=== PATIENT | female | born 1965 | race Caucasian/White ===

== ENCOUNTER → 2016-11-04 | Outpatient (CLI) | payer OTHER ==
[~2016-11-04] MED LIST: IBUP-1459 PO; LISI-787 PO; PRLSR20 PO; TERB250T47 PO
[2016-11-04 12:15] LABS: BLOOD UREA NITROGEN 12 mg/dl (7-18); BUN/CREATININE RATIO 15.3 (10-20); CALCIUM 9.4 mg/dl (8.5-10.1); CARBON DIOXIDE 28 mmol/L (21-32); CHLORIDE 105 mmol/L (98-107); CHOLESTEROL 231 mg/dl (0-200); CREATININE 0.76 mg/dl (0.60-1.20); GLUCOSE,FASTING 87 mg/dl (70-99); POTASSIUM 3.8 mmol/L (3.5-5.1); SODIUM 139 mmol/L (136-145)
[2016-11-04 12:18] LABS: ALB/GLOB RATIO 0.8 (0.9-2); ALKALINE PHOSPHATASE 139 U/L (45-117); ALT/SGPT 21 U/L (12-78); AST/SGOT 17 U/L (15-37); CHOLESTEROL/HDL RATIO 5.4; HDL CHOLESTEROL 43 mg/dl; LDL CHOLESTEROL CALCULATED 153 mg/dl; TRIGLYCERIDES 174 mg/dl (0-150); VERY LOW DENSITY LIPOPROT CALC 35 mg/dl
== END | disposition home or self-care (01) ==
LOC: C.LABPBG 09:38
PROVIDERS: ATTEND Physician Assistant
DX: Z00.00 Encounter for general adult medical examination without abnormal findings (principal)

== ENCOUNTER → 2016-11-30 | Outpatient (CLI) | payer OTHER ==
[2016-11-30 18:02] LABS: ALKALINE PHOSPHATASE 145 U/L (45-117); ALT/SGPT 24 U/L (12-78); AST/SGOT 12 U/L (15-37)
== END | disposition home or self-care (01) ==
LOC: C.LABPBG 13:09
PROVIDERS: ATTEND Neuromusculoskeletal Medicine & OMM
DX: B35.8 Other dermatophytoses (principal)

== ENCOUNTER → 2016-12-07 | Outpatient (CLI) | payer OTHER ==
--- NOTE | 2016-12-07 10:31 | DIAGNOSTIC IMAGING REPORT ---
ABDOMINAL ULTRASOUND, RIGHT UPPER QUADRANT HISTORY: ELEVATED ALCYLINE LEVEL. COMPARISON: None. FINDINGS: Pancreas: The pancreatic head and tail are obscured by overlying bowel gas. The remaining portions of the pancreas are within normal limits. Liver: Unremarkable. Gallbladder: The gallbladder is surgically absent. CBD: 5 mm. Right kidney: No hydronephrosis. IMPRESSION: No significant abnormality identified within the right upper quadrant. Cholecystectomy. Electronically signed by: Scooter Rodriguez M.D. 12/07/2016 10:29 AM Dictated Date/Time: 12/07/2016 10:28 AM
== END | disposition home or self-care (01) ==
LOC: C.ULTR 10:04
PROVIDERS: ATTEND Neuromusculoskeletal Medicine & OMM
DX: R74.8 Abnormal levels of other serum enzymes (principal); Z90.49 Acquired absence of other specified parts of digestive tract

== ENCOUNTER → 2016-12-07 | Outpatient (CLI) | payer OTHER ==
--- NOTE | 2016-12-08 12:44 | MAMMOGRAPHY REPORT ---
THIS REPORT HAS BEEN AMENDED. BILATERAL DIGITAL SCREENING MAMMOGRAM TOMOSYNTHESIS WITH CAD: 12/07/2016 CLINICAL HISTORY: Routine screening. Patient has no complaints. TECHNIQUE: Breast tomosynthesis in addition to standard 2D mammography was performed. Current study was also evaluated with a Computer Aided Detection (CAD) system. COMPARISON: No prior exams were available for comparison. BREAST COMPOSITION: The tissue of both breasts is almost entirely fatty. FINDINGS: There are intramammary lymph nodes in each upper outer quadrant. No suspicious mass, arch itectural distortion or cluster of microcalcifications is seen. IMPRESSION: ACR BI-RADS CATEGORY 1: NEGATIVE There is no mammographic evidence of malignancy. Prior outside mammograms are currently being reques vitor and if obtained they will be reviewed, compared to the current exam to assess for any more subtle changes, and an addendum will be made to this report. Otherwise, a 1 year screening mammogram is re commended. The patient will receive written notification of the results. Approximately 10% of breast cancers are not detected with mammography. A negative mammographic report should not delay biopsy if a clinically suggestive mass is present. Gemma Patton M.D. ay/:12/08/2016 08:06:18 Component Design Engineer: Jenny Taylor M, [facility] letter sent: Normal 04/04 BI-RADS Code: ACR BI-RADS Category 1: Negative AMENDMENT: 12/19/2016 Gemma Patton M.D. Prior outside mammograms from [facility] dated 06/21/2007 became available for review. Ther e has been no significant interval change compared to the prior outside exam. The intramammary lymph nodes identified in each upper outer quadrant are stable. No new suspicious mass, architectural disto rtion, asymmetry or microcavitation calcifications are identified. Recommend routine screening in 1 year. Amended BI-RADS: ACR BI-RADS Category 2: Benign letter sent: Normal 2
== END | disposition home or self-care (01) ==
LOC: C.MAMM 13:33
PROVIDERS: ATTEND Physician Assistant
DX: Z12.31 Encounter for screening mammogram for malignant neoplasm of breast (principal)

== ENCOUNTER → 2017-04-07 | Outpatient (CLI) | payer OTHER | END | disposition home or self-care (01) | LOC: C.LABSPEC 10:07 | PROVIDERS: ATTEND Family Medicine | DX: R39.9 Unspecified symptoms and signs involving the genitourinary system (principal) ==

== ENCOUNTER → 2017-05-25 | Outpatient (CLI) | payer OTHER ==
[~2017-05-25] MED LIST changes: -TERB250T47 PO
[2017-05-25 12:21] LABS: ALBUMIN 3.4 gm/dl (3.4-5.0); ALT/SGPT 24 U/L (12-78); AST/SGOT 18 U/L (15-37); BLOOD UREA NITROGEN 10 mg/dl (7-18); CARBON DIOXIDE 27 mmol/L (21-32); CHOLESTEROL 139 mg/dl (0-200); CREATININE 0.77 mg/dl (0.60-1.20); GLUCOSE 108 mg/dl (70-99); POTASSIUM 3.8 mmol/L (3.5-5.1); SODIUM 130 mmol/L (136-145)
[2017-05-25 12:23] LABS: ALKALINE PHOSPHATASE 127 U/L (45-117); LDL CHOLESTEROL CALCULATED 73 mg/dl; TOTAL PROTEIN 7.5 gm/dl (6.4-8.2)
== END | disposition home or self-care (01) ==
LOC: C.LABPBG 08:40
PROVIDERS: ATTEND Family Medicine
DX: Z00.00 Encounter for general adult medical examination without abnormal findings (principal)

== ENCOUNTER → 2017-07-06 | Outpatient (CLI) | payer OTHER ==
[2017-07-06 17:43] LABS: BLOOD UREA NITROGEN 12 mg/dl (7-18); CARBON DIOXIDE 29 mmol/L (21-32); CREATININE 0.75 mg/dl (0.60-1.20); GLUCOSE 84 mg/dl (70-99); POTASSIUM 4.2 mmol/L (3.5-5.1); SODIUM 135 mmol/L (136-145)
== END | disposition home or self-care (01) ==
LOC: C.LABPBG 12:10
PROVIDERS: ATTEND Physician Assistant
DX: E87.1 Hypo-osmolality and hyponatremia (principal)

== ENCOUNTER → 2017-08-14 | Outpatient (CLI) | payer OTHER ==
[~2017-08-14] MED LIST changes: +ESTR0.5T3 PO; +HYZ/50125 PO
--- NOTE | 2017-08-14 10:53 | DIAGNOSTIC IMAGING REPORT ---
R HIP UNILATERAL 2 VIEWS CLINICAL HISTORY: Right hip pain. COMPARISON: None FINDINGS: This exam is compromised by suboptimal penetration related to body habitus. However, alignment of the right hip is anatomic. No fracture or suspicious lesion is present. There is no evidence for avascular necrosis. The right hip joint space is preserved. There is mild osteophytosis. A pelvic surgical clip is incidentally noted. IMPRESSION: 1. Mild osteoarthritis of the right hip. Preserved joint space with mild osteophytosis. 2. No acute fracture. Electronically signed by: Dave Vargas M.D. 08/14/2017 10:52 AM Dictated Date/Time: 08/14/2017 10:50 AM
== END | disposition home or self-care (01) ==
LOC: C.RADBC 10:26
PROVIDERS: ATTEND Physician Assistant
DX: M16.11 Unilateral primary osteoarthritis, right hip (principal); M25.751 Osteophyte, right hip

== ENCOUNTER → 2017-10-26 | Outpatient (CLI) | payer OTHER ==
[~2017-10-26] MED LIST changes: -LISI-787 PO
== END | disposition home or self-care (01) ==
LOC: C.LABPBG 15:43
PROVIDERS: ATTEND Family Medicine
DX: G25.81 Restless legs syndrome (principal)

== ENCOUNTER 2018-12-26 05:50 | Inpatient (IN) ==
--- NOTE | 2018-12-18 16:01 | PAT Medication Instructions ---
Medication Instructions Date of Service December 18, 2018 Home Medications Medication Instructions Recorded fluticasone propionate 50 1 sprays INTNAS DAILY PRN #18.2 gm 11/21/18 mcg/actuation nasal spray,suspension estradiol 1 mg PO UD omeprazole 20 mg PO QAM oxybutynin chloride ER 10 mg tablet,extended release 24 hr 10 mg PO QAM fluticasone propionate 50 mcg/actuation nasal spray,suspension 1 sprays INTNAS DAILY PRN acetaminophen [Tylenol Extra Strength] 1,000 mg PO DAILY PRN aspirin [Adult Low Dose Aspirin] 81 mg PO QAM atorvastatin 40 mg PO QPM cholecalciferol (vitamin D3) [Vitamin D3] 4,000 units PO QAM losartan-hydrochlorothiazide 1 tab PO QAM ASK your prescriber and surgeon estradiol 1 mg PO UD aspirin [Adult Low Dose Aspirin] 81 mg PO QAM DO NOT take the morning of surgery oxybutynin chloride ER 10 mg tablet,extended release 24 hr 10 mg PO QAM cholecalciferol (vitamin D3) [Vitamin D3] 4,000 units PO QAM losartan-hydrochlorothiazide 1 tab PO QAM Take morning of surgery With a small sip of water, OTHERWISE NOTHING TO EAT OR DRINK AFTER MIDNIGHT: omeprazole 20 mg PO QAM fluticasone propionate 50 mcg/actuation nasal spray,suspension 1 sprays INTNAS DAILY PRN (if needed) acetaminophen [Tylenol Extra Strength] 1,000 mg PO DAILY PRN (okay to take up to 4 hours prior to surgery if needed) Take evening before surgery fluticasone propionate 50 mcg/actuation nasal spray,suspension 1 sprays INTNAS DAILY PRN (if needed) acetaminophen [Tylenol Extra Strength] 1,000 mg PO DAILY PRN (if needed) atorvastatin 40 mg PO QPM Other Notes If you have any questions please call us at [phone] or [phone] or [phone] or [phone]
--- NOTE | 2018-12-19 10:38 | Anesthesiology Consultation ---
Date of Service December 19, 2018 Assessment & Plan (1) Encounter for pre-operative examination: - Chlorhexidine reaction: patient was not given wipes at PAT visit* - ASA instructions: per patient, she states she was advised by surgeon to c tad ASA perioperatively. Chart Review Chart Review: Pending: Refer to Additional Notes / Consult section (pending preop testing (labs, CXR)) and Patient seen in Pre Admission Testing Teaching & Discussion Pre-Anesthesia Teaching/Discussion Notes: Instructed NPO after midnight before surgery,except medications with 15 cc of water. Medication instructions provided according to the [facility] guidelines. History Surgery Operation Date: 12/26/18 07:15 Proposed Procedures p Aortobifemoral Bypass - Rudy Travis MD Height/Weight Height: 5 ft 2 in Weight: 118.8 kg Allergies Allergy/AdvReac Type Severity Reaction Status Date / Time chlorhexidine Allergy Intermediate hives, Verified 12/19/18 10:38 redness Penicillins AdvReac Intermediate nausea, Verified 12/19/18 10:38 vomiting, migraine buPROPion HCl TABS AdvReac Intermediate hallucinati Uncoded 12/19/18 10:38 ons Medications Home Medications Medication Instructions Recorded Confirmed Last Taken estradiol 1 mg PO UD 07/16/18 12/17/18 07/26/18 08:00 omeprazole 20 mg PO QAM 07/16/18 12/17/18 07/26/18 08:00 oxybutynin chloride ER 10 mg 10 mg PO QAM #30 tab 11/13/18 12/17/18 Unknown tablet,extended release 24 hr fluticasone propionate 50 1 sprays INTNAS DAILY PRN #18.2 gm 11/21/18 12/17/18 Unknown mcg/actuation nasal spray,suspension acetaminophen [Tylenol Extra 1,000 mg PO DAILY PRN 12/17/18 12/17/18 Unknown Strength] aspirin [Adult Low Dose Aspirin] 81 mg PO QAM 12/17/18 12/17/18 Unknown atorvastatin 40 mg PO QPM 12/17/18 12/17/18 Unknown cholecalciferol (vitamin D3) 4,000 units PO QAM 12/17/18 12/17/18 Unknown [Vitamin D3] losartan-hydrochlorothiazide 1 tab PO QAM 12/17/18 12/17/18 Unknown Past Medical History Medical History Peripheral arterial disease 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 Hypertension Migraine GERD (gastroesophageal reflux disease) controlled Degenerative disc disease Arthritis Hyperlipidemia Obesity, morbid Urinary incontinence Anxiety and depression Exercise / Class Metabolic Activity III < 4 Walking/Shop/Light housework Past Family History Family History Father Family hx colonic polyps Mother Coronary heart disease Depression Kidney disease Hypertension Father Lymphoma Brother Depression Muscular dystrophy Sister Depression Past Surgical History Surgical History History of bilateral tubal ligation History of cholecystectomy History of colonoscopy 07/26/18: MAC sedation at [facility] History of tonsillectomy History of tooth extraction History of total abdominal hysterectomy and bilateral salpingo-oophorectomy History of wisdom tooth extraction Status post myringotomy with tube placement of both ears multiple times Past Anesthesia History No Hx of Anesthesia Complications (except "emotional" upon anesthesia emergence) and No Family Hx of Anesthesia Complications History of PONV No Hx of PONV and No Hx of Motion Sickness Social History Smoking Status: Current every day smoker tobacco type: cigarettes Smoking cigarettes per day: 10 CIGARETTES/DAY (DOWN FROM 1 PPD) X 30 YEARS Do You Dip or Chew Tobacco: No Hx Alcohol Use: No Hx Substance Use: No substance use type: does not use Review of Systems Reflux controlled. Patient denies chest pain, shortness of breath, cough, wheezing, palpitations. Physical Exam Vital Signs VITALS BP 116/78 P 89 TEMP 98.4 SP02 99%RA RESP 16 PHYSICAL Full neck and c-spine range of motion. Full TMJ range of motion. TMD 4 finger breaths Mallampati Score 2 Dentition: missing sides/molars Lungs: clear throughout to auscultation Cardiac: regular rate and rhythm, no murmurs noted Spine: normal Carotid arteries: negative bruit Extremities: no edema Testing Electrocardiogram Date: 09/05/18 Findings: + NSR @ (84) Stress Test Date: 09/06/18 Type: DSE Negative DSE for ischemia at 91% MPHR. Negative dobutamine EKG for ischemia. LVEF 60%. No RWMA.
--- NOTE | 2018-12-19 11:15 | XRay Report ---
XR chest Pre-admission PA/Lat HISTORY: Preop. COMPARISON: None. FINDINGS: There are low lung volumes. The lungs are clear. The heart is normal in size. No pleural ef fusions. No pneumothorax. Prior cholecystectomy. IMPRESSION: No acute process. Electronically signed by: Scooter Rodriguez M.D. 12/19/2018 11:14 AM
[2018-12-19 13:15] LABS: Basophils # (auto) 0.03 K/uL (0-0.2); Basophils % (auto) 0.3 %; Eosinophils # (auto) 0.09 K/uL (0-0.5); Hematocrit (blood only) 41.5 % (37-47); Hemoglobin 14.1 g/dL (12.0-16.0); Immature Granulocytes # (auto) 0.02 K/uL (0.00-0.02); Immature Granulocytes % (auto) 0.2 %; Lymphocytes # (auto) 2.58 K/uL (1.2-3.4); Lymphocytes % (auto) 29.4 %; Mean Corpuscular Hemoglobin 29.9 pg (25-34); Mean Corpuscular Volume 87.9 fL (80-100); Mean Platelet Volume 8.7 fL (7.4-10.4); Monocytes # (auto) 0.56 K/uL (0.11-0.59); Monocytes % (auto) 6.4 %; Neutrophils # (auto) 5.51 K/uL (1.4-6.5); Neutrophils % (auto) 62.7 %; Platelet Count 291 K/uL (130-400); RDW Coefficient of Variation 14.5 % (11.5-14.5); RDW Standard Deviation 46.8 fL (36.4-46.3); Red Blood Count 4.72 M/uL (4.2-5.4); White Blood Count 8.79 K/uL (4.8-10.8)
[2018-12-19 13:25] LABS: BUN Creatinine Ratio 8.9 (10-20); Calcium 9.1 mg/dl (8.5-10.1); Creatinine Clr Calc Pharmacy 100.7 ml/min; Est GFR (African American) 98.2; Est GFR (Non-African American) 84.8; Potassium 4.1 mmol/L (3.5-5.1)
[2018-12-19 13:34] LABS: Partial Thromboplastin Time 26.8 Seconds (21.0-31.0); Prothrombin Time 9.9 Seconds (9.0-12.0)
--- NOTE | 2018-12-25 15:40 | History & Physical Report ---
Date of Service December 25, 2018 Assessment & Plan (1) Aortic occlusion: Patient is admitted for an aortobifemoral bypass. I have discussed the risks options and benefits of the procedure with the patient. The patient understands the risks options and benefits and agrees to the procedure. History of Present Illness Chief Complaint: Abdominal aortic occlusion Primary Care Provider: Courtney Lynch, DO I the pleasure of seeing Meghan today for follow-up. As you know she is a 53-year-old female who is scheduled for an aortobifemoral bypass at [facility]. She was canceled at that time due to rash in her groin. Since then she is was taking Mycostatin powder. She claims her rash has cleared up and would like her surgery done in [facility] in [place] to avoid the trip down the [facility]. Allergies Allergy/AdvReac Type Severity Reaction Status Date / Time chlorhexidine Allergy Intermediate hives, Verified 12/26/18 06:11 redness Penicillins AdvReac Intermediate nausea, Verified 12/26/18 06:11 vomiting, migraine bupropion AdvReac Hallucinati Verified 12/26/18 06:11 ng Home Medications Home Medications Medication Instructions Recorded Confirmed Type estradiol 1 mg PO UD 07/16/18 12/26/18 History omeprazole 20 mg PO QAM 07/16/18 12/26/18 History oxybutynin chloride ER 10 mg 10 mg PO QAM #30 tab 11/13/18 12/26/18 History tablet,extended release 24 hr fluticasone propionate 50 1 sprays INTNAS DAILY PRN #18.2 gm 11/21/18 12/26/18 Rx mcg/actuation nasal spray,suspension acetaminophen [Tylenol Extra 1,000 mg PO DAILY PRN 12/17/18 12/26/18 History Strength] aspirin [Adult Low Dose Aspirin] 81 mg PO QAM 12/17/18 12/26/18 History atorvastatin 40 mg PO QPM 12/17/18 12/26/18 History cholecalciferol (vitamin D3) 4,000 units PO QAM 12/17/18 12/26/18 History [Vitamin D3] losartan-hydrochlorothiazide 1 tab PO QAM 12/17/18 12/26/18 History Past Med/Surg History Medical History Peripheral arterial disease 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 History of tonsillectomy History of tooth extraction History of total abdominal hysterectomy and bilateral salpingo-oophorectomy History of wisdom tooth extraction Status post myringotomy with tube placement of both ears multiple times Family History Father Family hx colonic polyps Mother Coronary heart disease Depression Kidney disease Hypertension Cardiac disorder Myocardial infarction Father Lymphoma Brother Depression Muscular dystrophy Clotting disorder Sister Depression Grandfather Myocardial infarction Social History Preferred Language: Mauritian Communication Ability: Effective Plastic Shaper Required: No Beliefs That Will Affect Care: None Current Living Situation: Spouse and Family Current Living Situation Comment: Lives with and 2 adult children current occupation: homemaker Other Information That Helps Us Care for You: No Feels Safe at Home: Yes Safety Concerns: Feels Safe At This Time Smoking Status: Current every day smoker Tobacco Type: cigarettes ; Cigarettes Per Day: 20 a day ; Do You Dip or Chew Tobacco: No ; Second Hand Exposure: Yes ( and son smoke) ; Tobacco Cessation Education Requested by Patient: No Hx Alcohol Use: No Hx Substance Use: No Review of Systems All systems reviewed & are unremarkable except as noted in HPI & below + claudication Physical Exam Constitutional: well developed and well nourished; no acute distress Neck: trachea midline Respiratory: normal respiratory effort, lungs clear to auscultation Cardiovascular: Rate/Rhythm: regular rate and regular rhythm Vessels: radial pulses present; + femoral pulses abnormal, + posterior tibial pulses abnormal and + dorsalis pedis pulses abnormal Gastrointestinal (Abdomen): normal bowel sounds, soft, nontender, no hepatosplenomegaly Musculoskeletal: Extremities: extremities normal to inspection and strength 5/5 throughout; full ROM of extremities Skin: no rashes, warm and dry Neurologic: normal touch/pain/proprioception and CN's II-XI intact bilaterally Motor/Sensory: normal movement Psychiatric: A+Ox3, euthymic affect
[2018-12-26] MEDS ORDERED: LACTATED RINGER'S 1,000 ML IV SCH (06:00)
[2018-12-26] MEDS ORDERED: CLINDAMYCIN 600 MG/54 ML BAG IV SCH (06:00)
[2018-12-26] MEDS ORDERED: LR 15ML/HR IV SCH (06:00)
[2018-12-26] MEDS ORDERED: HYDROmorphone INJ 1 MG/ML SYRINGE IV PRN (07:16)
[2018-12-26] MEDS ORDERED: ATROPINE SULFATE 0.1 MG/ML 10ML SYR IV PRN (07:16)
[2018-12-26] MEDS ORDERED: fentaNYL citrate 100 MCG/2 ML VIAL IV PRN (07:16)
[2018-12-26] MEDS ORDERED: ePHEDrine sulfate 50 MG/ML AMP IV PRN (07:16)
[2018-12-26] MEDS ORDERED: ONDANSETRON INJ 2 MG/ML 2 ML VIAL IV PRN ×2 (07:16→15:06)
[2018-12-26] MEDS ORDERED: CEFAZOLIN 250 MG/ML 1 GM VIAL ONE (07:25)
[2018-12-26] MEDS ORDERED: HEPARIN (PORCINE) 1000 UNIT/ML 10 ML (CATH LAB USE ONLY) ONE ×2 (07:25→09:25)
[2018-12-26] MEDS ORDERED: GELATIN SPONGE SZ 100 ONE (07:25)
[2018-12-26] MEDS ORDERED: THROMBIN FOR SOLN 20000 UNIT KIT ONE (07:26)
[2018-12-26] MEDS ORDERED: fentaNYL citrate 100 MCG/2 ML VIAL ONE ×2 (07:40→14:50)
[2018-12-26] MEDS ORDERED: MIDAZOLAM HCL 1 MG/ML 2ML VIAL ONE ×3 (07:40→15:59)
[2018-12-26] MEDS ORDERED: NITROGLYCERIN/D5W 100MCG/ML 20ML SYR ONE (07:43)
--- NOTE | 2018-12-26 08:06 | History & Physical Bridge Note ---
Date of Service December 26, 2018 History & Physical Bridge Note I have examined the patient, reviewed the History & Physical and in the interval since the performance of the History & Physical I have noted the following changes of clinical significance: no changes noted
[2018-12-26] MEDS ORDERED: HYDROmorphone INJ 2 MG/ML SYR/VIAL ONE ×2 (09:05→09:34)
[2018-12-26] MEDS ORDERED: KETAMINE HCL INJ 50 MG/ML 10 ML VIAL ONE (09:05)
[2018-12-26] MEDS ORDERED: PROPOFOL IV EMULSION 10 MG/ML 20 ML VIAL IV ONE (09:32)
[2018-12-26] MEDS ORDERED: LIDOCAINE HCL 2% 2 ML VIAL/AMP(20MG/ML) INFIL ONE (09:41)
[2018-12-26] MEDS ORDERED: SODIUM CHLORIDE 0.9% INJ 10 ML VIAL ONE (09:41)
[2018-12-26] MEDS ORDERED: ROCURONIUM BROMIDE 10 MG/ML 5 ML VIAL ONE ×5 (09:41→14:54)
[2018-12-26] MEDS ORDERED: PHENYLEPHRINE HCL 10 MG/ML VIAL ONE ×2 (09:41→13:27)
[2018-12-26] MEDS ORDERED: DEXAMETHASONE SOD INJ 4 MG/ML VIAL ONE (09:41)
[2018-12-26] MEDS ORDERED: ONDANSETRON INJ 2 MG/ML 2 ML VIAL ONE (09:41)
[2018-12-26] MEDS ORDERED: HEPARIN SOD (PORCINE) 1000 UNIT/ML 10 ML VIAL ONE ×2 (09:51→12:12)
[2018-12-26] MEDS ORDERED: BACITRACIN INJ 50,000 UNIT VIAL ONE ×2 (10:28→14:43)
[2018-12-26] MEDS ORDERED: MANNITOL 25% 12.5 GM/50 ML VIAL IV ONE (11:10)
[2018-12-26] MEDS ORDERED: VASOPRESSIN 20 UNIT/ML VIAL ONE (11:40)
[2018-12-26] MEDS ORDERED: PROTAMINE SULFATE 10 MG/ML 5 ML VIAL ONE (14:49)
[2018-12-26] MEDS ORDERED: METOPROLOL TARTRATE 1 MG/ML VIAL IV ONE (15:01)
--- NOTE | 2018-12-26 15:05 | Post Operative Brief Note ---
Immediate Post Op Note v1 Date of Surgery December 26, 2018 Pre & Post Diagnosis Operation Date: 12/26/18 08:00 Pre-Op Diagnosis: Aortoiliac Occlusive Disease Post-Op Diagnosis: Aortoiliac Occlusive Disease Procedure Operation Date: 12/26/18 08:00 Actual Procedures p Aortobifemoral Bypass(Not Applicable) - Rudy Travis MD Surgeon Rudy Travis MD Cardiologist MD dEith IrahetaMinarchick,PAC Estimated Blood Loss 600 Findings Consistent with Post-Op Diagnosis Drains Nayak Catheter Anesthesia Type General Complications none Disposition Accompanied Patient To Recovery: No Disposition: Surgical ICU
[2018-12-26 16:26] LABS: iSTAT Creatinine 0.5 mg/dl (0.6-1.3); iSTAT Hemoglobin 9.5 g/dl (12.0-16.0); iSTAT Ionized Calcium 0.98 mmol/l (1.12-1.32); iSTAT Potassium 4.3 mEq/L (3.3-5.0)
[2018-12-26 16:26] LABS: iSTAT Arterial Blood Gas HCO3 18 meg/L (19-24); iSTAT Arterial Blood Gas pCO2 41 mmHg (35-46); iSTAT Arterial Blood Gas pH 7.25 (7.35-7.45); iSTAT Arterial Blood Gas pO2 408 mmHg (80-95); iSTAT Carbon Dioxide 19 mEq/l (24-31)
[2018-12-26 16:26] LABS: iSTAT Creatinine 0.5 mg/dl (0.6-1.3); iSTAT Hemoglobin 12.6 g/dl (12.0-16.0); iSTAT Ionized Calcium 1.13 mmol/l (1.12-1.32); iSTAT Potassium 3.5 mEq/L (3.3-5.0)
[2018-12-26 16:26] LABS: iSTAT Creatinine 0.5 mg/dl (0.6-1.3); iSTAT Hemoglobin 11.2 g/dl (12.0-16.0); iSTAT Potassium 4.2 mEq/L (3.3-5.0)
[2018-12-26] MEDS ORDERED: PHENYLEPHRINE HCL 20 MG in DEXTROSE 5% 500 ML IV STA (16:26)
[2018-12-26] MEDS ORDERED: CALCIUM GLUCONATE 10% 10 ML VIAL IV STA (16:28)
[2018-12-26] MEDS ORDERED: SODIUM CHLORIDE 0.9% 250 ML IV PRN (16:34)
--- NOTE | 2018-12-26 16:35 | Operative Report ---
Post Operative Report Pre & Post Diagnosis Operation Date: 12/26/18 08:00 Pre-Op Diagnosis: Aortoiliac Occlusive Disease Post-Op Diagnosis: Aortoiliac Occlusive Disease Procedure Operation Date: 12/26/18 08:00 Actual Procedures p Aortobifemoral Bypass(Not Applicable) - Rudy Travis MD Surgeon Rudy Travis MD Administrative Library Assistant MD Esequiel L.Minarchick,PAC Estimated Blood Loss 600 Findings Consistent with Post-Op Diagnosis Specimens None Anesthesia Type General Complications none Disposition Disposition: Surgical ICU Indications Meghan Russell is a 53 year old women with Aortoiliac Occlusive disease. She was having symptoms of claudication and was offered a aortobifemoral bypass. The risks and benefits of the procedure were discussed with the patient and wished to proceed. Consent was signed prior to her entering the operating room. Description of Procedure The patient was brought to the operating room and placed in the supine position with the arms out. General anesthesia was induced and the patient was safely intubated. An arterial line was placed in the left wrist and a horner was inserted. The patient was prepped from the xiphoid to bilateral knees and draped in the standard fashion. A surgical time out was preformed confirming patient and procedure. A midline incision was then made using a #10 scalpel from the xiphoid to below the umbilicus. This was deepened using electrocautery until the fascia was reached. Kochers were used to grasp the fascia on either side of midline and sharply divided allowing for safe entry into the abdomen. A finger was inserted into the peritoneal cavity used to bluntly sweep omental adhesions away from midline. The remainder of the fascia was then opened. The remainder of the omental adhesions were then divided from the abdominal wall. A Bookwalter self-retaining retractor was then placed and used to push the transverse colon into the upper abdomen and small bowel into the right lower quadrant. Additional retractors were then placed to adequately expose the retroperitoneum overlaying the infrarenal aorta. The retroperitoneum was then divided and blunt dissection was used until the aorta was identified. The overlaying lymphatic and neur ovascular tissue was divided until an adequate length of aorta was exposed to complete our anastomosis. During this the IMV was identified and doubly clipped before being divided, this allow for additional superior retraction. Attention was then turned to exposure of the bilateral femoral arteries. A vertical incision as made in the the left groin and carried down to the femoral sheath with electrocautery. This was then sharply opened to expose the left SFA, the artery was then dissected superiorly over the ENVIRONMENTAL FIELD PROFESSIONAL until the inguinal ligament was reached. The Profunda was identified and dissected so that it could be safely clamped. We next made an vertical incision in the right groin and carried the incision down to the femoral sheath which was then sharply opened. The SFA was identified and the dissection was then carried proximally to the level of the inguinal ligament. During this a small medial branch was avulsed. A 6-0 Prolene was used in a figure of eight fashion to control the bleeding on the ENVIRONMENTAL FIELD PROFESSIONAL, and a clip was used to control the distal branch. Following this the Profunda was dissected to allow for clamping. Bacitracin soaked laparotomy pads were then placed in the groin incisions. At his point 8000 units of Heparin were given intravenously. We returned to the abdomen and proceed to place a clamp across the proximal and distal infrarenal aorta. A arteriotomy was made with a #11 scalpel and extended with a angled Crowe scissor. A Le Claire-Osiel 14 x 7mm bifurcated graft was then selected and parachuted onto the aorta using 3-0 Prolene. The anastomosis was then completed in a running fashion. There was significant calcification of the left wall of the aorta in this area. The legs of the graft were clamped and our distal aortic clamp was removed and a area of bleeding was noted at the toe of our anastomosis. This was controlled with a pledgeted 3-0 Prolene. A tunnel was bluntly created from the left groin incision into our retroperineal dissection. A long aortic clamp was then passed through our tunnel and used to bring the left limb of the graft into our groin incision. Care was taken to ensure there was no twisting of the graft during this. The process was repeated on the the right. Thrombin soaked gel-foam was then placed around the aortic anastomosis and we proceed to begin the distal anastomoses. At this time 3000 units of additional heparin were given. Starting in the left groin, we clamped the ENVIRONMENTAL FIELD PROFESSIONAL, SFA and Profunda. A arteriotomy was made in the ENVIRONMENTAL FIELD PROFESSIONAL with a #11 scalpel and extended onto the SFA using angled Crowe scissors. There was a large plaque burden present and preformed a endarterectomy at this time. The graft was then trimmed to an appropriate length and beveled. A anastomosis was created using 5-0 Prolene in a running fashion. Our clamps were removed and our anastomosis was hemostatic. There were excellent Doppler signals present in the SFA and Profunda. Thrombin soaked gel-foam was placed across our suture line and the groin was packed with a laparotomy pad. Attention was turned to the right groin where we clamped the ENVIRONMENTAL FIELD PROFESSIONAL, SFA and Profunda. An arteriotomy was made on the ENVIRONMENTAL FIELD PROFESSIONAL and extended onto the SFA with Crowe scissors. Again, there was noted to be a moderate amount of plaque and a endarterectomy was preformed. The graft was trimmed and beveled to a appropriate length. A anastomosis was then created using 5-0 Prolene in a running fashion. Upon removal of our clamps there was noted to be a area of bleeding along our suture line which was controlled with a 6-0 Prolene in a figure of eight fashion. Excellent doppler signals were found in the Profunda and SFA. The suture line was packed with thrombin soaked gel-foam and a laparotomy pad was placed in the incision. Returning to the abdomen, our aortic anastomosis was hemostatic and the gel-foam was removed. The abdomen was then irrigated with a liter of bacitracin impregnated normal saline. The retroperitoneum was then reapproximated using 3-0 Vicryl in a running fashion. Following this, a small serosal tear was identified on a loop of small bowel. This was oversewn with 3-0 Silk Lembert suture. The retractors were removed and we began to close the abdomen. Looped #1 PDS was used to reapproximate the fascia. A layer of 2-0 Vicryl was then used to reapproximate the deep subcutaneous tissue and a layer of 3-0 Vicryl was used to bring the deep dermis together. Mind[place] were then used to reapproximated the skin. The groins were then closed in layers. First the femoral sheath was reapproximated with 2-0 Vicryl and the subcutaneous tissue was closed with a running 3-0 Vicryl. The skin was then closed with raul. All sponge, instrument and needle counts were correct. The patient was noted to have excellent DP signals bilaterally at the end of the Procedure. Clean dressings were applied to the wounds. The patient was then transported to SICU intubated in stable condition. Dr. Travis was present and scrubbed for all critical parts of the above procedure. I attest to the content of the Intraoperative Record and any orders documented therein. Any exceptions are noted below.
[2018-12-26] MEDS ORDERED: CALCIUM CHLORIDE 10% 1,000 MG in SODIUM CHLORIDE 0.9% 50 ML IV STA (16:37)
[2018-12-26] MEDS ORDERED: CALCIUM GLUCONATE 10% 1,000 MG in SODIUM CHLORIDE 0.9% 50 ML IV SCH (16:45)
[2018-12-26 16:51] LABS: iSTAT Art Bld Gas pCO2 Correct 31 mmHg (35-46); iSTAT Art Bld Gas pH Corrected 7.273 (7.35-7.45); iSTAT Arterial Blood Gas HCO3 14 meg/L (19-24); iSTAT Arterial Blood Gas pCO2 30 mmHg (35-46); iSTAT Arterial Blood Gas pH 7.28 (7.35-7.45); iSTAT Arterial Blood Gas pO2 151 mmHg (80-95); iSTAT Arterial Blood Gas pO2 C 153; iSTAT Carbon Dioxide 15 mEq/l (24-31); iSTAT FiO2 50 %; iSTAT Hematocrit 29 % (37-47); iSTAT Hemoglobin 9.9 g/dl (12.0-16.0); iSTAT Potassium 5.2 mEq/L (3.3-5.0); iSTAT Site Art Line; iSTAT Sodium 138 mEq/L (135-144)
[2018-12-26 16:57] LABS: Hematocrit (blood only) 34.5 % (37-47); Hemoglobin 11.2 g/dL (12.0-16.0); Mean Corpuscular Hemoglobin 29.6 pg (25-34); Mean Corpuscular Hgb Conc 32.5 g/dL (32-36); Mean Corpuscular Volume 91.3 fL (80-100); Mean Platelet Volume 8.4 fL (7.4-10.4); Platelet Count 298 K/uL (130-400); RDW Coefficient of Variation 14.8 % (11.5-14.5); RDW Standard Deviation 49.8 fL (36.4-46.3); Red Blood Count 3.78 M/uL (4.2-5.4); White Blood Count 32.69 K/uL (4.8-10.8)
[2018-12-26 17:00] LABS: INR 1.1 (0.9-1.1); Partial Thromboplastin Time 27.3 Seconds (21.0-31.0); Prothrombin Time 10.8 Seconds (9.0-12.0)
[2018-12-26 17:07] LABS: BUN Creatinine Ratio 13.6 (10-20); Calcium 6.4 mg/dl (8.5-10.1); Creatinine Clr Calc Pharmacy 77.5 ml/min; Est GFR (African American) 71.5; Est GFR (Non-African American) 61.7; Magnesium 1.7 mg/dl (1.8-2.4); Potassium 5.3 mmol/L (3.5-5.1)
--- NOTE | 2018-12-26 17:07 | Anesthesiology Progress Note ---
Date of Service December 26, 2018 Anesthesia Post Procedure Vital Signs Vital Signs: Temp Pulse Pulse Pulse Resp BP BP 12/26/18 16:57 99.3 F 122 H 16 118/66 12/26/18 16:56 98.8 F 119 H 20 119/66 12/26/18 16:50 117 H 20 110/62 12/26/18 16:45 125 H 20 72/50 L 12/26/18 16:40 128 H 20 50/30 L 12/26/18 16:35 121 H 20 71/40 L 12/26/18 16:30 114 H 20 52/32 L 12/26/18 16:26 99.1 F 126 H 26 H 72/50 L 12/26/18 16:25 117 H 16 12/26/18 06:19 98.2 F 100 H 20 BP Pulse Ox 12/26/18 16:57 100 12/26/18 16:56 100 12/26/18 16:50 100 12/26/18 16:45 100 12/26/18 16:40 100 12/26/18 16:35 100 12/26/18 16:30 100 12/26/18 16:26 103/58 L 100 12/26/18 16:25 95 12/26/18 06:19 159/94 H 97 Pain Intensity Bilateral Leg: Pain Intensity: 0 Transfer of Care Handoff Completed per policy Notes Mental Status: see notes below Patient Amnestic to Procedure: Yes Nausea / Vomiting: adequately controlled Pain: adequately controlled Airway Patency, RR, SpO2: stable & adequate BP & HR: stable & adequate Hydration State: stable & adequate Anesthetic Complications: no major complications apparent and see Notes below Notes: Pt is intubated in the ICU.
[2018-12-26 17:10] LABS: Basophils # (auto) 0.02 K/uL (0-0.2); Basophils % (auto) 0.1 %; Eosinophils # (auto) 0.01 K/uL (0-0.5); Immature Granulocytes % (auto) 0.6 %; Lymphocytes # (auto) 2.48 K/uL (1.2-3.4); Lymphocytes % (auto) 7.6 %; Monocytes # (auto) 2.39 K/uL (0.11-0.59); Monocytes % (auto) 7.3 %; Neutrophils # (auto) 27.59 K/uL (1.4-6.5); Neutrophils % (auto) 84.4 %
--- NOTE | 2018-12-26 17:20 | XRay Report ---
XR chest 1V portable CLINICAL HISTORY: 53 years-old Female presenting with lines. TECHNIQUE: Portable semiupright AP view of the chest was obtained. COMPARISON: 12/19/2018. FINDINGS: Endotracheal tube terminates in the upper to midthoracic trachea over 3 cm from the fauzia. Nasogastr ic tube descends below the diaphragm with side hole likely within the gastric lumen. No intravenous l ine is appreciated. Numerous overlying external leads. Cardiomediastinal silhouette normal. Mild prominence of perihilar lung markings. This may relate to t he mildly low lung volumes. No focal opacity. No large effusion or pneumothorax. Degenerative changes of the thoracic spine. Cholecystectomy clips noted. IMPRESSION: 1. Appropriately positioned tubes. 2. Mildly low lung volumes with hypoventilatory changes. Electronically signed by: Ulices Parra M.D. 12/26/2018 5:19 PM
[2018-12-26] MEDS: D5W AND 1/2NSS 1,000 ML IV SCH (17:59)
[2018-12-26] MEDS: MoRPHine SULFATE 4 MG/ML 1 ML CARP\\VIAL IV PRN ×3 (18:01→23:28)
[2018-12-26] MEDS: MIDAZOLAM HCL 1 MG/ML 2ML VIAL IV PRN ×3 (18:01→23:29)
--- NOTE | 2018-12-26 18:03 | Critical Care Consultation ---
Date of Consultation December 26, 2018 Assessment & Plan (1) Obesity, morbid: Reason Critically Ill: 53 year old woman s/p aortobifemoral bypass surgery who is intubated and on ventilator. She became hypotensive in ICU and is currently requiring pressor Neuro: unable to assess patient's mental status due to intubation No concerns for neurologic insult, will assess further s/p intubation Cardiovascular Aortic ilio occlusive disease status post bifemoral bypass Hypotensive, had measurements with MAP as low as 30's however suspect arterial line may have been spurious. Currently on .4mcg/kg/Hour of phenylephrine and maintaining pressure that is correlating on both A line and BP cuff Sinus tachycardia since arrival Currently running D5 and 1/2 normal at 125/hour Transfusing two units of PRBC's, lost 600 mls intraoperatively ABG on admission to ICU showing 7.29 with base gap of 10 Given calcium citrate, measuring ionized calcium Lactate 4.2 on admission, rechecking now Surgery appears to have been successful bilateral DP pulses palpable, feet appear pink and well perfused. Respiratory Intubated on vent oxygenating well clinically lung sounds normal Plan to extubate tomorrow morning. GI: Abdomen soft, no evidence of intrabdominal issues Will continue to monitor and advance diet post extubation ID: No concern for infectious process at this time. Covered with clindamycin Renal: making appropriate urine BMP scheduled for morning Code Status: Full Dispo: ICU for intubation and pressor requirements currently DVT PPx: SCD's F/E/N: NPO, D5 1/2 NSS at 125/hour (2) Hyperlipidemia: (3) Peripheral arterial disease: (4) Aortic occlusion: (5) S/P aortobifemoral bypass surgery: (6) Hypotension after procedure: (7) Lactic acidosis: (8) Endotracheally intubated: Supervising Physician Co-Signing Physician Notes Dr. Uriostegui was resident physician during care of patient. I separately evaluated patient for allen portions of the history and the exam. I was present during the critical portion of medical decision making, and I discussed the case with the resident. I generally agree with the findings and plan. Patient had extended surgery open aortobifem. After arrival in the ICU patient appeared to be hypotensive from her arterial line and noninvasive cuff however we were able to Doppler pedal pulses which is admittedly a discrepancy between her clinical condition and the reported values. We ordered volume expansion as well as blood and patient required vasoactive medication administration. She will remain intubated in anticipation of fluid shifts and ongoing resuscitation. History of Present Illness Reason for Consultation: Post Op on vent from an aortobifemoral bypass Requesting Physician: Rudy Travis Attending Physician: Rudy Travis MD Allergies Allergy/AdvReac Type Severity Reaction Status Date / Time chlorhexidine Allergy Intermediate hives, Verified 12/26/18 06:11 redness Penicillins AdvReac Intermediate nausea, Verified 12/26/18 06:11 vomiting, migraine bupropion AdvReac Hallucinati Verified 12/26/18 06:11 ng Home Medications Home Medications Medication Instructions Recorded Confirmed Type estradiol 1 mg PO UD 07/16/18 12/26/18 History omeprazole 20 mg PO QAM 07/16/18 12/26/18 History oxybutynin chloride ER 10 mg 10 mg PO QAM #30 tab 11/13/18 12/26/18 History tablet,extended release 24 hr fluticasone propionate 50 1 sprays INTNAS DAILY PRN #18.2 gm 11/21/18 12/26/18 Rx mcg/actuation nasal spray,suspension acetaminophen [Tylenol Extra 1,000 mg PO DAILY PRN 12/17/18 12/26/18 History Strength] aspirin [Adult Low Dose Aspirin] 81 mg PO QAM 12/17/18 12/26/18 History atorvastatin 40 mg PO QPM 12/17/18 12/26/18 History cholecalciferol (vitamin D3) 4,000 units PO QAM 12/17/18 12/26/18 History [Vitamin D3] losartan-hydrochlorothiazide 1 tab PO QAM 12/17/18 12/26/18 History Patient History Medical History Peripheral arterial disease 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 Hypertension Migraine GERD (gastroesophageal reflux disease) controlled Degenerative disc disease Arthritis Hyperlipidemia Obesity, morbid Urinary incontinence Anal fissure Anxiety and depression Elevated alkaline phosphatase level Hyponatremia Skin disorder Tick bite Tinea corporis Surgical History History of bilateral tubal ligation History of cholecystectomy History of colonoscopy 07/26/18: MAC sedation at [facility] History of tonsillectomy History of tooth extraction History of total abdominal hysterectomy and bilateral salpingo-oophorectomy History of wisdom tooth extraction Status post myringotomy with tube placement of both ears multiple times Family History Father Family hx colonic polyps Mother Coronary heart disease Depression Kidney disease Hypertension Cardiac disorder Myocardial infarction Father Lymphoma Brother Depression Muscular dystrophy Clotting disorder Sister Depression Grandfather Myocardial infarction Social History Preferred Language: Palestinian Communication Ability: Intubated Machine Packaging Technician Required: No Beliefs That Will Affect Care: None Current Living Situation: Spouse and Family Current Living Situation Comment: Lives with and 2 adult children current occupation: homemaker Other Information That Helps Us Care for You: No Feels Safe at Home: Yes Safety Concerns: Feels Safe At This Time Smoking Status: Current every day smoker Tobacco Type: cigarettes ; Cigarettes Per Day: 20 a day ; Do You Dip or Chew Tobacco: No ; Second Hand Exposure: Yes ( and son smoke) ; Tobacco Cessation Education Requested by Patient: No Hx Alcohol Use: No Hx Substance Use: No Review of Systems Review of Systems: Unobtainable due to endotracheal tube Physical Exam Physical Exam: Constitutional: Obese woman with large incision down both legs and abdomen from aortobifemoral bypass operation. Intubated on vent, sedated Eyes: Pupils equal round and reactive, anicteric sclerae, unable to assess EOMM Neck: NAD Respiratory: Patient intubated on ventilator, breath sounds bilaterally Cardiovascular: Very faint peripheral pulses palpable, bilateral DP pulses present and able to be picked up on u/s as well Gastrointestinal: Obese abdomen, bandage in place Skin: Bandages over new surgical wounds, pink well perfused skin cap refill normal Results & Data Vital Signs (Past 12 Hours) Vital Signs Temp Pulse Pulse Pulse Resp BP BP 12/26/18 17:50 128 H 72/48 L 12/26/18 17:46 122 H 74/60 L 12/26/18 17:45 37.4 C 121 H 12/26/18 17:41 121 H 12/26/18 17:36 122 H 12/26/18 17:32 122 H 12/26/18 17:30 126 H 12/26/18 17:25 124 H 12/26/18 17:21 123 H 12/26/18 17:15 121 H 108/36 L 12/26/18 17:11 37.4 C 120 H 101/38 L 12/26/18 17:06 115 H 12/26/18 17:01 119 H 12/26/18 17:00 119 H 12/26/18 16:57 37.4 C 122 H 16 118/66 12/26/18 16:56 37.1 C 122 H 119 H 20 86/34 L 119/66 12/26/18 16:50 117 H 20 110/62 12/26/18 16:45 119 H 125 H 20 72/50 L 12/26/18 16:40 128 H 20 50/30 L 12/26/18 16:37 108 H 25/12 L 12/26/18 16:35 121 H 20 71/40 L 12/26/18 16:34 118 H 71/40 L 12/26/18 16:32 119 H 44/36 L 12/26/18 16:30 117 H 114 H 20 52/32 L 12/26/18 16:26 37.3 C 126 H 26 H 72/50 L 12/26/18 16:25 117 H 16 12/26/18 16:20 125 H 72/50 L 12/26/18 16:18 115 H 67/51 L 12/26/18 16:17 115 H 66/56 L 12/26/18 06:19 36.8 C 100 H 20 BP Pulse Ox 12/26/18 17:50 12/26/18 17:46 12/26/18 17:45 12/26/18 17:41 12/26/18 17:36 12/26/18 17:32 12/26/18 17:30 12/26/18 17:25 12/26/18 17:21 12/26/18 17:15 12/26/18 17:11 12/26/18 17:06 12/26/18 17:01 12/26/18 17:00 12/26/18 16:57 12/26/18 16:56 12/26/18 16:50 12/26/18 16:45 96 12/26/18 16:40 12/26/18 16:37 12/26/18 16:35 12/26/18 16:34 12/26/18 16:32 53 L 12/26/18 16:30 91 12/26/18 16:26 103/58 L 100 12/26/18 16:25 95 12/26/18 16:20 100 12/26/18 16:18 100 12/26/18 16:17 100 12/26/18 06:19 159/94 H 97 PG Care Time/CCT Total # of Minutes Spent Total Time Spent with Patient: Total time spent is greater than 50% in coordination of care (as documented) at patient's floor/unit and/or counseling patient: Critical Care Time: Yes Total Critical Care Time: 95 I have personally spent 95 minutes of critical care time in the direct management of this patient. This is a life/limb threatening event. This includes time spent evaluating patient, direct bedside care, chart review, placing orders, interpretation of diagnostic studies, discussion with consultants, patient, and/or family members regarding treatment decisions, as well as other required patient management activities. This time is exclusive of all separately billable procedures, and teaching time and separate from and in addition to any other critical care service time. Resident Activity Tracking Resident Involvement: Resident Care Provided Care Provided: Adult Hospital Medicine
[2018-12-26] MEDS: CLINDAMYCIN 600 MG in DEXTROSE 5% 50 ML IV SCH (18:23)
[2018-12-26] MEDS ORDERED: INFLUENZA ADMINISTRATION CHARGE ONE (19:00)
[2018-12-26] MEDS ORDERED: INFLUENZA VIRUS QUAD VACCINE 0.5 ML SYR IM ONE (19:00)
[2018-12-26] MEDS ORDERED: CALCIUM CHLORIDE 10% 10 ML SYR IV ONE (21:40)
[2018-12-26] MEDS ORDERED: FAMOTIDINE 10 MG/ML 2ML VIAL IV SCH (21:55)
[2018-12-26] MEDS: FAMOTIDINE 20 MG in SYRINGE 3 ML IV SCH (22:04)
[2018-12-27 00:02] LABS: Hematocrit (blood only) 42.9 % (37-47); Hemoglobin 14.5 g/dL (12.0-16.0)
[2018-12-27] MEDS: D5W AND 1/2NSS 1,000 ML IV SCH ×3 (00:39→19:46)
[2018-12-27] MEDS: CLINDAMYCIN 600 MG in DEXTROSE 5% 50 ML IV SCH ×2 (00:40→01:08)
[2018-12-27] MEDS: MoRPHine SULFATE 4 MG/ML 1 ML CARP\\VIAL IV PRN ×6 (01:35→17:54)
[2018-12-27] MEDS: PHENYLEPHRINE HCL 20 MG in DEXTROSE 5% 500 ML IV SCH ×2 (01:41→04:58)
[2018-12-27] MEDS ORDERED: PHENYLEPHRINE HCL 20 MG in DEXTROSE 5% 500 ML IV SCH (01:45)
[2018-12-27] MEDS: MIDAZOLAM HCL 1 MG/ML 2ML VIAL IV PRN (03:56)
[2018-12-27 04:25] LABS: Basophils # (auto) 0.01 K/uL (0-0.2); Hematocrit (blood only) 40.9 % (37-47); Hemoglobin 13.8 g/dL (12.0-16.0); Immature Granulocytes # (auto) 0.13 K/uL (0.00-0.02); Immature Granulocytes % (auto) 0.6 %; Lymphocytes # (auto) 2.34 K/uL (1.2-3.4); Mean Corpuscular Hemoglobin 29.7 pg (25-34); Mean Corpuscular Hgb Conc 33.7 g/dL (32-36); Mean Corpuscular Volume 88.1 fL (80-100); Mean Platelet Volume 8.9 fL (7.4-10.4); Monocytes # (auto) 2.78 K/uL (0.11-0.59); Monocytes % (auto) 11.9 %; Neutrophils # (auto) 18.12 K/uL (1.4-6.5); Neutrophils % (auto) 77.5 %; Platelet Count 187 K/uL (130-400); RDW Coefficient of Variation 14.9 % (11.5-14.5); RDW Standard Deviation 47.6 fL (36.4-46.3); Red Blood Count 4.64 M/uL (4.2-5.4); White Blood Count 23.38 K/uL (4.8-10.8)
[2018-12-27 04:42] LABS: BUN Creatinine Ratio 13.9 (10-20); Calcium 6.9 mg/dl (8.5-10.1); Creatinine Clr Calc Pharmacy 53.4 ml/min; Est GFR (African American) 45.6; Est GFR (Non-African American) 39.3; Magnesium 1.5 mg/dl (1.8-2.4); Potassium 4.6 mmol/L (3.5-5.1)
[2018-12-27] MEDS ORDERED: CALCIUM GLUCONATE 10% 1,000 MG in SODIUM CHLORIDE 0.9% 50 ML IV STA (05:00)
[2018-12-27] MEDS ORDERED: NORMOSOL-R 500 ML IV ONE (05:00)
[2018-12-27] MEDS ORDERED: MAGNESIUM SULFATE / D5W 1 GM/100 ML BAG IV ONE (05:00)
[2018-12-27] MEDS ORDERED: NORMOSOL-R 250 ML IV ONE ×2 (06:24→06:44)
--- NOTE | 2018-12-27 06:43 | Critical Care Progress Note ---
Date of Service December 27, 2018 Assessment & Plan (1) Obesity, morbid: Reason Critically Ill: 53 year old woman s/p aortobifemoral bypass surgery who is intubated and on ventilator post op Neuro: Patient rousable and able to follow commands Will assess further s/p intubation Cardiovascular Aortic ilio occlusive disease status post bifemoral bypass Hypotensive, had measurements with MAP as low as 30's initially started on phenylephrine able to wean off last night Sinus tachycardia since arrival, has been hypertensive for last several hours. Going to extubate and give 5 mg metoprolol IV Transfused 2 units of PRBC's and gave patient 3 L of fluid Surgery appears to have been successful bilateral DP pulses palpable, feet appear pink and well perfused. Will maintain systolic blood pressure less than 160 and diastolic <95 Respiratory Intubated on vent oxygenating well clinically lung sounds normal Patient following commands when roused, will extubate this morning GI: Abdomen soft, no evidence of intrabdominal issues Will continue to monitor and advance diet post extubation ID: No concern for infectious process at this time. Covered with clindamycin for surgery Renal: making appropriate urine BMP scheduled for morning Code Status: Full Dispo: ICU for intubation/ventilator and Blood pressure control DVT PPx: SCD's F/E/N: NPO holding fluid for nowfor hypertension, will try to get oral intake post extubation. Supervising Physician Co-Signing Physician Notes Dr. Uriostegui was resident physician during care of patient. I separately evaluated patient for allen portions of the history and the exam. I was present during the critical portion of medical decision making, and I discussed the case with the resident. I generally agree with the findings and plan. Patient was liberated from the ventilator this morning, she was following complex commands and had a reassuring RSBI. Discontinuing phenylephrine and Versed which were given for sedation, analgesia ordered per vascular surgery. several hours goal to keep her blood pressure below 160 Patient is rather hypertensive in the last. in the acute setting Adding 5 mg metoprolol. IV. Mild MEGHANN after surgery which is anticipated, continue with crystalloid administration. Hypomagnesemia, give additional 2 g IV today. Repeat labs today to evaluate for electrolyte correction as well as resuscitation status. Patient has a BMI of 48, at risk for obstructive sleep apnea and hypoventilation will add end-tidal CO2 monitoring will consider noninvasive mechanical ventilation should the patient ventilation not meet her metabolic demands. Subjective Meghanbk Russell is somnolent on vent this morning, sedated in no apparent distress. Able to be roused easily and follows commands Review of Systems Review of Systems: Unobtainable due to endotracheal tube Physical Exam Physical Exam: Constitutional: Obese woman with large incision down both legs and abdomen from aortobifemoral bypass operation. Intubated on vent, sedated Eyes: Pupils equal round and reactive, anicteric sclerae, unable to assess EOMM Neck: NAD Respiratory: Patient intubated on ventilator, breath sounds bilaterally Cardiovascular: Stronger peripheral pulses palpable, bilateral DP pulses present and able to be picked up on u/s as well Gastrointestinal: Obese abdomen, bandage in place Skin: Bandages over new surgical wounds on abdomen and b/l legs, pink well perfused skin cap refill normal Results & Data Vital Signs (Past 12 Hours) Vital Signs Temp Pulse Resp BP Pulse Ox 12/27/18 06:00 124 H 144/85 H 98 12/27/18 05:30 129 H 98 12/27/18 05:00 137 H 117/81 98 12/27/18 04:30 139 H 117/79 98 12/27/18 04:15 146 H 105/71 97 12/27/18 04:00 153 H 87/60 L 99 12/27/18 03:47 146 H 102/59 L 100 12/27/18 03:46 142 H 76/63 L 100 12/27/18 03:45 133 H 98 12/27/18 03:35 133 H 19 98 12/27/18 03:30 134 H 122/80 98 12/27/18 03:15 132 H 122/81 99 12/27/18 03:00 123 H 132/81 98 12/27/18 02:45 125 H 128/82 98 12/27/18 02:30 122 H 124/83 98 12/27/18 02:15 122 H 118/81 98 12/27/18 02:00 122 H 121/78 99 12/27/18 01:45 121 H 108/76 99 12/27/18 01:31 132 H 92/60 L 98 12/27/18 01:29 134 H 76/55 L 99 12/27/18 01:15 134 H 102/77 99 12/27/18 01:00 134 H 20 106/74 97 12/27/18 00:45 133 H 95/72 L 97 12/27/18 00:30 133 H 100/76 98 12/27/18 00:15 132 H 99/75 L 98 12/27/18 00:00 36.8 C 134 H 98/70 L 99 12/26/18 23:45 134 H 106/71 98 12/26/18 23:30 135 H 110/66 99 12/26/18 23:15 129 H 115/78 98 12/26/18 23:00 128 H 114/79 98 12/26/18 22:45 125 H 115/80 98 12/26/18 22:30 126 H 111/78 98 12/26/18 22:15 126 H 114/80 98 12/26/18 22:11 124 H 18 100 12/26/18 22:01 36.8 C 125 H 18 121/77 100 12/26/18 22:00 124 H 110/75 100 12/26/18 21:45 127 H 111/72 100 12/26/18 21:33 127 H 110/74 99 12/26/18 21:30 129 H 19 102/74 100 12/26/18 21:15 120 H 124/76 100 12/26/18 21:00 122 H 119/79 100 12/26/18 20:45 121 H 122/78 100 12/26/18 20:31 116 H 114/73 100 12/26/18 20:30 127 H 19 117/74 99 12/26/18 20:15 122 H 100 12/26/18 20:00 121 H 19 109/72 100 12/26/18 19:45 36.8 C 123 H 18 98/72 L 97 12/26/18 19:31 36.9 C 128 H 18 92/70 L 100 12/26/18 19:25 123 H 18 100 12/26/18 19:11 36.9 C 121 H 18 104/64 100 12/26/18 19:08 123 H 89/59 L 100 12/26/18 19:00 122 H 96/63 L 100 PG Care Time/CCT Total # of Minutes Spent Total Time Spent with Patient: Total time spent is greater than 50% in coordination of care (as documented) at patient's floor/unit and/or counseling patient: Critical Care Time: Yes Total Critical Care Time: 50 Resident Activity Tracking Resident Involvement: Resident Care Provided Care Provided: Adult [facility] Medicine
[2018-12-27] MEDS ORDERED: METOPROLOL TARTRATE 1 MG/ML VIAL IV STA (07:07)
[2018-12-27] MEDS: FAMOTIDINE 20 MG in SYRINGE 3 ML IV SCH ×2 (07:54→21:30)
[2018-12-27] MEDS: METOPROLOL TARTRATE 1 MG/ML VIAL IV PRN ×3 (08:55→19:42)
[2018-12-27] MEDS ORDERED: LOSARTAN/HCTZ 50/12.5MG TAB PO SCH (09:00)
[2018-12-27] MEDS: MAGNESIUM SULFATE / D5W 1 GM/100 ML BAG IV SCH ×2 (09:44→11:54)
[2018-12-27] MEDS: HEPARIN SODIUM (PORCINE) 7,500 UNITS in SYRINGE 0 ML SQ SCH ×2 (10:42→21:29)
[2018-12-27] MEDS ORDERED: FLUTICASONE PROPIONATE NA SPR 16 GM BTL PRN (14:09)
[2018-12-27] MEDS ORDERED: ACETAMINOPHEN 500 MG TAB PO PRN (14:09)
--- NOTE | 2018-12-27 14:09 | Surgery Progress Note ---
Date of Service December 27, 2018 Assessment & Plan (1) Aortic occlusion: Patient is POD 1 from an AF2. She is doing well. Will restart home meds. Transfer to floor tomorrow. Subjective Patient doesn't feel bad according to her. Does complain of incisional discomfort but treated nicely with meds. Physical Exam Constitutional: well developed and well nourished; no acute distress Neck: trachea midline Respiratory: normal respiratory effort, lungs clear to auscultation Cardiovascular: Rate/Rhythm: regular rate, regular rhythm and + tachycardic Vessels: dorsalis pedis pulses present and radial pulses present Extremities: normal capillary refill good DP and PT to doppler Gastrointestinal (Abdomen): Inspection/Auscultation: abdomen normal to inspection and + abdomen distended (slightly) Percussion/Palpation: abdomen soft Musculoskeletal: Extremities: extremities normal to inspection and strength 5/5 throughout; full ROM of extremities Psychiatric: A+Ox3, euthymic affect Results & Data Vital Signs (Past 12 Hours) Vital Signs Temp Pulse Resp BP Pulse Ox 12/27/18 12:30 118 H 95 12/27/18 12:00 37.5 C 118 H 140/79 96 12/27/18 11:30 116 H 97 12/27/18 11:01 118 H 137/79 97 12/27/18 11:00 117 H 97 12/27/18 10:30 113 H 96 12/27/18 10:00 111 H 148/77 H 97 12/27/18 09:30 108 H 92 12/27/18 09:15 105 H 92 12/27/18 09:00 101 H 137/72 93 12/27/18 08:45 118 H 96 12/27/18 08:30 118 H 95 12/27/18 08:15 114 H 97 12/27/18 08:01 113 H 136/73 97 12/27/18 08:00 37.0 C 115 H 98 12/27/18 07:30 109 H 101/71 98 12/27/18 07:16 108 H 128/70 99 12/27/18 07:00 116 H 163/73 H 100 12/27/18 06:00 124 H 144/85 H 98 12/27/18 05:30 129 H 98 12/27/18 05:00 137 H 117/81 98 12/27/18 04:30 139 H 117/79 98 12/27/18 04:15 146 H 105/71 97 12/27/18 04:00 153 H 87/60 L 99 12/27/18 03:47 146 H 102/59 L 100 12/27/18 03:46 142 H 76/63 L 100 12/27/18 03:45 133 H 98 12/27/18 03:35 133 H 19 98 12/27/18 03:30 134 H 122/80 98 12/27/18 03:15 132 H 122/81 99 12/27/18 03:00 123 H 132/81 98 12/27/18 02:45 125 H 128/82 98 12/27/18 02:30 122 H 124/83 98 12/27/18 02:15 122 H 118/81 98
[2018-12-27 15:45] LABS: Magnesium 2.5 mg/dl (1.8-2.4)
[2018-12-27 15:53] LABS: BUN Creatinine Ratio 18.6 (10-20); Calcium 7.2 mg/dl (8.5-10.1); Creatinine Clr Calc Pharmacy 69.5 ml/min; Est GFR (African American) 62.7; Est GFR (Non-African American) 54.1; Potassium 4.4 mmol/L (3.5-5.1)
[2018-12-27] MEDS ORDERED: NORMOSOL-R 1,000 ML IV ONE (18:03)
[2018-12-27] MEDS: ATORVASTATIN 40 MG TAB PO SCH (21:30)
[2018-12-28] MEDS: MoRPHine SULFATE 4 MG/ML 1 ML CARP\\VIAL IV PRN ×8 (00:38→21:00)
[2018-12-28] MEDS: METOPROLOL TARTRATE 1 MG/ML VIAL IV PRN (03:30)
[2018-12-28] MEDS: D5W AND 1/2NSS 1,000 ML IV SCH ×3 (03:33→17:01)
[2018-12-28 05:58] LABS: BUN Creatinine Ratio 17.9 (10-20); Calcium 6.9 mg/dl (8.5-10.1); Creatinine Clr Calc Pharmacy 94.8 ml/min; Est GFR (African American) 91.3; Est GFR (Non-African American) 78.8; Magnesium 2.3 mg/dl (1.8-2.4); Phosphorus 2.2 mg/dl (2.5-4.9); Potassium 3.9 mmol/L (3.5-5.1)
[2018-12-28 06:07] LABS: Basophils # (auto) 0.02 K/uL (0-0.2); Basophils % (auto) 0.1 %; Hematocrit (blood only) 27.8 % (37-47); Hemoglobin 9.4 g/dL (12.0-16.0); Immature Granulocytes # (auto) 0.07 K/uL (0.00-0.02); Immature Granulocytes % (auto) 0.3 %; Lymphocytes # (auto) 3.69 K/uL (1.2-3.4); Lymphocytes % (auto) 17.8 %; Mean Corpuscular Hemoglobin 29.7 pg (25-34); Mean Corpuscular Hgb Conc 33.8 g/dL (32-36); Mean Platelet Volume 8.6 fL (7.4-10.4); Monocytes # (auto) 2.27 K/uL (0.11-0.59); Monocytes % (auto) 10.9 %; Neutrophils # (auto) 14.71 K/uL (1.4-6.5); Neutrophils % (auto) 70.9 %; Platelet Count 153 K/uL (130-400); RDW Standard Deviation 48.3 fL (36.4-46.3); Red Blood Count 3.16 M/uL (4.2-5.4); White Blood Count 20.76 K/uL (4.8-10.8)
--- NOTE | 2018-12-28 06:49 | Critical Care Progress Note ---
Date of Service December 28, 2018 Assessment & Plan (1) Morbid (severe) obesity due to excess calories: Reason Critically Ill: 53 year old woman s/p aortobifemoral bypass surgery who is was extubated yesterday Neuro: CAM ICU negative Patient awake alert and oriented, feeling well from a mental clarity standpoint No gross motor deficits Cardiovascular Aortic ilio occlusive disease status post bifemoral bypass Hyptension improved post intubation, though patient has remained sinus tachycardic Will defer management to primary team Surgery appears to have been successful bilateral DP pulses palpable, feet appear pink and well perfused. Will maintain systolic blood pressure less than 160 and diastolic <95 with prn propranolol Respiratory Extubated successfully No respiratory concerns at this time oxygenating on room air GI: Abdomen tender only at incision, soft and nontender away from incision Advancing diet ID: No concern for infectious process at this time. Covered with clindamycin for surgery Renal: making appropriate urine BMP scheduled for morning Code Status: Full Dispo: Will step down to tele today DVT PPx: heparin sub q F/E/N: clear liquid diet (2) Endotracheally intubated: (3) Lactic acidosis: (4) Hypotension after procedure: Supervising Physician Co-Signing Physician Notes Dr. Uriostegui was resident physician during care of patient. I separately evaluated patient for allen portions of the history and the exam. I was present during the critical portion of medical decision making, and I discussed the case with the resident. I generally agree with the findings and plan. Repleted potassium today discussed with Vascular Surgery: Racheal necessity of estradiol. Will be ordered for downgrade out of ICU per vascular surgery team Subjective Patient resting comfortably this morning, when I woke her up from sleep she complained of incisional abdominal pain. She is oriented and aware of her current situation and had no questions at this time. Review of Systems Review of Systems: All systems reviewed & are unremarkable except as noted in HPI & below Constitutional: No fevers, chills Respiratory: Breathing comfortably, not having any shortness of breath Cardio: Tachycardic, patient tells me she is always tachycardic, no change from her baseline. GI: Abdominal pain over incision, no nausea, vomiting or retching. Integ: no incisional hematomas appreciated Physical Exam Constitutional: Constitutional: Morbidly Obese, NG tube on suction in place, Otherwise well appearing, cooperative, in mild pain when she moves. Eyes: PERRL, conjunctivae normal, anicteric sclerae Respiratory: normal respiratory effort, lungs clear to auscultation Cardiovascular: Rate/Rhythm: regular rhythm and + tachycardic Heart Sounds: normal S1 and normal S2; no click, no gallop, no murmur and no cardiac rub Vessels: normal peripheral pulses Gastrointestinal (Abdomen): Abdomen soft, incision site appears clean with no underlying hematoma Results & Data Vital Signs (Past 12 Hours) Vital Signs Temp Pulse BP Pulse Ox 12/28/18 03:30 117 H 160/84 H 93 12/28/18 03:00 131 H 160/84 H 99 12/28/18 02:30 129 H 98 12/28/18 02:00 132 H 127/66 98 12/28/18 01:30 125 H 97 12/28/18 01:00 131 H 95/50 L 95 12/28/18 00:30 37.1 C 136 H 95 12/28/18 00:00 131 H 125/53 L 98 12/27/18 23:30 125 H 100 12/27/18 23:01 126 H 142/76 H 98 12/27/18 23:00 123 H 97 12/27/18 22:30 127 H 99 12/27/18 22:00 122 H 140/76 100 12/27/18 21:59 122 H 139/75 97 12/27/18 21:30 122 H 97 12/27/18 21:00 119 H 139/75 96 12/27/18 20:00 36.8 C 113 H 127/76 96 12/27/18 19:42 128 H 172/71 H 12/27/18 19:39 128 H 141/75 H 96 12/27/18 19:00 124 H 138/61 98 PG Care Time/CCT Total # of Minutes Spent Total Time Spent with Patient: Total time spent is greater than 50% in coordination of care (as documented) at patient's floor/unit and/or counseling patient: Resident Activity Tracking Resident Involvement: Resident Care Provided Care Provided: Adult Hospital Medicine
[2018-12-28] MEDS: OXYBUTYNIN CHLORIDE XL 5 MG TABCR PO SCH (07:45)
[2018-12-28] MEDS: PANTOprazole 40 MG TAB PO SCH (07:45)
[2018-12-28] MEDS: ASPIRIN 81 MG ECTAB PO SCH (07:45)
[2018-12-28] MEDS: CHOLECALCIFEROL 1,000 UNITS TAB PO SCH (07:45)
[2018-12-28] MEDS: FAMOTIDINE 20 MG in SYRINGE 3 ML IV SCH ×2 (07:49→20:51)
[2018-12-28] MEDS ORDERED: POTASSIUM PHOS 3 MMOL/1 ML INFUSION IV STA (08:34)
[2018-12-28] MEDS: HEPARIN SODIUM (PORCINE) 7,500 UNITS in SYRINGE 0 ML SQ SCH ×2 (08:57→20:52)
[2018-12-28 09:00] LABS: Hemoglobin 9.2 g/dL (12.0-16.0)
[2018-12-28] MEDS ORDERED: POTASSIUM PHOSPHATE 18 MMOL in SODIUM CHLORIDE 0.9% 500 ML IV ONE (09:00)
--- NOTE | 2018-12-28 09:06 | Surgery Progress Note ---
Date of Service December 28, 2018 Assessment & Plan (1) S/P aortobifemoral bypass surgery: Pt doing well post op. Remove NG tube and start CL diet. OOB to chair with assistance. Start PT/OT. Transfer to PCU. Present on Admission?: No (2) Aortic occlusion: Pt now s/p aortobifem BPG. Present on Admission?: Yes Subjective 53 yo f POD #2 after aortobifem BPG by Dr Travis, seen in f/u today. Pt states pain well controlled with medications. Admits pain in abd and incisions. Also states her throat is sore. Denies chest pain, SOB, BOUCHER, dizziness, nausea, foot pain, other complaints. NG and Urine output acceptable. Hgb decreased to 9.5. Remains tachycardic, baseline HR 104. Cr stable. Review of Systems Review of Systems: All systems reviewed & are unremarkable except as noted in HPI & below Physical Exam Constitutional: WD/WN, vitals as above + morbidly obese; no acute distress Respiratory: normal respiratory effort Auscultation: + wheezes Cardiovascular: Rate/Rhythm: regular rhythm and + tachycardic Vessels: posterior tibial pulses present (palapble RLE) and dorsalis pedis pulses present (palpable BLE) Extremities: normal capillary refill; no pedal edema Gastrointestinal (Abdomen): normal bowel sounds, soft, nontender, no hepatosplenomegaly Musculoskeletal: Extremities: strength 5/5 throughout Skin: + incision (abd/BL groin C/D/I with raul, soft edema, tenderness. ) Neurologic: moves all extremities; no focal motor deficits Psychiatric: A+Ox3, euthymic affect Results & Data Vital Signs (Past 12 Hours) Vital Signs Temp Pulse BP Pulse Ox 12/28/18 07:12 129 H 105/57 L 95 12/28/18 07:00 130 H 98/54 L 95 12/28/18 06:30 124 H 95 12/28/18 06:00 126 H 108/61 94 12/28/18 05:39 127 H 127/56 L 93 12/28/18 05:30 125 H 92 12/28/18 05:00 129 H 12/28/18 04:30 120 H 93 12/28/18 04:00 37.3 C 122 H 105/70 94 12/28/18 03:30 117 H 160/84 H 93 12/28/18 03:00 131 H 160/84 H 99 12/28/18 02:30 129 H 98 12/28/18 02:00 132 H 127/66 98 12/28/18 01:30 125 H 97 12/28/18 01:00 131 H 95/50 L 95 12/28/18 00:30 37.1 C 136 H 95 12/28/18 00:00 131 H 125/53 L 98 12/27/18 23:30 125 H 100 12/27/18 23:01 126 H 142/76 H 98 12/27/18 23:00 123 H 97 12/27/18 22:30 127 H 99 12/27/18 22:00 122 H 140/76 100 12/27/18 21:59 122 H 139/75 97 12/27/18 21:30 122 H 97 12/27/18 21:00 119 H 139/75 96
[2018-12-28] MEDS: ATORVASTATIN 40 MG TAB PO SCH (20:52)
[2018-12-29] MEDS: MoRPHine SULFATE 4 MG/ML 1 ML CARP\\VIAL IV PRN ×2 (01:35→07:29)
[2018-12-29] MEDS: D5W AND 1/2NSS 1,000 ML IV SCH (02:47)
[2018-12-29] MEDS: PANTOprazole 40 MG TAB PO SCH (07:33)
[2018-12-29] MEDS: ASPIRIN 81 MG ECTAB PO SCH (07:33)
[2018-12-29] MEDS: OXYBUTYNIN CHLORIDE XL 5 MG TABCR PO SCH (07:33)
[2018-12-29] MEDS: CHOLECALCIFEROL 1,000 UNITS TAB PO SCH (07:34)
[2018-12-29] MEDS: HEPARIN SODIUM (PORCINE) 7,500 UNITS in SYRINGE 0 ML SQ SCH ×2 (07:35→20:22)
[2018-12-29] MEDS: FAMOTIDINE 20 MG in SYRINGE 3 ML IV SCH ×2 (07:49→20:19)
--- NOTE | 2018-12-29 08:50 | Surgery Progress Note ---
Date of Service December 29, 2018 Assessment & Plan (1) S/P aortobifemoral bypass surgery: Pt doing well post op. She is tolerating her diet so will increase diet as tolerated. Nayak and IV's out today. Ambulate Tachycardia persists but does claim she is baseline tachycardic in the 100's Hbg slightly low due to acute blood loss anemia from surgery. (2) Aortic occlusion: Pt now s/p aortobifem BPG. Subjective 53 yo f POD #3 after aortobifem BPG Patient only complaint is incisional pain. She is tolerating clear liquids. No complaints of foot pain or leg discomfort Physical Exam Constitutional: well developed and well nourished; no acute distress Respiratory: normal respiratory effort, lungs clear to auscultation Cardiovascular: Rate/Rhythm: regular rate, regular rhythm and + tachycardic Vessels: dorsalis pedis pulses present (bilateral palpable) and radial pulses present Extremities: normal capillary refill Gastrointestinal (Abdomen): Inspection/Auscultation: abdomen normal to inspection and + abdomen distended (slightly) Percussion/Palpation: abdomen soft Musculoskeletal: Extremities: extremities normal to inspection and strength 5/5 throughout; full ROM of extremities Skin: + incision (all incisions dry and clean) Psychiatric: A+Ox3, euthymic affect Results & Data Vital Signs (Past 12 Hours) Vital Signs Temp Pulse Pulse Resp BP Pulse Ox 12/29/18 07:48 36.8 C 127 H 20 124/72 93 12/29/18 04:22 93 12/29/18 03:50 37.5 C 128 H 22 112/65 89 L 12/29/18 01:52 127 H 12/28/18 23:30 36.8 C 127 H 22 124/75 93
[2018-12-29] MEDS: OXYCODONE/ACETAMINOPHEN 5mg/325mg TAB PO PRN ×3 (10:18→20:19)
[2018-12-29] MEDS: ATORVASTATIN 40 MG TAB PO SCH (20:19)
[2018-12-30] MEDS: OXYCODONE/ACETAMINOPHEN 5mg/325mg TAB PO PRN ×4 (03:42→19:50)
[2018-12-30 05:35] LABS: Basophils # (auto) 0.02 K/uL (0-0.2); Basophils % (auto) 0.2 %; Eosinophils # (auto) 0.12 K/uL (0-0.5); Eosinophils % (auto) 0.9 %; Hematocrit (blood only) 23.2 % (37-47); Hemoglobin 7.7 g/dL (12.0-16.0); Immature Granulocytes # (auto) 0.06 K/uL (0.00-0.02); Immature Granulocytes % (auto) 0.5 %; Lymphocytes # (auto) 3.11 K/uL (1.2-3.4); Lymphocytes % (auto) 24.4 %; Mean Corpuscular Hgb Conc 33.2 g/dL (32-36); Mean Corpuscular Volume 90.3 fL (80-100); Mean Platelet Volume 8.4 fL (7.4-10.4); Monocytes # (auto) 1.08 K/uL (0.11-0.59); Monocytes % (auto) 8.5 %; Neutrophils # (auto) 8.33 K/uL (1.4-6.5); Neutrophils % (auto) 65.5 %; Platelet Count 167 K/uL (130-400); RDW Coefficient of Variation 15.5 % (11.5-14.5); RDW Standard Deviation 50.7 fL (36.4-46.3); Red Blood Count 2.57 M/uL (4.2-5.4); White Blood Count 12.72 K/uL (4.8-10.8)
[2018-12-30 05:54] LABS: BUN Creatinine Ratio 11.4 (10-20); Calcium 7.4 mg/dl (8.5-10.1); Est GFR (African American) 116.6; Est GFR (Non-African American) 100.6; Potassium 3.9 mmol/L (3.5-5.1)
[2018-12-30 06:03] LABS: RBC Morphology Unremarkable
[2018-12-30] MEDS: ASPIRIN 81 MG ECTAB PO SCH (08:33)
[2018-12-30] MEDS: CHOLECALCIFEROL 1,000 UNITS TAB PO SCH (08:34)
[2018-12-30] MEDS: PANTOprazole 40 MG TAB PO SCH (08:34)
[2018-12-30] MEDS: OXYBUTYNIN CHLORIDE XL 5 MG TABCR PO SCH (08:34)
[2018-12-30] MEDS: FAMOTIDINE 20 MG in SYRINGE 3 ML IV SCH ×2 (08:42→19:50)
[2018-12-30] MEDS ORDERED: SODIUM CHLORIDE 0.9% 250 ML IV PRN ×2 (10:20→10:29)
[2018-12-30] MEDS: HEPARIN SODIUM (PORCINE) 7,500 UNITS in SYRINGE 0 ML SQ SCH (10:25)
[2018-12-30] MEDS: ATORVASTATIN 40 MG TAB PO SCH (19:50)
--- NOTE | 2018-12-30 20:39 | Surgery Progress Note ---
Date of Service December 30, 2018 Assessment & Plan (1) S/P aortobifemoral bypass surgery: Pt doing well post op. She is tolerating her diet. Slightly less tachy today Can d/c soon. (2) Aortic occlusion: Pt now s/p aortobifem BPG. Subjective 53 yo f POD #4 after aortobifem BPG Patient only complaint is incisional pain controlled with oral pain meds. She is tolerating her diet. No complaints of foot pain or leg discomfort Physical Exam Constitutional: well developed and well nourished; no acute distress Respiratory: normal respiratory effort, lungs clear to auscultation Cardiovascular: Rate/Rhythm: regular rate, regular rhythm and + tachycardic Vessels: dorsalis pedis pulses present (bilateral palpable) Extremities: normal capillary refill Gastrointestinal (Abdomen): Inspection/Auscultation: abdomen normal to inspection; abdomen not distended Percussion/Palpation: abdomen soft Skin: + incision (all incisions dry and clean) Psychiatric: A+Ox3, euthymic affect Results & Data Vital Signs (Past 12 Hours) Vital Signs Temp Pulse Pulse Resp BP BP Pulse Ox 12/30/18 20:07 36.8 C 112 H 20 116/74 96 12/30/18 19:59 36.8 C 112 H 20 116/74 96 12/30/18 19:32 36.8 C 118 H 20 127/67 97 12/30/18 18:59 37.2 C 120 H 20 115/57 L 97 12/30/18 18:29 36.9 C 112 H 20 115/68 98 12/30/18 18:14 37.9 C H 118 H 20 109/70 97 12/30/18 17:55 37.1 C 120 H 20 125/61 96 12/30/18 17:42 37.9 C H 120 H 20 109/70 96 12/30/18 16:35 36.5 C 117 H 20 137/66 12/30/18 16:05 36.9 C 118 H 18 137/70 97 12/30/18 15:50 36.6 C 112 H 18 127/85 99 12/30/18 15:28 36.6 C 122 H 22 118/57 L 100 12/30/18 15:23 36.7 C 109 H 18 131/80 100 12/30/18 12:02 36.9 C 115 H 18 137/79 99
[2018-12-31] MEDS: OXYCODONE/ACETAMINOPHEN 5mg/325mg TAB PO PRN ×3 (00:44→08:42)
[2018-12-31] MEDS: OXYBUTYNIN CHLORIDE XL 5 MG TABCR PO SCH (08:36)
[2018-12-31] MEDS: ASPIRIN 81 MG ECTAB PO SCH (08:37)
[2018-12-31] MEDS: PANTOprazole 40 MG TAB PO SCH (08:37)
[2018-12-31] MEDS: CHOLECALCIFEROL 1,000 UNITS TAB PO SCH (08:37)
[2018-12-31] MEDS: FAMOTIDINE 20 MG in SYRINGE 3 ML IV SCH (09:59)
[2018-12-31] MEDS ORDERED: BISACODYL 10 MG SUPP PR STA (10:09)
[2018-12-31] MEDS ORDERED: DOCUSATE SODIUM 100 MG CAP PO SCH (10:15)
--- NOTE | 2018-12-31 10:40 | Surgery Progress Note ---
Date of Service December 31, 2018 Assessment & Plan (1) S/P aortobifemoral bypass surgery: Pt doing well post op. Hgb 9.7 today. Ambulating well with walker. Tachycardia significantly improved. (2) Aortic occlusion: Pt now s/p aortobifem BPG. Subjective 53 yo f POD #5 after aortobifem BPG Patient only complaint is incisional pain controlled with oral pain meds. She is tolerating her diet. No complaints of foot pain or leg discomfort. Passing flatus, no BM yet. Does not feel constipated. Review of Systems Review of Systems: All systems reviewed & are unremarkable except as noted in HPI & below Physical Exam Constitutional: WD/WN, vitals as above + morbidly obese; no acute distress Respiratory: normal respiratory effort Auscultation: + wheezes Cardiovascular: Rate/Rhythm: regular rhythm and + tachycardic Vessels: posterior tibial pulses present (palapble RLE) and dorsalis pedis pulses present (palpable BLE) Extremities: normal capillary refill; no pedal edema Gastrointestinal (Abdomen): normal bowel sounds, soft, nontender, no hepatosplenomegaly Musculoskeletal: Extremities: strength 5/5 throughout Skin: + incision (abd/BL groin C/D/I with raul, soft edema, tenderness. ) Neurologic: moves all extremities; no focal motor deficits Psychiatric: A+Ox3, euthymic affect Results & Data Vital Signs (Past 12 Hours) Vital Signs Temp Pulse Pulse Resp BP BP Pulse Ox 12/31/18 08:00 82 12/31/18 07:28 36.8 C 100 H 20 139/79 97 12/31/18 03:33 36.6 C 106 H 19 125/76 93 12/30/18 23:50 102 H 12/30/18 23:32 37.0 C 106 H 19 123/76 96
[2018-12-31 11:27] VITALS: BP 148/83; PULSE 92; TEMP 97.9; O2SAT 99
--- NOTE | 2019-01-01 09:46 | Discharge Summary ---
Date of Service January 01, 2019 Admission HPI Per Admitting Provider I the pleasure of seeing Meghan today for follow-up. As you know she is a 53-year-old female who is scheduled for an aortobifemoral bypass at [facility]. She was canceled at that time due to rash in her groin. Since then she is was taking Mycostatin powder. She claims her rash has cleared up and would like her surgery done in [facility] in [place] to avoid the trip down the [place]. Pt c/o severe BLE claudication and is only able to ambulate minimal distance. Admission Exam Per Admitting Provider Constitutional: well developed and well nourished; no acute distress Neck: trachea midline Respiratory: normal respiratory effort, lungs clear to auscultation Cardiovascular: Rate/Rhythm: regular rate and regular rhythm Vessels: radial pulses present; + femoral pulses abnormal, + posterior tibial pulses abnormal and + dorsalis pedis pulses abnormal Gastrointestinal (Abdomen): normal bowel sounds, soft, nontender, no hepatosplenomegaly Musculoskeletal: Extremities: extremities normal to inspection and strength 5/5 throughout; full ROM of extremities Skin: no rashes, warm and dry Neurologic: normal touch/pain/proprioception and CN's II-XI intact bilaterally Motor/Sensory: normal movement Psychiatric: A+Ox3, euthymic affect Principal Diagnosis 1. s/p aortobifemoral bypass graft 2. Expected post op anemia 3. Distal aortic occlusion with severe BLE claudication Discharge Exam Constitutional WD/WN, vitals as above + morbidly obese; no acute distress Respiratory normal respiratory effort Auscultation: + wheezes Cardiovascular Rate/Rhythm: regular rhythm and + tachycardic Vessels: posterior tibial pulses present (palapble RLE) and dorsalis pedis pulses present (palpable BLE) Extremities: normal capillary refill; no pedal edema Gastrointestinal (Abdomen) normal bowel sounds, soft, nontender, no hepatosplenomegaly Musculoskeletal Extremities: strength 5/5 throughout Skin + incision (abd/BL groin C/D/I with raul, soft edema, tenderness. ) Neurologic moves all extremities; no focal motor deficits Psychiatric A+Ox3, euthymic affect Discharge Data Allergies Allergy/AdvReac Type Severity Reaction Status Date / Time chlorhexidine Allergy Intermediate hives, Verified 12/26/18 06:11 redness Penicillins AdvReac Intermediate nausea, Verified 12/26/18 06:11 vomiting, migraine bupropion AdvReac Hallucinati Verified 12/26/18 06:11 ng Consultations 12/26/18 15:07 Consult Ross Lift Operator Routine Procedures Performed Operation Date: 12/26/18 08:00 Actual Procedures p Aortobifemoral Bypass(Not Applicable) - Rudy Travis MD Hospital Course (1) S/P aortobifemoral bypass surgery: Pt doing well post op day 5. Hgb 9.7 today. Ambulating well with walker. Tachycardia significantly improved. D/C home today. (2) Aortic occlusion: Pt now s/p aortobifem BPG. Total Time Total Time Spent Total Time Spent (In Minutes): 15 minutes Total Time Includes: Examination of the Patient, Discharge Planning and Medication Reconciliation Discharge Plan Discharge Items Patient Disposition: Home - Home Health Services Reason For Visit: Aortoiliac Occlusive Disease Discharge Diagnosis: 1. s/p aortobifemoral bypass graft 2. Aortoiliac occlusive disease Condition on Discharge: Good Activity: Per Instructions section Lifting: No more than 10 pounds Lifting Comment: x 2 weeks Bathing Comment: May shower, then dry wounds thoroughly Exercise/Sports: Gradually increase as tolerated Weightbearing: Full weightbearing Non-emergency contact: Primary Care Provider and Surgeon Call non-emergency contact if: you have any medication questions, your pain is not controlled, your pain is unusual for you, your temperature is above 101, your wound has increased redness and your wound has increased drainage Follow-up/Referrals: Courtney Lynch DO [Primary Care Provider] - Racheal Arzola PA-C [Physician Principal Embedded Software Engineer] - (Follow up with Dr Travis or Racheal Arzola PA-C, in 2 weeks for staple removal.) Diet: Heart Healthy Ambulatory Orders: Hemoglobin and Hematocrit (Routine) Timeframe: 2 Days Location: Determined by Patient Ordered By: Racheal Valdez Attending Provider Instructions: 1. May shower and cleanse wounds with soap and water. Dry gently but thoroughly. 2. Place gauze 4x4 between groin folds to separate skin and allow skin to breathe. 3. Change dressings at least daily and when saturated. 4. Ambulate as tolerated with walker. Pending Studies at Discharge: No Stand-Alone Forms: [facility] Medications and DC Order Prescriptions: New oxycodone-acetaminophen [Percocet] 5-325 mg Tablet 1 - 2 tab PO Q4H PRN (Reason: pain) Qty: 60 RF: 0 docusate sodium 100 mg Capsule 100 mg PO BID Qty: 60 RF: 0 Continued fluticasone propionate [Flonase Allergy Relief] 50 mcg/actuation sp ray,suspension 1 sprays INTNAS DAILY PRN (Reason: allergy symptoms) Qty: 18.2 RF: 2 oxybutynin chloride 10 mg tablet extended release 24hr 10 mg PO QAM Qty: 30 RF: 0 estradiol 1 mg Tablet 1 mg PO UD RF: 0 omeprazole 20 mg Capsule,Delayed Release(Dr/Ec) 20 mg PO QAM RF: 0 atorvastatin 40 mg tablet 40 mg PO QPM RF: 0 aspirin [Adult Low Dose Aspirin] 81 mg tablet,delayed release (DR/EC) 81 mg PO QAM RF: 0 acetaminophen [Tylenol Extra Strength] 500 mg tablet 1,000 mg PO DAILY PRN (Reason: PAIN OR FEVER) RF: 0 losartan-hydrochlorothiazide 50-12.5 mg tablet 1 tab PO QAM RF: 0 cholecalciferol (vitamin D3) [Vitamin D3] 2,000 unit capsule 4,000 units PO QAM RF: 0 Discharge Orders: Discharge Order (Routine); Ordered 12/31/18 Ordered By: Racheal Arzola Admission Data Admit Date/Time: 12/26/18 15:06 Attending Provider: Rudy Travis Admit Provider: Rudy Travis Primary Care Provider: Courtney Lynch Other Providers: Hakan Finn ; Ronaldo Soto ; Wilfred Winchester ; Juan Diego Rmaan ; Josh Ruth ; Elías Enriquez ; Ernesto Acevedo ; Deandra Fagan ; Isabell Patrick ; Agnes Coto ; Tom Ventura ; Joe Milan ; Corky Boyd ; Hadley Rivas. Other Interventions: Discharge Summary Assessment (RN) Last Done: 12/31/18 11:53 DC Date/Time DO NOT enter until pt leaves facility: 12/31/18 12:41
[2019-01-02] MEDS ORDERED: ESTRADIOL 1 MG TAB PO SCH (09:00)
--- NOTE | 2019-01-04 07:42 | Coding Query ---
CODING QUERY To promote full compliance with coding requirements relating to patient care, provider participation is requested in all cases of nuclear plant equipment operator uncertainty. Please assist us with the question(s) below: Coding Question(s): Patient had aortobifemoral bypass surgery . Operative report states serosal tear. Please check the phrase below that applies to the serosal tear. Thanks for your help! Conrad Malhotra [facility] Physician's Response(s): The serosal tear is a complication of the procedure ___x____ The serosal tear is an expected occurrence of this procedure Cannot clinically correlate if the serosal tear is a complication or expected occurrence Other/ Please document: Principal Diagnosis: "that condition established after study, to be chiefly responsible for occasioning the admission of the patient to the hospital for care." Co-Existing Principal Diagnosis: "when two or more diagnoses equally meet the criteria for principal diagnosis as determined by the circumstances of admission, diagnostic work up, and/or therapy provided, and the Alphabetic Index, Tabular List, or another coding guideline does not provide sequencing direction, any one of the diagnoses may be sequenced first." "When the physician has documented what appears to be a current diagnosis in the body of the record, but has not included the diagnosis in the final diagnostic statement, the physician should be asked whether the diagnosis should be added." ([facility] 2 QTR90. p3-4) SARITA
== END 2018-12-31 12:41 | disposition home health service (06) | DRG 271 ==
LOC: ASU 05:50 → 1E 15:06 → 2S 12-28 08:57

== ENCOUNTER 2019-01-03 11:29 | Inpatient (IN) ==
[2019-01-03] MEDS ORDERED: PIPERACILLIN/TAZOBACTAM 3.375 GM in DEXTROSE 5% 100 ML IV SCH (13:30)
[2019-01-03] MEDS ORDERED: PIPERACILL/TAZOBAC CONSULT ACTIVE PRN (13:30)
--- NOTE | 2019-01-03 13:43 | History & Physical Report ---
Date of Service January 03, 2019 Assessment & Plan (1) Wound infection after surgery: Patient is admitted for antibiotic therapy. If no improvement over the next few days will most likely have to explore the groin. History of Present Illness Chief Complaint: Drainage left groin Primary Care Provider: Courtney Lynch DO Patient had a recent aortobifemoral bypass. She now has developed a small open area with serous drainage. She has increased pain in the groin and increased redness. Allergies Allergy/AdvReac Type Severity Reaction Status Date / Time chlorhexidine Allergy Intermediate hives, Verified 01/02/19 11:46 redness Penicillins AdvReac Intermediate nausea, Verified 01/02/19 11:46 vomiting, migraine bupropion AdvReac Hallucinati Verified 01/02/19 11:46 ng Home Medications Home Medications Medication Instructions Recorded Confirmed Type estradiol 1 mg PO UD 07/16/18 01/02/19 History omeprazole 20 mg PO QAM 07/16/18 01/02/19 History oxybutynin chloride ER 10 mg 10 mg PO QAM #30 tab 11/13/18 01/02/19 History tablet,extended release 24 hr fluticasone propionate 50 1 sprays INTNAS DAILY PRN #18.2 gm 11/21/18 01/02/19 Rx mcg/actuation nasal spray,suspension acetaminophen [Tylenol Extra 1,000 mg PO DAILY PRN 12/17/18 01/02/19 History Strength] aspirin [Adult Low Dose Aspirin] 81 mg PO QAM 12/17/18 01/02/19 History atorvastatin 40 mg PO QPM 12/17/18 01/02/19 History cholecalciferol (vitamin D3) 4,000 units PO QAM 12/17/18 01/02/19 History [Vitamin D3] losartan-hydrochlorothiazide 1 tab PO QAM 12/17/18 01/02/19 History docusate sodium 100 mg PO BID #60 cap 12/31/18 01/02/19 Rx oxycodone-acetaminophen [Percocet] 1 - 2 tab PO Q4H PRN #60 tab 12/31/18 01/02/19 Rx potassium chloride ER 10 mEq 10 meq PO DAILY 7 Days #7 cap 01/02/19 Rx capsule,extended release sulfamethoxazole 400 1 tab PO BID 7 Days #14 tab 01/02/19 01/02/19 Rx mg-trimethoprim 80 mg tablet Past Med/Surg History Medical History Peripheral arterial disease 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 Hypertension Migraine GERD (gastroesophageal reflux disease) controlled Degenerative disc disease Arthritis Hyperlipidemia Obesity, morbid Urinary incontinence Anal fissure Anxiety and depression Elevated alkaline phosphatase level Hyponatremia Skin disorder Tick bite Tinea corporis Surgical History History of bilateral tubal ligation History of cholecystectomy History of colonoscopy 07/26/18: MAC sedation at [facility] History of tonsillectomy History of tooth extraction History of total abdominal hysterectomy and bilateral salpingo-oophorectomy History of wisdom tooth extraction Status post myringotomy with tube placement of both ears multiple times Family History Father Family hx colonic polyps Mother Coronary heart disease Depression Kidney disease Hypertension Cardiac disorder Myocardial infarction Father Lymphoma Brother Depression Muscular dystrophy Clotting disorder Sister Depression Grandfather Myocardial infarction Social History Preferred Language: Faroese Communication Ability: Effective Plush Dresser Required: No Beliefs That Will Affect Care: None Current Living Situation: Spouse Current Living Situation Comment: Lives with and 2 adult children current occupation: homemaker Other Information That Helps Us Care for You: No Feels Safe at Home: Yes Safety Concerns: Feels Safe At This Time Smoking Status: Current every day smoker Tobacco Type: cigarettes ; Cigarettes Per Day: 10 ; Do You Dip or Chew Tobacco: No ; Second Hand Exposure: Yes ; Tobacco Cessation Education Requested by Patient: No Hx Alcohol Use: No Hx Substance Use: No Review of Systems All systems reviewed & are unremarkable except as noted in HPI & below redness and drainage left groin Physical Exam Constitutional: + obese Neck: trachea midline Respiratory: normal respiratory effort, lungs clear to auscultation Cardiovascular: RRR, no murmur, no edema Vessels: dorsalis pedis pulses present (palpable bilateral) Gastrointestinal (Abdomen): Inspection/Auscultation: abdomen normal to inspection Percussion/Palpation: abdomen soft; abdomen nontender Musculoskeletal: Extremities: extremities normal to inspection; normal strength Skin: + incision (abd, right groin ok, serous drainage left groin with surrounding erythema) Results & Data Vital Signs (Past 12 Hours) Vital Signs Temp Pulse Resp BP Pulse Ox 01/03/19 11:59 37.3 C 113 H 18 116/65 94
[2019-01-03] MEDS ORDERED: FLUTICASONE PROPIONATE NA SPR 16 GM BTL PRN (14:29)
[2019-01-03] MEDS ORDERED: ACETAMINOPHEN 500 MG TAB PO PRN (14:29)
[2019-01-03] MEDS: SODIUM CHLORIDE 0.9% 1000ML 1,000 ML IV SCH (14:51)
[2019-01-03] MEDS ORDERED: PIPERACILLIN/TAZOBACTAM 4.5 GM in DEXTROSE 5% 100 ML IV ONE (15:00)
[2019-01-03] MEDS: OXYCODONE/ACETAMINOPHEN 5mg/325mg TAB PO PRN (16:44)
[2019-01-03 16:59] LABS: Basophils # (auto) 0.04 K/uL (0-0.2); Basophils % (auto) 0.3 %; Eosinophils # (auto) 0.16 K/uL (0-0.5); Hematocrit (blood only) 29.2 % (37-47); Hemoglobin 9.6 g/dL (12.0-16.0); Immature Granulocytes # (auto) 0.08 K/uL (0.00-0.02); Immature Granulocytes % (auto) 0.5 %; Lymphocytes # (auto) 2.11 K/uL (1.2-3.4); Lymphocytes % (auto) 13.4 %; Mean Corpuscular Hemoglobin 28.3 pg (25-34); Mean Corpuscular Hgb Conc 32.9 g/dL (32-36); Mean Corpuscular Volume 86.1 fL (80-100); Mean Platelet Volume 9.2 fL (7.4-10.4); Monocytes # (auto) 1.79 K/uL (0.11-0.59); Monocytes % (auto) 11.4 %; Neutrophils # (auto) 11.57 K/uL (1.4-6.5); Neutrophils % (auto) 73.4 %; Platelet Count 326 K/uL (130-400); RDW Coefficient of Variation 16.3 % (11.5-14.5); RDW Standard Deviation 51.8 fL (36.4-46.3); Red Blood Count 3.39 M/uL (4.2-5.4); White Blood Count 15.75 K/uL (4.8-10.8)
[2019-01-03] MEDS: PIPERACILLIN/TAZOBACTAM 4.5 GM in DEXTROSE 5% 100 ML IV SCH (19:54)
[2019-01-03] MEDS: DOCUSATE SODIUM 100 MG CAP PO SCH (20:43)
[2019-01-03] MEDS: ATORVASTATIN 40 MG TAB PO SCH (20:43)
[2019-01-04] MEDS: PIPERACILLIN/TAZOBACTAM 4.5 GM in DEXTROSE 5% 100 ML IV SCH ×3 (03:52→20:21)
[2019-01-04] MEDS: OXYCODONE/ACETAMINOPHEN 5mg/325mg TAB PO PRN ×5 (03:52→20:18)
[2019-01-04 07:12] LABS: BUN Creatinine Ratio 9.7 (10-20); Calcium 7.2 mg/dl (8.5-10.1); Creatinine Clr Calc Pharmacy 102.3 ml/min; Est GFR (African American) 99.8; Est GFR (Non-African American) 86.1; Potassium 2.9 mmol/L (3.5-5.1)
[2019-01-04] MEDS: DOCUSATE SODIUM 100 MG CAP PO SCH ×2 (08:56→20:20)
[2019-01-04] MEDS: OXYBUTYNIN CHLORIDE XL 5 MG TABCR PO SCH (08:56)
[2019-01-04] MEDS: LOSARTAN/HCTZ 50/12.5MG TAB PO SCH (08:57)
[2019-01-04] MEDS: PANTOprazole 40 MG TAB PO SCH (08:57)
[2019-01-04] MEDS: ASPIRIN 81 MG ECTAB PO SCH (08:57)
[2019-01-04] MEDS ORDERED: POTASSIUM CHLORIDE 10 MEQ TABCR PO SCH (09:00)
[2019-01-04] MEDS: SODIUM CHLORIDE 0.9% 1000ML 1,000 ML IV SCH (10:25)
--- NOTE | 2019-01-04 10:28 | Surgery Progress Note ---
Date of Service January 04, 2019 Assessment & Plan (1) Wound infection after surgery: Patient is admitted for antibiotic therapy. We will continue antibiotic coverage at this point. She still may require debridement in the operating room on Monday. (2) Hypokalemia: She was found to have potassium of 2.9. She is on oral potassium. Will increase that at this time. Repeat potassium in the a.m. Subjective Patient is still complaining of pain in the left groin however she claims it slightly better than yesterday. Physical Exam Respiratory: normal respiratory effort, lungs clear to auscultation Cardiovascular: RRR, no murmur, no edema Vessels: dorsalis pedis pulses present (palpable bilateral) Skin: + incision (abd, right groin ok, serous drainage left groin with surrounding erythema) Erythema of the left groin is slightly better than yesterday. Results & Data Vital Signs (Past 12 Hours) Vital Signs Temp Pulse Pulse Resp BP Pulse Ox 01/04/19 08:55 103 H 107/68 01/04/19 07:26 37.1 C 98 H 16 114/69 95 01/03/19 23:40 37.6 C H 108 H 22 130/67 97
[2019-01-04] MEDS: POTASSIUM CHLORIDE 20 MEQ TABCR PO SCH ×2 (14:04→20:20)
[2019-01-04] MEDS ORDERED: OPTIRAY 320 125ml IV PRN (15:58)
--- NOTE | 2019-01-04 16:32 | CT Scan Report ---
CT angio abd pelvis wo/w con CT DOSE: 4539.26 mGy.cm CLINICAL HISTORY: Left groin hematoma. History of aortobifemoral bypass. TECHNIQUE: Unenhanced images were obtained through the abdomen and pelvis. CT angiography was then pe rformed a dynamic helical fashion during intravenous administration of 118 cc of Optiray 320. MIP michele ges were acquired. A dose lowering technique was utilized adhering to the principles of ALARA. COMPARISON STUDY: August 16, 2018 FINDINGS: Visualized portions of the lung bases reveal mild right hilar bessy enlargement. There are no significant pleural effusions. No hepatic masses are visualized in this arterial phase study. The gallbladder is surgically absent. No splenic masses are visualized. No pancreatic masses are visualized. No adrenal masses are visualized. No renal masses are visualized. There is no evidence of hydronephrosis. There is no free intraperitoneal air. There is no significant ascites. There is no evidence of bowel obstruction. There is no evidence of free air. The appendix appears nor mal. There is no evidence of acute appendicitis. There is no evidence of celiac or superior mesenteric artery stenosis. There is no evidence of hemody namic significant renal artery stenosis. There is occlusion of the [place] infrarenal abdominal aorta. There is an aorta bifemoral bypass graft . The left limb is occluded. There is occlusion of the [place] common iliac arteries with distal recon stitution. There are bilateral inguinal fluid collections with overlying skin raul suggestive of p ostsurgical hematomas. There is a small amount of gas within the subcutaneous tissues on the left. Th e left hematoma is significantly larger measuring 82 x 44 x 137 mm. There is no evidence of contrast extravasation into the hematoma. IMPRESSION: 1. Occlusion of the [place] infrarenal abdominal aorta, and occlusion of the [place] common iliac arter ies with distal reconstitution 2. Interval placement of an aortobifemoral bypass graft. The left limb is occluded 3. Bilateral inguinal fluid collections left larger than right. The left collection measures 82 x 44 x 137 mm. The findings are most consistent with postsurgical hematomas. No contrast extravasation to the hematomas as visualized 4. No evidence of celiac, superior mesenteric, or renal artery stenosis. 5. Partially visualized right hilar adenopathy Electronically signed by: Sancho Ortiz M.D. 01/04/2019 4:30 PM
[2019-01-04] MEDS: ATORVASTATIN 40 MG TAB PO SCH (20:20)
[2019-01-05] MEDS: OXYCODONE/ACETAMINOPHEN 5mg/325mg TAB PO PRN ×4 (00:12→16:23)
[2019-01-05] MEDS: PIPERACILLIN/TAZOBACTAM 4.5 GM in DEXTROSE 5% 100 ML IV SCH ×3 (04:09→20:32)
[2019-01-05] MEDS: SODIUM CHLORIDE 0.9% 1000ML 1,000 ML IV SCH (04:10)
[2019-01-05] MEDS: ASPIRIN 81 MG ECTAB PO SCH (08:45)
[2019-01-05] MEDS: OXYBUTYNIN CHLORIDE XL 5 MG TABCR PO SCH (08:46)
[2019-01-05] MEDS: LOSARTAN/HCTZ 50/12.5MG TAB PO SCH (08:46)
[2019-01-05] MEDS: POTASSIUM CHLORIDE 20 MEQ TABCR PO SCH ×3 (08:47→20:33)
[2019-01-05] MEDS: PANTOprazole 40 MG TAB PO SCH (08:47)
[2019-01-05] MEDS: DOCUSATE SODIUM 100 MG CAP PO SCH ×2 (08:49→20:32)
--- NOTE | 2019-01-05 09:13 | Surgery Progress Note ---
Date of Service January 05, 2019 Assessment & Plan (1) Wound infection after surgery: Will plan on wound exploration and debridement on Monday with excision of occluded graft. (2) Hypokalemia: Will check potassium tomorrow Subjective Patient is still complaining of pain in the left groin however she claims it worse than yesterday. Physical Exam Cardiovascular: Vessels: dorsalis pedis pulses present (palpable on right nonpalpable on left) Skin: + incision (abd, right groin ok, serous drainage left groin with surrounding erythema) Results & Data Vital Signs (Past 12 Hours) Vital Signs Temp Pulse Pulse Resp BP Pulse Ox 01/05/19 08:44 122/54 L 01/05/19 08:00 37.2 C 85 20 100/65 97 01/05/19 04:12 36.6 C 93 H 20 120/76 98 01/04/19 23:10 37.6 C H 101 H 18 112/65 94
[2019-01-05] MEDS: MoRPHine SULFATE 4 MG/ML 1 ML CARP\\VIAL IV PRN ×4 (09:48→23:33)
[2019-01-05] MEDS: NICOTINE 21 MG/24 HR TDSY TD SCH (10:19)
[2019-01-05] MEDS: ATORVASTATIN 40 MG TAB PO SCH (20:32)
[2019-01-06] MEDS: SODIUM CHLORIDE 0.9% 1000ML 1,000 ML IV SCH ×2 (00:12→18:39)
[2019-01-06] MEDS: PIPERACILLIN/TAZOBACTAM 4.5 GM in DEXTROSE 5% 100 ML IV SCH ×3 (03:02→20:34)
[2019-01-06] MEDS: OXYCODONE/ACETAMINOPHEN 5mg/325mg TAB PO PRN ×5 (03:02→22:53)
[2019-01-06] MEDS: MoRPHine SULFATE 4 MG/ML 1 ML CARP\\VIAL IV PRN ×2 (06:03→17:27)
[2019-01-06 06:17] LABS: Creatinine Clr Calc Pharmacy 124.3 ml/min; Est GFR (African American) 118.3; Est GFR (Non-African American) 102.1
[2019-01-06] MEDS: DOCUSATE SODIUM 100 MG CAP PO SCH ×2 (09:58→20:34)
[2019-01-06] MEDS: PANTOprazole 40 MG TAB PO SCH (10:01)
[2019-01-06] MEDS: LOSARTAN/HCTZ 50/12.5MG TAB PO SCH (10:02)
[2019-01-06] MEDS: POTASSIUM CHLORIDE 20 MEQ TABCR PO SCH ×3 (10:02→20:34)
[2019-01-06] MEDS: NICOTINE 21 MG/24 HR TDSY TD SCH (10:03)
[2019-01-06] MEDS: OXYBUTYNIN CHLORIDE XL 5 MG TABCR PO SCH (10:04)
[2019-01-06] MEDS: ASPIRIN 81 MG ECTAB PO SCH (10:04)
--- NOTE | 2019-01-06 10:33 | Surgery Progress Note ---
Date of Service January 06, 2019 Assessment & Plan (1) Wound infection after surgery: This point recommend we debride the wound tomorrow in the operating room. Her CTA shows occlusion of the left limb of the graft. I also recommended we remove as much of the left limb as we could and most likely patch the femoral artery with a bovine patch. I have discussed the risks options and benefits of the procedure with the patient. The patient understands the risks options and benefits and agrees to the procedure. (2) Hypokalemia: Her potassium is pending today. If it is low we will supplement her with IV potassium. Subjective Patient has no new complaints today. She still is having a large amount discomfort in her left groin. She is not complaining of left foot pain or leg pain. Physical Exam Physical Exam: She remains afebrile at this time. The groin is unchanged from yesterday's exam. Constitutional: WD/WN, vitals as above Results & Data Vital Signs (Past 12 Hours) Vital Signs Temp Pulse Pulse Resp BP Pulse Ox 01/06/19 07:19 36.8 C 86 18 113/74 95 01/05/19 23:35 37.5 C 94 H 18 100/65 95
[2019-01-06 10:41] LABS: BUN Creatinine Ratio 6.2 (10-20); Calcium 7.2 mg/dl (8.5-10.1); Creatinine Clr Calc Pharmacy 120.6 ml/min; Est GFR (African American) 117.1; Est GFR (Non-African American) 101.1; Potassium 3.6 mmol/L (3.5-5.1)
[2019-01-06] MEDS: ATORVASTATIN 40 MG TAB PO SCH (20:34)
[2019-01-07] MEDS: MoRPHine SULFATE 4 MG/ML 1 ML CARP\\VIAL IV PRN ×4 (02:30→16:50)
[2019-01-07] MEDS: PIPERACILLIN/TAZOBACTAM 4.5 GM in DEXTROSE 5% 100 ML IV SCH ×2 (03:42→11:35)
[2019-01-07 06:09] LABS: BUN Creatinine Ratio 6.3 (10-20); Calcium 7.9 mg/dl (8.5-10.1); Creatinine Clr Calc Pharmacy 110.7 ml/min; Est GFR (African American) 109.7; Est GFR (Non-African American) 94.7; Potassium 3.8 mmol/L (3.5-5.1)
--- NOTE | 2019-01-07 07:34 | History & Physical Bridge Note ---
Date of Service January 07, 2019 History & Physical Bridge Note Patient for debridement of groin with possible removal of groin portion of aortobifem graft. I have discussed the risks options and benefits of the procedure with the patient. The patient understands the risks options and benefits and agrees to t he procedure. I have examined the patient, reviewed the History & Physical and in the interval since the performance of the History & Physical I have noted the following changes of clinical significance: no changes noted
[2019-01-07] MEDS: ASPIRIN 81 MG ECTAB PO SCH (08:08)
[2019-01-07] MEDS: OXYBUTYNIN CHLORIDE XL 5 MG TABCR PO SCH (08:08)
[2019-01-07] MEDS: DOCUSATE SODIUM 100 MG CAP PO SCH ×2 (08:08→21:26)
[2019-01-07] MEDS: POTASSIUM CHLORIDE 20 MEQ TABCR PO SCH ×3 (08:09→21:25)
[2019-01-07] MEDS: PANTOprazole 40 MG TAB PO SCH (08:09)
[2019-01-07] MEDS: LOSARTAN/HCTZ 50/12.5MG TAB PO SCH (08:09)
[2019-01-07] MEDS: NICOTINE 21 MG/24 HR TDSY TD SCH (08:10)
[2019-01-07] MEDS: SODIUM CHLORIDE 0.9% 1000ML 1,000 ML IV SCH (11:36)
[2019-01-07] MEDS ORDERED: fentaNYL citrate 100 MCG/2 ML VIAL ONE (12:47)
[2019-01-07] MEDS ORDERED: MIDAZOLAM HCL 1 MG/ML 2ML VIAL ONE (12:47)
[2019-01-07] MEDS ORDERED: LIDOCAINE HCL 1% 20 ML VIAL ONE (13:21)
[2019-01-07] MEDS ORDERED: PAPAVERINE HCL INJ 30 MG/ML 2 ML VIAL ONE (13:21)
[2019-01-07] MEDS ORDERED: HEPARIN (PORCINE) 1000 UNIT/ML 10 ML (CATH LAB USE ONLY) ONE (13:21)
[2019-01-07] MEDS ORDERED: THROMBIN 5000 UNITS KIT ONE (13:22)
[2019-01-07] MEDS ORDERED: GELATIN SPONGE SZ 100 ONE (13:22)
[2019-01-07] MEDS ORDERED: IODIXANOL (VISIPAQUE) 270 MG/ML 50ML ONE (13:22)
[2019-01-07] MEDS ORDERED: BUPIVACAINE/EPINEPHRINE 0.5% MPF 1:200,000 30 ML VIAL ONE (13:22)
[2019-01-07] MEDS ORDERED: CEFAZOLIN 250 MG/ML 1 GM VIAL ONE (13:22)
[2019-01-07] MEDS ORDERED: ONDANSETRON INJ 2 MG/ML 2 ML VIAL IV PRN (13:32)
[2019-01-07] MEDS ORDERED: ePHEDrine sulfate 50 MG/ML AMP IV PRN (13:32)
[2019-01-07] MEDS ORDERED: LABETALOL HCL IV 5 MG/ML 20ML IV PRN (13:32)
[2019-01-07] MEDS ORDERED: HYDROmorphone INJ 1 MG/ML SYRINGE IV PRN (13:32)
[2019-01-07] MEDS ORDERED: ATROPINE SULFATE 0.1 MG/ML 10ML SYR IV PRN (13:32)
--- NOTE | 2019-01-07 13:38 | Anesthesiology Consultation ---
Date of Service January 07, 2019 Assessment & Plan (1) Encounter for pre-operative examination: Chart Review Chart Review: Acceptable Risk for Surgery and Patient NOT seen in Pre Admission Testing Consults Requested none History Surgery Operation Date: 01/07/19 10:50 Proposed Procedures p Left Groin Debridement - Rudy Travis MD Height/Weight Height: 5 ft 2 in Weight: 119.295 kg Allergies Allergy/AdvReac Type Severity Reaction Status Date / Time chlorhexidine Allergy Intermediate hives, Verified 01/02/19 11:46 redness Penicillins AdvReac Intermediate nausea, Verified 01/02/19 11:46 vomiting, migraine bupropion AdvReac Hallucinati Verified 01/02/19 11:46 ng Medications Home Medications Medication Instructions Recorded Confirmed Last Taken estradiol 1 mg PO UD 07/16/18 01/03/19 12/25/18 08:00 omeprazole 20 mg PO QAM 07/16/18 01/03/19 01/03/19 08:00 20 mg oxybutynin chloride ER 10 mg 10 mg PO QAM #30 tab 11/13/18 01/03/19 01/03/19 08:00 tablet,extended release 24 hr 10 mg fluticasone propionate 50 1 sprays INTNAS DAILY PRN #18.2 gm 11/21/18 01/03/19 12/26/18 04:30 mcg/actuation nasal spray,suspension acetaminophen [Tylenol Extra 1,000 mg PO DAILY PRN 12/17/18 01/03/19 Unknown Strength] aspirin [Adult Low Dose Aspirin] 81 mg PO QAM 12/17/18 01/03/19 01/03/19 08:00 81 mg atorvastatin 40 mg PO QPM 12/17/18 01/03/19 01/02/19 20:00 40 mg cholecalciferol (vitamin D3) 4,000 units PO QAM 12/17/18 01/03/19 01/03/19 08:00 [Vitamin D3] 4,000 units losartan-hydrochlorothiazide 1 tab PO QAM 12/17/18 01/03/19 01/03/19 08:00 50-12.5 mg docusate sodium 100 mg PO BID #60 cap 12/31/18 01/03/19 01/03/19 08:00 100 mg oxycodone-acetaminophen [Percocet] 1 - 2 tab PO Q4H PRN #60 tab 12/31/18 01/03/19 01/03/19 10:30 10-650 mg sulfamethoxazole 400 1 tab PO BID 7 Days #14 tab 01/02/19 01/03/19 01/03/19 08:00 mg-trimethoprim 80 mg tablet 400-80mg potassium chloride ER 10 mEq 10 meq PO DAILY 7 Days #7 tab 01/04/19 01/04/19 Unknown tablet,extended release Active Medications Generic Name Dose Route Start Last Admin Trade Name Yazmin PRN Reason Stop Dose Admin Acetaminophen 1,000 mg 01/03/19 14:29 01/03/19 15:44 Tylenol PO 02/02/19 14:28 1,000 mg DAILY PRN Administration PAIN OR FEVER Aspirin 81 mg 01/04/19 09:00 01/07/19 08:08 Ecotrin Ectab PO 02/03/19 08:59 Not Given QAM BARB Atorvastatin Calcium 40 mg 01/03/19 21:00 01/06/19 20:34 Lipitor PO 02/02/19 20:59 40 mg QPM BARB Administration Docusate Sodium 100 mg 01/03/19 21:00 01/07/19 08:08 Colace PO 02/02/19 20:59 Not Given BID BARB HCTZ/Losartan Potassium 1 tab 01/04/19 09:00 01/07/19 08:09 Hyzaar 50/12.5mg PO 02/03/19 08:59 Not Given QAM BARB Sodium Chloride 1,000 mls @ 50 mls/hr 01/03/19 15:00 01/07/19 11:36 Nss 1000ml IV 02/02/19 14:59 50 mls/hr .Q20H BARB Administration Piperacillin Sod/Tazobactam 120 mls @ 30 mls/hr 01/03/19 20:00 01/07/19 11:35 Sod 4.5 gm/ Dextrose IV 01/13/19 19:59 30 mls/hr Q8H BARB Administration Protocol Ioversol 118 ml 01/04/19 15:58 01/04/19 15:59 Optiray 320 125ml IV 01/08/19 15:57 118 ml ONCE PRN Administration Interaction Checking Morphine Sulfate 1 - 4 mg 01/05/19 09:07 01/07/19 10:01 Morphine Sulfate IV 01/19/19 09:06 4 mg Q2H PRN Administration Severe Pain Nicotine 21 mg 01/05/19 09:15 01/07/19 08:10 Nicoderm Cq TD 02/04/19 09:14 Not Given QAM [facility] Oxybutynin Chloride 10 mg 01/04/19 09:00 01/07/19 08:08 Ditropan Xl PO 02/03/19 08:59 Not Given QAM BARB Oxycodone/Acetaminophen 2 tab 01/03/19 14:29 01/06/19 22:53 Percocet 5mg/325mg PO 01/17/19 14:28 2 tab Q4H PRN Administration pain Pantoprazole Sodium 40 mg 01/04/19 09:00 01/07/19 08:09 Protonix PO 02/03/19 08:59 Not Given QAM [facility] Potassium Chloride 20 meq 01/04/19 14:00 01/07/19 08:09 Klor-Con M20 PO 02/03/19 13:59 Not Given TID BARB NPO Date Last Intake of Fluids: 01/06/19 Time Last Intake of Fluids: 23:45 Date Last Intake of Solids: 01/06/19 Time Last Intake of Solids: 18:00 Past Medical History Medical History Peripheral arterial disease 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 Hypertension Migraine GERD (gastroesophageal reflux disease) controlled Degenerative disc disease Arthritis Hyperlipidemia Obesity, morbid Urinary incontinence Anal fissure Anxiety and depression Elevated alkaline phosphatase level Hyponatremia Skin disorder Tick bite Tinea corporis Exercise / Class Metabolic Activity III < 4 Walking/Shop/Light housework Past Family History Family History Father Family hx colonic polyps Mother Coronary heart disease Depression Kidney disease Hypertension Cardiac disorder Myocardial infarction Father Lymphoma Brother Depression Muscular dystrophy Clotting disorder Sister Depression Grandfather Myocardial infarction Past Surgical History Surgical History History of bilateral tubal ligation History of cholecystectomy History of colonoscopy 07/26/18: MAC sedation at [facility] History of tonsillectomy History of tooth extraction History of total abdominal hysterectomy and bilateral salpingo-oophorectomy History of wisdom tooth extraction Status post myringotomy with tube placement of both ears multiple times aorto fem bypass dec 2018. geta with a line Past Anesthesia History No Hx of Anesthesia Complications and No Family Hx of Anesthesia Complications History of PONV No Hx of PONV and No Hx of Motion Sickness Social History Smoking Status: Current every day smoker tobacco type: cigarettes Smoking cigarettes per day: 10 Do You Dip or Chew Tobacco: No Hx Alcohol Use: No Hx Substance Use: No substance use type: does not use Physical Exam Vital Signs Last Vital Signs Temp 37.8 C H 01/07/19 06:45 Pulse 99 H 01/07/19 06:45 Resp 16 01/07/19 06:45 BP 117/63 01/07/19 06:45 Pulse Ox 97 01/07/19 06:45 Testing Laboratory Results 01/03/19 15:27 01/07/19 05:05 Blood Type O Negative 01/06/19 10:37 Antibody Screen NEGATIVE 01/06/19 10:37 01/04/19 14:43 Aerobic Blood Culture - Preliminary Blood No growth in Aerobic bottle after 48 hours. Anaerobic Blood Culture - Preliminary No growth in Anaerobic bottle after 48 hours. 01/04/19 14:47 Aerobic Blood Culture - Preliminary Blood No growth in Aerobic bottle after 48 hours. Anaerobic Blood Culture - Preliminary No growth in Anaerobic bottle after 48 hours. 01/03/19 15:35 Gram Stain - Final Groin Wound Culture - Final Escherichia coli Corynebacterium species Electrocardiogram Electrocardiogram Date: 09/05/18 Findings: + NSR @ (84) Chest X-Ray Date: 12/26/18 XR chest 1V portable CLINICAL HISTORY: 53 years-old Female presenting with lines. TECHNIQUE: Portable semiupright AP view of the chest was obtained. COMPARISON: 12/19/2018. FINDINGS: Endotracheal tube terminates in the upper to midthoracic trachea over 3 cm from the fauzia. Nasogastric tube descends below the diaphragm with side hole likely within the gastric lumen. No intravenous line is appreciated. Numerous overlying external leads. Cardiomediastinal silhouette normal. Mild prominence of perihilar lung markings. This may relate to the mildly low lung volumes. No focal opacity. No large effusion or pneumothorax. Degenerative changes of the thoracic spine. Cholecystectomy clips noted. IMPRESSION: 1. Appropriately positioned tubes. 2. Mildly low lung volumes with hypoventilatory changes. Other Testing Stress Test Date: 09/06/18 Type: DSE Negative DSE for ischemia at 91% MPHR. Negative dobutamine EKG for ischemia. LVEF 60%. No RWMA.
[2019-01-07] MEDS ORDERED: THROMBIN FOR SOLN 20000 UNIT KIT ONE (13:39)
[2019-01-07] MEDS ORDERED: SODIUM CHLORIDE 0.9% 250 ML IV PRN (13:43)
[2019-01-07] MEDS ORDERED: BACITRACIN INJ 50,000 UNIT VIAL ONE ×2 (14:12→14:43)
[2019-01-07] MEDS ORDERED: HEPARIN SOD (PORCINE) 5,000 UNITS/ML VIAL ONE (14:38)
[2019-01-07] MEDS ORDERED: ePHEDrine sulfate 50 MG/ML SYR ONE (14:45)
[2019-01-07] MEDS ORDERED: ROCURONIUM BROMIDE 10 MG/ML 5 ML VIAL ONE (14:45)
[2019-01-07] MEDS ORDERED: LIDOCAINE HCL 2% 2 ML VIAL/AMP(20MG/ML) INFIL ONE (14:45)
[2019-01-07] MEDS ORDERED: ONDANSETRON INJ 2 MG/ML 2 ML VIAL ONE (14:45)
[2019-01-07] MEDS ORDERED: GLYCOPYRROLATE 0.2 MG/ML VIAL ONE (14:45)
[2019-01-07] MEDS ORDERED: PROPOFOL IV EMULSION 10 MG/ML 20 ML VIAL IV ONE (14:45)
[2019-01-07] MEDS ORDERED: NEOSTIGMINE METHYLSULFATE 5 MG/5 ML SYR ONE (14:45)
--- NOTE | 2019-01-07 15:26 | Operative Report ---
Post Operative Report Pre & Post Diagnosis Operation Date: 01/07/19 10:50 Pre-Op Diagnosis: Infected left groin Post-Op Diagnosis: Infected left groin Procedure Operation Date: 01/07/19 10:50 Actual Procedures p Left Groin Debridement with application of wound vac(Left) - Rudy Travis MD Surgeon Dr. Rudy Pryor MD Mass Spectrometry Specialist Racheal Arzola Estimated Blood Loss 100 Findings See Below Upon exploration of the wound the patient was found to have a large amount of clear serous fluid with no sign of anand pus or purulent fluid. The graft was never visualized and was well covered with a layer of tissue. Size of the wound is 17 x 10 x 8 cm Specimens Left groin cultures Drains Left groin wound VAC Anesthesia Type General Complications none Disposition Accompanied Patient To Recovery: Yes Disposition: Recovery Room Indications Concern for left groin infection Description of Procedure The patient was Brought back to the operating room and correctly identified and placed supine on the Operating room table. After adequate induction of anesthesia, a Nayak catheter was then inserted and the left groin was prepped and draped using Betadine. The raul were then removed from the length of the left groin wound and the distal end of the wound was opened a large amount of serous appearing fluid was evacuated cultures were obtained and the remainder of the wound was opened. Of note no sign of any purulent discharge or pus was noted. Upon exploration of the wound the base of the wound was still intact and no sign the graft was not seen during the exploration. Coverage above the graft was intact. Using a 10 blade the skin edges on both sides were trimmed back to normal healthy appearing skin.The Pulsavac was then used to debride and clean out the wound thoroughly. Electrocautery was then used to obtain hemostasis of the wound. By the end of the debridement and hemostasis the wound appeared clean with pink viable appearing tissue.A medium-sized silver sponge was then placed into the wound and secured in place this was then bridged with a piece of black sponge in the wound VAC was connected to the suction. The wound was measured to be 17 x 10 x 8 cm. At the end of the case the patient had the wound VAC was holding suction. Patient tolerated the procedure well and general anesthesia was discontinued and the patient was awakened and taken to the recovery room. Dr. Travis was present for the entirety of the case. I attest to the content of the Intraoperative Record and any orders documented therein. Any exceptions are noted below.
[2019-01-07] MEDS: fentaNYL citrate 100 MCG/2 ML VIAL IV PRN ×4 (15:44→15:59)
[2019-01-07] MEDS ORDERED: METOPROLOL TARTRATE 1 MG/ML VIAL IV STA (15:48)
[2019-01-07] MEDS ORDERED: METOPROLOL TARTRATE 1 MG/ML VIAL IV ONE (15:49)
--- NOTE | 2019-01-07 16:01 | Post Operative Brief Note ---
Immediate Post Op Note v1 Date of Surgery January 07, 2019 Pre & Post Diagnosis Operation Date: 01/07/19 10:50 Pre-Op Diagnosis: Infected left groin Post-Op Diagnosis: Infected left groin Procedure Operation Date: 01/07/19 10:50 Actual Procedures p Left Groin Debridement with application of wound vac [id number](Left) - Rudy Travis MD Surgeon Rudy Travis MD Dispatcher [employer] Racheal Arzola Estimated Blood Loss 100 Findings Consistent with Post-Op Diagnosis Drains Nayak Catheter Anesthesia Type General Complications none Disposition Accompanied Patient To Recovery: No Disposition: Recovery Room
--- NOTE | 2019-01-07 16:21 | Anesthesiology Progress Note ---
Date of Service January 07, 2019 Anesthesia Post Procedure Vital Signs Vital Signs: Temp Pulse Pulse Resp BP BP Pulse Ox 01/07/19 16:15 36.4 C L 95 H 22 132/72 99 01/07/19 16:05 94 H 22 130/74 100 01/07/19 15:55 87 22 124/63 99 01/07/19 15:50 112 H 132/67 01/07/19 15:45 109 H 22 138/68 100 01/07/19 15:35 114 H 22 88/67 L 100 01/07/19 15:28 36.7 C 117 H 22 116/64 100 01/07/19 13:30 37.5 C 104 H 22 133/59 L 97 01/07/19 06:45 37.8 C H 99 H 16 117/63 97 01/06/19 23:25 37.5 C 102 H 18 114/73 96 Pain Intensity Left Groin: Pain Intensity: 2 Transfer of Care Handoff Completed per policy Notes Mental Status: alert / awake / arousable Patient Amnestic to Procedure: Yes Nausea / Vomiting: adequately controlled Pain: adequately controlled Airway Patency, RR, SpO2: stable & adequate BP & HR: stable & adequate Hydration State: stable & adequate Anesthetic Complications: no major complications apparent and Pt Satisfied with anesthetic care
[2019-01-07] MEDS: OXYCODONE/ACETAMINOPHEN 5mg/325mg TAB PO PRN ×2 (18:43→23:46)
[2019-01-07] MEDS: AMPICILLIN/SULBACTAM SOD 3,000 MG in 0.9 % SODIUM CHLORIDE 100 ML IV SCH ×2 (18:44→23:47)
[2019-01-07] MEDS: ATORVASTATIN 40 MG TAB PO SCH (21:25)
[2019-01-08] MEDS: AMPICILLIN/SULBACTAM SOD 3,000 MG in 0.9 % SODIUM CHLORIDE 100 ML IV SCH ×4 (05:59→23:33)
[2019-01-08] MEDS: OXYCODONE/ACETAMINOPHEN 5mg/325mg TAB PO PRN ×4 (06:00→19:37)
--- NOTE | 2019-01-08 08:49 | Anesthesiology Progress Note ---
Date of Service January 08, 2019 Anesthesia Post Procedure Vital Signs Vital Signs: Temp Pulse Pulse Resp BP BP BP 01/08/19 07:07 36.6 C 90 20 93/59 L 01/08/19 03:34 37.0 C 92 H 18 93/61 L 01/07/19 23:05 36.6 C 93 H 19 98/63 L 01/07/19 21:04 36.8 C 89 22 106/61 01/07/19 18:59 37.0 C 104 H 18 99/55 L 01/07/19 17:43 36.8 C 104 H 18 124/74 01/07/19 17:18 37.0 C 98 H 20 138/76 01/07/19 16:15 36.4 C L 95 H 22 132/72 01/07/19 16:05 94 H 22 130/74 01/07/19 15:55 87 22 124/63 01/07/19 15:50 112 H 132/67 01/07/19 15:45 109 H 22 138/68 01/07/19 15:35 114 H 22 88/67 L 01/07/19 15:28 36.7 C 117 H 22 116/64 01/07/19 13:30 37.5 C 104 H 22 133/59 L Pulse Ox 01/08/19 07:07 96 01/08/19 03:34 95 01/07/19 23:05 95 01/07/19 21:04 96 01/07/19 18:59 92 01/07/19 17:43 93 01/07/19 17:18 93 01/07/19 16:15 99 01/07/19 16:05 100 01/07/19 15:55 99 01/07/19 15:50 01/07/19 15:45 100 01/07/19 15:35 100 01/07/19 15:28 100 01/07/19 13:30 97 Pain Intensity Left Groin: Pain Intensity: 8 Notes Mental Status: alert / awake / arousable and participated in evaluation Patient Amnestic to Procedure: Yes Nausea / Vomiting: adequately controlled Pain: adequately controlled Airway Patency, RR, SpO2: stable & adequate BP & HR: stable & adequate Hydration State: stable & adequate Anesthetic Complications: no major complications apparent and Pt Satisfied with anesthetic care
[2019-01-08] MEDS: OXYBUTYNIN CHLORIDE XL 5 MG TABCR PO SCH (08:52)
[2019-01-08] MEDS: DOCUSATE SODIUM 100 MG CAP PO SCH ×2 (08:52→21:26)
[2019-01-08] MEDS: LOSARTAN/HCTZ 50/12.5MG TAB PO SCH (08:53)
[2019-01-08] MEDS: POTASSIUM CHLORIDE 20 MEQ TABCR PO SCH ×3 (08:53→21:21)
[2019-01-08] MEDS: ASPIRIN 81 MG ECTAB PO SCH (08:53)
[2019-01-08] MEDS: NICOTINE 21 MG/24 HR TDSY TD SCH (08:54)
[2019-01-08] MEDS: PANTOprazole 40 MG TAB PO SCH (08:54)
[2019-01-08] MEDS: SODIUM CHLORIDE 0.9% 1000ML 1,000 ML IV SCH (08:59)
[2019-01-08] MEDS ORDERED: FLUCONAZOLE 50 MG TAB PO ONE (11:42)
--- NOTE | 2019-01-08 11:45 | Surgery Progress Note ---
Date of Service January 08, 2019 Assessment & Plan (1) Wound infection after surgery: Pt doing well after L groin wound debridement yesterday. Wound vac working appropriately. Wound infection did not appear as deep as expected; graft appeared to be protected and infection appeared only superficial. L foot remains warm and viable despite occlusion of L limb. Planning to continue abx and have pt undergo vac change tomorrow and reeval wound at that time. Initial gram stain neg, awaiting final culture results. Present on Admission?: Yes Subjective 53 yo f s/p recent aortobifem BPG, now POD #1 after debridement of L groin incision/infection, seen in f/u today. Pt states slightly less pain than yesterday. States she believes she is starting a vaginal yeast infection d/t abx. Denies any other new complaints. Review of Systems Review of Systems: All systems reviewed & are unremarkable except as noted in HPI & below Physical Exam Constitutional: WD/WN, vitals as above + morbidly obese Respiratory: normal respiratory effort, lungs clear to auscultation Cardiovascular: RRR, no murmur, no edema Vessels: posterior tibial pulses present (doppler) and dorsalis pedis pulses present (doppler); + abnormal peripheral pulses Gastrointestinal (Abdomen): normal bowel sounds, soft, nontender, no hepatosplenomegaly (+ ventral incision C/D/I with raul, healing well) Musculoskeletal: Extremities: strength 5/5 throughout; full ROM of extremities and no cyanosis Skin: + wound (L groin wound vac in place, working well) Neurologic: moves all extremities; no focal motor deficits Psychiatric: A+Ox3, euthymic affect Results & Data Vital Signs (Past 12 Hours) Vital Signs Temp Pulse Resp BP BP Pulse Ox 01/08/19 11:19 37.1 C 90 20 101/50 L 95 01/08/19 07:07 36.6 C 90 20 93/59 L 96 01/08/19 03:34 37.0 C 92 H 18 93/61 L 95
[2019-01-08] MEDS: MoRPHine SULFATE 4 MG/ML 1 ML CARP\\VIAL IV PRN ×2 (13:18→18:22)
[2019-01-08] MEDS: ATORVASTATIN 40 MG TAB PO SCH (21:21)
[2019-01-09 05:35] LABS: Basophils # (auto) 0.01 K/uL (0-0.2); Basophils % (auto) 0.1 %; Eosinophils # (auto) 0.15 K/uL (0-0.5); Eosinophils % (auto) 1.9 %; Hematocrit (blood only) 25.3 % (37-47); Hemoglobin 8.2 g/dL (12.0-16.0); Immature Granulocytes # (auto) 0.03 K/uL (0.00-0.02); Immature Granulocytes % (auto) 0.4 %; Lymphocytes # (auto) 1.78 K/uL (1.2-3.4); Lymphocytes % (auto) 22.4 %; Mean Corpuscular Hemoglobin 28.2 pg (25-34); Mean Corpuscular Hgb Conc 32.4 g/dL (32-36); Mean Corpuscular Volume 86.9 fL (80-100); Mean Platelet Volume 8.5 fL (7.4-10.4); Monocytes # (auto) 0.63 K/uL (0.11-0.59); Monocytes % (auto) 7.9 %; Neutrophils # (auto) 5.33 K/uL (1.4-6.5); Neutrophils % (auto) 67.3 %; Platelet Count 449 K/uL (130-400); RDW Coefficient of Variation 16.9 % (11.5-14.5); RDW Standard Deviation 53.8 fL (36.4-46.3); Red Blood Count 2.91 M/uL (4.2-5.4); White Blood Count 7.93 K/uL (4.8-10.8)
[2019-01-09] MEDS: OXYCODONE/ACETAMINOPHEN 5mg/325mg TAB PO PRN ×4 (05:44→22:23)
[2019-01-09] MEDS: SODIUM CHLORIDE 0.9% 1000ML 1,000 ML IV SCH (05:45)
[2019-01-09] MEDS: AMPICILLIN/SULBACTAM SOD 3,000 MG in 0.9 % SODIUM CHLORIDE 100 ML IV SCH ×3 (05:45→18:14)
[2019-01-09 06:07] LABS: BUN Creatinine Ratio 5.6 (10-20); Calcium 7.7 mg/dl (8.5-10.1); Creatinine Clr Calc Pharmacy 132.5 ml/min; Est GFR (African American) 120.8; Est GFR (Non-African American) 104.2; Potassium 4.2 mmol/L (3.5-5.1)
[2019-01-09] MEDS: OXYBUTYNIN CHLORIDE XL 5 MG TABCR PO SCH (09:25)
[2019-01-09] MEDS: ASPIRIN 81 MG ECTAB PO SCH (09:25)
[2019-01-09] MEDS: PANTOprazole 40 MG TAB PO SCH (09:25)
[2019-01-09] MEDS: NICOTINE 21 MG/24 HR TDSY TD SCH (09:26)
[2019-01-09] MEDS: POTASSIUM CHLORIDE 20 MEQ TABCR PO SCH ×3 (09:26→21:02)
[2019-01-09] MEDS: LOSARTAN/HCTZ 50/12.5MG TAB PO SCH (09:26)
[2019-01-09] MEDS: DOCUSATE SODIUM 100 MG CAP PO SCH ×2 (09:28→21:01)
[2019-01-09] MEDS: MoRPHine SULFATE 4 MG/ML 1 ML CARP\\VIAL IV PRN ×2 (13:18→15:32)
--- NOTE | 2019-01-09 14:00 | Surgery Progress Note ---
Date of Service January 09, 2019 Assessment & Plan (1) Wound infection after surgery: The wound is improving nicely. The wound VAC was changed today. Due to the discomfort she is having with the wound VAC change she may need a nursing facility can give her IV pain medication for the changes. If she tolerates the changes better later in the week then we probably could send her home with oral pain medication for dressing changes per Subjective Patient is complaining of some discomfort left groin. She did have an extensive amount of discomfort from her VAC change. Physical Exam Physical Exam: On exam the wound is pink. There is no evidence of necrotic tissue present. Her feet are both viable. Wound VAC was changed. Constitutional: WD/WN, vitals as above Results & Data Vital Signs (Past 12 Hours) Vital Signs Temp Pulse Pulse Resp BP Pulse Ox 01/09/19 07:02 37.2 C 97 H 18 104/68 95 01/09/19 04:15 99 H 120/75
[2019-01-09] MEDS: ATORVASTATIN 40 MG TAB PO SCH (21:01)
[2019-01-10] MEDS: SODIUM CHLORIDE 0.9% 1000ML 1,000 ML IV SCH ×2 (00:01→20:26)
[2019-01-10] MEDS: OXYCODONE/ACETAMINOPHEN 5mg/325mg TAB PO PRN ×5 (02:29→20:32)
[2019-01-10] MEDS: AMPICILLIN/SULBACTAM SOD 3,000 MG in 0.9 % SODIUM CHLORIDE 100 ML IV SCH ×5 (05:33→23:37)
[2019-01-10] MEDS: OXYBUTYNIN CHLORIDE XL 5 MG TABCR PO SCH (08:46)
[2019-01-10] MEDS: PANTOprazole 40 MG TAB PO SCH (08:46)
[2019-01-10] MEDS: DOCUSATE SODIUM 100 MG CAP PO SCH ×2 (08:46→20:26)
[2019-01-10] MEDS: ASPIRIN 81 MG ECTAB PO SCH (08:46)
[2019-01-10] MEDS: LOSARTAN/HCTZ 50/12.5MG TAB PO SCH (08:46)
[2019-01-10] MEDS: NICOTINE 21 MG/24 HR TDSY TD SCH (08:47)
[2019-01-10] MEDS: POTASSIUM CHLORIDE 20 MEQ TABCR PO SCH ×3 (08:47→20:26)
--- NOTE | 2019-01-10 16:01 | Surgery Progress Note ---
Date of Service January 10, 2019 Assessment & Plan (1) Wound infection after surgery: Wound vac in place. To be changed tomorrow and reeval wound. Subjective 53 yo f POD # 3 after L groin debridement, seen in f/u today. Pt states feeling ok. Occasional pain in L groin from vac. Denies any other new ocmplaints Review of Systems Review of Systems: All systems reviewed & are unremarkable except as noted in HPI & below Physical Exam Constitutional: WD/WN, vitals as above + morbidly obese Respiratory: normal respiratory effort, lungs clear to auscultation Cardiovascular: RRR, no murmur, no edema Vessels: posterior tibial pulses present (doppler) and dorsalis pedis pulses present (doppler) Gastrointestinal (Abdomen): normal bowel sounds, soft, nontender, no hepatosplenomegaly (+ ventral incision C/D/I with raul, healing well) Musculoskeletal: Extremities: strength 5/5 throughout; full ROM of extremities and no cyanosis Skin: + wound (L groin wound vac in place, working well) Neurologic: moves all extremities; no focal motor deficits Psychiatric: A+Ox3, euthymic affect Results & Data Vital Signs (Past 12 Hours) Vital Signs Temp Pulse Resp BP Pulse Ox 01/10/19 15:33 36.7 C 83 20 132/81 96 01/10/19 06:50 36.8 C 97 H 18 119/71 96
[2019-01-10] MEDS: ATORVASTATIN 40 MG TAB PO SCH (20:26)
[2019-01-11] MEDS: OXYCODONE/ACETAMINOPHEN 5mg/325mg TAB PO PRN ×6 (01:37→23:41)
[2019-01-11] MEDS: AMPICILLIN/SULBACTAM SOD 3,000 MG in 0.9 % SODIUM CHLORIDE 100 ML IV SCH ×4 (05:46→23:42)
[2019-01-11] MEDS: POTASSIUM CHLORIDE 20 MEQ TABCR PO SCH ×3 (08:48→20:43)
[2019-01-11] MEDS: OXYBUTYNIN CHLORIDE XL 5 MG TABCR PO SCH (08:48)
[2019-01-11] MEDS: ASPIRIN 81 MG ECTAB PO SCH (08:49)
[2019-01-11] MEDS: PANTOprazole 40 MG TAB PO SCH (08:49)
[2019-01-11] MEDS: NICOTINE 21 MG/24 HR TDSY TD SCH (08:50)
[2019-01-11] MEDS ORDERED: LORazepam 1 MG/2 ML VIAL IV STA (08:56)
[2019-01-11] MEDS: DOCUSATE SODIUM 100 MG CAP PO SCH ×2 (09:12→20:48)
[2019-01-11] MEDS: LOSARTAN/HCTZ 50/12.5MG TAB PO SCH (09:12)
[2019-01-11] MEDS: MoRPHine SULFATE 4 MG/ML 1 ML CARP\\VIAL IV PRN ×3 (09:37→20:44)
--- NOTE | 2019-01-11 10:44 | Surgery Progress Note ---
Date of Service January 11, 2019 Assessment & Plan (1) Wound infection after surgery: Wound vac changed today. Pt with considerable pain with vac change, despite premedication. Continues to be tearful after change d/t pain. Will remain inpt for vac changes next week in order to maintain pain control. Subjective 53 yo f POD #4 after L groin debridement, seen in f/u today. Pt states feeling ok in general, but very anxious about vac change today. Occasional pain in L groin from vac. Denies any other new complaints. Review of Systems Review of Systems: All systems reviewed & are unremarkable except as noted in HPI & below Physical Exam Constitutional: WD/WN, vitals as above + morbidly obese Respiratory: normal respiratory effort, lungs clear to auscultation Cardiovascular: RRR, no murmur, no edema Vessels: posterior tibial pulses present (doppler) and dorsalis pedis pulses present (doppler) Gastrointestinal (Abdomen): normal bowel sounds, soft, nontender, no hepatosplenomegaly (+ ventral incision C/D/I with raul, healing well) Musculoskeletal: Extremities: strength 5/5 throughout; full ROM of extremities and no cyanosis Skin: + wound (L groin wound bed good granulation, minimal fat necrosis at edges. vac lopez) Neurologic: moves all extremities; no focal motor deficits Psychiatric: A+Ox3, euthymic affect Results & Data Vital Signs (Past 12 Hours) Vital Signs Temp Pulse Resp BP Pulse Ox 01/11/19 06:56 36.8 C 88 18 145/83 H 93 01/10/19 23:25 36.8 C 94 H 18 120/73 95
[2019-01-11] MEDS ORDERED: HYDROmorphone INJ 1 MG/ML SYRINGE IV ONE (10:47)
[2019-01-11] MEDS: SODIUM CHLORIDE 0.9% 1000ML 1,000 ML IV SCH (17:25)
[2019-01-11] MEDS: ATORVASTATIN 40 MG TAB PO SCH (20:44)
[2019-01-12] MEDS: MoRPHine SULFATE 4 MG/ML 1 ML CARP\\VIAL IV PRN (03:11)
[2019-01-12] MEDS: OXYCODONE/ACETAMINOPHEN 5mg/325mg TAB PO PRN ×4 (06:39→21:14)
[2019-01-12] MEDS: AMPICILLIN/SULBACTAM SOD 3,000 MG in 0.9 % SODIUM CHLORIDE 100 ML IV SCH ×4 (06:39→23:22)
[2019-01-12] MEDS: OXYBUTYNIN CHLORIDE XL 5 MG TABCR PO SCH (08:34)
[2019-01-12] MEDS: PANTOprazole 40 MG TAB PO SCH (08:34)
[2019-01-12] MEDS: POTASSIUM CHLORIDE 20 MEQ TABCR PO SCH ×3 (08:34→20:16)
[2019-01-12] MEDS: LOSARTAN/HCTZ 50/12.5MG TAB PO SCH (08:34)
[2019-01-12] MEDS: ASPIRIN 81 MG ECTAB PO SCH (08:35)
[2019-01-12] MEDS: NICOTINE 21 MG/24 HR TDSY TD SCH (08:35)
[2019-01-12] MEDS: DOCUSATE SODIUM 100 MG CAP PO SCH ×2 (08:39→20:17)
--- NOTE | 2019-01-12 10:13 | Surgery Progress Note ---
Date of Service January 12, 2019 Assessment & Plan (1) Wound infection after surgery: Wound vac changed yesterday. May do next change in OR under heavy sedation. Subjective Patient wants to go home. No pain except for dressing changes of her vac. Physical Exam Physical Exam: Feet are viable. Wound vac in place. Constitutional: WD/WN, vitals as above Results & Data Vital Signs (Past 12 Hours) Vital Signs Temp Pulse Pulse Resp BP Pulse Ox 01/12/19 07:14 36.8 C 87 16 158/87 H 93 01/11/19 22:55 36.7 C 94 H 16 149/79 H 93
[2019-01-12] MEDS: SODIUM CHLORIDE 0.9% 1000ML 1,000 ML IV SCH (16:00)
[2019-01-12] MEDS: ATORVASTATIN 40 MG TAB PO SCH (20:16)
[2019-01-13] MEDS: OXYCODONE/ACETAMINOPHEN 5mg/325mg TAB PO PRN ×2 (01:32→05:52)
[2019-01-13] MEDS: AMPICILLIN/SULBACTAM SOD 3,000 MG in 0.9 % SODIUM CHLORIDE 100 ML IV SCH ×2 (05:53→11:24)
[2019-01-13] MEDS: NICOTINE 21 MG/24 HR TDSY TD SCH (09:22)
[2019-01-13] MEDS: DOCUSATE SODIUM 100 MG CAP PO SCH ×2 (09:22→21:39)
[2019-01-13] MEDS: OXYBUTYNIN CHLORIDE XL 5 MG TABCR PO SCH (09:23)
[2019-01-13] MEDS: PANTOprazole 40 MG TAB PO SCH (09:23)
[2019-01-13] MEDS: ASPIRIN 81 MG ECTAB PO SCH (09:23)
[2019-01-13] MEDS: LOSARTAN/HCTZ 50/12.5MG TAB PO SCH (09:23)
[2019-01-13] MEDS: POTASSIUM CHLORIDE 20 MEQ TABCR PO SCH ×3 (09:23→21:40)
--- NOTE | 2019-01-13 09:47 | Surgery Progress Note ---
Date of Service January 13, 2019 Assessment & Plan (1) Wound infection after surgery: We will try her on p.o. Dilaudid tomorrow for for dressing change. She is able to tolerate she may build to go home fairly soon. (2) Vomiting and diarrhea: She is given Zofran for her nauseous this today. Sent C. difficile cultures also today. Subjective Patient only complains of some mild left groin discomfort with the VAC when she is walking. She did have a bout of nausea and vomiting this morning. She denies any abdominal pain. She does also complain of having diarrhea during the night. She has no complaints of her left lower extremity. Physical Exam Constitutional: WD/WN, vitals as above Gastrointestinal (Abdomen): Abdominal exam was benign. There is no tenderness no peritoneal signs present. Skin: VAC is in place and working nicely. Psychiatric: She is slightly depressed being that she is been in the hospital for extended period of time. Results & Data Vital Signs (Past 12 Hours) Vital Signs Temp Pulse Resp BP Pulse Ox 01/13/19 07:17 36.8 C 91 H 16 170/80 H 93 01/12/19 22:45 37 C 95 H 16 142/79 H 93
[2019-01-13] MEDS: ONDANSETRON INJ 2 MG/ML 2 ML VIAL IV PRN ×2 (10:18→19:31)
[2019-01-13] MEDS: SODIUM CHLORIDE 0.9% 1000ML 1,000 ML IV SCH ×2 (10:22→21:40)
[2019-01-13] MEDS: HYDROmorphone HCL 2 MG TAB PO PRN ×2 (14:41→21:45)
[2019-01-13] MEDS: ATORVASTATIN 40 MG TAB PO SCH (21:40)
[2019-01-14] MEDS: SODIUM CHLORIDE 0.9% 1000ML 1,000 ML IV SCH (07:33)
[2019-01-14] MEDS: ASPIRIN 81 MG ECTAB PO SCH (08:31)
[2019-01-14] MEDS: OXYBUTYNIN CHLORIDE XL 5 MG TABCR PO SCH (08:31)
[2019-01-14] MEDS: LOSARTAN/HCTZ 50/12.5MG TAB PO SCH (08:31)
[2019-01-14] MEDS: PANTOprazole 40 MG TAB PO SCH (08:31)
[2019-01-14] MEDS: DOCUSATE SODIUM 100 MG CAP PO SCH (08:31)
[2019-01-14] MEDS: NICOTINE 21 MG/24 HR TDSY TD SCH (08:32)
[2019-01-14] MEDS: POTASSIUM CHLORIDE 20 MEQ TABCR PO SCH (08:32)
[2019-01-14] MEDS ORDERED: HYDROmorphone HCL 2 MG TAB PO SCH (09:00)
--- NOTE | 2019-01-14 09:40 | Surgery Progress Note ---
Date of Service January 14, 2019 Assessment & Plan (1) Wound infection after surgery: Pt did well today with vac change on PO dilaudid. Will d/c home today with home nursing for vac changes M/W/. Will continue dilaudid for pain control on vac change days. Will see in office in 1-2 weeks to ressess. Subjective 53 yo f s/p aortobifem bypass and subsequent L groin debridement, seen in f/u today. Pt states feeling generally well, occasional nausea, but thinks it may be from anxiety and/or pain meds. Denies any other new complaints. Is anxious for d/c home. Review of Systems Review of Systems: All systems reviewed & are unremarkable except as noted in HPI & below Physical Exam Constitutional: WD/WN, vitals as above + morbidly obese Respiratory: normal respiratory effort, lungs clear to auscultation Cardiovascular: RRR, no murmur, no edema Vessels: posterior tibial pulses present (doppler) and dorsalis pedis pulses present (doppler) Gastrointestinal (Abdomen): normal bowel sounds, soft, nontender, no hepatosplenomegaly (+ ventral incision C/D/I with raul, healing well) Musculoskeletal: Extremities: strength 5/5 throughout; full ROM of extremities and no cyanosis Skin: + wound (L groin wound bed good granulation, minimal fat necrosis at edges. vac lopez) Neurologic: moves all extremities; no focal motor deficits Psychiatric: A+Ox3, euthymic affect Results & Data Vital Signs (Past 12 Hours) Vital Signs Temp Pulse Pulse Resp BP Pulse Ox 01/14/19 07:02 37.2 C 100 H 16 147/76 H 95 01/13/19 23:52 37.4 C 107 H 14 166/83 H 92
--- NOTE | 2019-01-15 11:00 | Discharge Summary ---
Date of Service January 15, 2019 Admission HPI Per Admitting Provider Patient had a recent aortobifemoral bypass d/t distal aortic occlusion. She now has developed a small open area with serous drainage in L groin. She has increased pain in the groin and increased redness. Recommended admission and possible surgical debridement. Pt agreeable. Denies fever, chills, chest pain, new abd pain, other complaints. Admission Exam Per Admitting Provider Constitutional: + obese Neck: trachea midline Respiratory: normal respiratory effort, lungs clear to auscultation Cardiovascular: RRR, no murmur, no edema Vessels: dorsalis pedis pulses present (palpable bilateral) Gastrointestinal (Abdomen): Inspection/Auscultation: abdomen normal to inspection Percussion/Palpation: abdomen soft; abdomen nontender Musculoskeletal: Extremities: extremities normal to inspection; normal strength Skin: + incision (abd, right groin ok, serous drainage left groin with surrounding erythema) Principal Diagnosis 1. s/p L groin debridement and wound vac 2. L groin wound infection 3. s/p Aortobifemoral bypass Discharge Exam Constitutional WD/WN, vitals as above + morbidly obese Respiratory normal respiratory effort, lungs clear to auscultation Cardiovascular RRR, no murmur, no edema Vessels: posterior tibial pulses present (doppler) and dorsalis pedis pulses present (doppler) Gastrointestinal (Abdomen) normal bowel sounds, soft, nontender, no hepatosplenomegaly (+ ventral incision C/D/I with raul, healing well) Musculoskeletal Extremities: strength 5/5 throughout; full ROM of extremities and no cyanosis Skin + wound (L groin wound bed good granulation, minimal fat necrosis at edges. vac lopez) Neurologic moves all extremities; no focal motor deficits Psychiatric A+Ox3, euthymic affect Discharge Data Allergies Allergy/AdvReac Type Severity Reaction Status Date / Time chlorhexidine Allergy Intermediate hives, Verified 01/02/19 11:46 redness Penicillins AdvReac Intermediate nausea, Verified 01/14/19 10:00 vomiting, migraine bupropion AdvReac Hallucinati Verified 01/02/19 11:46 ng Consultations 01/07/19 16:44 Consult Case Management - Discharge Planning Routine Procedures Performed Operation Date: 01/07/19 10:50 Actual Procedures p Left Groin Debridement with application of wound vac(Left) - Rudy Travis MD Operation Date: 01/14/19 10:00 <No data on this case meets the specified criteria> Ordered Studies 01/04/19 15:01 CT angio abd pelvis wo/w con Routine Hospital Course (1) Wound infection after surgery: While pt experienced severe pain with prior wound vac changes, she did well today(POD #7) with vac change on PO dilaudid. Will d/c home today with home nursing for vac changes M/W/F. Will continue dilaudid for pain control on vac change days. Will see in office in 1-2 weeks to ressess. Total Time Total Time Spent Total Time Spent (In Minutes): 15 minutes Total Time Includes: Examination of the Patient, Discharge Planning and Medication Reconciliation Discharge Plan Discharge Items Patient Disposition: Home - Home Health Services Reason For Visit: LEFT GROIN WOUND INFECTION Discharge Diagnosis: Infected left groin Activity: Per Instructions section Lifting: Gradually increase as tolerated Bathing: Keep incision dry Exercise/Sports: Gradually increase as tolerated Weightbearing: Full weightbearing Non-emergency contact: Surgeon Call non-emergency contact if: you have any medication questions, your symptoms worsen, your pain is not controlled, your pain is worsening, your pain is unusual for you, your pain is concerning for you, your temperature is above 101.5, your wound has increased redness and your wound has increased drainage Follow-up/Referrals: Courtney Lynch DO [Primary Care Provider] - Diet: Heart Healthy Addtl Attending Provider Instructions: ACTIVITY RECOMMENDATIONS: See Above wound vac change mon and monday take two dilaudid prior to wound vac change SPECIAL CARE INSTRUCTIONS: Call your doctor if: * Temperature above 101 degrees * Pain not relieved by pain medicine ordered * There is increased drainage or redness from any incision * You have any unanswered questions or concerns. Call [phone] to schedule a follow up appointment if one not already scheduled. Pending Studies at Discharge: No Stand-Alone Forms: [facility], Opioid Pain Management Medications and DC Order Prescriptions: New hydromorphone [Dilaudid] 4 mg tablet 4 mg PO Q3H PRN (Reason: pain) Qty: 30 RF: 0 sulfamethoxazole-trimethoprim [Bactrim DS] 800-160 mg tablet 1 tab PO BID 14 Days Qty: 28 RF: 0 Continued fluticasone propionate [Flonase Allergy Relief] 50 mcg/actuation spray,suspension 1 sprays INTNAS DAILY PRN (Reason: allergy symptoms) Qty: 18.2 RF: 2 oxybutynin chloride 10 mg tablet extended release 24hr 10 mg PO QAM Qty: 30 RF: 0 estradiol 1 mg Tablet 1 mg PO UD RF: 0 omeprazole 20 mg Capsule,Delayed Release(Dr/Ec) 20 mg PO QAM RF: 0 atorvastatin 40 mg tablet 40 mg PO QPM RF: 0 aspirin [Adult Low Dose Aspirin] 81 mg tablet,delayed release (DR/EC) 81 mg PO QAM RF: 0 acetaminophen [Tylenol Extra Strength] 500 mg tablet 1,000 mg PO DAILY PRN (Reason: PAIN OR FEVER) RF: 0 losartan-hydrochlorothiazide 50-12.5 mg tablet 1 tab PO QAM RF: 0 cholecalciferol (vitamin D3) [Vitamin D3] 2,000 unit capsule 4,000 units PO QAM RF: 0 Discontinued oxycodone-acetaminophen [Percocet] 5-325 mg Tablet 1 - 2 tab PO Q4H PRN (Reason: pain) Qty: 60 RF: 0 docusate sodium 100 mg Capsule 100 mg PO BID Qty: 60 RF: 0 Discharge Orders: Discharge Order (Routine); Ordered 01/14/19 Ordered By: Rudy Barnett/Other Patient Handouts: Hypokalemia Dc, Closure Wound Vacuum Assisted Admission Data Admit Date/Time: 01/03/19 11:43 Attending Provider: Rudy Travis Admit Provider: Rudy Travis Primary Care Provider: Courtney Lynch Other Interventions: Discharge Summary Assessment (RN) Last Done: 01/14/19 10:08 DC Date/Time DO NOT enter until pt leaves facility: 01/14/19 14:04
== END 2019-01-14 14:04 | disposition home health service (06) | DRG 863 ==
LOC: 3N 11:43

== ENCOUNTER 2019-01-24 12:24 | Inpatient (IN) ==
--- NOTE | 2019-01-24 14:10 | History & Physical Report ---
Date of Service January 24, 2019 Assessment & Plan (1) Open wound of groin: Patient is admitted for pain control and wound care of the open left groin wound. We will plan on having her sent to a alf facility post discharge. History of Present Illness Chief Complaint: Open left groin wound. Primary Care Provider: Courtney Lynch DO This is a 53-year-old female who had an aortobifemoral bypass. She subsequently developed a left groin infection which was debrided earlier this month. She was sent home with a wound VAC in the left groin.She is complaining of pain in the left groin with wound VAC changes.It is difficult for home health care to change the wound VAC to the with size and location.She is admitted at this time for adequate wound care and antibiotic therapy.She does complain of having some low- grade fevers at home. Allergies Allergy/AdvReac Type Severity Reaction Status Date / Time chlorhexidine Allergy Intermediate hives, Verified 01/02/19 11:46 redness Penicillins AdvReac Intermediate nausea, Verified 01/14/19 10:00 vomiting, migraine bupropion AdvReac Hallucinati Verified 01/02/19 11:46 ng Home Medications Home Medications Medication Instructions Recorded Confirmed Type estradiol 1 mg PO UD 07/16/18 01/03/19 History omeprazole 20 mg PO QAM 07/16/18 01/03/19 History oxybutynin chloride ER 10 mg 10 mg PO QAM #30 tab 11/13/18 01/03/19 History tablet,extended release 24 hr fluticasone propionate 50 1 sprays INTNAS DAILY PRN #18.2 gm 11/21/18 01/03/19 Rx mcg/actuation nasal spray,suspension acetaminophen [Tylenol Extra 1,000 mg PO DAILY PRN 12/17/18 01/03/19 History Strength] aspirin [Adult Low Dose Aspirin] 81 mg PO QAM 12/17/18 01/03/19 History atorvastatin 40 mg PO QPM 12/17/18 01/03/19 History cholecalciferol (vitamin D3) 4,000 units PO QAM 12/17/18 01/03/19 History [Vitamin D3] losartan-hydrochlorothiazide 1 tab PO QAM 12/17/18 01/03/19 History hydromorphone [Dilaudid] 4 mg PO Q3H PRN #30 tab 01/14/19 Rx sulfamethoxazole-trimethoprim 1 tab PO BID 14 Days #28 tab 01/14/19 Rx [Bactrim DS] ondansetron HCl 8 mg tablet 8 mg PO Q8H PRN #10 tab 01/21/19 Rx Past Med/Surg History Medical History Hypokalemia Morbid (severe) obesity due to excess calories Peripheral arterial disease 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 Hypertension Migraine GERD (gastroesophageal reflux disease) controlled Degenerative disc disease Arthritis Hyperlipidemia Obesity, morbid Urinary incontinence Anal fissure Anxiety and depression Elevated alkaline phosphatase level Hyponatremia Skin disorder Tick bite Tinea corporis Surgical History S/P aortobifemoral bypass surgery History of bilateral tubal ligation History of cholecystectomy History of colonoscopy 07/26/18: MAC sedation at [facility] History of tonsillectomy History of tooth extraction History of total abdominal hysterectomy and bilateral salpingo-oophorectomy History of wisdom tooth extraction Status post myringotomy with tube placement of both ears multiple times Family History Father Family hx colonic polyps Mother Coronary heart disease Depression Kidney disease Hypertension Cardiac disorder Myocardial infarction Father Lymphoma Brother Depression Muscular dystrophy Clotting disorder Sister Depression Grandfather Myocardial infarction Social History Preferred Language: Uzbek Communication Ability: Effective Mechanic Required: No Beliefs That Will Affect Care: None Current Living Situation: Spouse Current Living Situation Comment: Lives with and 2 adult children current occupation: homemaker Feels Safe at Home: Yes Smoking Status: Current every day smoker Tobacco Type: cigarettes ; Cigarettes Per Day: 10 ; Second Hand Exposure: Yes ; Hx Alcohol Use: No Hx Substance Use: No Review of Systems All systems reviewed & are unremarkable except as noted in HPI & below Physical Exam Physical Exam: Constitutional: + obese Neck: trachea midline Respiratory: normal respiratory effort, lungs clear to auscultation Cardiovascular: RRR, no murmur, no edema Vessels: dorsalis pedis pulses present (palpable on right, Not palpable on the left) Gastrointestinal (Abdomen): Inspection/Auscultation: abdomen normal to inspection Percussion/Palpation: abdomen soft; abdomen nontender Musculoskeletal: Extremities: extremities normal to inspection; normal strength Skin: + incision (abd, right groin ok, She has a large open left groin wound with a VAC in place.) Results & Data Vital Signs (Past 12 Hours) Vital Signs Temp Pulse Resp BP Pulse Ox 01/24/19 13:45 36.7 C 112 H 18 120/76 96
[2019-01-24] MEDS ORDERED: OXYCODONE/ACETAMINOPHEN 5mg/325mg TAB PO PRN (14:11)
[2019-01-24] MEDS ORDERED: FLUTICASONE PROPIONATE NA SPR 16 GM BTL PRN (14:20)
[2019-01-24] MEDS ORDERED: ACETAMINOPHEN 500 MG TAB PO PRN (14:20)
[2019-01-24] MEDS: CIPROFLOXACIN 400 MG/200 ML BAG IV SCH (15:26)
[2019-01-24] MEDS: ENOXAPARIN INJ 40 MG/0.4 ML SYR SQ SCH (17:05)
[2019-01-24] MEDS: OXYCODONE/ACETAMINOPHEN 5mg/325mg TAB PO PRN (18:14)
[2019-01-24] MEDS: ATORVASTATIN 40 MG TAB PO SCH (22:32)
[2019-01-25] MEDS: OXYCODONE/ACETAMINOPHEN 5mg/325mg TAB PO PRN ×5 (00:11→19:19)
[2019-01-25] MEDS: CIPROFLOXACIN 400 MG/200 ML BAG IV SCH ×2 (05:07→15:47)
[2019-01-25] MEDS: ENOXAPARIN INJ 40 MG/0.4 ML SYR SQ SCH ×2 (05:07→15:59)
[2019-01-25 05:52] LABS: Basophils # (auto) 0.03 K/uL (0-0.2); Basophils % (auto) 0.5 %; Eosinophils # (auto) 0.22 K/uL (0-0.5); Eosinophils % (auto) 3.4 %; Hematocrit (blood only) 31.7 % (37-47); Hemoglobin 10.2 g/dL (12.0-16.0); Immature Granulocytes # (auto) 0.03 K/uL (0.00-0.02); Immature Granulocytes % (auto) 0.5 %; Lymphocytes # (auto) 2.16 K/uL (1.2-3.4); Lymphocytes % (auto) 33.5 %; Mean Corpuscular Hemoglobin 27.1 pg (25-34); Mean Corpuscular Hgb Conc 32.2 g/dL (32-36); Mean Corpuscular Volume 84.1 fL (80-100); Mean Platelet Volume 8.7 fL (7.4-10.4); Monocytes # (auto) 0.84 K/uL (0.11-0.59); Neutrophils # (auto) 3.17 K/uL (1.4-6.5); Neutrophils % (auto) 49.1 %; Platelet Count 277 K/uL (130-400); RDW Coefficient of Variation 16.9 % (11.5-14.5); Red Blood Count 3.77 M/uL (4.2-5.4); White Blood Count 6.45 K/uL (4.8-10.8)
[2019-01-25 06:18] LABS: BUN Creatinine Ratio 9.7 (10-20); Calcium 8.8 mg/dl (8.5-10.1); Creatinine Clr Calc Pharmacy 70.2 ml/min; Est GFR (African American) 66.1; Est GFR (Non-African American) 57.1; Potassium 3.6 mmol/L (3.5-5.1)
[2019-01-25] MEDS: HYDROmorphone INJ 0.5 MG/0.5 ML SYR IV PRN ×2 (09:23→20:11)
[2019-01-25] MEDS: PANTOprazole 40 MG TAB PO SCH (09:28)
[2019-01-25] MEDS: OXYBUTYNIN CHLORIDE XL 5 MG TABCR PO SCH (09:28)
[2019-01-25] MEDS: ASPIRIN 81 MG ECTAB PO SCH (09:29)
[2019-01-25] MEDS: CHOLECALCIFEROL 1,000 UNITS TAB PO SCH (09:29)
[2019-01-25] MEDS: LOSARTAN/HCTZ 50/12.5MG TAB PO SCH (09:29)
[2019-01-25] MEDS ORDERED: HYDROmorphone INJ 1 MG/ML SYRINGE IV STA (10:31)
--- NOTE | 2019-01-25 11:15 | Surgery Progress Note ---
Date of Service January 25, 2019 Assessment & Plan (1) Open wound of groin: Pt with healing L groin wound and unable to tolerate vac changes at home. Pt required IV dilaudid today for vac change and still had significant pain. Plan is for d/c to rehab vs SNF d/t pain control and wound care. Subjective 53 yo f s/p Aortobifem bypass and subsequent L groin dehiscence requiring surgical debridement, seen in f/u today. Pt had been d/c to home with wound vac for healing, however, was readmitted yesterday d/t uncontrolled pain L groin and home nursing concerns about possible infection. Pt admits severe pain L groin, generally controlled on oral medications between wound vac changes, however, pain uncontrollable with vac changes. Denies N/V, fever, other complaints. Review of Systems Review of Systems: All systems reviewed & are unremarkable except as noted in HPI & below Physical Exam Constitutional: WD/WN, vitals as above + morbidly obese Respiratory: normal respiratory effort, lungs clear to auscultation Cardiovascular: RRR, no murmur, no edema Vessels: dorsalis pedis pulses present (RLE, doppler LLE); + abnormal peripheral pulses Extremities: normal capillary refill Gastrointestinal (Abdomen): normal bowel sounds, soft, nontender, no hepatosplenomegaly Skin: + wound (L groin with healthy granulation, see below) Wound filling in well, however, pressure injury noted to surface skin, likely from poor wound vac placement. Also, retained adaptic noted to be embedded in wound and removed with some difficulty and increased pain. ABD incision and R groin incisions well healed. Neurologic: moves all extremities; no focal motor deficits Psychiatric: Orientation: alert and oriented x 3 Affect: + anxious affect Results & Data Vital Signs (Past 12 Hours) Vital Signs Temp Pulse Resp BP Pulse Ox 01/25/19 07:50 36.6 C 89 17 123/79 96
[2019-01-25] MEDS: ATORVASTATIN 40 MG TAB PO SCH (20:11)
[2019-01-26] MEDS: OXYCODONE/ACETAMINOPHEN 5mg/325mg TAB PO PRN ×3 (01:29→17:21)
[2019-01-26] MEDS: CIPROFLOXACIN 400 MG/200 ML BAG IV SCH ×2 (03:49→16:02)
[2019-01-26] MEDS: ENOXAPARIN INJ 40 MG/0.4 ML SYR SQ SCH ×2 (05:19→16:02)
[2019-01-26] MEDS: LOSARTAN/HCTZ 50/12.5MG TAB PO SCH (08:17)
[2019-01-26] MEDS: CHOLECALCIFEROL 1,000 UNITS TAB PO SCH (08:17)
[2019-01-26] MEDS: OXYBUTYNIN CHLORIDE XL 5 MG TABCR PO SCH (08:18)
[2019-01-26] MEDS: PANTOprazole 40 MG TAB PO SCH (08:18)
[2019-01-26] MEDS: ASPIRIN 81 MG ECTAB PO SCH (08:18)
[2019-01-26] MEDS: ONDANSETRON 8 MG TABLET PO PRN (08:37)
--- NOTE | 2019-01-26 09:51 | Surgery Progress Note ---
Date of Service January 26, 2019 Assessment & Plan (1) Open wound of groin: I reviewed the pictures of the wound from yesterday's change. Suggested we irrigate the wound and partially close part of it on Monday. She is aggreable. Subjective Up in chair today. Pain is bearable. Vac change caused severe pain. Physical Exam Physical Exam: Vac in place, working well Constitutional: WD/WN, vitals as above Results & Data Vital Signs (Past 12 Hours) Vital Signs Temp Pulse Resp BP Pulse Ox 01/26/19 07:03 36.6 C 94 H 18 115/76 97 01/25/19 23:06 36.9 C 93 H 16 113/72 96
[2019-01-26] MEDS: HYDROmorphone INJ 2 MG/ML SYR/VIAL IV PRN ×2 (11:29→20:36)
[2019-01-26] MEDS: ATORVASTATIN 40 MG TAB PO SCH (20:40)
[2019-01-27] MEDS: OXYCODONE/ACETAMINOPHEN 5mg/325mg TAB PO PRN ×2 (00:04→09:10)
[2019-01-27] MEDS: HYDROmorphone INJ 1 MG/ML SYRINGE IV PRN ×4 (01:58→21:54)
[2019-01-27] MEDS: CIPROFLOXACIN 400 MG/200 ML BAG IV SCH ×2 (04:13→15:49)
[2019-01-27] MEDS: ENOXAPARIN INJ 40 MG/0.4 ML SYR SQ SCH ×2 (04:13→17:16)
[2019-01-27 05:42] LABS: Creatinine Clr Calc Pharmacy 92.8 ml/min; Est GFR (African American) 92.6; Est GFR (Non-African American) 79.9
[2019-01-27] MEDS ORDERED: HYDROmorphone INJ 2 MG/ML SYR/VIAL IV PRN (09:01)
[2019-01-27] MEDS: CHOLECALCIFEROL 1,000 UNITS TAB PO SCH (09:10)
[2019-01-27] MEDS: LOSARTAN/HCTZ 50/12.5MG TAB PO SCH (09:11)
[2019-01-27] MEDS: PANTOprazole 40 MG TAB PO SCH (09:11)
[2019-01-27] MEDS: ASPIRIN 81 MG ECTAB PO SCH (09:11)
[2019-01-27] MEDS: OXYBUTYNIN CHLORIDE XL 5 MG TABCR PO SCH (09:11)
--- NOTE | 2019-01-27 09:35 | Surgery Progress Note ---
Date of Service January 27, 2019 Assessment & Plan (1) Open wound of groin: At this point will hold off on the wound VAC change on Monday. We are planning to take her back to the operating room on Monday for debridement, partial closure of the wound and application of the wound VAC. Subjective This patient has significant pain during the night which was relieved with IV Dilaudid every 2 hours. She is feeling much better this morning. Physical Exam Constitutional: WD/WN, vitals as above Skin: + wound (Wound VAC is in place. Surrounding tissue appears normal.) Results & Data Vital Signs (Past 12 Hours) Vital Signs Temp Pulse Resp BP Pulse Ox 01/27/19 07:23 36.8 C 92 H 16 121/65 96 01/26/19 23:29 37.1 C 100 H 16 110/70 96
[2019-01-27] MEDS ORDERED: ALUMINUM/MAGNESIUM SUSP 30 ML UDC PO PRN (13:55)
[2019-01-27] MEDS: ATORVASTATIN 40 MG TAB PO SCH (20:14)
[2019-01-28] MEDS: OXYCODONE/ACETAMINOPHEN 5mg/325mg TAB PO PRN ×4 (02:25→20:12)
[2019-01-28] MEDS: CIPROFLOXACIN 400 MG/200 ML BAG IV SCH ×2 (04:39→16:16)
[2019-01-28] MEDS: ENOXAPARIN INJ 40 MG/0.4 ML SYR SQ SCH ×2 (04:40→16:15)
[2019-01-28] MEDS: CHOLECALCIFEROL 1,000 UNITS TAB PO SCH (08:51)
[2019-01-28] MEDS: PANTOprazole 40 MG TAB PO SCH (08:51)
[2019-01-28] MEDS: OXYBUTYNIN CHLORIDE XL 5 MG TABCR PO SCH (08:51)
[2019-01-28] MEDS: ASPIRIN 81 MG ECTAB PO SCH (08:52)
[2019-01-28] MEDS: LOSARTAN/HCTZ 50/12.5MG TAB PO SCH (08:52)
[2019-01-28] MEDS: ONDANSETRON 8 MG TABLET PO PRN (09:20)
[2019-01-28] MEDS ORDERED: NYSTATIN POWDER 15GM BTL EXT PRN (09:42)
[2019-01-28] MEDS: HYDROmorphone INJ 1 MG/ML SYRINGE IV PRN ×4 (09:50→22:57)
--- NOTE | 2019-01-28 11:09 | Surgery Progress Note ---
Date of Service January 28, 2019 Assessment & Plan (1) Open wound of groin: Pt scheduled for L groin partial closure and washout tomorrow in OR by Dr Travis. Unfortunately, pt required wound vac change today as well d/t length of time since last vac change is 72 hrs. Pt continues to have significant pain with vac changes. Hyponatremia noted on admission labs, will recheck PRP today. Subjective 53 yo f with hx aortobifemoral bypass graft and subsequent superficial L groin wound infection requiring debridement and wound vac, seen in f/u today. Pt admits pain with vac changes, but states pain is generally controlled otherwise. Review of Systems Review of Systems: All systems reviewed & are unremarkable except as noted in HPI & below Physical Exam Constitutional: WD/WN, vitals as above + morbidly obese Respiratory: normal respiratory effort, lungs clear to auscultation Cardiovascular: RRR, no murmur, no edema Vessels: dorsalis pedis pulses present (RLE, doppler LLE); + abnormal peripheral pulses Extremities: normal capillary refill Gastrointestinal (Abdomen): normal bowel sounds, soft, nontender, no hepatosplenomegaly Skin: + wound (L groin with healthy granulation, signifciantly smaller) Neurologic: moves all extremities; no focal motor deficits Psychiatric: Orientation: alert and oriented x 3 Affect: + anxious affect Results & Data Vital Signs (Past 12 Hours) Vital Signs Temp Pulse Resp BP Pulse Ox 01/28/19 07:28 36.8 C 91 H 16 135/73 94
[2019-01-28 11:51] LABS: BUN Creatinine Ratio 9.5 (10-20); Calcium 8.8 mg/dl (8.5-10.1); Est GFR (African American) 101.3; Est GFR (Non-African American) 87.4; Potassium 3.8 mmol/L (3.5-5.1)
--- NOTE | 2019-01-28 15:41 | Communication Note ---
Date of Service: January 28, 2019 New labs ordered today demonstrate worsening hyponatremia. Will cancel procedure tomorrow and consult hospitalist team for recommendations.
--- NOTE | 2019-01-28 17:08 | Consultation ---
Date of Consultation January 28, 2019 Assessment & Plan (1) Hyponatremia: patient has multiple reasons for a drop in her sodium - poor solute intake the past few weeks, she has not been eating much, but she admits to drinking water every day - pain in groin every day that could be driving up ADH level, serum osmolality is low, urine osmolality pending - HCTZ may be contributing to further sodium loss plan: fluid restriction, liberalize sodium in diet, Sodium Chloride tablet 1gm BID starting this evening, stop HCTZ will check BMP in the morning (2) Open wound of groin: continue Cipro and Clindamycin plan for washout and partial closure on 01/[address] (3) Hypertension: stop HCTZ with low sodium continue Losartan (4) Peripheral arterial disease: on aspirin on Lovenox 40 q12 (5) GERD (gastroesophageal reflux disease): continue PPI (6) Obesity, morbid: History of Present Illness Requesting Physician: Dr. Travis Reason for Consultation: Hyponatremia Attending Physician: Rudy Travis MD History of Present Illness 53 yo female with history of fem pop bypass due to severe peripheral arterial disease, complicated by left groin wound. She was brought in for planned partial closure of wound and washout initially scheduled for tomorrow. She was found to have a sodium of 130 on admission, on repeat it was 127. She cannot recall a history of low sodium. She does not have any symptoms such as altered mental status. Her main issue the past few weeks has been pain in left groin as well as nausea and poor appetite. She admits that her oral intake has been significantly decreased, however, she has been drinking plenty of water. The pain in her groin has been fairly constant, pain medications have helped slightly. She has been compliant with her medications. Evaluated today by anesthesia, now planning on OR on 01/30, will try to improve sodium prior to OR. Allergies Allergy/AdvReac Type Severity Reaction Status Date / Time chlorhexidine Allergy Intermediate hives, Verified 01/02/19 11:46 redness Penicillins AdvReac Intermediate nausea, Verified 01/14/19 10:00 vomiting, migraine bupropion AdvReac Hallucinati Verified 01/02/19 11:46 ng Home Medications Home Medications Medication Instructions Recorded Confirmed Type estradiol 1 mg PO UD 07/16/18 01/24/19 History omeprazole 20 mg PO QAM 07/16/18 01/24/19 History oxybutynin chloride ER 10 mg 10 mg PO QAM #30 tab 11/13/18 01/24/19 History tablet,extended release 24 hr fluticasone propionate 50 1 sprays INTNAS DAILY PRN #18.2 gm 11/21/18 01/24/19 Rx mcg/actuation nasal spray,suspension acetaminophen [Tylenol Extra 1,000 mg PO DAILY PRN 12/17/18 01/24/19 History Strength] aspirin [Adult Low Dose Aspirin] 81 mg PO QAM 12/17/18 01/24/19 History atorvastatin 40 mg PO QPM 12/17/18 01/24/19 History cholecalciferol (vitamin D3) 4,000 units PO QAM 12/17/18 01/24/19 History [Vitamin D3] losartan-hydrochlorothiazide 1 tab PO QAM 12/17/18 01/24/19 History hydromorphone [Dilaudid] 4 mg PO Q3H PRN #30 tab 01/14/19 01/24/19 Rx ondansetron HCl 8 mg tablet 8 mg PO Q8H PRN #10 tab 01/21/19 01/24/19 Rx Patient History Medical History Hypokalemia Morbid (severe) obesity due to excess calories Peripheral arterial disease 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 Hypertension Migraine GERD (gastroesophageal reflux disease) controlled Degenerative disc disease Arthritis Hyperlipidemia Obesity, morbid Urinary incontinence Anal fissure Anxiety and depression Elevated alkaline phosphatase level Hyponatremia Skin disorder Tick bite Tinea corporis Surgical History S/P aortobifemoral bypass surgery History of bilateral tubal ligation History of cholecystectomy History of colonoscopy 07/26/18: MAC sedation at [facility] History of tonsillectomy History of tooth extraction History of total abdominal hysterectomy and bilateral salpingo-oophorectomy History of wisdom tooth extraction Status post myringotomy with tube placement of both ears multiple times Family History Father Family hx colonic polyps Mother Coronary heart disease Depression Kidney disease Hypertension Cardiac disorder Myocardial infarction Father Lymphoma Brother Depression Muscular dystrophy Clotting disorder Sister Depression Grandfather Myocardial infarction Social History Preferred Language: Maltese Communication Ability: Effective 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 Beliefs That Will Affect Care: None Current Living Situation: Spouse Current Living Situation Comment: Lives with and 2 adult children current occupation: homemaker Other Information That Helps Us Care for You: No Feels Safe at Home: Yes Safety Concerns: Feels Safe At This Time Smoking Status: Current every day smoker Tobacco Type: cigarettes ; Cigarettes Per Day: 10 ; Do You Dip or Chew Tobacco: No ; Second Hand Exposure: Yes ; Tobacco Cessation Education Requested by Patient: No Hx Alcohol Use: No Hx Substance Use: No Review of Systems Review of Systems: All systems reviewed & are unremarkable except as noted in HPI & below Constitutional: + fatigue and + weakness; no fever, no chills and no sweats Respiratory: no cough and no dyspnea Cardiovascular: no chest pain, no syncope, no edema and no claudication Gastrointestinal: + early satiety and + nausea; no abdominal pain, no vomiting, no constipation and no diarrhea/loose stools Genitourinary: no dysuria, no difficulty urinating, no urinary hesitancy and no hematuria Musculoskeletal: no back pain, no joint pain, no myalgia and no muscle weakness Integumentary: + wounds (left groin, very tender, constant) Neurologic: no paralysis, no loss of sensation, no numbness, no seizure-like activity and no headache(s) Physical Exam Constitutional: well developed, well nourished and + obese; no acute distress Eyes: PERRL, conjunctivae normal, anicteric sclerae ENMT: external ear and nose normal, oropharynx normal Neck: trachea midline, no thyromegaly Respiratory: normal respiratory effort, lungs clear to auscultation Cardiovascular: RRR, no murmur, no edema Gastrointestinal (Abdomen): normal bowel sounds, soft, nontender, no hepatosplenomegaly Musculoskeletal: no cyanosis or clubbing, extremities motor strength 5/5 Skin: + wound (left groin, wound vac in place) Neurologic: patellar DTR's 2+ bilat, sensation intact and PERRL, EOMI, accommodation nl, no face palsy, no dysarthria Psychiatric: A+Ox3, euthymic affect Lymphatic: no cervical or axillary lymphadenopathy Results & Data Vital Signs (Past 12 Hours) Vital Signs Temp Pulse Resp BP Pulse Ox 01/28/19 14:53 36.6 C 91 H 17 110/71 97 01/28/19 07:28 36.8 C 91 H 16 135/73 94 PG Care Time/CCT Total # of Minutes Spent Total Time Spent with Patient: Total time spent is greater than 50% in coordination of care (as documented) at patient's floor/unit and/or counseling patient:
[2019-01-28] MEDS: ATORVASTATIN 40 MG TAB PO SCH (20:12)
[2019-01-28] MEDS: SODIUM CHLORIDE 1 GM TABLET PO SCH (20:12)
[2019-01-29] MEDS: OXYCODONE/ACETAMINOPHEN 5mg/325mg TAB PO PRN ×4 (03:50→21:28)
[2019-01-29] MEDS: CIPROFLOXACIN 400 MG/200 ML BAG IV SCH ×2 (03:55→15:24)
[2019-01-29] MEDS ORDERED: CLINDAMYCIN 600 MG/54 ML BAG IV SCH (06:00)
[2019-01-29] MEDS: ENOXAPARIN INJ 40 MG/0.4 ML SYR SQ SCH ×2 (06:00→17:47)
[2019-01-29 06:21] LABS: BUN Creatinine Ratio 8.3 (10-20); Calcium 8.5 mg/dl (8.5-10.1); Creatinine Clr Calc Pharmacy 84.8 ml/min; Est GFR (Non-African American) 71.6; Potassium 3.5 mmol/L (3.5-5.1)
[2019-01-29] MEDS: HYDROmorphone INJ 1 MG/ML SYRINGE IV PRN ×4 (07:42→22:56)
[2019-01-29] MEDS: CHOLECALCIFEROL 1,000 UNITS TAB PO SCH (09:15)
[2019-01-29] MEDS: LOSARTAN POTASSIUM 50 MG TAB PO SCH (09:16)
[2019-01-29] MEDS: ASPIRIN 81 MG ECTAB PO SCH (09:16)
[2019-01-29] MEDS: OXYBUTYNIN CHLORIDE XL 5 MG TABCR PO SCH (09:16)
[2019-01-29] MEDS: SODIUM CHLORIDE 1 GM TABLET PO SCH ×2 (09:16→21:28)
[2019-01-29] MEDS: PANTOprazole 40 MG TAB PO SCH (09:16)
--- NOTE | 2019-01-29 11:07 | Surgery Progress Note ---
Date of Service January 29, 2019 Assessment & Plan (1) Open wound of groin: Pt scheduled for L groin partial closure and washout tomorrow in OR by Dr Travis. Pt continues to have significant pain with vac changes. Hyponatremia improved to 131. Subjective 53 yo f with hx aortobifemoral bypass graft and subsequent superficial L groin wound infection requiring debridement and wound vac, seen in f/u today. Pt admits pain with vac changes, but states pain is generally controlled otherwise. Pt with significant hyponatremia yesterday labs, improved today. Physical Exam Constitutional: WD/WN, vitals as above + morbidly obese Respiratory: normal respiratory effort, lungs clear to auscultation Cardiovascular: RRR, no murmur, no edema Vessels: dorsalis pedis pulses present (RLE, doppler LLE); + abnormal peripheral pulses Extremities: normal capillary refill Gastrointestinal (Abdomen): normal bowel sounds, soft, nontender, no hepatosplenomegaly Skin: + wound (L groin with healthy granulation, signifciantly smaller) Neurologic: moves all extremities; no focal motor deficits Psychiatric: Orientation: alert and oriented x 3 Affect: + anxious affect Results & Data Vital Signs (Past 12 Hours) Vital Signs Temp Pulse Resp BP Pulse Ox 01/29/19 07:06 36.7 C 86 20 129/80 98
[2019-01-29 15:03] LABS: BUN Creatinine Ratio 8.9 (10-20); Calcium 8.7 mg/dl (8.5-10.1); Creatinine Clr Calc Pharmacy 78.8 ml/min; Est GFR (African American) 75.9; Est GFR (Non-African American) 65.5; Potassium 3.7 mmol/L (3.5-5.1)
--- NOTE | 2019-01-29 15:05 | Hospitalist Progress Note ---
Date of Service January 29, 2019 Assessment & Plan (1) Hyponatremia: most likely due to poor solute intake, compounded by Na losses with HCTZ serum osmolality low in 260's but urine osmolality appropriately lower, so kidneys producing dilute urine to try to raise sodium continue fluid restriction, NaCl tablet 1gm BID repeat Na this afternoon this morning Na is up to 131 from 127 safe for OR tomorrow (2) Open wound of groin: continue Cipro and Clindamycin plan for washout and partial closure on 01/[address] medically stable for the OR (3) Hypertension: stop HCTZ with low sodium continue Losartan BP stable today (4) Peripheral arterial disease: on aspirin on Lovenox 40 q12 (5) GERD (gastroesophageal reflux disease): continue PPI (6) Obesity, morbid: Subjective patient feeling well today, minimal complaints reviewed labs, Na up to 131 from 127 urine osmolality was appropriately low yesterday so there is no SIADH discussed with mellisa Maynard for OR tomorrow Review of Systems Review of Systems: All systems reviewed & are unremarkable except as noted in HPI & below Integumentary: + wounds (left groin, some pain) Physical Exam Constitutional: well developed, well nourished and + obese; no acute distress Eyes: PERRL, conjunctivae normal, anicteric sclerae ENMT: external ear and nose normal, oropharynx normal Neck: trachea midline, no thyromegaly Respiratory: normal respiratory effort, lungs clear to auscultation Cardiovascular: RRR, no murmur, no edema Gastrointestinal (Abdomen): normal bowel sounds, soft, nontender, no hepatosplenomegaly Musculoskeletal: no cyanosis or clubbing, extremities motor strength 5/5 Skin: + wound (left groin, wound vac in place) Neurologic: patellar DTR's 2+ bilat, sensation intact and PERRL, EOMI, accommodation nl, no face palsy, no dysarthria Psychiatric: A+Ox3, euthymic affect Lymphatic: no cervical or axillary lymphadenopathy Results & Data Vital Signs (Past 12 Hours) Vital Signs Temp Pulse Resp BP Pulse Ox 01/29/19 07:06 36.7 C 86 20 129/80 98 Laboratory Results Laboratory Results - last 24 hr 01/28/19 01/28/19 01/29/19 16:17 18:19 05:28 Sodium 131 L Potassium 3.5 Chloride 95 L Carbon Dioxide 28 Anion Gap 8.0 BUN 8 Creatinine 0.92 Est Cr Clr Drug Dosing 84.8 Est GFR ( Amer) 83.0 Est GFR (Non-Af Amer) 71.6 BUN/Creatinine Ratio 8.3 L Glucose 121 H Osmolality 264 L Calcium 8.5 Urine Osmolality 192 L 01/29/19 14:15 Sodium Pending Potassium Pending Chloride Pending Carbon Dioxide Pending Anion Gap Pending BUN Pending Creatinine Pending Est Cr Clr Drug Dosing Pending Est GFR ( Amer) Pending Est GFR (Non-Af Amer) Pending BUN/Creatinine Ratio Pending Glucose Pending Osmolality Calcium Pending Urine Osmolality Medications Administered Current Inpatient Medications Acetaminophen (Tylenol) 1,000 mg PO DAILY PRN PRN Reason: PAIN OR FEVER Stop: 02/23/19 14:19 Al Hydrox/Mg Hydrox/Simethicone (Maalox) 30 ml PO Q6H PRN PRN Reason: Indigestion Stop: 02/26/19 13:54 Last Admin: 01/27/19 15:10 Dose: 30 ml Documented by: Aspirin (Ecotrin Ectab) 81 mg PO QAM [facility] Stop: 02/24/19 08:59 Last Admin: 01/29/19 09:16 Dose: 81 mg Documented by: Atorvastatin Calcium (Lipitor) 40 mg PO QPM [facility] Stop: 02/23/19 20:59 Last Admin: 01/28/19 20:12 Dose: 40 mg Documented by: Enoxaparin Sodium (Lovenox) 40 mg SQ Q12H [facility] Stop: 02/23/19 16:59 Last Admin: 01/29/19 06:00 Dose: 40 mg Documented by: Fluticasone Propionate (Flonase) 1 sprays NA DAILY PRN PRN Reason: allergy symptoms Stop: 02/23/19 14:19 Hydromorphone HCl (Dilaudid) 1 mg IV Q2H PRN PRN Reason: Pain Stop: 02/10/19 01:38 Last Admin: 01/29/19 12:39 Dose: 1 mg Documented by: Hydromorphone HCl (Dilaudid) 2 mg IV UD PRN PRN Reason: for wound vac change Stop: 02/09/19 09:48 Ciprofloxacin (Cipro) 400 mg in 200 mls @ 100 mls/hr IV Q12H [facility]; Protocol Stop: 02/03/19 15:59 Last Infusion: 01/29/19 06:00 Dose: Infused Documented by: Clindamycin Phosphate (Cleocin) 600 mg in 54 mls @ 100 mls/hr IV PREOP [facility] Stop: 01/30/19 18:00 Losartan Potassium (Cozaar) [address] [facility] Stop: 02/28/19 08:59 Last Admin: 01/29/19 09:16 Dose: 50 mg Documented by: Nystatin (Mycostatin) 1 appln EXT PRN PRN PRN Reason: Rash Stop: 02/27/19 09:41 Ondansetron HCl (Zofran Tab) 8 mg PO Q8H PRN PRN Reason: nausea and vomiting Stop: 02/23/19 14:19 Last Admin: 01/28/19 09:20 Dose: 8 mg Documented by: Oxybutynin Chloride (Ditropan Xl) [address] [facility] Stop: 02/24/19 08:59 Last Admin: 01/29/19 09:16 Dose: 10 mg Documented by: Oxycodone/Acetaminophen (Percocet 5mg/325mg) 2 tab PO Q4H PRN PRN Reason: SEVERE Pain (Scale 7,8,9,10) Stop: 02/07/19 14:10 Last Admin: 01/29/19 15:02 Dose: 2 tab Documented by: Pantoprazole Sodium (Protonix) [address] [facility] Stop: 02/24/19 08:59 Last Admin: 01/29/19 09:16 Dose: 40 mg Documented by: Sodium Chloride (Sodium Chloride) 1 gm PO BID [facility] Stop: 02/27/19 20:59 Last Admin: 01/29/19 09:16 Dose: 1 gm Documented by: Vitamin D (Vitamin D3) 4,[address] [facility] Stop: 02/24/19 08:59 Last Admin: 01/29/19 09:15 Dose: 4,000 units Documented by: PG Care Time/CCT Total # of Minutes Spent Total Time Spent with Patient: Total time spent is greater than 50% in coordination of care (as documented) at patient's floor/unit and/or counseling patient:
--- NOTE | 2019-01-29 17:48 | Anesthesiology Consultation ---
Date of Service January 29, 2019 The patient underwent a I and D of her L groin on 01/07/19 under general anesthesia. She appeared to tolerate the anesthesia well and was a grade 1 view with Mac 3 blade. Assessment & Plan (1) Encounter for pre-operative examination: Chart Review Chart Review: Acceptable Risk for Surgery and Patient NOT seen in Pre Admission Testing Consults Requested none History Surgery Operation Date: 01/30/19 08:40 Proposed Procedures p Debridement Left Groin Vac Change - Rudy Travis MD Height/Weight Height: 5 ft 2 in Weight: 112.491 kg Allergies Allergy/AdvReac Type Severity Reaction Status Date / Time chlorhexidine Allergy Intermediate hives, Verified 01/02/19 11:46 redness Penicillins AdvReac Intermediate nausea, Verified 01/14/19 10:00 vomiting, migraine bupropion AdvReac Hallucinati Verified 01/02/19 11:46 ng Medications Home Medications Medication Instructions Recorded Confirmed Last Taken estradiol 1 mg PO UD 07/16/18 01/24/19 01/24/19 08:00 omeprazole 20 mg PO QAM 07/16/18 01/24/19 01/24/19 08:00 oxybutynin chloride ER 10 mg 10 mg PO QAM #30 tab 11/13/18 01/24/19 01/24/19 08:00 tablet,extended release 24 hr fluticasone propionate 50 1 sprays INTNAS DAILY PRN #18.2 gm 11/21/18 01/24/19 12/26/18 04:30 mcg/actuation nasal spray,suspension acetaminophen [Tylenol Extra 1,000 mg PO DAILY PRN 12/17/18 01/24/19 01/23/19 Strength] aspirin [Adult Low Dose Aspirin] 81 mg PO QAM 12/17/18 01/24/19 01/24/19 08:00 atorvastatin 40 mg PO QPM 12/17/18 01/24/19 01/23/19 21:00 cholecalciferol (vitamin D3) 4,000 units PO QAM 12/17/18 01/24/19 01/24/19 08:00 [Vitamin D3] losartan-hydrochlorothiazide 1 tab PO QAM 12/17/18 01/24/19 01/24/19 08:00 hydromorphone [Dilaudid] 4 mg PO Q3H PRN #30 tab 01/14/19 01/24/19 01/24/19 10:00 ondansetron HCl 8 mg tablet 8 mg PO Q8H PRN #10 tab 01/21/19 01/24/19 01/24/19 06:00 Active Medications Generic Name Dose Route Start Last Admin Trade Name Freq PRN Reason Stop Dose Admin Al Hydrox/Mg Hydrox/Simethicone 30 ml 01/27/19 13:55 01/27/19 15:10 Maalox PO 02/26/19 13:54 30 ml Q6H PRN Administration Indigestion Aspirin 81 mg 01/25/19 09:00 01/29/19 09:16 Ecotrin Ectab PO 02/24/19 08:59 81 mg QAM BARB Administration Atorvastatin Calcium 40 mg 01/24/19 21:00 01/28/19 20:12 Lipitor PO 02/23/19 20:59 40 mg QPM BARB Administration Enoxaparin Sodium 40 mg 01/24/19 17:00 01/29/19 17:47 Lovenox SQ 02/23/19 16:59 40 mg Q12H BARB Administration Hydromorphone HCl 1 mg 01/27/19 01:39 01/29/19 17:47 Dilaudid IV 02/10/19 01:38 1 mg Q2H PRN Administration Pain Ciprofloxacin 400 mg in 200 mls @ 100 mls/hr 01/24/19 16:00 01/29/19 17:44 Cipro IV 02/03/19 15:59 Infused Q12H BARB Infusion Protocol Losartan Potassium 50 mg 01/29/19 09:00 01/29/19 09:16 Cozaar PO 02/28/19 08:59 50 mg QAM BARB Administration Ondansetron HCl 8 mg 01/24/19 14:20 01/28/19 09:20 Zofran Tab PO 02/23/19 14:19 8 mg Q8H PRN Administration nausea and vomiting Oxybutynin Chloride 10 mg 01/25/19 09:00 01/29/19 09:16 Ditropan Xl PO 02/24/19 08:59 10 mg QAM BARB Administration Oxycodone/Acetaminophen 2 tab 01/24/19 14:11 01/29/19 15:02 Percocet 5mg/325mg PO 02/07/19 14:10 2 tab Q4H PRN Administration SEVERE Pain (Scale 7,8,9,10) Pantoprazole Sodium 40 mg 01/25/19 09:00 01/29/19 09:16 Protonix PO 02/24/19 08:59 40 mg QAM BARB Administration Sodium Chloride 1 gm 01/28/19 21:00 01/29/19 09:16 Sodium Chloride PO 02/27/19 20:59 1 gm BID BARB Administration Vitamin D 4,000 units 01/25/19 09:00 01/29/19 09:15 Vitamin D3 PO 02/24/19 08:59 4,000 units QAM BARB Administration Past Medical History Medical History Hypokalemia Morbid (severe) obesity due to excess calories Peripheral arterial disease 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 Hypertension Migraine GERD (gastroesophageal reflux disease) controlled Degenerative disc disease Arthritis Hyperlipidemia Obesity, morbid Urinary incontinence Anal fissure Anxiety and depression Elevated alkaline phosphatase level Hyponatremia Skin disorder Tick bite Tinea corporis Past Family History Family History Father Family hx colonic polyps Mother Coronary heart disease Depression Kidney disease Hypertension Cardiac disorder Myocardial infarction Father Lymphoma Brother Depression Muscular dystrophy Clotting disorder Sister Depression Grandfather Myocardial infarction Past Surgical History Surgical History S/P aortobifemoral bypass surgery History of bilateral tubal ligation History of cholecystectomy History of colonoscopy 07/26/18: MAC sedation at [facility] History of tonsillectomy History of tooth extraction History of total abdominal hysterectomy and bilateral salpingo-oophorectomy History of wisdom tooth extraction Status post myringotomy with tube placement of both ears multiple times Social History Smoking Status: Current every day smoker tobacco type: cigarettes Smoking cigarettes per day: 10 Do You Dip or Chew Tobacco: No Hx Alcohol Use: No Hx Substance Use: No substance use type: does not use Physical Exam Vital Signs Last Vital Signs Temp 36.7 C 01/29/19 15:34 Pulse 96 H 01/29/19 15:34 Resp 16 01/29/19 15:34 BP 95/62 L 01/29/19 15:34 Pulse Ox 97 01/29/19 15:34 Testing Laboratory Results 01/25/19 05:32 01/29/19 14:15
[2019-01-29] MEDS: ATORVASTATIN 40 MG TAB PO SCH (21:28)
[2019-01-30] MEDS: OXYCODONE/ACETAMINOPHEN 5mg/325mg TAB PO PRN ×5 (02:00→23:28)
[2019-01-30] MEDS: CIPROFLOXACIN 400 MG/200 ML BAG IV SCH ×2 (03:41→15:15)
[2019-01-30] MEDS ORDERED: CLINDAMYCIN 600 MG/54 ML BAG IV SCH (06:00)
[2019-01-30] MEDS: ENOXAPARIN INJ 40 MG/0.4 ML SYR SQ SCH ×2 (06:00→16:40)
[2019-01-30 06:23] LABS: BUN Creatinine Ratio 8.1 (10-20); Calcium 8.7 mg/dl (8.5-10.1); Creatinine Clr Calc Pharmacy 88.6 ml/min; Est GFR (African American) 87.6; Est GFR (Non-African American) 75.5; Potassium 3.6 mmol/L (3.5-5.1)
[2019-01-30] MEDS: ONDANSETRON 8 MG TABLET PO PRN (07:08)
[2019-01-30] MEDS ORDERED: ONDANSETRON INJ 2 MG/ML 2 ML VIAL IV PRN (08:51)
[2019-01-30] MEDS ORDERED: ATROPINE SULFATE 0.1 MG/ML 10ML SYR IV PRN (08:51)
[2019-01-30] MEDS ORDERED: ePHEDrine sulfate 50 MG/ML AMP IV PRN (08:51)
[2019-01-30] MEDS ORDERED: BUPIVACAINE/EPINEPHRINE 0.5% MPF 1:200,000 30 ML VIAL ONE (08:59)
[2019-01-30] MEDS ORDERED: LIDOCAINE/EPINEPHRINE 1% 20 ML VIAL ONE (08:59)
[2019-01-30] MEDS ORDERED: fentaNYL citrate 100 MCG/2 ML VIAL ONE ×2 (09:00→09:57)
[2019-01-30] MEDS ORDERED: SUCCINYLCHOLINE CHLORIDE 20 MG/ML 10 ML VIAL ONE (09:00)
[2019-01-30] MEDS ORDERED: PROPOFOL IV EMULSION 10 MG/ML 20 ML VIAL IV ONE (09:00)
[2019-01-30] MEDS ORDERED: MIDAZOLAM HCL 1 MG/ML 2ML VIAL ONE (09:00)
[2019-01-30] MEDS ORDERED: LIDOCAINE HCL 1% 20 ML VIAL ONE (09:00)
[2019-01-30] MEDS ORDERED: LIDOCAINE HCL 2% 2 ML VIAL/AMP(20MG/ML) INFIL ONE (09:00)
[2019-01-30] MEDS ORDERED: ONDANSETRON INJ 2 MG/ML 2 ML VIAL ONE (09:00)
--- NOTE | 2019-01-30 09:02 | History & Physical Bridge Note ---
Date of Service January 30, 2019 History & Physical Bridge Note Patient for debridement of wound and application of wound vac with possible partial closure. I have discussed the risks options and benefits of the procedure with the patient. The patient understands the risks options and benefits and agrees to the procedure. I have examined the patient, reviewed the History & Physical and in the interval since the performance of the History & Physical I have noted the following changes of clinical significance: no changes noted
--- NOTE | 2019-01-30 10:45 | Post Operative Brief Note ---
Immediate Post Op Note v1 Date of Surgery January 30, 2019 Pre & Post Diagnosis Operation Date: 01/30/19 08:40 Pre-Op Diagnosis: necrotic left groin wound Post-Op Diagnosis: necrotic left groin wound I identified the patient and participated in the time-out.: Yes Procedure Operation Date: 01/30/19 08:40 Actual Procedures p Debridement Left Groin(20x10); partial wound closure, Vac application, 5x5cm(Left) - Rudy Travis MD Surgeon Rudy Travis MD Fire Fighter Kayla,PAC Estimated Blood Loss 10 Findings Consistent with Post-Op Diagnosis Anesthesia Type General Complications none Disposition Accompanied Patient To Recovery: No Disposition: Recovery Room
--- NOTE | 2019-01-30 10:57 | Operative Report ---
Post Operative Report Pre & Post Diagnosis Operation Date: 01/30/19 08:40 Pre-Op Diagnosis: necrotic left groin wound Post-Op Diagnosis: necrotic left groin wound I identified the patient and participated in the time-out.: Yes Procedure Operation Date: 01/30/19 08:40 Actual Procedures p Debridement Left Groin(20x10); partial wound closure, Vac Change, 5x5cm(Left) - Rudy Travis MD Surgeon Rudy Travis MD Fixed Income Director Kayla,PAC Estimated Blood Loss 10 Findings Consistent with Post-Op Diagnosis Specimens None Anesthesia Type General Complications none Disposition Accompanied Patient To Recovery: No Disposition: Recovery Room Indications This is a 53-year-old female who had a left groin infection after aortobifemoral bypass. The groin was debrided. Its been treated with a wound VAC. She is brought back to the operating room now for further debridement, partial closure of the wound if possible and application of a wound VAC. I have discussed the risks options and benefits of the procedure with the patient. The patient understands the risks options and benefits and agrees to the procedure. Description of Procedure The patient was taken the operating room placed in the supine position. After general anesthesia was accomplished the left groin was prepped and draped in a sterile manner. Patient was identified and and and a timeout was performed. The wound VAC had been removed prior to prepping. The wound itself had good granulation tissue present except in the center. Using scalpel and scissors the wound which measured 20 x 10 cm were debrided in the central portion both of skin, dermis, and subcutaneous tissue.. The skin edges in that area as well as subcutaneous tissue along with necrotic fat were excised. Beneath this there is good granulation tissue. At that point the edges were freed up of the wound. The wound was irrigated. Using large nylon sutures the proximal distal portion of the wound were approximated. We then used interrupted nylon sutures were between the retentions to bring the edges together. The remaining open wound which is proximally 5 x 5 cm was closed with a wound VAC. Wound VAC was applied to this area. Good suction was appreciated with no evidence of leaking. The patient left the operation room in satisfactory condition and tolerated the procedure well. All needle and sponge counts were correct at the end of the procedure. I attest to the content of the Intraoperative Record and any orders documented therein. Any exceptions are noted below.
[2019-01-30] MEDS: fentaNYL citrate 100 MCG/2 ML VIAL IV PRN ×3 (11:15→11:25)
--- NOTE | 2019-01-30 11:37 | Anesthesiology Progress Note ---
Date of Service January 30, 2019 Anesthesia Post Procedure Vital Signs Vital Signs: Temp Pulse Pulse Pulse Resp BP BP 01/30/19 11:30 94 H 12 130/81 01/30/19 11:20 91 H 12 156/77 H 01/30/19 11:10 99 H 15 143/80 H 01/30/19 11:00 91 H 14 152/78 H 01/30/19 10:52 99.0 F 95 H 15 173/81 H 01/30/19 08:41 98.6 F 88 16 131/62 01/30/19 07:05 98.4 F 96 H 18 135/83 01/30/19 03:41 98.1 F 101 H 18 117/77 01/29/19 22:55 98.1 F 100 H 18 113/73 01/29/19 15:34 98.1 F 96 H 16 95/62 L Pulse Ox 01/30/19 11:30 98 01/30/19 11:20 96 01/30/19 11:10 100 01/30/19 11:00 100 01/30/19 10:52 100 01/30/19 08:41 92 01/30/19 07:05 96 01/30/19 03:41 98 01/29/19 22:55 97 01/29/19 15:34 97 Pain Intensity Left Hip: Pain Intensity: 6 Left Groin: Pain Intensity: 5 Transfer of Care Handoff Completed per policy Notes Mental Status: alert / awake / arousable and participated in evaluation Patient Amnestic to Procedure: Yes Nausea / Vomiting: adequately controlled Pain: adequately controlled Airway Patency, RR, SpO2: stable & adequate BP & HR: stable & adequate Hydration State: stable & adequate Anesthetic Complications: no major complications apparent and Pt Satisfied with anesthetic care
[2019-01-30] MEDS: LOSARTAN POTASSIUM 50 MG TAB PO SCH (12:00)
[2019-01-30] MEDS: CHOLECALCIFEROL 1,000 UNITS TAB PO SCH (12:00)
[2019-01-30] MEDS: ASPIRIN 81 MG ECTAB PO SCH (12:01)
[2019-01-30] MEDS: PANTOprazole 40 MG TAB PO SCH (12:01)
[2019-01-30] MEDS: SODIUM CHLORIDE 1 GM TABLET PO SCH ×3 (12:01→19:50)
[2019-01-30] MEDS: OXYBUTYNIN CHLORIDE XL 5 MG TABCR PO SCH (12:01)
[2019-01-30] MEDS: HYDROmorphone INJ 1 MG/ML SYRINGE IV PRN ×5 (13:04→21:54)
--- NOTE | 2019-01-30 16:07 | Hospitalist Progress Note ---
Date of Service January 30, 2019 Assessment & Plan (1) Hyponatremia: most likely due to poor solute intake, compounded by Na losses with HCTZ serum osmolality low in 260's but urine osmolality appropriately lower, so kidneys producing dilute urine to try to raise sodium continue NaCl tablet 1gm BID Na is up to 132 will lift fluid restriction can stop the NaCl tablet on discharge would discontinue HCTZ on discharge as well to prevent further low sodium levels will sign off at this time (2) Open wound of groin: continue Cipro and Clindamycin s/p washout and partial closure on 01/[address] (3) Hypertension: stop HCTZ with low sodium continue Losartan BP stable, would not resume HCTZ on discharge (4) Peripheral arterial disease: on aspirin on Lovenox 40 q12 (5) GERD (gastroesophageal reflux disease): continue PPI (6) Obesity, morbid: Subjective patient with some increased pain after her surgery this morning doing better now eating and drinking well, no issues breathing Na up to 132 she is thirsty, will lift the fluid restriction she really wants Dr. Sauceda Review of Systems Review of Systems: All systems reviewed & are unremarkable except as noted in HPI & below Integumentary: + wounds (left groin, painful, wound vac in place) Physical Exam Constitutional: well developed, well nourished and + obese; no acute distress Eyes: PERRL, conjunctivae normal, anicteric sclerae ENMT: external ear and nose normal, oropharynx normal Neck: trachea midline, no thyromegaly Respiratory: normal respiratory effort, lungs clear to auscultation Cardiovascular: RRR, no murmur, no edema Gastrointestinal (Abdomen): normal bowel sounds, soft, nontender, no hepatosplenomegaly Musculoskeletal: no cyanosis or clubbing, extremities motor strength 5/5 Skin: + wound (left groin, wound vac in place) Neurologic: patellar DTR's 2+ bilat, sensation intact and PERRL, EOMI, accommodation nl, no face palsy, no dysarthria Psychiatric: A+Ox3, euthymic affect Lymphatic: no cervical or axillary lymphadenopathy Results & Data Vital Signs (Past 12 Hours) Vital Signs Temp Pulse Pulse Pulse Resp BP Pulse Ox 01/30/19 15:28 36.8 C 103 H 16 132/81 93 01/30/19 14:11 99 H 18 155/73 H 97 01/30/19 13:19 95 H 18 143/84 H 99 01/30/19 13:00 89 20 159/78 H 98 01/30/19 12:10 36.8 C 92 H 16 138/83 100 01/30/19 11:30 94 H 12 130/81 98 01/30/19 11:20 91 H 12 156/77 H 96 01/30/19 11:10 99 H 15 143/80 H 100 01/30/19 11:00 91 H 14 152/78 H 100 01/30/19 10:52 37.2 C 95 H 15 173/81 H 100 01/30/19 08:41 37.0 C 88 16 131/62 92 01/30/19 07:05 36.9 C 96 H 18 135/83 96 Laboratory Results Laboratory Results - last 24 hr 01/30/19 05:33 Sodium 132 L Potassium 3.6 Chloride 96 L Carbon Dioxide 27 Anion Gap 8.0 BUN 7 Creatinine 0.88 Est Cr Clr Drug Dosing 88.6 Est GFR ( Amer) 87.6 Est GFR (Non-Af Amer) 75.5 BUN/Creatinine Ratio 8.1 L Glucose 116 H Calcium 8.7 Medications Administered Current Inpatient Medications Acetaminophen (Tylenol) 1,000 mg PO DAILY PRN PRN Reason: PAIN OR FEVER Stop: 02/23/19 14:19 Al Hydrox/Mg Hydrox/Simethicone (Maalox) 30 ml PO Q6H PRN PRN Reason: Indigestion Stop: 02/26/19 13:54 Last Admin: 01/27/19 15:10 Dose: 30 ml Documented by: Aspirin (Ecotrin Ectab) 81 mg PO QAM [facility] Stop: 02/24/19 08:59 Last Admin: 01/30/19 12:01 Dose: 81 mg Documented by: Atorvastatin Calcium (Lipitor) 40 mg PO QPM [facility] Stop: 02/23/19 20:59 Last Admin: 01/29/19 21:28 Dose: 40 mg Documented by: Enoxaparin Sodium (Lovenox) 40 mg SQ Q12H [facility] Stop: 02/23/19 16:59 Last Admin: 01/30/19 06:00 Dose: 40 mg Documented by: Fluticasone Propionate (Flonase) 1 sprays NA DAILY PRN PRN Reason: allergy symptoms Stop: 02/23/19 14:19 Hydromorphone HCl (Dilaudid) 1 mg IV Q2H PRN PRN Reason: Pain Stop: 02/10/19 01:38 Last Admin: 01/30/19 15:11 Dose: 1 mg Documented by: Hydromorphone HCl (Dilaudid) 2 mg IV UD PRN PRN Reason: for wound vac change Stop: 02/09/19 09:48 Ciprofloxacin (Cipro) 400 mg in 200 mls @ 100 mls/hr IV Q12H [facility]; Protocol Stop: 02/03/19 15:59 Last Admin: 01/30/19 15:15 Dose: 100 mls/hr Documented by: Clindamycin Phosphate (Cleocin) 600 mg in 54 mls @ 100 mls/hr IV PREOP [facility] Stop: 01/30/19 18:00 Last Infusion: 01/30/19 12:02 Dose: Infused Documented by: Losartan Potassium (Cozaar) 50 mg PO [facility] Stop: 02/28/19 08:59 Last Admin: 01/30/19 12:00 Dose: 50 mg Documented by: Nystatin (Mycostatin) 1 appln EXT PRN PRN PRN Reason: Rash Stop: 02/27/19 09:41 Ondansetron HCl (Zofran Tab) 8 mg PO Q8H PRN PRN Reason: nausea and vomiting Stop: 02/23/19 14:19 Last Admin: 01/30/19 07:08 Dose: 8 mg Documented by: Oxybutynin Chloride (Ditropan Xl) 10 mg PO [facility] Stop: 02/24/19 08:59 Last Admin: 01/30/19 12:01 Dose: 10 mg Documented by: Oxycodone/Acetaminophen (Percocet 5mg/325mg) 2 tab PO Q4H PRN PRN Reason: SEVERE Pain (Scale 7,8,9,10) Stop: 02/07/19 14:10 Last Admin: 01/30/19 12:39 Dose: 2 tab Documented by: Pantoprazole [facility] ([facility]ix) [facility] Stop: 02/24/19 08:59 Last Admin: 01/30/19 12:01 Dose: 40 mg Documented by: Sodium Chloride (Sodium Chloride) 1 gm PO BID [facility] Stop: 02/27/19 20:59 Last Admin: 01/30/19 12:06 Dose: Not Given Documented by: Vitamin D (Vitamin D3) 4,000 units PO QAM [facility] Stop: 02/24/19 08:59 Last Admin: 01/30/19 12:00 Dose: 4,000 units Documented by: PG Care Time/CCT Total # of Minutes Spent Total Time Spent with Patient: Total time spent is greater than 50% in coordination of care (as documented) at patient's floor/unit and/or counseling patient:
[2019-01-30] MEDS: ATORVASTATIN 40 MG TAB PO SCH (19:50)
[2019-01-31] MEDS: HYDROmorphone INJ 1 MG/ML SYRINGE IV PRN ×5 (03:03→21:38)
[2019-01-31] MEDS: ENOXAPARIN INJ 40 MG/0.4 ML SYR SQ SCH ×2 (05:00→16:00)
[2019-01-31] MEDS: CIPROFLOXACIN 400 MG/200 ML BAG IV SCH ×2 (05:00→16:00)
[2019-01-31] MEDS: OXYCODONE/ACETAMINOPHEN 5mg/325mg TAB PO PRN ×4 (05:49→19:41)
[2019-01-31 06:19] LABS: BUN Creatinine Ratio 8.5 (10-20); Calcium 8.3 mg/dl (8.5-10.1); Creatinine Clr Calc Pharmacy 90.7 ml/min; Est GFR (Non-African American) 77.7; Potassium 3.7 mmol/L (3.5-5.1)
[2019-01-31] MEDS: ASPIRIN 81 MG ECTAB PO SCH (08:04)
[2019-01-31] MEDS: PANTOprazole 40 MG TAB PO SCH (08:05)
[2019-01-31] MEDS: OXYBUTYNIN CHLORIDE XL 5 MG TABCR PO SCH (08:05)
[2019-01-31] MEDS: CHOLECALCIFEROL 1,000 UNITS TAB PO SCH (08:05)
[2019-01-31] MEDS: SODIUM CHLORIDE 1 GM TABLET PO SCH ×2 (08:06→19:40)
[2019-01-31] MEDS: LOSARTAN POTASSIUM 50 MG TAB PO SCH (08:09)
--- NOTE | 2019-01-31 12:37 | Surgery Progress Note ---
Date of Service January 31, 2019 Assessment & Plan (1) Open wound of groin: Pt scheduled for wound VAC change tomorrow. At that point we can determine if she is able to be discharged. Biggest concern is pain control from the wound VAC change. Subjective Patient had her wounds debrided and partially closed yesterday. She still claims it hurts but it is a different type of pain at this point. It is more of a stabbing pain along the incision. Physical Exam Constitutional: WD/WN, vitals as above Skin: + wound (Wound VAC is in place at this time and working well. Minimal drainage is noted.) Results & Data Vital Signs (Past 12 Hours) Vital Signs Temp Pulse Pulse Resp BP Pulse Ox 01/31/19 11:29 36.9 C 97 H 18 120/75 96 01/31/19 07:14 36.9 C 108 H 16 98/54 L 96 01/31/19 04:44 37.0 C 107 H 16 103/62 96
[2019-01-31] MEDS: ATORVASTATIN 40 MG TAB PO SCH (19:41)
[2019-02-01] MEDS: OXYCODONE/ACETAMINOPHEN 5mg/325mg TAB PO PRN ×3 (03:18→13:44)
[2019-02-01] MEDS: CIPROFLOXACIN 400 MG/200 ML BAG IV SCH (03:21)
[2019-02-01] MEDS: ENOXAPARIN INJ 40 MG/0.4 ML SYR SQ SCH (05:20)
[2019-02-01] MEDS: HYDROmorphone INJ 1 MG/ML SYRINGE IV PRN ×2 (07:27→12:36)
[2019-02-01] MEDS: SODIUM CHLORIDE 1 GM TABLET PO SCH (09:01)
[2019-02-01] MEDS: CHOLECALCIFEROL 1,000 UNITS TAB PO SCH (09:01)
[2019-02-01] MEDS: OXYBUTYNIN CHLORIDE XL 5 MG TABCR PO SCH (09:01)
[2019-02-01] MEDS: PANTOprazole 40 MG TAB PO SCH (09:01)
[2019-02-01] MEDS: LOSARTAN POTASSIUM 50 MG TAB PO SCH (09:01)
[2019-02-01] MEDS: ASPIRIN 81 MG ECTAB PO SCH (09:02)
--- NOTE | 2019-02-01 10:48 | Surgery Progress Note ---
Date of Service February 01, 2019 Assessment & Plan (1) Open wound of groin: Pt underwent wound vac change today, tolerated with dilaudid for pain. She is anxious for discharge, and has been discharged from PT/OT. Does not qualify for SNF. Pt also seen by Dr Travis today. Pt to be d/c home today if home nursing agency set up for next vac change prior to discharge. Subjective 53 yo f s/p debridement and partial closure of L groin wound seen in f/u today. Pt states still some pain, but not as intense. She is requesting to go home with home health nurses if possible. VSS Review of Systems Review of Systems: All systems reviewed & are unremarkable except as noted in HPI & below Physical Exam Constitutional: WD/WN, vitals as above + morbidly obese Respiratory: normal respiratory effort, lungs clear to auscultation Cardiovascular: RRR, no murmur, no edema Vessels: dorsalis pedis pulses present (RLE, doppler LLE); + abnormal peripheral pulses Extremities: normal capillary refill Gastrointestinal (Abdomen): normal bowel sounds, soft, nontender, no hepatosplenomegaly Skin: + wound (L groin with healthy granulation, signifciantly smaller) Neurologic: moves all extremities; no focal motor deficits Psychiatric: Orientation: alert and oriented x 3 Affect: + anxious affect Results & Data Vital Signs (Past 12 Hours) Vital Signs Temp Pulse Resp BP Pulse Ox 02/01/19 07:12 36.7 C 83 20 121/74 98 01/31/19 22:51 37.0 C 100 H 16 113/61 93
--- NOTE | 2019-02-04 08:45 | Discharge Summary ---
Date of Service February 04, 2019 Admission HPI Per Admitting Provider This is a 53-year-old female who had an aortobifemoral bypass. She subsequently developed a left groin infection which was debrided earlier this month. She was sent home with a wound VAC in the left groin.She is complaining of pain in the left groin with wound VAC changes.It is difficult for home health care to change the wound VAC to the with size and location.She is admitted at this time for adequate wound care and antibiotic therapy.She does complain of having some low- grade fevers at home. Admission Exam Per Admitting Provider Physical Exam: Constitutional: + obese Neck: trachea midline Respiratory: normal respiratory effort, lungs clear to auscultation Cardiovascular: RRR, no murmur, no edema Vessels: dorsalis pedis pulses present (palpable on right, Not palpable on the left) Gastrointestinal (Abdomen): Inspection/Auscultation: abdomen normal to inspection Percussion/Palpation: abdomen soft; abdomen nontender Musculoskeletal: Extremities: extremities normal to inspection; normal strength Skin: + incision (abd, right groin ok, She has a large open left groin wound with a VAC in place.) Principal Diagnosis 1. s/p L groin wound debridement and partial closure 2. Superficial Infection L groin wound 3. s/p aortobifemoral bypass, L limb now occluded Discharge Exam Constitutional WD/WN, vitals as above + morbidly obese Respiratory normal respiratory effort, lungs clear to auscultation Cardiovascular RRR, no murmur, no edema Vessels: dorsalis pedis pulses present (RLE, doppler LLE); + abnormal peripheral pulses Extremities: normal capillary refill Gastrointestinal (Abdomen) normal bowel sounds, soft, nontender, no hepatosplenomegaly Skin + wound (L groin with healthy granulation, signifciantly smaller) Neurologic moves all extremities; no focal motor deficits Psychiatric Orientation: alert and oriented x 3 Affect: + anxious affect Discharge Data Allergies Allergy/AdvReac Type Severity Reaction Status Date / Time chlorhexidine Allergy Intermediate hives, Verified 01/02/19 11:46 redness Penicillins AdvReac Intermediate nausea, Verified 01/14/19 10:00 vomiting, migraine bupropion AdvReac Hallucinati Verified 01/02/19 11:46 ng Consultations 01/24/19 14:17 Consult Case Management - Discharge Planning Routine 01/28/19 15:38 Consult Hospitalist Routine Procedures Performed Operation Date: 01/30/19 08:40 Actual Procedures p Debridement Left Groin; partial wound closure, Vac Change, 5x5cm(Left) - Rudy Travis MD Hospital Course (1) Open wound of groin: Pt was readmitted for severe pain with wound vac changes and concern for infection. She had a second debridement and partial closure of L groin wound to assist in healing. Overall, pt doing well. Pt underwent wound vac change today, tolerated with dilaudid for pain. She is anxious for discharge, and has been discharged from PT/OT. Does not qualify for SNF. Pt also seen by Dr Travis today. Pt to be d/c home today if home nursing agency set up for next vac change prior to discharge. Total Time Total Time Spent Total Time Spent (In Minutes): 15 minutes Total Time Includes: Examination of the Patient, Discharge Planning, Medication Reconciliation and Communication With Other Providers Discharge Plan Discharge Items Patient Disposition: Home - Home Health Services Reason For Visit: OPEN LEFT GROIN WOUND Discharge Diagnosis: 1. s/p L groin wound debridement and partial closure 2. Open L groin wound Condition on Discharge: Good Activity: Per Instructions section Non-emergency contact: Primary Care Provider and Surgeon Call non-emergency contact if: you have any medication questions, your pain is concerning for you, your temperature is above 101, your wound has increased redness and your wound has increased drainage Follow-up/Referrals: Courtney Lynch DO [Primary Care Provider] - (Follow up with PCP within 2 weeks.) Rudy Travis MD [Physician] - (Follow up with Dr Travis or Racheal Arzola PA-C, in 2 weeks on a vac change day. Call [phone] for appt. ) Diet: Heart Healthy Addtl Attending Provider Instructions: 1. DO NOT GET WOUND WET. 2. Take Dilaudid tab 1 hr prior to wound vac changes. 3. Activity as tolerated otherwise. 4. Call Dr Travis's office at [phone] for appt. Pending Studies at Discharge: No Stand-Alone Forms: My [employer], Opioid Pain Management, Smoking Cessation Medications and DC Order Prescriptions: New hydromorphone 2 mg tablet 2 mg PO Q6H PRN (Reason: pain) Qty: 20 RF: 0 Continued fluticasone propionate [Flonase Allergy Relief] 50 mcg/actuation spray,suspension 1 sprays INTNAS DAILY PRN (Reason: allergy symptoms) Qty: 18.2 RF: 2 ondansetron HCl [Zofran] 8 mg tablet 8 mg PO Q8H PRN (Reason: nausea and vomiting) Qty: 10 RF: 0 oxybutynin chloride 10 mg tablet extended release 24hr 10 mg PO QAM Qty: 30 RF: 0 estradiol 1 mg Tablet 1 mg PO UD RF: 0 omeprazole 20 mg Capsule,Delayed Release(Dr/Ec) 20 mg PO QAM RF: 0 atorvastatin 40 mg tablet 40 mg PO QPM RF: 0 aspirin [Adult Low Dose Aspirin] 81 mg tablet,delayed release (DR/EC) 81 mg PO QAM RF: 0 acetaminophen [Tylenol Extra Strength] 500 mg tablet 1,000 mg PO DAILY PRN (Reason: PAIN OR FEVER) RF: 0 losartan-hydrochlorothiazide 50-12.5 mg tablet 1 tab PO QAM RF: 0 cholecalciferol (vitamin D3) [Vitamin D3] 2,000 unit capsule 4,000 units PO QAM RF: 0 Discontinued hydromorphone [Dilaudid] 4 mg tablet 4 mg PO Q3H PRN (Reason: pain) Qty: 30 RF: 0 Discharge Orders: Discharge Order (Routine); Ordered 02/01/19 Ordered By: Racheal Barnett/Other Patient Handouts: Closure Wound Vacuum Assisted Admission Data Admit Date/Time: 01/24/19 13:23 Attending Provider: Rudy Travis Admit Provider: Rudy Travis Primary Care Provider: Courtney Lynch Other Providers: Funmilayo Walker ; John Lafleur ; Stefany Cantu ; Michelle Roberts ; Brennen Ortega ; Kevin Estes ; Stacy Pastrana ; Luis Laureano ; Thomas Banks ; Evin Smith ; Rhea Zavala ; Johanna Hernandez ; Harmony Hall ; Lino Beaver ; Georgina Hall ; Douglas Turner ; Prashanth Mandel ; Stefany Gonzales ; Nolberto Allison ; Marcia Keller ; Mohit Pizarro ; Wayne Newsome ; Brennen Spencer ; Carlton Lamar ; Claire Ramirez ; Bernard Jones ; Joseph Maza ; Radha Miller ; Tito Curiel ; Rajesh Gonzáles Other Interventions: Discharge Summary Assessment (RN) Last Done: 02/01/19 11:08 DC Date/Time DO NOT enter until pt leaves facility: 02/01/19 14:18
== END 2019-02-01 14:18 | disposition home health service (06) | DRG 857 ==
LOC: 3N 13:23 → 3W 01-30 22:19

== ENCOUNTER 2019-02-08 11:39 | Inpatient (IN) ==
[2019-02-08] MEDS ORDERED: ONDANSETRON INJ 2 MG/ML 2 ML VIAL IV STA (12:07)
[2019-02-08] MEDS ORDERED: LEVOFLOXACIN/D5W 750 MG/150 ML BAG IV STA (12:13)
[2019-02-08] MEDS ORDERED: DAPTOmycin 450 MG in SYRINGE 0 ML IV ONE (12:13)
[2019-02-08] MEDS ORDERED: AZTREONAM 2,000 MG in DEXTROSE 5% 100 ML IV SCH (12:15)
[2019-02-08] MEDS: HYDROmorphone INJ 1 MG/ML SYRINGE IV PRN ×2 (12:27→14:13)
[2019-02-08 12:35] LABS: Basophils # (auto) 0.04 K/uL (0-0.2); Basophils % (auto) 0.3 %; Eosinophils # (auto) 0.08 K/uL (0-0.5); Eosinophils % (auto) 0.7 %; Hematocrit (blood only) 32.2 % (37-47); Hemoglobin 10.4 g/dL (12.0-16.0); Immature Granulocytes # (auto) 0.03 K/uL (0.00-0.02); Immature Granulocytes % (auto) 0.3 %; Lymphocytes % (auto) 18.3 %; Mean Corpuscular Hemoglobin 27.2 pg (25-34); Mean Corpuscular Hgb Conc 32.3 g/dL (32-36); Mean Corpuscular Volume 84.1 fL (80-100); Mean Platelet Volume 8.1 fL (7.4-10.4); Monocytes # (auto) 0.91 K/uL (0.11-0.59); Monocytes % (auto) 7.9 %; Neutrophils # (auto) 8.32 K/uL (1.4-6.5); Neutrophils % (auto) 72.5 %; Platelet Count 417 K/uL (130-400); RDW Coefficient of Variation 16.9 % (11.5-14.5); RDW Standard Deviation 51.8 fL (36.4-46.3); Red Blood Count 3.83 M/uL (4.2-5.4); White Blood Count 11.48 K/uL (4.8-10.8)
--- NOTE | 2019-02-08 12:43 | XRay Report ---
XR chest 1V portable CLINICAL HISTORY: Sepsis dyspnea COMPARISON STUDY: 12/26/2018 FINDINGS: Interval extubation as well as removal of the nasogastric tube. Slight interstitial prominence bilaterally possibly chronic. Mild stable cardiomegaly. IMPRESSION: Slight nonspecific interstitial prominence bilaterally. No consolidative infiltrates. Th is appearance may be consistent with mild bronchitis versus interstitial inflammatory change. The above report was generated using voice recognition software. It may contain grammatical, syntax or spelling errors. Electronically signed by: Donnie Pollock M.D. 02/08/2019 12:41 PM
[2019-02-08 12:45] LABS: INR 1.1 (0.9-1.1); Partial Thromboplastin Ratio 0.9; Partial Thromboplastin Time 23.1 Seconds (21.0-31.0)
[2019-02-08 12:47] LABS: Alanine Aminotransferase 18 U/L (12-78); Albumin Level 2.4 gm/dl (3.4-5.0); Aspartate Aminotransferase 14 U/L (15-37); BUN Creatinine Ratio 9.6 (10-20); Blood Urea Nitrogen 7 mg/dl (7-18); Calcium 8.9 mg/dl (8.5-10.1); Carbon Dioxide 26 mmol/L (21-32); Chloride 98 mmol/L (98-107); Creatinine Clr Calc Pharmacy 110.1 ml/min; Est GFR (African American) 113.5; Est GFR (Non-African American) 97.9; Glucose 116 mg/dl (70-99); Potassium 3.5 mmol/L (3.5-5.1); Sodium 134 mmol/L (136-145)
[2019-02-08 12:52] LABS: Albumin Globulin Ratio 0.5 (0.9-2); Alkaline Phosphatase 138 U/L (45-117); Bilirubin,Total 0.2 mg/dl (0.2-1); Creatine Kinase 27 U/L (26-192); Creatine Kinase MB < 1.0 ng/ml (0.5-3.6); Globulin 4.6 gm/dl (2.5-4.0); Troponin I < 0.015 ng/ml (0-0.045)
--- NOTE | 2019-02-08 14:30 | History & Physical Report ---
Date of Service February 08, 2019 Assessment & Plan (1) Surgical wound, non healing: Follows with wound care Cx done on 01/17 was pansensitive and pt states she felt improved while on abx with sx increasing again after they were finished Elevated WBC to 11.4 on admission [facility] Vascular c/s pending Elevated lactic acid Also states feeling some improvement s/p d/c wound vac earlier today Started on aztreo/dapto/levoquin in the ED, will continue Has not seen ID in the past, would consider c/s if cx noted resistance but can hold on this for now Wound cx done on 02/08 at [facility] prior to being sent to the ED Blood cx pending (2) Hyponatremia: Stable on admission (3) Hypokalemia: Stable on admission (4) Aortic occlusion: Asprin 81mg, continue (5) Depression: Pt states she self d/c'd her zoloft just prior to her surgery because she was not able to sleep. This was a new medication for her due to side effects of her prior antidepressant. She states that she was on something prior that caused her to sleep all of the time, so she was changed to zoloft. She states that she feels that she does need something to help with her depression and anxiety. States prior allergic reaction to wellbutrin. Per outpt notes, it appears she had no help with cymbalta in the past. She is hesitant to start a new medication, but does agree that she is not managing well and needs some sort of medication support. Pending pt's abx options once cx is resulted, maybe t/c celexa if no drug interaction issues. (6) Peripheral arterial disease: Aspirin 81mg (7) Hypertension: continue home meds (8) Migraine: No current daily meds, PRN only (9) GERD (gastroesophageal reflux disease): continue home meds (10) Hyperlipidemia: Holding statin due to interactions with current abx (11) Urinary incontinence: continue home meds (12) DVT prophylaxis: SCDs for now given possible need for surgical intervention History of Present Illness Primary Care Provider: Courtney Lynch, DO 53 y/o F c/o increased wound pain, redness, swelling. Pt is s/p L aortobifemoral bypass with Dr. Travis on 12/26. She has had a complicated course of care post-op due to poor wound healing. She has been following with [facility]. She has been debrided x2 on 01/07 and 01/30. She has been wearing a wound vac x2 weeks. Pt had a + wound culture and statese she finished abx 1 week ago. She states that she was actually feeling improved as she progressed with the abx, but since she finished the abx, she has had worsening of her wound pain, redness, and swelling. She states that the pain is the worst it has been. She was seen in the ED yesterday and d/c'd to [facility] for an appt today. At that appt today she was sent back to the ED for concerns about the wound. Her wound vac was stopped and pt states her pain is better since that was turned off. Pt states that she has had nausea the last few days. She did have emesis yesterday, but not today. She has not had a bowel movement in 2 days, which she states is her usual since her surgery. Prior to that, she used to have QD bowel movements. She states she has a lot of anxiety regarding her wound situation. She has no appetite. Pt denies fever, SOB, chest pain, abd pain. Pt states she self d/c'd her zoloft just prior to her surgery because she was not able to sleep. This was a new medication for her due to side effects of her prior antidepressant. She states that she was on something prior that caused her to sleep all of the time, so she was changed to zoloft. She states that she feels that she does need something to help with her depression and anxiety. States prior allergic reaction to wellbutrin. Per outpt notes, it appears she had no help with cymbalta in the past. Allergies Allergy/AdvReac Type Severity Reaction Status Date / Time chlorhexidine Allergy Intermediate hives, Verified 02/08/19 13:29 redness Penicillins AdvReac Intermediate nausea, Verified 02/08/19 13:29 vomiting, migraine bupropion AdvReac Hallucinati Verified 02/08/19 13:29 ng Home Medications Home Medications Medication Instructions Recorded Confirmed Type omeprazole 20 mg PO QAM 07/16/18 02/08/19 History oxybutynin chloride ER 10 mg 10 mg PO QAM #30 tab 11/13/18 02/08/19 History tablet,extended release 24 hr fluticasone propionate 50 1 sprays INTNAS DAILY PRN #18.2 gm 11/21/18 02/08/19 Rx mcg/actuation nasal spray,suspension acetaminophen [Tylenol Extra 1,000 mg PO DAILY PRN 12/17/18 02/08/19 History Strength] aspirin [Adult Low Dose Aspirin] 81 mg PO QAM 12/17/18 02/08/19 History atorvastatin 40 mg PO QPM 12/17/18 02/08/19 History cholecalciferol (vitamin D3) 4,000 units PO QAM 12/17/18 02/08/19 History [Vitamin D3] losartan-hydrochlorothiazide 1 tab PO QAM 12/17/18 02/08/19 History ondansetron HCl 8 mg tablet 8 mg PO Q8H PRN #10 tab 01/21/19 02/08/19 Rx hydromorphone [Dilaudid] 2 mg PO Q6H PRN 02/08/19 02/08/19 History Past Med/Surg History Medical History Hypokalemia (Acute) Morbid (severe) obesity due to excess calories Peripheral arterial disease 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 Hypertension Migraine GERD (gastroesophageal reflux disease) controlled Degenerative disc disease Arthritis Hyperlipidemia Obesity, morbid Urinary incontinence Anal fissure Anxiety and depression Elevated alkaline phosphatase level Hyponatremia Skin disorder Tick bite Tinea corporis Surgical History S/P aortobifemoral bypass surgery History of bilateral tubal ligation History of cholecystectomy History of colonoscopy 07/26/18: MAC sedation at [facility] History of tonsillectomy History of tooth extraction History of total abdominal hysterectomy and bilateral salpingo-oophorectomy History of wisdom tooth extraction Hx of aortic aneurysm repair Status post myringotomy with tube placement of both ears multiple times Family History Father Family hx colonic polyps Mother Coronary heart disease Depression Kidney disease Hypertension Cardiac disorder Myocardial infarction Father Lymphoma Brother Depression Muscular dystrophy Clotting disorder Sister Depression Grandfather Myocardial infarction Social History Preferred Language: Kiswahili Communication Ability: Effective Pay Station Attendant Required: No Beliefs That Will Affect Care: None Current Living Situation: Family Current Living Situation Comment: Lives with and 2 adult children current occupation: homemaker Other Information That Helps Us Care for You: No Feels Safe at Home: Yes Safety Concerns: Feels Safe At This Time Smoking Status: Current every day smoker Tobacco Type: cigarettes ; Cigarettes Per Day: 3/4 PPD ; Do You Dip or Chew Tobacco: No ; Second Hand Exposure: Yes ; Tobacco Cessation Education Requested by Patient: No Hx Alcohol Use: No Hx Substance Use: Yes substance use type: prescription drug Substance Use Type Other:: Dilaudid for pain. Taking 1 tablet (2mg) q6hrs. Last Used Substance: Just Prior to Arrival Review of Systems Review of Systems: Pertinent positives and negatives reviewed in HPI--all others negative Physical Exam Constitutional: WD/WN, vitals as above Eyes: normal visual mcqueen by confrontation and + anicteric sclerae Neck: normal visual inspection and trachea midline Respiratory: normal respiratory effort, lungs clear to auscultation Cardiovascular: Rate/Rhythm: regular rate and regular rhythm Gastrointestinal (Abdomen): Inspection/Auscultation: abdomen not distended Percussion/Palpation: abdomen soft; abdomen nontender Musculoskeletal: Head/Neck/Chest: normocephalic and head atraumatic negative for edema, peripheral pulses intact Skin: no rashes, warm and dry (outside of bandaged area, with bandaging clean and dry) Neurologic: awake; not confused Speech / Cognition: normal speech Psychiatric: A+Ox3, euthymic affect Results & Data Vital Signs (Past 12 Hours) Vital Signs Temp Pulse Resp BP Pulse Ox 02/08/19 13:49 107 H 20 125/70 97 02/08/19 13:30 98 H 18 96 02/08/19 13:00 103 H 13 97 02/08/19 12:30 115 H 24 95 02/08/19 12:27 111 H 20 96 02/08/19 11:48 36.5 C 114 H 20 137/68 99 Diagnostic Findings CXR: neg for acute ECG Rhythm: sinus tachycardia Code Status & VTE Plan Code Status Pt states she is fine with any sort of cardiac code, but she does not want any sort of intubation, even short term. She wants no form of prolonged mechanical life support, tube feeding, etc. VTE Prophylaxis Plan VTE Prophylaxis will be ordered: Yes PG Care Time/CCT Total # of Minutes Spent Total Time Spent with Patient: Total time spent is greater than 50% in coordination of care (as documented) at patient's floor/unit and/or counseling patient: (1) Surgical wound, non healing Encounter type: initial encounter Qualified Code(s): T81.89XA - Other complications of procedures, not elsewhere classified, initial encounter
[2019-02-08] MEDS ORDERED: FLUTICASONE PROPIONATE NA SPR 16 GM BTL PRN (15:33)
[2019-02-08] MEDS ORDERED: ONDANSETRON 8 MG TABLET PO PRN (15:33)
[2019-02-08] MEDS ORDERED: HYDROmorphone HCL 2 MG TAB PO PRN (15:33)
[2019-02-08] MEDS ORDERED: ACETAMINOPHEN 500 MG TAB PO PRN (15:33)
[2019-02-08] MEDS ORDERED: ONDANSETRON INJ 2 MG/ML 2 ML VIAL IV PRN (15:33)
[2019-02-08] MEDS ORDERED: LEVOFLOXACIN/D5W 750 MG/150 ML BAG IV SCH (15:33)
[2019-02-08] MEDS ORDERED: MAGNESIUM HYDROXIDE SUSP 30 ML UDC PO PRN (15:33)
[2019-02-08 17:15] LABS: Appearance Urine Clear (Clear); Bilirubin Urine Negative (Negative); Blood Urine Negative (Negative); Color Urine Yellow; Glucose Urine UA Negative (Negative); Ketones Urine Negative (Negative); Leukocyte Esterase Urine Negative (Negative); Nitrite Urine Negative (Negative); Protein Urine Negative (Negative); Specific Gravity Urine 1.014 (1.000-1.030); Urobilinogen Urine Negative (Negative); pH Urine 5.5 (4.5-7.5)
[2019-02-08] MEDS ORDERED: HYDROmorphone INJ 0.5 MG/0.5 ML SYR IV STA (18:36)
--- NOTE | 2019-02-08 19:38 | Emergency Department Note ---
Entered by Olya Allen acting as a scribe for History of Present Illness General Chief complaint: Wound Stated complaint: OPEN WOUND LT GROIN, NEEDS PAIN MEDS AND ANITIBIO Time Seen by Provider: 02/08/19 12:03 History of Present Illness Provider complaint: unhealing wound Onset (ago): week(s) (6) Pain Consistency: + constant Maximum Pain Intensity: 6 Quality: + other (wound) Relieved By: + other (denies relief from wound vac) Associated symptoms: + denies other symptoms (abdominal pain), + chest pain (from stress and pain) and + other (left sided femoral bypass on 12/26/2018 which never healed, referred from wound clinic for pain control, antibiotics and admission) The patient is a 53 year old female who presents to the ED with complaints of a constant unhealing wound that started 6 weeks ago. The patient states that she had a left sided femoral bypass on 12/26/2018 and the surgical wound never healed. The patient notes that she had the wound vac removed and it did not help to heal the wound. The patient states that she went to the wound clinic and they referred her here for pain control, antibiotics and admission. The patient states that she has some chest pain which she believes is from stress and pain. The patient denies abdominal pain. Home Medications Home Medications Medication Instructions Recorded Confirmed Type omeprazole 20 mg PO QAM 07/16/18 02/08/19 History oxybutynin chloride ER 10 mg 10 mg PO QAM #30 tab 11/13/18 02/08/19 History tablet,extended release 24 hr fluticasone propionate 50 1 sprays INTNAS DAILY PRN #18.2 gm 11/21/18 02/08/19 Rx mcg/actuation nasal spray,suspension acetaminophen [Tylenol Extra 1,000 mg PO DAILY PRN 12/17/18 02/08/19 History Strength] aspirin [Adult Low Dose Aspirin] 81 mg PO QAM 12/17/18 02/08/19 History atorvastatin 40 mg PO QPM 12/17/18 02/08/19 History cholecalciferol (vitamin D3) 4,000 units PO QAM 12/17/18 02/08/19 History [Vitamin D3] losartan-hydrochlorothiazide 1 tab PO QAM 12/17/18 02/08/19 History ondansetron HCl 8 mg tablet 8 mg PO Q8H PRN #10 tab 01/21/19 02/08/19 Rx hydromorphone [Dilaudid] 2 mg PO Q6H PRN 02/08/19 02/08/19 History Allergies Allergy/AdvReac Type Severity Reaction Status Date / Time chlorhexidine Allergy Intermediate hives, Verified 02/08/19 13:29 redness Penicillins AdvReac Intermediate nausea, Verified 02/08/19 13:29 vomiting, migraine bupropion AdvReac Hallucinati Verified 02/08/19 13:29 ng Past Med/Surg History Medical History Hypokalemia (Acute) Morbid (severe) obesity due to excess calories Peripheral arterial disease 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 Hypertension Migraine GERD (gastroesophageal reflux disease) controlled Degenerative disc disease Arthritis Hyperlipidemia Obesity, morbid Urinary incontinence Anal fissure Anxiety and depression Elevated alkaline phosphatase level Hyponatremia Skin disorder Tick bite Tinea corporis Surgical History S/P aortobifemoral bypass surgery History of bilateral tubal ligation History of cholecystectomy History of colonoscopy 07/26/18: MAC sedation at [facility] History of tonsillectomy History of tooth extraction History of total abdominal hysterectomy and bilateral salpingo-oophorectomy History of wisdom tooth extraction Hx of aortic aneurysm repair Status post myringotomy with tube placement of both ears multiple times Family History Father Family hx colonic polyps Mother Coronary heart disease Depression Kidney disease Hypertension Cardiac disorder Myocardial infarction Father Lymphoma Brother Depression Muscular dystrophy Clotting disorder Sister Depression Grandfather Myocardial infarction Social History Preferred Language: [place] Communication Ability: Effective Public Health Dentist Required: No Beliefs That Will Affect Care: None Current Living Situation: Family Current Living Situation Comment: Lives with and 2 adult children current occupation: homemaker Feels Safe at Home: Yes Smoking Status: Current every day smoker Tobacco Type: cigarettes ; Cigarettes Per Day: 3/4 PPD ; Second Hand Exposure: Yes ; Hx Alcohol Use: No Hx Substance Use: Yes substance use type: prescription drug Substance Use Type Other:: Dilaudid for pain. Taking 1 tablet (2mg) q6hrs. Last Used Substance: Just Prior to Arrival Review of Systems See HPI for pertinent positives & negatives. and A total of 10 systems reviewed and were otherwise negative Physical Exam Vital Signs Vital Signs - 24 hr 02/08/19 11:48 02/08/19 12:27 02/08/19 12:30 Temperature 36.5 C Temperature Source Oral Sepsis New/Unexplained Change in Mental Status No Sepsis Action Taken by Nursing No Action Required Pulse Rate 114 H 111 H 115 H Pulse Rhythm Regular Pulse Strength Normal Respiratory Rate 20 20 24 Respiratory Effort / Characteristics Non-Labored Spontaneous Respiratory Depth Normal Respiratory Pattern Regular Blood Pressure 137/68 Blood Pressure Mean 91 Pulse Oximetry 99 96 95 Oxygen Delivery Method Room Air Room Air Room Air 02/08/19 13:00 02/08/19 13:30 02/08/19 13:49 Temperature Temperature Source Sepsis New/Unexplained Change in Mental Status Sepsis Action Taken by Nursing Pulse Rate 103 H 98 H 107 H Pulse Rhythm Pulse Strength Respiratory Rate 13 18 20 Respiratory Effort / Characteristics Respiratory Depth Respiratory Pattern Blood Pressure 125/70 Blood Pressure Mean 88 Pulse Oximetry 97 96 97 Oxygen Delivery Method Room Air Room Air Room Air 02/08/19 14:00 Temperature Temperature Source Sepsis New/Unexplained Change in Mental Status Sepsis Action Taken by Nursing Pulse Rate 107 H Pulse Rhythm Pulse Strength Respiratory Rate 18 Respiratory Effort / Characteristics Respiratory Depth Respiratory Pattern Blood Pressure Blood Pressure Mean Pulse Oximetry Oxygen Delivery Method GENERAL: Awake, alert, well-appearing, in no acute distress HENT: Normocephalic, atraumatic. Oropharynx unremarkable. EYES: Normal conjunctiva. Sclera non-icteric. NECK: Supple. No nuchal rigidity. FROM. No JVD. RESPIRATORY: Clear to auscultation. CARDIAC: Regular rate, normal rhythm. Extremities warm and well perfused. Pulses equal. ABDOMEN: Soft, non-distended. No tenderness to palpation. No rebound or guarding. No masses. RECTAL: Deferred. MUSCULOSKELETAL: Chest examination reveals no tenderness. The back is symmetrical on inspection without obvious abnormality. There is no CVA tenderness to palpation. No joint edema. LOWER EXTREMITIES: She has a wound to the left groin, malodorous. Wound vac has been removed. Calves are equal size bilaterally and non-tender. No edema. No discoloration. NEURO: Normal sensorium. No sensory or motor deficits noted. SKIN: No rash or jaundice noted. Course 1210: Past medical records reviewed. The patient was evaluated in room C9. A complete history and physical exam was performed. 1336: I discussed the patient's case with Dr. Pastrana- [facility] Hopsitalist. She will evaluate the patient for further management. Consultations Consultation #1: I discussed the patient's case with Dr. Alexandra [facility] Hopsitalist. She will evaluate the patient for further management. Time: 13:36 Administered Medications Hydromorphone HCl (Dilaudid) 2 mg PO Q6H PRN PRN Reason: Pain Stop: 02/22/19 15:32 Last Admin: 02/08/19 17:13 Dose: 2 mg Documented by: [id number] Discontinued Medications Hydromorphone HCl (Dilaudid) 1 mg IV Q15M PRN PRN Reason: Pain Stop: 02/22/19 12:06 Last Admin: 02/08/19 14:13 Dose: 1 mg Documented by: [id number] Admin: 02/08/19 12:27 Dose: 1 mg Documented by: [id number] Hydromorphone HCl (Dilaudid) 0.5 mg IV NOW STA Stop: 02/08/19 18:37 Last Admin: 02/08/19 18:48 Dose: 0.5 mg Documented by: [id number] Daptomycin 450 mg/ Syringe 9 mls @ 4.5 mls/min IV NOW ONE; Protocol Stop: 02/08/19 12:14 Last Admin: 02/08/19 14:13 Dose: 4.5 mls/min Documented by: [id number] Levofloxacin/Dextrose (Levaquin/D5w) 750 mg in 150 mls @ 100 mls/hr IV NOW STA Stop: 02/08/19 13:42 Last Infusion: 02/08/19 15:43 Dose: 0 mls/hr Documented by: [id number] Admin: 02/08/19 14:13 Dose: 100 mls/hr Documented by: [id number] Aztreonam 2,000 mg/ Dextrose 110 mls @ 100 mls/hr IV Q8H BARB; Protocol Stop: 02/10/19 12:14 Last Infusion: 02/08/19 15:19 Dose: 0 mls/hr Documented by: [id number] Admin: 02/08/19 14:13 Dose: 100 mls/hr Documented by: [id number] Ondansetron HCl (Zofran) 4 mg IV NOW STA Stop: 02/08/19 12:08 Last Admin: 02/08/19 12:26 Dose: 4 mg Documented by: [id number] Medical Decision Making Differential Diagnosis Differential diagnosis: Etiologies such as biliary colic, cholecystitis, hepatitis, perihepatitis, pancreatitis, cardiac disease, pancreatitis, gastritis, peptic ulcer disease, appendicitis, ovarian cyst, ovarian torsion, ectopic , pelvic infla mmatory disease, cystitis, diverticulitis, mesenteric ischemia, inflammatory bowel disease, ileus, bowel obstruction, aortic pathology, shingles, as well as others were considered. Medical Records Attestation: I reviewed the patient's medical records. Home Medications Current Medication List: was personally reviewed by me Laboratory Data Attestation: I reviewed the patient's lab results. Result diagrams: 02/08/19 12:18 02/08/19 12:18 Lab Results 02/08/19 02/08/19 02/08/19 Range/Units 12:18 12:18 12:18 WBC 11.48 H (4.8-10.8) K/uL RBC 3.83 L (4.2-5.4) M/uL Hgb 10.4 L (12.0-16.0) g/dL Hct 32.2 L (37-47) % MCV 84.1 (80-100) fL MCH 27.2 (25-34) pg MCHC 32.3 (32-36) g/dL RDW Std Deviation 51.8 H (36.4-46.3) fL RDW Coeff of Boris 16.9 H (11.5-14.5) % Plt Count 417 H (130-400) K/uL MPV 8.1 (7.4-10.4) fL Immature Gran % (Auto) 0.3 % Neut % (Auto) 72.5 % Lymph % (Auto) 18.3 % [place] % (Auto) 7.9 % Eos % (Auto) 0.7 % Baso % (Auto) 0.3 % Immature Gran # (Auto) 0.03 H (0.00-0.02) K/uL Neut # (Auto) 8.32 H (1.4-6.5) K/uL Lymph # (Auto) 2.10 (1.2-3.4) K/uL [place] # (Auto) 0.91 H (0.11-0.59) K/uL Eos # (Auto) 0.08 (0-0.5) K/uL Baso # (Auto) 0.04 (0-0.2) K/uL PT 11.0 (9.0-12.0) Seconds INR 1.1 (0.9-1.1) APTT 23.1 (21.0-31.0) Seconds PTT Ratio 0.9 Sodium 134 L (136-145) mmol/L Potassium 3.5 (3.5-5.1) mmol/L Chloride 98 (98-107) mmol/L Carbon Dioxide 26 (21-32) mmol/L Anion Gap 10.0 (3-11) BUN 7 (7-18) mg/dl Creatinine 0.71 (0.6-1.2) mg/dl Est Cr Clr Drug Dosing 110.1 ml/min Est GFR ( Amer) 113.5 Est GFR (Non-Af Amer) 97.9 BUN/Creatinine Ratio 9.6 L (10-20) Glucose 116 H (70-99) mg/dl Lactate (0.4-2.0) mmol/L Calcium 8.9 (8.5-10.1) mg/dl Total Bilirubin 0.2 (0.2-1) mg/dl AST 14 L (15-37) U/L ALT 18 (12-78) U/L Alkaline Phosphatase 138 H (45-117) U/L Total Creatine Kinase 27 (26-192) U/L CK-MB (CK-2) < 1.0 (0.5-3.6) ng/ml CK/CKMB % Calc TNP Troponin I < 0.015 (0-0.045) ng/ml Total Protein 7.0 (6.4-8.2) gm/dl Albumin 2.4 L (3.4-5.0) gm/dl Globulin 4.6 H (2.5-4.0) gm/dl Albumin/Globulin Ratio 0.5 L (0.9-2) 02/08/19 Range/Units 12:18 WBC (4.8-10.8) K/uL RBC (4.2-5.4) M/uL Hgb (12.0-16.0) g/dL Hct (37-47) % MCV (80-100) fL MCH (25-34) pg MCHC (32-36) g/dL RDW Std Deviation (36.4-46.3) fL RDW Coeff of Boris (11.5-14.5) % Plt Count (130-400) K/uL MPV (7.4-10.4) fL Immature Gran % (Auto) % Neut % (Auto) % Lymph % (Auto) % [place] % (Auto) % Eos % (Auto) % Baso % (Auto) % Immature Gran # (Auto) (0.00-0.02) K/uL Neut # (Auto) (1.4-6.5) K/uL Lymph # (Auto) (1.2-3.4) K/uL [place] # (Auto) (0.11-0.59) K/uL Eos # (Auto) (0-0.5) K/uL Baso # (Auto) (0-0.2) K/uL PT (9.0-12.0) Seconds INR (0.9-1.1) APTT (21.0-31.0) Seconds PTT Ratio Sodium (136-145) mmol/L Potassium (3.5-5.1) mmol/L Chloride (98-107) mmol/L Carbon Dioxide (21-32) mmol/L Anion Gap (3-11) BUN (7-18) mg/dl Creatinine (0.6-1.2) mg/dl Est Cr Clr Drug Dosing ml/min Est GFR ( Amer) Est GFR (Non-Af Amer) BUN/Creatinine Ratio (10-20) Glucose (70-99) mg/dl Lactate 2.5 H* (0.4-2.0) mmol/L Calcium (8.5-10.1) mg/dl Total Bilirubin (0.2-1) mg/dl AST (15-37) U/L ALT (12-78) U/L Alkaline Phosphatase (45-117) U/L Total Creatine Kinase (26-192) U/L CK-MB (CK-2) (0.5-3.6) ng/ml CK/CKMB % Calc Troponin I (0-0.045) ng/ml Total Protein (6.4-8.2) gm/dl Albumin (3.4-5.0) gm/dl Globulin (2.5-4.0) gm/dl Albumin/Globulin Ratio (0.9-2) Imaging Data Radiologist's Impression: Radiology results as stated below per my review and the radiologist's interpretation: XR chest 1V portable CLINICAL HISTORY: Sepsis dyspnea COMPARISON STUDY: 12/26/2018 FINDINGS: Interval extubation as well as removal of the nasogastric tube. Slight interstitial prominence bilaterally possibly chronic. Mild stable cardiomegaly. IMPRESSION: Slight nonspecific interstitial prominence bilaterally. No consolid ative infiltrates. This appearance may be consistent with mild bronchitis versus interstitial inflammatory change. The above report was generated using voice recognition software. It may contain grammatical, syntax or spelling errors. Electronically signed by: Donnie Pollock M.D. 02/08/2019 12:41 PM ECG Data Attestation: I personally reviewed and interpreted this ECG as follows: Indication: + abdominal pain Rate (beats per minute): 105 Rhythm: + sinus tachycardia ECG ST segments: no ST depression and no ST elevation ECG Findings: + Other (QTC 457) Blood Pressure Blood Pressure Findings: Elevated blood pressure Blood Pressure Disposition: further management by hospitalist MDM Narrative This is a 53-year-old female who presents emergency department complaining of surgical wound. The patient was sent in by the wound clinic over concerns that the wound may be infected as well as for pain control. Patient was given Dilaudid here in the emergency department and started on antibiotics including aztreonam Levaquin daptomycin. She does have a higher elevation in her white blood cell count today of 13,000. I did discuss the case with the hospitalist service who agreed to admit the patient. Patient family are in agreement with the treatment plan. Impression & Plan S/P aortobifemoral bypass surgery, Groin pain, Surgical wound, non healing Discharge Plan Visit Data *Final* Discharge Date/Time: 02/08/19 14:41 Chief Complaint: Wound Stated Complaint: OPEN WOUND LT GROIN, NEEDS PAIN MEDS AND ANITIBIO ED Provider: Yared Santos Patient Disposition: Admitted As Inpatient Discharge Instructions Interventions: ED Discharge Assessment Last Done: 02/08/19 14:41 Prescriptions Prescriptions: No Action fluticasone propionate [Flonase Allergy Relief] 50 mcg/actuation spray,suspension 1 sprays INTNAS DAILY PRN (Reason: allergy symptoms) Qty: 18.2 RF: 2 ondansetron HCl [Zofran] 8 mg tablet 8 mg PO Q8H PRN (Reason: nausea and vomiting) Qty: 10 RF: 0 oxybutynin chloride 10 mg tablet extended release 24hr 10 mg PO QAM Qty: 30 RF: 0 omeprazole 20 mg Capsule,Delayed Release(Dr/Ec) 20 mg PO QAM RF: 0 atorvastatin 40 mg tablet 40 mg PO QPM RF: 0 aspirin [Adult Low Dose Aspirin] 81 mg tablet,delayed release (DR/EC) 81 mg PO QAM RF: 0 acetaminophen [Tylenol Extra Strength] 500 mg tablet 1,000 mg PO DAILY PRN (Reason: PAIN OR FEVER) RF: 0 losartan-hydrochlorothiazide 50-12.5 mg tablet 1 tab PO QAM RF: 0 cholecalciferol (vitamin D3) [Vitamin D3] 2,000 unit capsule 4,000 units PO QAM RF: 0 hydromorphone [Dilaudid] 2 mg tablet 2 mg PO Q6H PRN (Reason: Pain) RF: 0 The scribe's documentation has been prepared under my direction and personally reviewed by me in its entirety. I confirm that the note above accurately reflects all work, treatment, procedures, and medical decision making performed by me.
[2019-02-08] MEDS: AZTREONAM 2,000 MG in DEXTROSE 5% 100 ML IV SCH (21:17)
[2019-02-08] MEDS: HYDROmorphone HCL 2 MG TAB PO PRN (22:29)
[2019-02-09] MEDS: HYDROmorphone HCL 2 MG TAB PO PRN ×2 (04:17→08:28)
[2019-02-09] MEDS: AZTREONAM 2,000 MG in DEXTROSE 5% 100 ML IV SCH ×3 (05:41→21:14)
[2019-02-09 06:30] LABS: BUN Creatinine Ratio 10.5 (10-20); Calcium 8.5 mg/dl (8.5-10.1); Creatinine Clr Calc Pharmacy 143.3 ml/min; Est GFR (African American) 126.5; Est GFR (Non-African American) 109.2; Magnesium 1.4 mg/dl (1.8-2.4); Phosphorus 4.1 mg/dl (2.5-4.9); Potassium 3.5 mmol/L (3.5-5.1)
--- NOTE | 2019-02-09 08:11 | Consultation ---
Date of Consultation February 09, 2019 Assessment & Plan (1) Open wound of groin: This patient has an open wound of her left groin after surgical debridement. It is markedly smaller than what it was after we did a partial closure and wound VAC placement. I believe the surrounding erythema may be secondary to the overlying wound VAC dressing. I agree with the Aquasol dressings as per the wound care team. I will leave the local care of the wound up to the wound care service. Encounter type: initial encounter Qualified Code(s): S31.109A - Unspecified open wound of abdominal wall, unspecified quadrant without penetration into peritoneal cavity, initial encounter History of Present Illness Reason for Consultation: Left groin wound Attending Physician: Radha Miller MD History of Present Illness This is a patient very familiar to us. She had an aortobifemoral bypass in the recent past with necrosis of the wound edges of the left groin involving the skin and subcutaneous tissue. The left limb of the graft was occluded at that time. The wound was debrided. The graft was not seen at that time was incorporated within the deeper tissues. Since then she has had wound VAC treatments. She has had multiple admissions due to pain control for the VAC changes. She did not want not want to go to the facility to help with the VAC changes. She was adamant about doing the changes at home with home health services. She was admitted at this time for redness around the wound and possible infection. Allergies Allergy/AdvReac Type Severity Reaction Status Date / Time chlorhexidine Allergy Intermediate hives, Verified 02/08/19 13:29 redness Penicillins AdvReac Intermediate nausea, Verified 02/08/19 13:29 vomiting, migraine bupropion AdvReac Hallucinati Verified 02/08/19 13:29 ng Home Medications Home Medications Medication Instructions Recorded Confirmed Type omeprazole 20 mg PO QAM 07/16/18 02/08/19 History oxybutynin chloride ER 10 mg 10 mg PO QAM #30 tab 11/13/18 02/08/19 History tablet,extended release 24 hr fluticasone propionate 50 1 sprays INTNAS DAILY PRN #18.2 gm 11/21/18 02/08/19 Rx mcg/actuation nasal spray,suspension acetaminophen [Tylenol Extra 1,000 mg PO DAILY PRN 12/17/18 02/08/19 History Strength] aspirin [Adult Low Dose Aspirin] 81 mg PO QAM 12/17/18 02/08/19 History atorvastatin 40 mg PO QPM 12/17/18 02/08/19 History cholecalciferol (vitamin D3) 4,000 units PO QAM 12/17/18 02/08/19 History [Vitamin D3] losartan-hydrochlorothiazide 1 tab PO QAM 12/17/18 02/08/19 History ondansetron HCl 8 mg tablet 8 mg PO Q8H PRN #10 tab 01/21/19 02/08/19 Rx hydromorphone [Dilaudid] 2 mg PO Q6H PRN 02/08/19 02/08/19 History Patient History Medical History Hypokalemia (Acute) Morbid (severe) obesity due to excess calories Peripheral arterial disease 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 Hypertension Migraine GERD (gastroesophageal reflux disease) controlled Degenerative disc disease Arthritis Hyperlipidemia Obesity, morbid Urinary incontinence Anal fissure Anxiety and depression Elevated alkaline phosphatase level Hyponatremia Skin disorder Tick bite Tinea corporis Surgical History S/P aortobifemoral bypass surgery History of bilateral tubal ligation History of cholecystectomy History of colonoscopy 07/26/18: MAC sedation at [facility] History of tonsillectomy History of tooth extraction History of total abdominal hysterectomy and bilateral salpingo-oophorectomy History of wisdom tooth extraction Hx of aortic aneurysm repair Status post myringotomy with tube placement of both ears multiple times Family History Father Family hx colonic polyps Mother Coronary heart disease Depression Kidney disease Hypertension Cardiac disorder Myocardial infarction Father Lymphoma Brother Depression Muscular dystrophy Clotting disorder Sister Depression Grandfather Myocardial infarction Social History Preferred Language: [place] Communication Ability: Effective 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 Taking 1 tablet (2mg) q6hrs. Last Used Substance: Just Prior to Arrival Review of Systems Review of Systems: All systems reviewed & are unremarkable except as noted in HPI & below Physical Exam Constitutional: WD/WN, vitals as above Cardiovascular: Rate/Rhythm: regular rate and regular rhythm Gastrointestinal (Abdomen): Inspection/Auscultation: abdomen normal to inspection; abdomen not distended Percussion/Palpation: abdomen soft; abdomen nontender Skin: + wound (Left groin wound has surrounding erythema in the area of the wound VAC dressing.. The base of the wound does have granulation tissue present.) Psychiatric: Orientation: alert and oriented x 3 Results & Data Vital Signs (Past 12 Hours) Vital Signs Temp Pulse Resp BP Pulse Ox 02/09/19 07:00 37.3 C 106 H 20 131/85 96 02/08/19 23:33 37.3 C 107 H 16 127/74 96
[2019-02-09] MEDS: CHOLECALCIFEROL 1,000 UNITS TAB PO SCH (08:29)
[2019-02-09] MEDS: ASPIRIN 81 MG ECTAB PO SCH (08:29)
[2019-02-09] MEDS: PANTOprazole 40 MG TAB PO SCH (08:29)
[2019-02-09] MEDS: LOSARTAN/HCTZ 50/12.5MG TAB PO SCH (08:30)
[2019-02-09] MEDS: OXYBUTYNIN CHLORIDE XL 5 MG TABCR PO SCH (08:30)
[2019-02-09] MEDS ORDERED: DAPTOmycin 500 MG VIAL IV SCH (09:00)
[2019-02-09] MEDS: MAGNESIUM SULFATE / D5W 1 GM/100 ML BAG IV SCH ×2 (09:06→10:11)
[2019-02-09] MEDS: HYDROmorphone INJ 0.5 MG/0.5 ML SYR IV PRN ×3 (11:10→19:15)
[2019-02-09 11:38] LABS: Basophils # (auto) 0.03 K/uL (0-0.2); Basophils % (auto) 0.3 %; Hemoglobin 10.1 g/dL (12.0-16.0); Immature Granulocytes # (auto) 0.02 K/uL (0.00-0.02); Immature Granulocytes % (auto) 0.2 %; Lymphocytes # (auto) 1.72 K/uL (1.2-3.4); Lymphocytes % (auto) 16.5 %; Mean Corpuscular Hemoglobin 27.3 pg (25-34); Mean Corpuscular Hgb Conc 32.6 g/dL (32-36); Mean Corpuscular Volume 83.8 fL (80-100); Mean Platelet Volume 8.2 fL (7.4-10.4); Monocytes # (auto) 1.05 K/uL (0.11-0.59); Monocytes % (auto) 10.1 %; Neutrophils # (auto) 7.48 K/uL (1.4-6.5); Neutrophils % (auto) 71.9 %; Platelet Count 421 K/uL (130-400); RDW Standard Deviation 51.9 fL (36.4-46.3)
--- NOTE | 2019-02-09 12:53 | Hospitalist Progress Note ---
Date of Service February 09, 2019 Assessment & Plan (1) Surgical wound, non healing: - S/p aortobifemoral bypass on 12/26/18 with non healing wound; most recent debridement on 01/07 and 01/30. - Wound culture 01/07 +E. coli and Finegoldia magna, treated with course of abx. - Repeat wound culture and blood cultures are pending. - CT A/P 02/07 showed resolution of fluid collections c/w resolving post surgical hematoma. - Vascular surgery consulted, appreciate input. - Will also consult Dr. Maza & wound care nurse. - Wound vac removed at admission; will continue local wound care. - Continue Aztreonam/Daptomycin for empiric coverage. - C/o persistent pain, previously on Dilaudid 2 mg PO q6hr at home; will start Dilaudid 0.5 mg IV q4hr prn pain. (2) Aortic occlusion: - Most recent CTA A/P on 02/07 with occlusion of [place] infrarenal abd a jose and [place] common iliac arteries. - Continue ASA 81 mg daily. (3) Depression: - Pt self discontinued her Zoloft prior to surgery due to inability to sl eep. Has h/o allergic reaction to Welbutrin. Has tried Cymbalta in past with no improvement. - Consider starting Celexa. (4) Peripheral arterial disease: - Continue ASA 81 mg daily; hold statin d/t interaction with Dapto. - Vascular consulted as noted above. (5) Hypertension: - Continue home HCTZ/Losartan. - BP has been well controlled. (6) Migraine: - Not currently on daily medication. (7) GERD (gastroesophageal reflux disease): - PPI daily. (8) Hyperlipidemia: - Hold statin d/t interaction with Daptomycin. (9) Urinary incontinence: - Continue home Ditropan as prescribed. (10) Hyponatremia: - Stable on admission -- baseline Na ~130-134. - Monitor daily. (11) Anemia: - Developed post op anemia in Dec 2018; will order iron studies in setting of multiple procedures. - Monitor CBC daily. (12) DVT prophylaxis: - SCDs; holding pharmacologix ppx. Mag level 1.4 - ordered mag sulfate 2 gm IV. Dispo: Med/surg for treatment of non healing surgical wound. Will need evaluation by wound care physician on Monday. Supervising Physician Co-Signing Physician Notes I have seen and examined patient with Stefany Gonzales PA-C and agree with assessment and plan. Subjective Pt. had increased pain this morning -- rated pain as a 5-6/10 after receiving Dilaudid 2 mg PO dose. She has been using Dilaudid 2 mg PO tablets at home, reports current pain is not responsive to treatment. Pain is located at site of wound and surrounding area. Constipated -- last BM prior to admission. Denies chest pain, SOB, N/V. Vascular surgery consulted, appreciate input. Dr. Maza and wound care nurse also consulted. Review of Systems Review of Systems: All systems reviewed & are unremarkable except as noted in HPI & below Constitutional: no fever, no chills, no fatigue, no weakness and no anorexia Respiratory: no cough, no dyspnea, no dyspnea on exertion and no wheezing Cardiovascular: no chest pain, no palpitations and no edema Gastrointestinal: + abdominal pain (At site of wound ) and + constipation; no nausea and no vomiting Genitourinary: no difficulty urinating Musculoskeletal: no back pain and no joint pain Integumentary: + non-healing lesions, + sores, + wounds and + erythema; no bleeding lesions Physical Exam Physical Exam: General: Moderate distress 2/2 acute pain. HEENT: NC/AT; PERRLA with EOMI; [place] conjunctiva, MMM. No erythema of posterior pharynx Neck: Supple and nontender Cardiac: RRR Lungs: CTA bilaterally Abdomen: Bowel normoactive X 4; Nontender to palpation Extremities: Warm. No edema present Neuro: No focal weakness Skin: Wound in left groin area with surrounding erythema, tenderness to palpation. No discharge noted. Results & Data Vital Signs (Past 12 Hours) Vital Signs Temp Pulse Resp BP Pulse Ox 02/09/19 07:00 37.3 C 106 H 20 131/85 96 Laboratory Results 02/09/19 02/09/19 02/09/19 Range/Units 08:37 08:37 05:20 WBC 10.40 (4.8-10.8) K/uL RBC 3.70 L (4.2-5.4) M/uL Hgb 10.1 L (12.0-16.0) g/dL Hct 31.0 L (37-47) % MCV 83.8 (80-100) fL MCH 27.3 (25-34) pg MCHC 32.6 (32-36) g/dL RDW Std Deviation 51.9 H (36.4-46.3) fL RDW Coeff of Boris 17.0 H (11.5-14.5) % Plt Count 421 H (130-400) K/uL MPV 8.2 (7.4-10.4) fL Immature Gran % (Auto) 0.2 % Neut % (Auto) 71.9 % Lymph % (Auto) 16.5 % Mineral % (Auto) 10.1 % Eos % (Auto) 1.0 % Baso % (Auto) 0.3 % Immature Gran # (Auto) 0.02 (0.00-0.02) K/uL Neut # (Auto) 7.48 H (1.4-6.5) K/uL Lymph # (Auto) 1.72 (1.2-3.4) K/uL Mineral # (Auto) 1.05 H (0.11-0.59) K/uL Eos # (Auto) 0.10 (0-0.5) K/uL Baso # (Auto) 0.03 (0-0.2) K/uL PT (9.0-12.0) Seconds INR (0.9-1.1) APTT (21.0-31.0) Seconds PTT Ratio Sodium 134 L (136-145) mmol/L Potassium 3.5 (3.5-5.1) mmol/L Chloride 100 (98-107) mmol/L Carbon Dioxide 27 (21-32) mmol/L Anion Gap 7.0 (3-11) BUN 6 L (7-18) mg/dl Creatinine 0.53 L (0.6-1.2) mg/dl Est Cr Clr Drug Dosing 143.3 ml/min Est GFR ( Amer) 126.5 Est GFR (Non-Af Amer) 109.2 BUN/Creatinine Ratio 10.5 (10-20) Glucose 103 H (70-99) mg/dl Lactate 1.7 (0.4-2.0) mmol/L Calcium 8.5 (8.5-10.1) mg/dl Phosphorus 4.1 (2.5-4.9) mg/dl Magnesium 1.4 L (1.8-2.4) mg/dl Total Bilirubin (0.2-1) mg/dl AST (15-37) U/L ALT (12-78) U/L Alkaline Phosphatase (45-117) U/L Total Creatine Kinase (26-192) U/L CK-MB (CK-2) (0.5-3.6) ng/ml CK/CKMB % Calc Troponin I (0-0.045) ng/ml Total Protein (6.4-8.2) gm/dl Albumin (3.4-5.0) gm/dl Globulin (2.5-4.0) gm/dl Albumin/Globulin Ratio (0.9-2) Urine Color Urine Appearance (Clear) Urine pH (4.5-7.5) Ur Specific [place] (1.000-1.030) Urine Protein (Negative) Urine Glucose (UA) (Negative) Urine Ketones (Negative) Urine Blood (Negative) Urine Nitrite (Negative) Urine Bilirubin (Negative) Urine Urobilinogen (Negative) Ur Leukocyte Esterase (Negative) 02/08/19 02/08/19 02/08/19 Range/Units 17:01 15:22 12:18 WBC (4.8-10.8) K/uL RBC (4.2-5.4) M/uL Hgb (12.0-16.0) g/dL Hct (37-47) % MCV (80-100) fL MCH (25-34) pg MCHC (32-36) g/dL RDW Std Deviation (36.4-46.3) fL RDW Coeff of Boris (11.5-14.5) % Plt Count (130-400) K/uL MPV (7.4-10.4) fL Immature Gran % (Auto) % Neut % (Auto) % Lymph % (Auto) % Mineral % (Auto) % Eos % (Auto) % Baso % (Auto) % Immature Gran # (Auto) (0.00-0.02) K/uL Neut # (Auto) (1.4-6.5) K/uL Lymph # (Auto) (1.2-3.4) K/uL Mineral # (Auto) (0.11-0.59) K/uL Eos # (Auto) (0-0.5) K/uL Baso # (Auto) (0-0.2) K/uL PT (9.0-12.0) Seconds INR (0.9-1.1) APTT (21.0-31.0) Seconds PTT Ratio Sodium (136-145) mmol/L Potassium (3.5-5.1) mmol/L Chloride (98-107) mmol/L Carbon Dioxide (21-32) mmol/L Anion Gap (3-11) BUN (7-18) mg/dl Creatinine (0.6-1.2) mg/dl Est Cr Clr Drug Dosing ml/min Est GFR ( Amer) Est GFR (Non-Af Amer) BUN/Creatinine Ratio (10-20) Glucose (70-99) mg/dl Lactate 2.4 H* 2.5 H* (0.4-2.0) mmol/L Calcium (8.5-10.1) mg/dl Phosphorus (2.5-4.9) mg/dl Magnesium (1.8-2.4) mg/dl Total Bilirubin (0.2-1) mg/dl AST (15-37) U/L ALT (12-78) U/L Alkaline Phosphatase (45-117) U/L Total Creatine Kinase (26-192) U/L CK-MB (CK-2) (0.5-3.6) ng/ml CK/CKMB % Calc Troponin I (0-0.045) ng/ml Total Protein (6.4-8.2) gm/dl Albumin (3.4-5.0) gm/dl Globulin (2.5-4.0) gm/dl Albumin/Globulin Ratio (0.9-2) Urine Color Yellow Urine Appearance Clear (Clear) Urine pH 5.5 (4.5-7.5) Ur Specific [place] 1.014 (1.000-1.030) Urine Protein Negative (Negative) Urine Glucose (UA) Negative (Negative) Urine Ketones Negative (Negative) Urine Blood Negative (Negative) Urine Nitrite Negative (Negative) Urine Bilirubin Negative (Negative) Urine Urobilinogen Negative (Negative) Ur Leukocyte Esterase Negative (Negative) 02/08/19 02/08/19 Range/Units 12:18 12:18 WBC (4.8-10.8) K/uL RBC (4.2-5.4) M/uL Hgb (12.0-16.0) g/dL Hct (37-47) % MCV (80-100) fL MCH (25-34) pg MCHC (32-36) g/dL RDW Std Deviation (36.4-46.3) fL RDW Coeff of Boris (11.5-14.5) % Plt Count (130-400) K/uL MPV (7.4-10.4) fL Immature Gran % (Auto) % Neut % (Auto) % Lymph % (Auto) % Mineral % (Auto) % Eos % (Auto) % Baso % (Auto) % Immature Gran # (Auto) (0.00-0.02) K/uL Neut # (Auto) (1.4-6.5) K/uL Lymph # (Auto) (1.2-3.4) K/uL Mineral # (Auto) (0.11-0.59) K/uL Eos # (Auto) (0-0.5) K/uL Baso # (Auto) (0-0.2) K/uL PT 11.0 (9.0-12.0) Seconds INR 1.1 (0.9-1.1) APTT 23.1 (21.0-31.0) Seconds PTT Ratio 0.9 Sodium 134 L (136-145) mmol/L Potassium 3.5 (3.5-5.1) mmol/L Chloride 98 (98-107) mmol/L Carbon Dioxide 26 (21-32) mmol/L Anion Gap 10.0 (3-11) BUN 7 (7-18) mg/dl Creatinine 0.71 (0.6-1.2) mg/dl Est Cr Clr Drug Dosing 110.1 ml/min Est GFR ( Amer) 113.5 Est GFR (Non-Af Amer) 97.9 BUN/Creatinine Ratio 9.6 L (10-20) Glucose 116 H (70-99) mg/dl Lactate (0.4-2.0) mmol/L Calcium 8.9 (8.5-10.1) mg/dl Phosphorus (2.5-4.9) mg/dl Magnesium (1.8-2.4) mg/dl Total Bilirubin 0.2 (0.2-1) mg/dl AST 14 L (15-37) U/L ALT 18 (12-78) U/L Alkaline Phosphatase 138 H (45-117) U/L Total Creatine Kinase 27 (26-192) U/L CK-MB (CK-2) < 1.0 (0.5-3.6) ng/ml CK/CKMB % Calc TNP Troponin I < 0.015 (0-0.045) ng/ml Total Protein 7.0 (6.4-8.2) gm/dl Albumin 2.4 L (3.4-5.0) gm/dl Globulin 4.6 H (2.5-4.0) gm/dl Albumin/Globulin Ratio 0.5 L (0.9-2) Urine Color Urine Appearance (Clear) Urine pH (4.5-7.5) Ur Specific [place] (1.000-1.030) Urine Protein (Negative) Urine Glucose (UA) (Negative) Urine Ketones (Negative) Urine Blood (Negative) Urine Nitrite (Negative) Urine Bilirubin (Negative) Urine Urobilinogen (Negative) Ur Leukocyte Esterase (Negative) PG Care Time/CCT Total # of Minutes Spent Total Time Spent with Patient: Total time spent is greater than 50% in coordination of care (as documented) at patient's floor/unit and/or counseling patient: (1) Surgical wound, non healing Encounter type: initial encounter Qualified Code(s): T81.89XA - Other complications of procedures, not elsewhere classified, initial encounter
[2019-02-09] MEDS: DAPTOmycin 450 MG in SYRINGE 0 ML IV SCH (14:17)
[2019-02-10] MEDS: HYDROmorphone INJ 0.5 MG/0.5 ML SYR IV PRN ×6 (00:01→20:38)
[2019-02-10] MEDS: ACETAMINOPHEN 325 MG TAB PO PRN ×3 (03:33→23:50)
[2019-02-10] MEDS: AZTREONAM 2,000 MG in DEXTROSE 5% 100 ML IV SCH ×3 (05:53→21:58)
[2019-02-10 05:54] LABS: Hematocrit (blood only) 29.1 % (37-47); Hemoglobin 9.4 g/dL (12.0-16.0); Mean Corpuscular Hemoglobin 27.1 pg (25-34); Mean Corpuscular Hgb Conc 32.3 g/dL (32-36); Mean Corpuscular Volume 83.9 fL (80-100); Platelet Count 356 K/uL (130-400); RDW Standard Deviation 51.4 fL (36.4-46.3); Red Blood Count 3.47 M/uL (4.2-5.4)
[2019-02-10 06:24] LABS: BUN Creatinine Ratio 14.8 (10-20); Calcium 8.5 mg/dl (8.5-10.1); Est GFR (African American) 129.8; Potassium 3.3 mmol/L (3.5-5.1)
[2019-02-10 06:31] LABS: Ferritin 334.5 ng/ml (8-388)
[2019-02-10] MEDS: LOSARTAN/HCTZ 50/12.5MG TAB PO SCH (08:13)
[2019-02-10] MEDS: CHOLECALCIFEROL 1,000 UNITS TAB PO SCH (08:14)
[2019-02-10] MEDS: OXYBUTYNIN CHLORIDE XL 5 MG TABCR PO SCH (08:14)
[2019-02-10] MEDS: ASPIRIN 81 MG ECTAB PO SCH (08:14)
[2019-02-10] MEDS: PANTOprazole 40 MG TAB PO SCH (08:14)
[2019-02-10] MEDS ORDERED: POTASSIUM CHLORIDE 20 MEQ TABCR PO ONE (08:47)
[2019-02-10] MEDS ORDERED: SODIUM CHLORIDE 0.9% 1000ML 1,000 ML IV SCH (09:00)
[2019-02-10] MEDS ORDERED: POLYETHYLENE (MIRALAX) 17 GM PACK PO PRN (12:17)
[2019-02-10] MEDS: DOCUSATE SODIUM 100 MG CAP PO SCH ×2 (12:29→20:39)
--- NOTE | 2019-02-10 12:44 | Hospitalist Progress Note ---
Date of Service February 10, 2019 Assessment & Plan (1) Surgical wound, non healing: - S/p aortobifemoral bypass on 12/26/18 with non healing wound; most recent debridement on 01/07 and 01/30. - Wound culture 01/07 +E. coli and Finegoldia magna, treated with course of abx. - Wound culture: gram stain with +many gram pos cocci, many gram neg coccobacilli; +Staph species (prelim) - CT A/P 02/07 showed resolution of fluid collections c/w resolving post surgical hematoma. - Vascular surgery consulted, appreciate input. - Consult Dr. Maza & wound care nurse - evaluate on Monday. - Wound vac removed at admission; continue dressing changes qshift. - Continue Aztreonam/Daptomycin for empiric coverage - wound culture sensitivities pending. - On Dilaudid 2 mg PO q6hr at home; continue Dilaudid 0.5 mg IV q4hr prn pain. (2) Aortic occlusion: - Most recent CTA A/P on 02/07 with occlusion of [place] infrarenal abd aorta and [place] common iliac arteries. - Continue ASA 81 mg daily. (3) Depression: - Pt self discontinued her Zoloft prior to surgery due to inability to sleep. Has h/o allergic reaction to Welbutrin. Has tried Cymbalta in past with no improvement. - Consider starting Celexa. (4) Peripheral arterial disease: - Continue ASA 81 mg daily; hold statin d/t interaction with Dapto. - Vascular consulted as noted above. (5) Hypertension: - BP has been well controlled. - Hold home Losartan/HCTZ due to hyponatremia/presumed dehydration. (6) Migraine: - Not currently on daily medication. (7) GERD (gastroesophageal reflux disease): - PPI daily. (8) Hyperlipidemia: - Hold statin d/t interaction with Daptomycin. (9) Urinary incontinence: - Continue home Ditropan as prescribed. (10) Hyponatremia: - Na level decreased to 132 -- baseline ~130-134. - Monitor levels daily. (11) Anemia: - Developed post op anemia in Dec 2018; iron studies c/w anemia of chronic disease. - Monitor CBC daily. (12) DVT prophylaxis: - SCDs; hold pharmacologic ppx. K level 3.3 - ordered K 20 mEq PO. Dispo: Treatment of non healing surgical wound. Evaluation by wound care physician on Monday. PT/OT for discharge planning. Supervising Physician Co-Signing Physician Notes I have seen and examined patient with Stfeany Gonzales PA-C and agree with assessment and plan. Subjective Pt. has left groin pain at site of wound -- is well controlled with Dilaudid IV. Has had drainage from wound -- will recommend dressing change qshift. Is eating/drinking, denies N/V. Has not had a BM since admission. Review of Systems Review of Systems: All systems reviewed & are unremarkable except as noted in HPI & below Constitutional: no fever, no chills, no fatigue, no weakness and no anorexia Respiratory: no cough, no dyspnea, no dyspnea on exertion and no wheezing Cardiovascular: no chest pain, no palpitations and no edema Gastrointestinal: + constipation; no abdominal pain and no nausea Genitourinary: no difficulty urinating Musculoskeletal: no back pain and no joint pain Integumentary: + non-healing lesions, + sores, + wounds and + erythema Physical Exam Physical Exam: General: No acute distress, family present at bedside. HEENT: NC/AT; PERRLA with EOMI; [place] conjunctiva, MMM. No erythema of posterior pharynx Neck: Supple and nontender Cardiac: RRR Lungs: CTA bilaterally Abdomen: Bowel normoactive X 4; Nontender to palpation Extremities: Warm. No edema present Neuro: No focal weakness Skin: Wound in left groin area - erythema improving, no discharge noted on dressing (was recently changed) Results & Data Vital Signs (Past 12 Hours) Vital Signs Temp Pulse Resp BP Pulse Ox 02/10/19 07:18 37.0 C 87 16 143/81 H 95 Laboratory Results 02/10/19 02/10/19 Range/Units 05:10 05:10 WBC 8.00 (4.8-10.8) K/uL RBC 3.47 L (4.2-5.4) M/uL Hgb 9.4 L (12.0-16.0) g/dL Hct 29.1 L (37-47) % MCV 83.9 (80-100) fL MCH 27.1 (25-34) pg MCHC 32.3 (32-36) g/dL RDW Std Deviation 51.4 H (36.4-46.3) fL RDW Coeff of Boris 17.0 H (11.5-14.5) % Plt Count 356 (130-400) K/uL MPV 8.0 (7.4-10.4) fL Sodium 132 L (136-145) mmol/L Potassium 3.3 L (3.5-5.1) mmol/L Chloride 97 L (98-107) mmol/L Carbon Dioxide 27 (21-32) mmol/L Anion Gap 8.0 (3-11) BUN 7 (7-18) mg/dl Creatinine 0.49 L (0.6-1.2) mg/dl Est Cr Clr Drug Dosing 155.0 ml/min Est GFR ( Amer) 129.8 Est GFR (Non-Af Amer) 112.0 BUN/Creatinine Ratio 14.8 (10-20) Glucose 100 H (70-99) mg/dl Calcium 8.5 (8.5-10.1) mg/dl Iron 29 L (35-150) mcg/dl TIBC 203 L (250-450) mcg/dl Transferrin 178 L (200-360) mg/dl Transferrin % Sat 12 L (15-50) % Ferritin 334.5 (8-388) ng/ml PG Care Time/CCT Total # of Minutes Spent Total Time Spent with Patient: Total time spent is greater than 50% in coordination of care (as documented) at patient's floor/unit and/or counseling patient: (1) Surgical wound, non healing Encounter type: initial encounter Qualified Code(s): T81.89XA - Other complications of procedures, not elsewhere classified, initial encounter
[2019-02-10] MEDS: DAPTOmycin 450 MG in SYRINGE 0 ML IV SCH (13:38)
[2019-02-11] MEDS: HYDROmorphone INJ 0.5 MG/0.5 ML SYR IV PRN ×6 (00:42→21:11)
[2019-02-11] MEDS: AZTREONAM 2,000 MG in DEXTROSE 5% 100 ML IV SCH ×3 (05:00→21:11)
[2019-02-11 06:36] LABS: Calcium 8.8 mg/dl (8.5-10.1); Creatinine Clr Calc Pharmacy 144.5 ml/min; Est GFR (African American) 126.5; Est GFR (Non-African American) 109.2; Magnesium 1.5 mg/dl (1.8-2.4); Potassium 3.6 mmol/L (3.5-5.1)
[2019-02-11] MEDS: DOCUSATE SODIUM 100 MG CAP PO SCH ×2 (08:58→21:11)
[2019-02-11] MEDS: OXYBUTYNIN CHLORIDE XL 5 MG TABCR PO SCH (08:59)
[2019-02-11] MEDS: PANTOprazole 40 MG TAB PO SCH (08:59)
[2019-02-11] MEDS: ASPIRIN 81 MG ECTAB PO SCH (08:59)
[2019-02-11] MEDS: CHOLECALCIFEROL 1,000 UNITS TAB PO SCH (08:59)
[2019-02-11] MEDS: ACETAMINOPHEN 325 MG TAB PO PRN ×2 (10:15→19:02)
--- NOTE | 2019-02-11 10:59 | Surgery Progress Note ---
Date of Service February 11, 2019 Assessment & Plan (1) Open wound of groin: This patient has an open wound of her left groin after surgical debridement. Her wound has shown significant healing since most recent discharge from hospital with wound vac. If pt unable to tolerate wound vac, th en would continue with Qshift dressing changes as ordered. This should also be changed if saturated between changes. Local wound care per wound care staff. Subjective 53 yo f with multiple medical problems, seen in f/u today for L groin open wound. Pt states she has significant pain, worse with dressing changes, but improved since wound vac removal. Denies any fever, chills, N/V, other complaints. Review of Systems Review of Systems: All systems reviewed & are unremarkable except as noted in HPI & below Physical Exam Constitutional: WD/WN, vitals as above Skin: + wound ( L groin wound with excellent granulation tissue, minimal slough, no erythe) Psychiatric: Orientation: alert and oriented x 3 Results & Data Vital Signs (Past 12 Hours) Vital Signs Temp Pulse Pulse Resp BP Pulse Ox 02/11/19 07:36 36.9 C 85 12 118/78 97 02/10/19 23:00 36.8 C 96 H 16 144/75 H 97 (1) Open wound of groin Encounter type: initial encounter Qualified Code(s): S31.109A - Unspecified open wound of abdominal wall, unspecified quadrant without penetration into pe ritoneal cavity, initial encounter
[2019-02-11] MEDS ORDERED: ALBUT/IPRATROP 3MG/0.5MG NEB 3 ML VIAL NEB ONE (12:06)
[2019-02-11] MEDS ORDERED: ALBUT/IPRATROP 3MG/0.5MG NEB 3 ML VIAL NEB PRN (12:06)
[2019-02-11] MEDS ORDERED: FLUCONAZOLE 50 MG TAB PO ONE (13:00)
[2019-02-11] MEDS ORDERED: ALBUT/IPRATROP 3MG/0.5MG NEB 3 ML VIAL NEB STA (13:02)
[2019-02-11] MEDS: DAPTOmycin 450 MG in SYRINGE 0 ML IV SCH (13:33)
--- NOTE | 2019-02-11 14:42 | Wound Consultation ---
Date of Consultation February 11, 2019 Assessment & Plan (1) Open wound of groin: 53-year-old female with open surgical wound of her left groin. No debridement was required today. Patient's pain appears to be out of proportion and she has no complaints when ambulating down to the healing guarding. At this time, due to patient's pain I do not think a wound VAC is in her best interest. I did explain to the patient that the wound VAC would help the wound heal faster however, if she cannot tolerate it there is no point in continuing with it. Wound will be packed with Aquacel Ag and covered with foam. This will be changed daily and as needed. We will reevaluate the patient in the office and can consider reapplying a wound VAC at that time if her pain is better. Thank you for allowing me to participate in the care of this patient. Please not hesitate to call with any questions. History of Present Illness Reason for Consultation: non healing surgical wound Attending Physician: Radha Miller MD Is a 53-year-old female who is new to the [facility] and Monday. Patient's surgical site is very painful and was very erythematous raising suspicion for infection. Wound culture was reviewed and was negative. Patient was seen by Dr. Travis who believes erythema due to the wound VAC dressing and using treatment with Aquacel wound packing. Allergies Allergy/AdvReac Type Severity Reaction Status Date / Time chlorhexidine Allergy Intermediate hives, Verified 02/08/19 13:29 redness Penicillins AdvReac Intermediate nausea, Verified 02/08/19 13:29 vomiting, migraine bupropion AdvReac Hallucinati Verified 02/08/19 13:29 ng Home Medications Home Medications Medication Instructions Recorded Confirmed Type omeprazole 20 mg PO QAM 07/16/18 02/08/19 History oxybutynin chloride ER 10 mg 10 mg PO QAM #30 tab 11/13/18 02/08/19 History tablet,extended release 24 hr fluticasone propionate 50 1 sprays INTNAS DAILY PRN #18.2 gm 11/21/18 02/08/19 Rx mcg/actuation nasal spray,suspension acetaminophen [Tylenol Extra 1,000 mg PO DAILY PRN 12/17/18 02/08/19 History Strength] aspirin [Adult Low Dose Aspirin] 81 mg PO QAM 12/17/18 02/08/19 History atorvastatin 40 mg PO QPM 12/17/18 02/08/19 History cholecalciferol (vitamin D3) 4,000 units PO QAM 12/17/18 02/08/19 History [Vitamin D3] losartan-hydrochlorothiazide 1 tab PO QAM 12/17/18 02/08/19 History ondansetron HCl 8 mg tablet 8 mg PO Q8H PRN #10 tab 01/21/19 02/08/19 Rx hydromorphone [Dilaudid] 2 mg PO Q6H PRN 02/08/19 02/08/19 History Patient History Medical History Hypokalemia (Acute) Morbid (severe) obesity due to excess calories Peripheral arterial disease 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 Hypertension Migraine GERD (gastroesophageal reflux disease) controlled Degenerative disc disease Arthritis Hyperlipidemia Obesity, morbid Urinary incontinence Anal fissure Anxiety and depression Elevated alkaline phosphatase level Hyponatremia Skin disorder Tick bite Tinea corporis Surgical History S/P aortobifemoral bypass surgery History of bilateral tubal ligation History of cholecystectomy History of colonoscopy 07/26/18: MAC sedation at [facility] History of tonsillectomy History of tooth extraction History of total abdominal hysterectomy and bilateral salpingo-oophorectomy History of wisdom tooth extraction Hx of aortic aneurysm repair Status post myringotomy with tube placement of both ears multiple times Family History Father Family hx colonic polyps Mother Coronary heart disease Depression Kidney disease Hypertension Cardiac disorder Myocardial infarction Father Lymphoma Brother Depression Muscular dystrophy Clotting disorder Sister Depression Grandfather Myocardial infarction Social History Preferred Language: [place]ish Communication Ability: Effective 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 Taking 1 tablet (2mg) q6hrs. Last Used Substance: Just Prior to Arrival Review of Systems Review of Systems: All systems reviewed & are unremarkable except as noted in HPI & below Physical Exam Constitutional: WD/WN, vitals as above Eyes: PERRL, conjunctivae normal, anicteric sclerae Respiratory: normal respiratory effort, lungs clear to auscultation Cardiovascular: RRR, no murmur, no edema Skin: Wound measuring 6 x 7.5 x 4 cm. There is less erythema. Wound appears to be improving. Pain is out of proportion. Neurologic: awake; not confused Psychiatric: A+Ox3, euthymic affect Results & Data Vital Signs (Past 12 Hours) Vital Signs Temp Pulse Pulse Resp BP Pulse Ox 02/11/19 12:56 99 H 16 98 02/11/19 07:36 36.9 C 85 12 118/78 97 PG Care Time/CCT Total # of Minutes Spent Total Time Spent with Patient: Total time spent is greater than 50% in coordination of care (as documented) at patient's floor/unit and/or counseling patient: (1) Open wound of groin Encounter type: initial encounter Qualified Code(s): S31.109A - Unspecified open wound of abdominal wall, unspecified quadrant without penetration into peritoneal cavity, initial encounter
--- NOTE | 2019-02-11 18:28 | Hospitalist Progress Note ---
Date of Service February 11, 2019 Assessment & Plan (1) Surgical wound, non healing: - S/p aortobifemoral bypass on 12/26/18 with non healing wound; most recent debridement on 01/07 and 01/30. - Wound culture 01/07 +E. coli and Finegoldia magna, treated with course of abx. - Wound culture: gram stain with +many gram pos cocci, many gram neg coccobacilli; +Staph species (prelim) - CT A/P 02/07 showed resolution of fluid collections c/w resolving post surgical hematoma. - Vascular surgery feels that her wound is much improved over prior recent visits - [facility] planning for holding wound vac and continue current planning - Wound vac removed at admission; continue dressing changes qshift. - Continue Aztreonam/Daptomycin for empiric coverage - wound culture sensitivities pending. - On Dilaudid 2 mg PO q6hr at home; continue Dilaudid 0.5 mg IV q4hr prn pain. Pt is now agreeable to SNF for further care, CM planning (2) Aortic occlusion: - Most recent CTA A/P on 02/07 with occlusion of [place] infrarenal abd aorta and [place] common iliac arteries. - Continue ASA 81 mg daily. (3) Depression: - Pt self discontinued her Zoloft prior to surgery due to inability to sleep. Has h/o allergic reaction to Welbutrin. Has tried Cymbalta in past with no improvement. - Consider starting Celexa. (4) Peripheral arterial disease: - Continue ASA 81 mg daily; hold statin d/t interaction with Dapto. - Vascular consulted as noted above. (5) Hypertension: - BP has been well controlled. - Hold home Losartan/HCTZ due to hyponatremia/presumed dehydration. (6) Migraine: - Not currently on daily medication. (7) GERD (gastroesophageal reflux disease): - PPI daily. (8) Hyperlipidemia: - Hold statin d/t interaction with Daptomycin. (9) Urinary incontinence: - Continue home Ditropan as prescribed. (10) Hyponatremia: - Na level decreased to 132 -- baseline ~130-134. - Monitor levels daily. (11) Anemia: - Developed post op anemia in Dec 2018; iron studies c/w anemia of chronic disease. - Monitor CBC daily. (12) Yeast infection: Hx of same with abx use Diflucan PO single dose (13) DVT prophylaxis: - SCDs; hold pharmacologic ppx. K level 3.3 - ordered K 20 mEq PO. Dispo: Treatment of non healing surgical wound, CM working on placement Subjective Pt still with pain, swelling, redness but all are improving. She feels the wound vac was the biggest issue for her. She is concerned that she has a yeast infection as this happens frequently when she is on abx. Having vaginal itching. Pt denies fever, SOB, chest pain, abd pain, n/v/c/d. Review of Systems Review of Systems: Pertinent positives and negatives reviewed in HPI--all others negative Physical Exam Constitutional: WD/WN, vitals as above Eyes: normal visual mcqueen by confrontation and + anicteric sclerae Neck: normal visual inspection and trachea midline Respiratory: normal respiratory effort, lungs clear to auscultation Cardiovascular: Rate/Rhythm: regular rate and regular rhythm Gastrointestinal (Abdomen): Inspection/Auscultation: abdomen not distended Percussion/Palpation: abdomen soft; abdomen nontender Musculoskeletal: Head/Neck/Chest: normocephalic and head atraumatic Skin: no rashes, warm and dry (outside of bandaged area, with bandaging clean and dry) Neurologic: awake; not confused Speech / Cognition: normal speech Psychiatric: A+Ox3, euthymic affect Results & Data Vital Signs (Past 12 Hours) Vital Signs Temp Pulse Pulse Resp BP Pulse Ox 02/11/19 15:43 37.0 C 94 H 16 153/83 H 98 02/11/19 12:56 99 H 16 98 02/11/19 07:36 36.9 C 85 12 118/78 97 PG Care Time/CCT Total # of Minutes Spent Total Time Spent with Patient: Total time spent is greater than 50% in coordination of care (as documented) at patient's floor/unit and/or counseling patient: (1) Surgical wound, non healing Encounter type: initial encounter Qualified Code(s): T81.89XA - Other complications of procedures, not elsewhere classified, initial encounter
[2019-02-12] MEDS: ACETAMINOPHEN 325 MG TAB PO PRN ×2 (00:23→07:47)
[2019-02-12] MEDS ORDERED: Nursing to Pharmacy Communication ONE (01:06)
[2019-02-12] MEDS: HYDROmorphone INJ 0.5 MG/0.5 ML SYR IV PRN ×6 (01:12→22:02)
[2019-02-12] MEDS: AZTREONAM 2,000 MG in DEXTROSE 5% 100 ML IV SCH ×3 (05:17→21:06)
[2019-02-12 05:40] LABS: Hematocrit (blood only) 30.3 % (37-47); Hemoglobin 9.8 g/dL (12.0-16.0); Mean Corpuscular Hemoglobin 27.2 pg (25-34); Mean Corpuscular Hgb Conc 32.3 g/dL (32-36); Mean Corpuscular Volume 84.2 fL (80-100); Mean Platelet Volume 8.1 fL (7.4-10.4); Platelet Count 406 K/uL (130-400); RDW Coefficient of Variation 16.8 % (11.5-14.5); RDW Standard Deviation 51.9 fL (36.4-46.3); White Blood Count 7.52 K/uL (4.8-10.8)
[2019-02-12] MEDS: DOCUSATE SODIUM 100 MG CAP PO SCH ×2 (08:33→21:07)
[2019-02-12] MEDS: ASPIRIN 81 MG ECTAB PO SCH (08:34)
[2019-02-12] MEDS: CHOLECALCIFEROL 1,000 UNITS TAB PO SCH (08:34)
[2019-02-12] MEDS: PANTOprazole 40 MG TAB PO SCH (08:34)
[2019-02-12] MEDS: OXYBUTYNIN CHLORIDE XL 5 MG TABCR PO SCH (08:34)
[2019-02-12] MEDS: DAPTOmycin 450 MG in SYRINGE 0 ML IV SCH (12:47)
--- NOTE | 2019-02-12 13:53 | Hospitalist Progress Note ---
Date of Service February 12, 2019 Assessment & Plan (1) Surgical wound, non healing: - S/p aortobifemoral bypass on 12/26/18 with non-healing wound; most recent debridements on 01/07 and 01/30. CT A/P on 02/07 showed resolution of fluid collections c/w resolving post surgical hematoma. - Wound culture 01/07 +E. coli and Finegoldia magna, treated with course of abx. - Wound culture from 02/08 with coag(-) Staph. - Vascular surgery feels that her wound is much improved over prior recent visit s - [facility] planning for holding wound vac and continue current planning - Continued aztreonam/daptomycin for empiric coverage until 02/12 - Discussed with Dr. Maza and will finish course today. - On Dilaudid 2 mg PO q6hr at home; continue Dilaudid 0.5 mg IV q4hr prn pain. (2) Aortic occlusion: Most recent CTA A/P on 02/07 with occlusion of [place] infrarenal abd aorta and [place] common iliac arteries. - Continue ASA 81 mg daily. - Restart statin as able (3) Depression: Pt self discontinued her Zoloft prior to surgery due to inability to sleep. Has h/o allergic reaction to Welbutrin. Has tried Cymbalta in past with no improvement. - Consider starting Celexa. (4) Peripheral arterial disease: - Continue ASA 81 mg daily; hold statin d/t interaction with Dapto. - Vascular consulted as noted above. (5) Hypertension: BP well controlled today at 135/70. - Hold home Losartan/HCTZ due to hyponatremia/presumed dehydration. (6) Migraine: - Not currently on daily medication. (7) GERD (gastroesophageal reflux disease): - PPI daily. (8) Hyperlipidemia: - Hold statin d/t interaction with Daptomycin. (9) Urinary incontinence: - Continue home Ditropan as prescribed. (10) Hyponatremia: Na level decreased to 132 -- baseline ~130-134. - Monitor levels daily. (11) Anemia: Developed post op anemia in Dec 2018; iron studies c/w anemia of chronic disease. - Monitor CBC daily. (12) Yeast infection: Hx of same with abx use. - Diflucan PO single dose given on 02/11 (13) DVT prophylaxis: - SCDs; hold pharmacologic ppx. Subjective Still with lots of pain. Reports no fevers/chills, chest pain, shortness of breath, abdominal pain, nausea, or vomiting. Physical Exam Constitutional: + acute distress and + morbidly obese Eyes: EOM intact bilaterally; no conjunctival abnormality ENMT: external ear and nose normal, oropharynx normal Neck: trachea midline, no thyromegaly normal visual inspection Respiratory: normal respiratory effort, lungs clear to auscultation no respiratory distress Cardiovascular: RRR, no murmur, no edema Gastrointestinal (Abdomen): Inspection/Auscultation: abdomen normal to inspe ction; abdomen not distended Musculoskeletal: no cyanosis or clubbing, extremities motor strength 5/5 Skin: no rashes, warm and dry Wound dressed. No erythema past dressing. Neurologic: moves all extremities and awake Psychiatric: Orientation: alert, oriented to person and cooperative Results & Data Vital Signs (Past 12 Hours) Vital Signs Temp Pulse Resp BP Pulse Ox 02/12/19 07:42 36.9 C 98 H 16 136/72 98 PG Care Time/CCT Total # of Minutes Spent Total Time Spent with Patient: Total time spent is greater than 50% in coordination of care (as documented) at patient's floor/unit and/or counseling patient: (1) Surgical wound, non healing Encounter type: initial encounter Qualified Code(s): T81.89XA - Other complications of procedures, not elsewhere classified, initial encounter
[2019-02-13] MEDS: HYDROmorphone INJ 0.5 MG/0.5 ML SYR IV PRN ×3 (01:55→10:33)
[2019-02-13] MEDS: AZTREONAM 2,000 MG in DEXTROSE 5% 100 ML IV SCH ×2 (05:17→13:36)
[2019-02-13] MEDS: DOCUSATE SODIUM 100 MG CAP PO SCH (08:33)
[2019-02-13] MEDS: OXYBUTYNIN CHLORIDE XL 5 MG TABCR PO SCH (08:33)
[2019-02-13] MEDS: PANTOprazole 40 MG TAB PO SCH (08:33)
[2019-02-13] MEDS: ASPIRIN 81 MG ECTAB PO SCH (08:33)
[2019-02-13] MEDS: CHOLECALCIFEROL 1,000 UNITS TAB PO SCH (08:33)
--- NOTE | 2019-02-13 11:39 | Surgery Progress Note ---
Date of Service February 13, 2019 Assessment & Plan (1) Open wound of groin: Patient is doing well with wound dressing changes. Once she is discharged we will see her again in the office in 2 weeks for follow-up. From a surgical standpoint the sutures may be removed if she is having discomf ort from them. Subjective Patient claims that she is feeling much better without the back. She has no pain in the left lower extremity. She does complain of slight discomfort with the dressing changes but nothing like it was in the past. It is controlled with pain medication. Physical Exam Physical Exam: On exam the wound care pictures show the wound to be granulating nicely. The sutures apparently are pulling through. The lower extremity is viable at this point. Constitutional: WD/WN, vitals as above Results & Data Vital Signs (Past 12 Hours) Vital Signs Temp Pulse Resp BP Pulse Ox 02/13/19 07:44 36.7 C 98 H 18 138/72 97 (1) Open wound of groin Encounter type: initial encounter Qualified Code(s): S31.109A - Unspecified open wound of abdominal wall, unspecified quadrant without penetration into peritoneal cavity, initial encounter
[2019-02-13] MEDS: DAPTOmycin 450 MG in SYRINGE 0 ML IV SCH (13:36)
[2019-02-13] MEDS ORDERED: FLUCONAZOLE 50 MG TAB PO ONE (13:45)
--- NOTE | 2019-02-13 14:03 | Surgery Progress Note ---
Date of Service February 13, 2019 Results & Data Vital Signs (Past 12 Hours) Vital Signs Temp Pulse Resp BP Pulse Ox 02/13/19 07:44 36.7 C 98 H 18 138/72 97
[2019-02-13] MEDS: ACETAMINOPHEN 325 MG TAB PO PRN (14:06)
--- NOTE | 2019-02-13 16:42 | Discharge Summary ---
Date of Service February 13, 2019 Admission HPI Per Admitting Provider 53 y/o F c/o increased wound pain, redness, swelling. Pt is s/p L aortobifemoral bypass with Dr. Travis on 12/26. She has had a complicated course of care post-op due to poor wound healing. She has been following with [facility]. She has been debrided x2 on 01/07 and 01/30. She has been wearing a wound vac x2 weeks. Pt had a + wound culture and statese she finished abx 1 week ago. She states that she was actually feeling improved as she progressed with the abx, but since she finished the abx, she has had worsening of her wound pain, redness, and swelling. She states that the pain is the worst it has been. She was seen in the ED yesterday and d/c'd to [facility] for an appt today. At that appt today she was sent back to the ED for concerns about the wound. Her wound vac was stopped and pt states her pain is better since that was turned off. Pt states that she has had nausea the last few days. She did have emesis yesterday, but not today. She has not had a bowel movement in 2 days, which she states is her usual since her surgery. Prior to that, she used to have QD bowel movements. She states she has a lot of anxiety regarding her wound situation. She has no appetite. Pt denies fever, SOB, chest pain, abd pain. Pt states she self d/c'd her zoloft just prior to her surgery because she was not able to sleep. This was a new medication for her due to side effects of her prior antidepressant. She states that she was on something prior that caused her to sleep all of the time, so she was changed to zoloft. She states that she feels that she does need something to help with her depression and anxiety. Sta wily prior allergic reaction to wellbutrin. Per outpt notes, it appears she had no help with cymbalta in the past. Principal Diagnosis Non-healing surgical wound Discharge Exam Constitutional + acute distress and + morbidly obese Eyes EOM intact bilaterally; no conjunctival abnormality ENMT external ear and nose normal, oropharynx normal Neck trachea midline, no thyromegaly normal visual inspection Respiratory normal respiratory effort, lungs clear to auscultation no respiratory distress Cardiovascular RRR, no murmur, no edema Gastrointestinal (Abdomen) Inspection/Auscultation: abdomen normal to inspection; abdomen not distended Musculoskeletal no cyanosis or clubbing, extremities motor strength 5/5 Skin no rashes, warm and dry Neurologic moves all extremities and awake Psychiatric Orientation: alert, oriented to person and cooperative Discharge Data Allergies Allergy/AdvReac Type Severity Reaction Status Date / Time chlorhexidine Allergy Intermediate hives, Verified 02/08/19 13:29 redness Penicillins AdvReac Intermediate nausea, Verified 02/08/19 13:29 vomiting, migraine bupropion AdvReac Hallucinati Verified 02/08/19 13:29 ng Consultations 02/08/19 12:47 ED Decision to Admit Stat 02/08/19 15:33 Consult Case Management - Discharge Planning Routine Consult Vascular Surgery Routine 02/09/19 08:19 Consult Wound Care Provider Routine Hospital Course (1) Surgical wound, non healing: - S/p aortobifemoral bypass on 12/26/18 with non-healing wound; most recent debridements on 01/07 and 01/30. CT A/P on 02/07 showed resolution of fluid collections c/w resolving post surgical hematoma. - Wound culture 01/07 +E. coli and Finegoldia magna, treated with course of abx. - Wound culture from 02/08 with coag(-) Staph. - Vascular surgery feels that her wound is much improved over prior recent visits - [facility] planning for holding wound vac and continue current planning - Continued aztreonam/daptomycin for empiric coverage until 02/12 - Discussed with Dr. Maza and will have close follow up. - Discharged on short-course of [place] with hope of quickly tapering/stopping opioids. (2) Aortic occlusion: Most recent CTA A/P on 02/07 with occlusion of [place] infrarenal abd aorta and [place] common iliac arteries. - Continue ASA 81 mg daily & statin (3) Depression: Pt self discontinued her Zoloft prior to surgery due to inability to sleep. Has h/o allergic reaction to Welbutrin. Has tried Cymbalta in past with no improvement. - Consider starting Celexa. (4) Peripheral arterial disease: - Continue ASA 81 mg daily & statin - Vascular consulted as noted above. (5) Hypertension: BP well controlled today at 135/70. - Hold home Losartan/HCTZ due to hyponatremia/presumed dehydration. (6) Migraine: - Not currently on daily medication. (7) GERD (gastroesophageal reflux disease): - PPI daily. (8) Hyperlipidemia: - Held statin d/t interaction with Daptomycin; restart on discharge. (9) Urinary incontinence: - Continue home Ditropan as prescribed. (10) Hyponatremia: Na level decreased to 132 -- baseline ~130-134. - Monitor levels daily. (11) Anemia: Developed post op anemia in Dec 2018; iron studies c/w anemia of chronic disease. - Monitor CBC daily. (12) Yeast infection: Hx of same with abx use. - Diflucan PO single dose given on 02/11 (13) DVT prophylaxis: - SCDs; hold pharmacologic ppx. Total Time Total Time Spent Total Time Spent (In Minutes): 45 Total Time Includes: Examination of the Patient and Communication With Other Providers Discharge Plan Discharge Items Patient Disposition: Home - Home Health Services Reason For Visit: NON HEALING SURGICAL WOUND SITE Discharge Diagnosis: Non-healing surgical wound site Activity: Resume your previous activity Non-emergency contact: Primary Care Provider and Surgeon Call non-emergency contact if: your symptoms worsen, your pain is not controlled, your pain is worsening and your temperature is above 101 Follow-up/Referrals: Michelle Roberts CRNP [Nurse Practitioner] - (Please see the [facility]ound Center sometime this week or early next for a follow up on your left leg.) Courtney Lynch DO [Primary Care Provider] - Rudy Travis MD [Physician] - Diet: Heart Healthy Addtl Attending Provider Instructions: You were admitted for pain at the site of your surgery. The wound vac was causing you some pain. We had you on antibiotics while you were here, but your wound culture did not grow anything. We are having you follow up with Dr. Travis and Dr. Maza in their clinics. Please contact them if you have any change in the area of the wound such as more redness, pus, or other drainage. Pending Studies at Discharge: No Stand-Alone Forms: My [facility], Opioid Pain Management, Smoking Cessation Medications and DC Order Prescriptions: New hydrocodone-acetaminophen 5-300 mg tablet 1 tab PO Q6H PRN (Reason: pain) Qty: 20 RF: 0 Continued fluticasone propionate [Flonase Allergy Relief] 50 mcg/actuation spray,suspension 1 sprays INTNAS DAILY PRN (Reason: allergy symptoms) Qty: 18.2 RF: 2 ondansetron HCl [Zofran] 8 mg tablet 8 mg PO Q8H PRN (Reason: nausea and vomiting) Qty: 10 RF: 0 oxybutynin chloride 10 mg tablet extended release 24hr 10 mg PO QAM Qty: 30 RF: 0 omeprazole 20 mg Capsule,Delayed Release(Dr/Ec) 20 mg PO QAM RF: 0 atorvastatin 40 mg tablet 40 mg PO QPM RF: 0 aspirin [Adult Low Dose Aspirin] 81 mg tablet,delayed release (DR/EC) 81 mg PO QAM RF: 0 acetaminophen [Tylenol Extra Strength] 500 mg tablet 1,000 mg PO DAILY PRN (Reason: PAIN OR FEVER) RF: 0 losartan-hydrochlorothiazide 50-12.5 mg tablet 1 tab PO QAM RF: 0 cholecalciferol (vitamin D3) [Vitamin D3] 2,000 unit capsule 4,000 units PO QAM RF: 0 Discontinued hydromorphone [Dilaudid] 2 mg tablet 2 mg PO Q6H PRN (Reason: Pain) RF: 0 Discharge Orders: Discharge Order (Routine); Ordered 02/13/19 Ordered By: Douglas Barnett/Other Patient Handouts: Hydrocodone Bitartrate Acetaminophen Oral tablet Admission Data Admit Date/Time: 02/08/19 14:14 Attending Provider: Douglas Turner Admit Provider: Stacy Pastrana Primary Care Provider: Courtney Lynch Other Providers: Rudy Travis ; Lino Berry Michelle M. ; Wayne Smith ; Vanessa Godinez Jason L. ; Douglas Turner Other Interventions: Discharge Summary Assessment (RN) Last Done: 02/13/19 14:12 DC Date/Time DO NOT enter until pt leaves facility: 02/13/19 14:56
== END 2019-02-13 14:56 | disposition home health service (06) | DRG 920 ==
LOC: ED 11:39 → SUATTDRO 14:14 → 3W 14:14

== ENCOUNTER 2021-07-25 19:39 | Inpatient (IN) ==
[2021-07-25] MEDS ORDERED: ACETAMINOPHEN 325 MG TAB PO PRN (21:46)
[2021-07-25] MEDS ORDERED: Heparin IV Adult Wt-Based Standard *NO* Bolus Protocol IV SCH (21:46)
[2021-07-25] MEDS ORDERED: ONDANSETRON INJ 2 MG/ML 2 ML VIAL IV PRN (21:46)
[2021-07-25] MEDS ORDERED: DOCUSATE SODIUM 100 MG CAP PO PRN (21:51)
[2021-07-25] MEDS ORDERED: POLYETHYLENE (MIRALAX) 17 GM PACK PO PRN (21:51)
[2021-07-25] MEDS ORDERED: FLUTICASONE PROPIONATE NA SPR 16 GM BTL PRN (22:09)
--- NOTE | 2021-07-25 22:10 | History & Physical Report ---
Date of Service July 25, 2021 Assessment & Plan (1) Peripheral arterial disease: Plan: 55-year-old female with history of hypertension, hyperlipidemia, peripheral arterial disease status post aortobifemoral bypass grafting performed by Dr. Travis with known chronic occlusion presenting with new onset left ankle and foot pain. Foot is mottled with absent pulses. Pain is presently well controlled. Lactate is negative. Admit to PCU Load image from prior hospital onto our system Continue heparin drip Continue aspirin and atorvastatin Pain control with Tylenol and morphine 2 mg IV every 4 hours as needed Zofran as needed for nausea Colace/MiraLAX as needed Vascular surgery consultation appreciated We will keep patient n.p.o. after midnight for possible procedure in a.m. (2) Depression: Plan: Chronic. Stable. Continue Celexa 20 mg p.o. daily (3) Restless legs syndrome: Plan: Chronic. Stable. Continue Requip 0.5 mg p.o. nightly (4) Hypertension: Plan: Blood pressure acceptable, presently 99/61 Will hold losartan/hydrochlorothiazide for now Continue to monitor (5) GERD (gastroesophageal reflux disease): Plan: Chronic. Stable. Patient on omeprazole at home Pepcid 20 mg p.o. daily here (6) Hyperlipidemia: Plan: Chronic. Stable. Continue atorvastatin Plan: F/E/Nmaintenance fluids LR at 125 mL/h x 2 L, electrolytes within normal limits, n.p.o. after midnight Prophylaxispatient will be on heparin drip as above Codefull per discussion with patient Dispoadmit to PCU Admission and Anticipated Discharge Date Admission Date: July 25, 2021 History of Present Illness Chief Complaint: Left lower extremity pain Primary Care Provider: DO Meghan Johansen Drew is a pleasant 51-year-old female with history of hypertension, hyperlipidemia, GERD, peripheral arterial disease. She has history of aortobifemoral bypass performed by Dr. Travis on 12/26/2018. Subsequent nonhealing wound in the left groin status postdebridement and wound VAC placement. She follows with Dr. Travis. Patient presented to an outside facility this morning with acute onset of pain in her left foot and ankle. She denies trauma of the foot or ankle. The pain was severe and throbbing. She took 2 tabs of oxycodone, and this morning with minimal relief. She presented to [facility] with these complaints. At that facility they were unable to detect a pulse in her left foot. 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 She was managed with IV fentanyl and started on a heparin drip. Dr. Travis was contacted and told the ER provider that he would be able to see the patient tomorrow at [facility]. During my encounter patient with no acute complaints. She reports intermittent nausea as well as constipation. Pain at the left ankle and foot is presently well controlled. No additional complaints at this time Allergies Allergy/AdvReac Type Severity Reaction Status Date / Time chlorhexidine Allergy Intermediate hives, Verified 07/23/21 07:38 redness Penicillins AdvReac Intermediate nausea, Verified 07/23/21 07:38 vomiting, migraine bupropion AdvReac Hallucinati Verified 07/23/21 07:38 ng Home Medications Medication Instructions Recorded Confirmed Type acetaminophen 500 mg tablet 1,000 mg PO DAILY PRN 12/17/18 07/25/21 History (Tylenol Extra Strength) aspirin 81 mg tablet,delayed 81 mg PO QAM 12/17/18 07/25/21 History release (Adult Low Dose Aspirin) hydrocortisone 2.5 % topical cream 1 applic [place] DAILY PRN #30 g 07/16/20 07/25/21 Rx with perineal applicator cholecalciferol (vitamin D3) 50 100 mcg PO QAM #180 cap 09/14/20 07/25/21 Rx mcg (2,000 unit) capsule (Vitamin D3) atorvastatin 40 mg tablet 40 mg PO QPM #90 tab 01/25/21 07/25/21 Rx losartan 50 mg-hydrochlorothiazide See Rx Instructions .ROUTE 03/01/21 07/25/21 Rx 12.5 mg tablet .COMPLEX #90 tablet cyclobenzaprine 5 mg tablet 5 mg PO TID PRN #30 tab 04/20/21 07/25/21 Rx fluticasone propionate 50 1 spray INTNAS DAILY PRN #18.2 gm 04/20/21 07/25/21 Rx mcg/actuation nasal spray,suspension (Flonase Allergy Relief) citalopram 20 mg tablet 20 mg PO DAILY #90 tab 05/25/21 07/25/21 Rx oxycodone-acetaminophen 5 mg-325 1 - 2 tab PO Q8H PRN #30 tab 05/25/21 07/25/21 Rx mg tablet (Percocet) mirabegron 25 mg tablet,extended 25 mg PO DAILY #90 tab 06/08/21 07/25/21 Rx release 24 hr celecoxib 100 mg capsule (Celebrex) 100 mg PO BID #60 cap 06/22/21 07/25/21 Rx sodium sul 1.479 gram-potas ch See Rx Instructions .ROUTE 07/12/21 07/23/21 Rx 0.188 gram-magnes sul 0.225 gram .COMPLEX #24 tab tablet (Sutab) ropinirole 0.5 mg tablet 0.5 mg PO DAILY #90 tab 07/20/21 07/25/21 Rx omeprazole 40 mg capsule,delayed 40 mg PO QAM #90 cap 07/23/21 07/25/21 Rx release semaglutide (weight loss) 0.25 0.25 mg SUBCUT Q7D 07/23/21 07/25/21 History mg/0.5 mL subcutaneous pen injector Past Med/Surg History Medical History Anxiety and depression Arthritis Degenerative disc disease Diffuse myofascial pain syndrome Elevated alkaline phosphatase level GERD (gastroesophageal reflux disease) Hyperlipidemia Hypertension Lumbar facet joint syndrome Migraine Obesity, morbid Peripheral arterial disease Prediabetes Restless legs syndrome Surgical wound, non healing Urinary incontinence Surgical History History of bilateral tubal ligation History of cholecystectomy History of colonoscopy History of tonsillectomy History of tooth extraction History of total abdominal hysterectomy and bilateral salpingo-oophorectomy History of wisdom tooth extraction Hx of aortic aneurysm repair S/P aortobifemoral bypass surgery Status post myringotomy with tube placement of both ears Family History Father Family hx colonic polyps Mother Coronary heart disease Depression Kidney disease Hypertension Cardiac disorder Myocardial infarction Father Lymphoma Brother Depression Muscular dystrophy Clotting disorder Sister Depression Grandfather Myocardial infarction Denies family history of Ovarian cancer Prostate cancer Breast cancer Colorectal cancer Social History Smoking Status: Current every day smoker Tobacco Type: Cigarettes packs per day: 0.5; Cigarettes Per Day: 1/2 to 3/4 ppd; Second Hand Exposure: No; Do You Dip or Chew Tobacco: No; Tobacco Cessation Education Requested by Patient: No Hx Alcohol Use: No Hx Substance Use: No Preferred Language: Andorran Communication Ability: Effective Visual Impairment: No Limitations Hearing Ability: Normal Linen Worker Required: No Beliefs That Will Affect Care: None marital status: Current Living Situation: Spouse Current Living Situation Comment: Lives with and 1 adult child current occupational status: unemployed current occupation: homemaker Other Information That Helps Us Care for You: No Feels Safe at Home: Yes Safety Concerns: Feels Safe At This Time caffeine: Yes during the past year weight has: increased > 10 lbs Dental Care, Regularly: No Physical Activity Frequency: Daily Seatbelt Use: always Sunscreen Use: No Assistive Devices: Glasses Review of Systems Review of Systems: All systems reviewed & are unremarkable except as noted in HPI & below Physical Exam Physical Exam: General: patient resting comfortably, NAD, non-toxic in appearance, AA&O x 4 Skin: warm, dry, intact, no rashes or lesions HEENT: NC/AT, PERRL, EOMI, anicteric sclera, conjunctiva without injection, external ear normal to inspection and nontender, nares patent, moist mucus membranes, dentition intact, no oropharyngeal lesions, neck supple, trachea midline, no LAD, no thyromegaly, no JVD Heart: +S1/S2, regular, no m/r/g Lungs: equal air entry bilaterally, no rales/rhonchi/wheezes Abd: +BS, soft, NT/ND, no masses/organomegaly/ascites Ext: Right lower extremity warm with palpable pulses. Left lower extremity is warm, appears mottled on the dorsum of the foot as well as at the ankle and toes. Sensation and mobility are intact. No palpable or dopplerable pulses. Neuro: nonfocal, patient AA&O x 4, speech intact, no facial droop, moving all extremities on command with equal strength 5/5 Results & Data Results & Data ([facility]) Vital Signs (Past 12 Hours) Vital Signs Temp Pulse Resp BP Pulse Ox 07/25/21 21:37 36.7 C 100 H 16 124/79 94 Laboratory Results Laboratory Results WBC 12.24 K/uL (4.8-10.8) H 07/25/21 22:20 RBC 4.86 M/uL (4.2-5.4) 07/25/21 22:20 Hgb 14.6 g/dL (12.0-16.0) 07/25/21 22:20 Hct 42.3 % (37-47) 07/25/21 22:20 MCV 87.0 fL (80-100) 07/25/21 22:20 MCH 30.0 pg (25-34) 07/25/21 22:20 MCHC 34.5 g/dL (32-36) 07/25/21 22:20 RDW Std Deviation 50.0 fL (36.4-46.3) H 07/25/21 22:20 RDW Coeff of Boris 15.5 % (11.5-14.5) H 07/25/21 22:20 Plt Count 296 K/uL (130-400) 07/25/21 22:20 MPV 8.7 fL (7.4-10.4) 07/25/21 22:20 Immature Gran % (Auto) 0.1 % 07/25/21 22:20 Neut % (Auto) 68.7 % 07/25/21 22:20 Lymph % (Auto) 22.1 % 07/25/21 22:20 Drew % (Auto) 8.3 % 07/25/21 22:20 Eos % (Auto) 0.6 % 07/25/21 22:20 Baso % (Auto) 0.2 % 07/25/21 22:20 Neut # (Auto) 8.42 K/uL (1.4-6.5) H 07/25/21 22:20 Lymph # (Auto) 2.70 K/uL (1.2-3.4) 07/25/21 22:20 Drew # (Auto) 1.01 K/uL (0.11-0.59) H 07/25/21 22:20 Eos # (Auto) 0.07 K/uL (0-0.5) 07/25/21 22:20 Baso # (Auto) 0.03 K/uL (0-0.2) 07/25/21 22:20 Immature Gran # (Auto) 0.01 K/uL (0.00-0.02) 07/25/21 22:20 PT 10.9 Seconds (9.0-12.0) 07/25/21 22:20 INR 1.0 (0.9-1.1) 07/25/21 22:20 APTT 30.3 Seconds (21.0-31.0) 07/25/21 22:20 PTT Ratio 1.1 07/25/21 22:20 Sodium 133 mmol/L (136-145) L 07/25/21 22:20 Potassium 3.5 mmol/L (3.5-5.1) 07/25/21 22:20 Chloride 98 mmol/L (98-107) 07/25/21 22:20 Carbon Dioxide 25 mmol/L (21-32) 07/25/21 22:20 Anion Gap 10 (3-11) 07/25/21 22:20 BUN 12 mg/dl (6-23) 07/25/21 22:20 Creatinine 0.91 mg/dl (0.6-1.2) 07/25/21 22:20 Est Cr Clr Drug Dosing 94.6 ml/min 07/25/21 22:20 Est GFR ( Amer) 82.9 ml/min 07/25/21 22:20 Est GFR (Non-Af Amer) 71.5 ml/min 07/25/21 22:20 BUN/Creatinine Ratio 13.2 (10-20) 07/25/21 22:20 Glucose 93 mg/dl (70-99(Fasting)) 07/25/21 22:20 POC Glucose 103 mg/dl (70-99) H 07/25/21 21:28 Lactate 0.9 mmol/L (0.4-2.0) 07/25/21 22:24 Calcium 8.7 mg/dl (8.5-10.1) 07/25/21 22:20 Magnesium 1.7 mg/dl (1.7-2.4) 07/25/21 22:20 Total Bilirubin 0.8 mg/dl (0.2-1.0) 07/25/21 22:20 Direct Bilirubin 0.1 mg/dl (0-0.2) 07/25/21 22:20 AST 20 U/L (13-39) 07/25/21 22:20 ALT 20 U/L (7-52) 07/25/21 22:20 Alkaline Phosphatase 141 U/L (34-104) H 07/25/21 22:20 Total Protein 7.1 gm/dl (6.0-8.3) 07/25/21 22:20 Albumin 3.7 gm/dl (3.4-5.0) 07/25/21 22:[address] ang AA runof w inc wo ifdon - STUDY FROM 01/09/20 HISTORY: 54 years-old Female S/P AORTOILIAC OCCLUSIVE DISEASE ANGIO RUNOFF Follow-up study in a patient with peripheral arterial disease and a history of reported aortobifemoral bypass. COMPARISON: CTA 02/07/2019. TECHNIQUE: CTA abdomen and pelvis with lower extremity runoff was obtained following the intravenous administration of 120 mL Optiray 320. All measurements were obtained according to NASCET criteria. A dose lowering technique was used consistent with the principals of PROMISE. FINDINGS: CTA: Heart is normal in size without pericardial effusion. The imaged opacified pulmonary artery is unremarkable. No thoracic aortic aneurysm. Patency of the celiac trunk, superior mesenteric and bilateral renal arteries. There is calcified plaque of the renal arteries without high-grade stenosis. Again, the infrarenal mesenteric artery is not well visualized. There is chronic occlusion of the three affiliated infrarenal abdominal aorta and three affiliated common iliac arteries. Aortobifemoral bypass graft with chronic occlusion of the left limb. Extensive mixed plaque of the iliac arteries. Reconstitution of flow within the iliac arteries at the level of the internal, external bifurcations. LEFT LOWER EXTREMITY: The common, profunda femoris and superficial femoral arteries are patent. The popliteal artery and tibioperoneal trunk are patent. There is three-vessel flow to the level of the ankle. RIGHT LOWER EXTREMITY: The three affiliated common femoral and graft common femoral artery appear patent. Patent superficial and profunda femoris arteries. Calcified plaque of the distal SFA without high-grade stenosis. Popliteal artery is unremarkable. Calcified plaque involves the tibioperoneal trunk with approximately 50% luminal narrowing. Three-vessel flow is noted to the level of the ankle. CT ABDOMEN/PELVIS: Nonspecific mildly enlarged hilar lymph nodes with prominent subcarinal and AP window lymph nodes. Spleen, pancreas and adrenal glands are unremarkable. Cholecystectomy. Unremarkable liver. Unremarkable kidneys. Hysterectomy. Unremarkable urinary bladder. No adnexal mass lesions. No adenopathy. No bowel obstruction or bowel wall thickening. 1.4 cm fatty attenuating focus of the left paracentral mid abdomen, image 254 series 3 adjacent to the transverse colon has decreased in size from comparison, suggestive of a remote area of fat necrosis versus epiploic appendagitis with similar appearing findings within the abdominal left lower quadrant on image 384 series 3. Mild fecal retention. Noninflamed appendix. Diastasis recti with tiny fat filled periumbilical hernia. Degenerative changes of the spine, pelvis and hips. IMPRESSION: 1. Chronic occlusion of the three affiliated infrarenal abdominal aorta and common iliac arteries with reconstitution of flow noted at the level of the iliac bifurcations. 2. Aortobifemoral bypass graft with chronic occlusion of the left limb. 3. Three-vessel arterial flow of the lower extremities extends to the level of the ankles. 4. Nonspecific mildly enlarged bilateral hilar adenopathy. 5. Additional findings as above. ACT 112: Negative or not required by law. The above report was generated using voice recognition software. It may contain grammatical, syntax or spelling errors. Dictated: 01/09/2020 1:37 PM Transcribed: 01/09/2020 2:20 PM Kellen [id number] [facility] Electronically signed by: Juvenal Bazzi M.D. 01/09/2020 3:27 PM Dictated:01/09/20 1337 Transcribed: 01/09/20 1420 Code Status & VTE Plan VTE Prophylaxis Plan VTE Prophylaxis will be ordered: Yes PG Care Time/CCT Total # of Minutes Spent Total Time Spent with Patient: Total time spent is greater than 50% in coordination of care (as documented) at patient's floor/unit and/or counseling patient: Coding Level of Care Code 79483 Initial Inpt Care Lvl 3 Diagnoses Depression F32.9 Restless legs syndrome G25.81 Peripheral arterial disease I73.9 Hypertension I10 GERD (gastroesophageal reflux disease) K21.9 Hyperlipidemia E78.5
[2021-07-25 22:38] LABS: Hematocrit (blood only) 42.3 % (37-47); Hemoglobin 14.6 g/dL (12.0-16.0); Mean Corpuscular Hgb Conc 34.5 g/dL (32-36); Mean Platelet Volume 8.7 fL (7.4-10.4); Platelet Count 296 K/uL (130-400); RDW Coefficient of Variation 15.5 % (11.5-14.5); Red Blood Count 4.86 M/uL (4.2-5.4); White Blood Count 12.24 K/uL (4.8-10.8)
[2021-07-25 22:46] LABS: Prothrombin Time 10.9 Seconds (9.0-12.0)
[2021-07-25 22:58] LABS: Albumin Level 3.7 gm/dl (3.4-5.0); BUN Creatinine Ratio 13.2 (10-20); Bilirubin Direct 0.1 mg/dl (0-0.2); Bilirubin,Total 0.8 mg/dl (0.2-1.0); Calcium 8.7 mg/dl (8.5-10.1); Creatinine Clr Calc Pharmacy 94.6 ml/min; Est GFR (African American) 82.9 ml/min; Est GFR (Non-African American) 71.5 ml/min; Magnesium 1.7 mg/dl (1.7-2.4); Potassium 3.5 mmol/L (3.5-5.1); Total Protein 7.1 gm/dl (6.0-8.3)
[2021-07-25 23:05] LABS: Basophils # (auto) 0.03 K/uL (0-0.2); Basophils % (auto) 0.2 %; Eosinophils # (auto) 0.07 K/uL (0-0.5); Eosinophils % (auto) 0.6 %; Immature Granulocytes # (auto) 0.01 K/uL (0.00-0.02); Immature Granulocytes % (auto) 0.1 %; Lymphocytes % (auto) 22.1 %; Monocytes # (auto) 1.01 K/uL (0.11-0.59); Monocytes % (auto) 8.3 %; Neutrophils # (auto) 8.42 K/uL (1.4-6.5); Neutrophils % (auto) 68.7 %
[2021-07-25] MEDS: MoRPHine SULFATE 2 MG/ML CARP IV PRN (23:07)
[2021-07-25] MEDS: HEPARIN SODIUM/DEXTROSE 25,000 UNITS/500 ML BAG IV SCH (23:22)
[2021-07-25] MEDS: rOPINIRole HCL 0.25 MG TABLET PO SCH (23:25)
[2021-07-25 23:55] LABS: Partial Thromboplastin Ratio 1.1; Partial Thromboplastin Time 30.3 Seconds (21.0-31.0)
[2021-07-26] MEDS: LACTATED RINGER'S 1,000 ML IV SCH ×2 (01:23→09:25)
[2021-07-26] MEDS: MoRPHine SULFATE 2 MG/ML CARP IV PRN ×4 (05:39→20:58)
[2021-07-26 06:16] LABS: Basophils # (auto) 0.04 K/uL (0-0.2); Basophils % (auto) 0.5 %; Eosinophils # (auto) 0.08 K/uL (0-0.5); Eosinophils % (auto) 0.9 %; Hematocrit (blood only) 41.5 % (37-47); Hemoglobin 14.1 g/dL (12.0-16.0); Immature Granulocytes # (auto) 0.03 K/uL (0.00-0.02); Immature Granulocytes % (auto) 0.3 %; Lymphocytes # (auto) 3.57 K/uL (1.2-3.4); Lymphocytes % (auto) 40.3 %; Mean Corpuscular Hemoglobin 29.7 pg (25-34); Mean Corpuscular Volume 87.6 fL (80-100); Mean Platelet Volume 8.7 fL (7.4-10.4); Monocytes # (auto) 0.71 K/uL (0.11-0.59); Neutrophils # (auto) 4.43 K/uL (1.4-6.5); Platelet Count 296 K/uL (130-400); RDW Coefficient of Variation 15.6 % (11.5-14.5); RDW Standard Deviation 49.8 fL (36.4-46.3); Red Blood Count 4.74 M/uL (4.2-5.4); White Blood Count 8.86 K/uL (4.8-10.8)
[2021-07-26 06:36] LABS: BUN Creatinine Ratio 13.5 (10-20); Calcium 8.8 mg/dl (8.5-10.1); Creatinine Clr Calc Pharmacy 116.3 ml/min; Est GFR (African American) 106.5 ml/min; Est GFR (Non-African American) 91.8 ml/min; Potassium 3.4 mmol/L (3.5-5.1)
[2021-07-26 06:38] LABS: Partial Thromboplastin Ratio 1.9
[2021-07-26 06:43] LABS: Partial Thromboplastin Time 51.5 Seconds (21.0-31.0)
[2021-07-26] MEDS: ASPIRIN 81 MG ECTAB PO SCH (07:54)
[2021-07-26] MEDS: CITALOPRAM 20 MG TAB PO SCH (07:54)
[2021-07-26] MEDS: MIRABEGRON ER 25 MG TAB PO SCH (07:54)
[2021-07-26] MEDS: FAMOTIDINE 20 MG TAB PO SCH (07:54)
[2021-07-26] MEDS ORDERED: rOPINIRole HCL 0.25 MG TABLET PO SCH (09:00)
[2021-07-26] MEDS ORDERED: SODIUM CHLORIDE 0.9% 250 ML IV PRN (09:29)
--- NOTE | 2021-07-26 09:58 | Consultation ---
Date of Consultation July 26, 2021 Assessment & Plan (1) Peripheral arterial disease: Pt with acute sx and imaging that demonstrates possible acute occlusion of distal pop/TP trunk. Dopplerable pulses and cap refill maintained. Pt also seen by Dr Travis this morning. Recommends pt undergo L sided axillary-femoral bypass and possible L femoral-distal bypass if needed in OR tomorrow. Procedure discussed at length with pt, she wishes to proceed. Patient was seen, examined, and chart reviewed. Agree with exam and treatment plan of the Vascular PA. History of Present Illness Reason for Consultation: PAD Attending Physician: Flo Pepper MD History of Present Illness 55 yo f with hx of GERD, hyperlipidemia, HTN, migraines, lumbar facet joint syndrome, arthritis, prediabetes, morbid obesity, and severe PAD, seen in consultation today for L leg pain which began yesterday. Pt well known to Dr Travis for aortoiliac occlusive disease and hx of aortobifemoral bypass, with subsequent L limb occlusion, then developing L groin wound infection requiring debridement and wound vac application. Pt has been followed every 6 months to 1 yr in office since. Pt previously stated she had some claudication in LLE, but no severe pain or rest pain. Pt also has hx of lumbar spine problems, and undergoes regular SI joint injections, but states does not have leg pain from that, only pain in back. Pt now states she developed aching pain in L thigh to foot yesterday, which then became only L ankle and foot pain. Went to local ED at [facility], then was transferred here. States pain medication takes the edge off her pain, but does not resolve it. Admits some rash to BL feet for past few weeks which is causing some discoloration. Denies complete weakness or numbness, but states when she stands or tries to walk, her pain is severe. CTA redemonstrates the L limb occlusion, but also demonstrates new appearing occlusion of L distal pop/TP trunk. Allergies Allergy/AdvReac Type Severity Reaction Status Date / Time chlorhexidine Allergy Intermediate hives, Verified 07/23/21 07:38 redness Penicillins AdvReac Intermediate nausea, Verified 07/23/21 07:38 vomiting, migraine bupropion AdvReac Hallucinati Verified 07/23/21 07:38 ng Home Medications Medication Instructions Recorded Confirmed Type acetaminophen 500 mg tablet 1,000 mg PO DAILY PRN 12/17/18 07/25/21 History (Tylenol Extra Strength) aspirin 81 mg tablet,delayed 81 mg PO QAM 12/17/18 07/25/21 History release (Adult Low Dose Aspirin) hydrocortisone 2.5 % topical cream 1 applic [place] DAILY PRN #30 g 07/16/20 07/25/21 Rx with perineal applicator cholecalciferol (vitamin D3) 50 100 mcg PO QAM #180 cap 09/14/20 07/25/21 Rx mcg (2,000 unit) capsule (Vitamin D3) atorvastatin 40 mg tablet 40 mg PO QPM #90 tab 01/25/21 07/25/21 Rx losartan 50 mg-hydrochlorothiazide See Rx Instructions .ROUTE 03/01/21 07/25/21 Rx 12.5 mg tablet .COMPLEX #90 tablet cyclobenzaprine 5 mg tablet 5 mg PO TID PRN #30 tab 04/20/21 07/25/21 Rx fluticasone propionate 50 1 spray INTNAS DAILY PRN #18.2 gm 04/20/21 07/25/21 Rx mcg/actuation nasal spray,suspension (Flonase Allergy Relief) citalopram 20 mg tablet 20 mg PO DAILY #90 tab 05/25/21 07/25/21 Rx oxycodone-acetaminophen 5 mg-325 1 - 2 tab PO Q8H PRN #30 tab 05/25/21 07/25/21 Rx mg tablet (Percocet) mirabegron 25 mg tablet,extended 25 mg PO DAILY #90 tab 06/08/21 07/25/21 Rx release 24 hr celecoxib 100 mg capsule (Celebrex) 100 mg PO BID #60 cap 06/22/21 07/25/21 Rx sodium sul 1.479 gram-potas ch See Rx Instructions .ROUTE 07/12/21 07/23/21 Rx 0.188 gram-magnes sul 0.225 gram .COMPLEX #24 tab tablet (Sutab) ropinirole 0.5 mg tablet 0.5 mg PO DAILY #90 tab 07/20/21 07/25/21 Rx omeprazole 40 mg capsule,delayed 40 mg PO QAM #90 cap 07/23/21 07/25/21 Rx release semaglutide (weight loss) 0.25 0.25 mg SUBCUT Q7D 07/23/21 07/25/21 History mg/0.5 mL subcutaneous pen injector Patient History Medical History Anxiety and depression Arthritis Degenerative disc disease Diffuse myofascial pain syndrome Elevated alkaline phosphatase level GERD (gastroesophageal reflux disease) Hyperlipidemia Hypertension Lumbar facet joint syndrome Migraine Obesity, morbid Peripheral arterial disease 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 Prediabetes Restless legs syndrome Surgical wound, non healing Urinary incontinence Surgical History History of bilateral tubal ligation History of cholecystectomy History of colonoscopy 07/26/18: MAC sedation at [facility] History of tonsillectomy History of tooth extraction History of total abdominal hysterectomy and bilateral salpingo-oophorectomy History of wisdom tooth extraction Hx of aortic aneurysm repair S/P aortobifemoral bypass surgery Status post myringotomy with tube placement of both ears multiple times Family History Father Family hx colonic polyps Mother Coronary heart disease Depression Kidney disease Hypertension Cardiac disorder Myocardial infarction Father Lymphoma Brother Depression Muscular dystrophy Clotting disorder Sister Depression Grandfather Myocardial infarction Denies family history of Ovarian cancer Prostate cancer Breast cancer Colorectal cancer Social History Smoking Status: Current every day smoker Tobacco Type: Cigarettes packs per day: 0.5; Cigarettes Per Day: 1/2 to 3/4 ppd; Second Hand Exposure: No; Do You Dip or Chew Tobacco: No; Tobacco Cessation Education Requested by Patient: No Hx Alcohol Use: No Hx Substance Use: No Preferred Language: Divehi Communication Ability: Effective Visual Impairment: No Limitations Hearing Ability: Normal Java Integration Developer Required: No Beliefs That Will Affect Care: None marital status: Current Living Situation: Spouse Current Living Situation Comment: Lives with and 1 adult child current occupational status: unemployed current occupation: homemaker How many Children do You have: 1 Other Information That Helps Us Care for You: No Feels Safe at Home: Yes Safety Concerns: Feels Safe At This Time caffeine: Yes during the past year weight has: increased > 10 lbs Dental Care, Regularly: No Physical Activity Frequency: Daily Seatbelt Use: always Sunscreen Use: No Assistive Devices: None Review of Systems Review of Systems: All systems reviewed & are unremarkable except as noted in HPI & below Physical Exam Constitutional: WD/WN, vitals as above + morbidly obese, cooperative and comfortable; not in distress ENMT: Ears: no hearing impairment Neck: trachea midline Respiratory: normal respiratory effort, lungs clear to auscultation Auscultation: + diminished lung sounds Cardiovascular: Rate/Rhythm: regular rate and regular rhythm Vessels: posterior tibial pulses present (dopplerable), dorsalis pedis pulses present (dopplerable) and radial pulses present; + abnormal peripheral pulses Extremities: + abnormal capillary refill (L great toe normal, other toes 5- 6/seconds) and no edema Gastrointestinal (Abdomen): Inspection/Auscultation: abdomen normal to inspection and normal bowel sounds Percussion/Palpation: abdomen soft; abdomen nontender Musculoskeletal: no cyanosis or clubbing, extremities motor strength 5/5 Skin: + rash (scaly/purple/erythematous rash to BL feet) Neurologic: moves all extremities and awake; no focal motor deficits and not confused Psychiatric: A+Ox3, euthymic affect Results & Data ([facility]) Vital Signs (Past 12 Hours) Vital Signs Temp Pulse Pulse Resp BP BP Pulse Ox 07/26/21 08:00 87 07/26/21 07:23 36.5 C 94 H 20 121/76 94 07/26/21 03:14 36.5 C 97 H 18 104/74 94 07/25/21 23:09 36.7 C 106 H 20 99/61 L 92
--- NOTE | 2021-07-26 15:23 | Ultrasound Report ---
US venous mapping LE LT CLINICAL HISTORY: left popliteal artery occlusion TECHNIQUE: Color and grayscale ultrasound was performed to map the left greater saphenous vein and sm all saphenous vein. COMPARISON: None available at the time of this dictation. FINDINGS: The left saphenous system is patent. Transverse dimensions are as follows: Greater saphenous vein: Groin: 16.2mm x 9.1 mm Proximal thigh: 25 mm x 6.2 mm Mid thigh: 38.1 mm x 6.9 mm Distal thigh: 27.7 mm x 6.5 mm Technique: 22.4mm x 5.5 mm Proximal calf: 16.1mm x 5.6 mm Mid calf: 17.1 mm x 3.4 mm Distal calf: 12.4 mm x 3.3 mm Ankle: 6.5 mm x 3.2 mm Small saphenous vein: Knee: 19.0mm 2.3 mm Proximal calf: 17.4 mm 3.7 mm Mid calf: 10.9 mm 2.9 mm Distal calf: 7.2 mm 2.1 mm Ankle: 6.3 mm 3.0 mm Impression: Saphenous venous system is patent with measurements as above. ACT 112: Negative or not required by law. Electronically signed by: Evin Lind M.D. 07/26/2021 3:21 PM
[2021-07-26] MEDS: HEPARIN SODIUM/DEXTROSE 25,000 UNITS/500 ML BAG IV SCH (16:03)
--- NOTE | 2021-07-26 16:23 | Ultrasound Report ---
US arterial duplex LE LT CLINICAL HISTORY: popliteal artery occlusion. Left leg pain COMPARISON: None. TECHNIQUE: Duplex sonography of left lower extremity arterial system was performed. Velocity measure ments provided are in centimeters per second FINDINGS: Ghosh scale, Doppler spectral analysis, and color imaging performed. Left common femoral artery: Monophasic flow velocity. 61 Left profunda femoris artery: Monophasic flow velocity. 29 Left superficial femoral artery: Monophasic flow velocity. 49 involving the proximal SFA and 18 invo lving the distal SFA Left popliteal artery: Complete occlusion is demonstrated. Left posterior tibial artery: Monophasic flow velocity. 17 Left anterior tibial artery: Monophasic flow velocity. 9 Left dorsalis pedis artery: Monophasic flow velocity. 3 Left peroneal artery: Monophasic flow velocity. 11 Left flow velocities: There is marked atherosclerotic calcification present throughout the left lowe r extremity with occlusion of the left popliteal artery as suspected. Markedly decreased flow velocit ies are seen within the calf. IMPRESSION: 1. There is marked atherosclerotic calcification present throughout the left lower extremity with occ lusion of the left popliteal artery as suspected. Markedly decreased flow velocities are seen within the calf. ACT 112: Negative or not required by law. Electronically signed by: Alfredito Jade M.D. 07/26/2021 4:22 PM
--- NOTE | 2021-07-26 17:26 | Hospitalist Progress Note ---
Date of Service July 26, 2021 Assessment & Plan (1) Peripheral arterial disease: Plan: 55-year-old female with history of hypertension, hyperlipidemia, peripheral arterial disease status post aortobifemoral bypass grafting performed by Dr. Travis with known chronic occlusion presenting with new onset left ankle and foot pain. Foot is mottled with absent pulses. Pain is presently well controlled. Lactate is negative. Going to the OR tomorrow N.p.o. from midnight Continue heparin drip Continue aspirin and atorvastatin Pain control with Tylenol and morphine 2 mg IV every 4 hours as needed Zofran as needed for nausea Colace/MiraLAX as needed Vascular surgery consultation appreciated Downgrade to [facility] floor (2) Depression: Plan: Chronic. Stable. Continue Celexa 20 mg p.o. daily (3) Restless legs syndrome: Plan: Chronic. Stable. Continue Requip 0.5 mg p.o. nightly (4) Hypertension: Plan: Blood pressure acceptable, presently 99/61 Will hold losartan/hydrochlorothiazide for now Continue to monitor (5) GERD (gastroesophageal reflux disease): Plan: Chronic. Stable. Patient on omeprazole at home Pepcid 20 mg p.o. daily here (6) Hyperlipidemia: Plan: Chronic. Stable. Continue atorvastatin Plan: F/E/Nmaintenance fluids LR at 125 mL/h x 2 L, electrolytes within normal limits, n.p.o. after midnight Prophylaxispatient will be on heparin drip as above Codefull per discussion with patient Dispoadmit to PCU Admission and Anticipated Discharge Date Admission Date: July 25, 2021 Subjective Peripheral vascular disease going to the OR tomorrow pain is fairly managed Review of Systems Review of Systems: General: No malaise no weakness Neck: No tenderness no pain HEENT: No eye discharge no ear discharge Chest: No chest pain, no palpitation GI: Not distended, no nausea no vomiting Extremities: No edema no tenderness Neurology: No headache no weakness Psychiatric: No depression no anxiety Physical Exam Physical Exam: General: patient resting comfortably, NAD, non-toxic in appearance, AA&O x 4 Skin: warm, dry, intact, no rashes or lesions HEENT: NC/AT, PERRL, EOMI, anicteric sclera, conjunctiva without injection, external ear normal to inspection and nontender, nares patent, moist mucus membranes, dentition intact, no oropharyngeal lesions, neck supple, trachea midline, no LAD, no thyromegaly, no JVD Heart: +S1/S2, regular, no m/r/g Lungs: equal air entry bilaterally, no rales/rhonchi/wheezes Abd: +BS, soft, NT/ND, no masses/organomegaly/ascites Ext: Right lower extremity warm with palpable pulses. Left lower extremity is warm, appears mottled on the dorsum of the foot as well as at the ankle and toes. Sensation and mobility are intact. No palpable or dopplerable pulses. Neuro: nonfocal, patient AA&O x 4, speech intact, no facial droop, moving all extremities on command with equal strength 5/5 Results & Data Results & Data ([facility]) Vital Signs (Past 12 Hours) Vital Signs Temp Pulse Pulse Resp BP BP Pulse Ox 07/26/21 16:00 94 H 07/26/21 15:16 36.7 C 99 H 20 122/89 95 07/26/21 11:01 36.6 C 95 H 19 120/80 94 07/26/21 08:00 87 07/26/21 07:23 36.5 C 94 H 20 121/76 94 PG Care Time/CCT Total # of Minutes Spent Total Time Spent with Patient: Total time spent is greater than 50% in coordination of care (as documented) at patient's floor/unit and/or counseling patient: Coding Level of Care Code 65281 Subseq Hosp Care Lvl 2 Diagnoses Peripheral arterial disease I73.9 Depression F32.9 Restless legs syndrome G25.81 Hypertension I10 GERD (gastroesophageal reflux disease) K21.9 Hyperlipidemia E78.5
[2021-07-26] MEDS: ATORVASTATIN 40 MG TAB PO SCH (19:43)
[2021-07-26] MEDS: rOPINIRole HCL 0.25 MG TABLET PO SCH (19:45)
[2021-07-27] MEDS: MoRPHine SULFATE 2 MG/ML CARP IV PRN (02:35)
[2021-07-27] MEDS ORDERED: CLINDAMYCIN 600 MG/54 ML BAG IV SCH (06:00)
[2021-07-27] MEDS ORDERED: HYDROCORTISONE SOD 100 MG in SYRINGE 0 ML IV ONE (07:00)
[2021-07-27 07:02] LABS: Partial Thromboplastin Ratio 2.6
[2021-07-27] MEDS ORDERED: fentaNYL citrate 100 MCG/2 ML VIAL ONE ×2 (07:02→08:54)
[2021-07-27] MEDS ORDERED: MIDAZOLAM HCL 1 MG/ML 2ML VIAL ONE (07:02)
--- NOTE | 2021-07-27 07:03 | History & Physical Bridge Note ---
Date of Service July 27, 2021 History & Physical Bridge Note Patient for a left ax fem and possible left fem pop bypass. I have discussed the risks options and benefits of the procedure with the patient. The patient understands the risks options and benefits and agrees to the procedure. I have examined the patient, reviewed the History & Physical and in the interval since the performance of the History & Physical I have noted the following changes of clinical significance: no changes noted
[2021-07-27] MEDS ORDERED: LIDOCAINE 1% LOCAL 20 ML VIAL ONE (07:13)
[2021-07-27] MEDS ORDERED: PAPAVERINE HCL INJ 30 MG/ML 2 ML VIAL ONE (07:13)
[2021-07-27] MEDS ORDERED: HEPARIN (PORCINE) 1000 UNIT/ML 10 ML (CATH LAB USE ONLY) ONE (07:13)
[2021-07-27] MEDS ORDERED: THROMBIN 5000 UNITS KIT ONE (07:14)
[2021-07-27] MEDS ORDERED: GELATIN SPONGE SZ 100 ONE (07:14)
[2021-07-27] MEDS ORDERED: THROMBIN FOR SOLN 20000 UNIT KIT ONE (07:14)
[2021-07-27] MEDS ORDERED: ceFAZolin 330 MG/ML 1 GM VIAL ONE (07:14)
[2021-07-27 07:15] LABS: Partial Thromboplastin Time 72.8 Seconds (21.0-31.0)
[2021-07-27] MEDS ORDERED: BUPIVACAINE 0.5 % 5 MG/1 ML MPF 30ML VIAL ONE (07:15)
[2021-07-27] MEDS ORDERED: EPINEPHrine INJ 1 MG/ML AMP ONE (07:15)
[2021-07-27] MEDS ORDERED: Nursing to Pharmacy Communication SCH (07:30)
--- NOTE | 2021-07-27 07:40 | Anesthesiology Consultation ---
Date of Service July 27, 2021 Assessment & Plan (1) Encounter for pre-operative examination: Chart Review Chart Review: Acceptable Risk for Surgery and Patient NOT seen in Pre Admission Testing Consults Requested none ASA ASA4 Proposed Anesthesia Anesthesia Type: General Anesthesia Line Insertion: Arterial line and Central Venous Catheter (possible) Risk / Benefits Reviewed With: PT / POA / Parent / Guardian, Accepts Plan and Informed Consent Obtained History Surgery Operation Date: 07/27/21 07:30 Proposed Procedures p Left Axillary Femoral Bypass Graft - Rudy Travis MD s Left Femoral Popliteal Bypass Graft - Rudy Travis MD Height/Weight Height: 5 ft 2 in Weight: 137.8 kg Allergies Allergy/AdvReac Type Severity Reaction Status Date / Time chlorhexidine Allergy Intermediate hives, Verified 07/23/21 07:38 redness Penicillins AdvReac Intermediate nausea, Verified 07/23/21 07:38 vomiting, migraine bupropion AdvReac Hallucinati Verified 07/23/21 07:38 ng Medications Home Medications Medication Instructions Recorded Confirmed Last Taken acetaminophen 500 mg tablet 1,000 mg PO DAILY PRN 12/17/18 07/25/21 02/07/19 (Tylenol Extra Strength) aspirin 81 mg tablet,delayed 81 mg PO QAM 12/17/18 07/25/21 02/08/19 release (Adult Low Dose Aspirin) hydrocortisone 2.5 % topical cream 1 applic [place] DAILY PRN #30 g 07/16/20 07/25/21 Unknown with perineal applicator cholecalciferol (vitamin D3) 50 100 mcg PO QAM #180 cap 09/14/20 07/25/21 Unknown mcg (2,000 unit) capsule (Vitamin D3) atorvastatin 40 mg tablet 40 mg PO QPM #90 tab 01/25/21 07/25/21 Unknown losartan 50 mg-hydrochlorothiazide See Rx Instructions .ROUTE 03/01/21 07/25/21 Unknown 12.5 mg tablet .COMPLEX #90 tablet cyclobenzaprine 5 mg tablet 5 mg PO TID PRN #30 tab 04/20/21 07/25/21 Unknown fluticasone propionate 50 1 spray INTNAS DAILY PRN #18.2 gm 04/20/21 07/25/21 Unknown mcg/actuation nasal spray,suspension (Flonase Allergy Relief) citalopram 20 mg tablet 20 mg PO DAILY #90 tab 05/25/21 07/25/21 Unknown oxycodone-acetaminophen 5 mg-325 1 - 2 tab PO Q8H PRN #30 tab 05/25/21 07/25/21 Unknown mg tablet (Percocet) mirabegron 25 mg tablet,extended 25 mg PO DAILY #90 tab 06/08/21 07/25/21 Unknown release 24 hr celecoxib 100 mg capsule (Celebrex) 100 mg PO BID #60 cap 06/22/21 07/25/21 Unknown sodium sul 1.479 gram-potas ch See Rx Instructions .ROUTE 07/12/21 07/23/21 Unknown 0.188 gram-magnes sul 0.225 gram .COMPLEX #24 tab tablet (Sutab) ropinirole 0.5 mg tablet 0.5 mg PO DAILY #90 tab 07/20/21 07/25/21 Unknown omeprazole 40 mg capsule,delayed 40 mg PO QAM #90 cap 07/23/21 07/25/21 Unknown release semaglutide (weight loss) 0.25 0.25 mg SUBCUT Q7D 07/23/21 07/25/21 Unknown mg/0.5 mL subcutaneous pen injector Active Medications Generic Name Dose Route Start Last Admin Trade Name Freq PRN Reason Stop Dose Admin Aspirin 81 mg 07/26/21 09:00 07/26/21 07:54 Aspirin 81 Mg Ectab PO 08/25/21 08:59 81 mg QAM BARB Administration Atorvastatin Calcium 40 mg 07/26/21 21:00 07/26/21 19:43 Atorvastatin 40 Mg Tab PO 08/25/21 20:59 40 mg QPM BARB Administration Citalopram Hydrobromide 20 mg 07/26/21 09:00 07/26/21 07:54 Citalopram 20 Mg Tab PO 08/25/21 08:59 20 mg DAILY BARB Administration Famotidine 20 mg 07/26/21 09:00 07/26/21 07:54 Famotidine 20 Mg Tab PO 08/25/21 08:59 20 mg QAM BARB Administration Heparin Sodium/Dextrose 25,000 units in 500 mls @ 0 mls/hr 07/25/21 22:15 07/27/21 07:22 Heparin Sodium/Dextrose IV 08/24/21 22:14 0 units/hr .Q0M BARB 0 mls/hr Titration Protocol 0 UNITS/HR Mirabegron 25 mg 07/26/21 09:00 07/26/21 07:54 Mirabegron Er 25 Mg Tab PO 08/25/21 08:59 25 mg DAILY BARB Administration Morphine Sulfate 2 mg 07/25/21 21:46 07/27/21 02:35 Morphine Sulfate 2 Mg/Ml Carp IV 08/08/21 21:45 2 mg Q4H PRN Administration Chest Pain Ropinirole HCl 0.5 mg 07/25/21 22:45 07/26/21 19:45 Ropinirole Hcl 0.25 Mg Tablet PO 08/24/21 22:44 0.5 mg HS BARB Administration NPO Date Last Intake of Fluids: 07/26/21 Time Last Intake of Fluids: 20:00 Date Last Intake of Solids: 07/26/21 Time Last Intake of Solids: 18:00 Past Medical History Medical History Anxiety and depression Arthritis Degenerative disc disease Diffuse myofascial pain syndrome Elevated alkaline phosphatase level GERD (gastroesophageal reflux disease) Hyperlipidemia Hypertension Lumbar facet joint syndrome Migraine Obesity, morbid Peripheral arterial disease 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 Prediabetes Restless legs syndrome Surgical wound, non healing Urinary incontinence Exercise / Class Metabolic Activity III < 4 Walking/Shop/Light housework limited acivity due to PAD and leg pain - denies CP Past Family History Family History Father Family hx colonic polyps Mother Coronary heart disease Depression Kidney disease Hypertension Cardiac disorder Myocardial infarction Father Lymphoma Brother Depression Muscular dystrophy Clotting disorder Sister Depression Grandfather Myocardial infarction Denies family history of Ovarian cancer Prostate cancer Breast cancer Colorectal cancer Past Surgical History Surgical History History of bilateral tubal ligation History of cholecystectomy History of colonoscopy 07/26/18: MAC sedation at [facility] History of tonsillectomy History of tooth extraction History of total abdominal hysterectomy and bilateral salpingo-oophorectomy History of wisdom tooth extraction Hx of aortic aneurysm repair S/P aortobifemoral bypass surgery Status post myringotomy with tube placement of both ears multiple times Past Anesthesia History No Hx of Anesthesia Complications History of PONV No Hx of PONV Social History Smoking Status: Current every day smoker tobacco type: cigarettes Smoking cigarettes per day: 1/2 to 3/4 ppd Do You Dip or Chew Tobacco: No Hx Alcohol Use: No Hx Substance Use: No substance use type: does not use Substance Use Type Other:: Dilaudid for pain. Taking 1 tablet (2mg) q6hrs. Review of Systems Patient denies active symptoms of GERD. Physical Exam Vital Signs Last Vital Signs Temp 36.6 C 07/27/21 07:00 Pulse 81 07/27/21 07:00 Resp 18 07/27/21 07:00 BP 137/80 07/27/21 07:00 Pulse Ox 95 07/27/21 07:00 Constitutional + morbidly obese ENMT Mouth: + edentulous (upper); no TMJ abnormality and oral opening not small Thyromental Distance: > or= 3.5 Finger Breadths Mallampati Class: II Neck normal visual inspection, + short neck and + thick neck; neck extension not limited Respiratory normal respiratory effort Auscultation: lungs clear to auscultation bilaterally Cardiovascular Rate/Rhythm: regular rate and regular rhythm Heart Sounds: no murmur Neurologic moves all extremities Psychiatric Orientation: alert and oriented x 3 Testing Laboratory Results 07/26/21 05:22 07/26/21 05:22 PT 10.9 Seconds (9.0-12.0) 07/25/21 22:20 INR 1.0 (0.9-1.1) 07/25/21 22:20 APTT 72.8 Seconds (21.0-31.0) H* 07/27/21 06:19 Blood Type O Negative 07/26/21 09:44 Antibody Screen NEGATIVE 07/26/21 09:44 07/27/21 07:20 POC Glucose 102 H Electrocardiogram Date: 02/04/21 Findings: + NSR @ (43)
--- NOTE | 2021-07-27 08:35 | Procedure Note ---
Procedure Note Date of Service July 27, 2021 Note Radial arterial line placed in OR 12 after induction in preparation for vascular surgery with Dr. Travis. Right wrist prepped with chlorhexidine and draped with sterile towels. 20 G angiocath placed under sterile technique utilizing sterile gloves, surgical hats and masks and US guidance. Catheter threaded using seldinger technique with return of pulsatile, bright red blood. Site covered with occlusive dressing and taped in place. Waveform consistent with correct arterial placement. After placement, fingers of procedural hand had normal perfusion. Patient tolerated procedure well without complications. Vanessa Paez MD, PhD Anesthesiologist Coding
[2021-07-27] MEDS ORDERED: ONDANSETRON INJ 2 MG/ML 2 ML VIAL IV PRN (09:07)
[2021-07-27] MEDS ORDERED: ePHEDrine sulfate 50 MG/ML AMP IV PRN (09:07)
[2021-07-27] MEDS ORDERED: ATROPINE SULFATE 0.1 MG/ML 10ML SYR IV PRN (09:07)
[2021-07-27] MEDS ORDERED: ONDANSETRON INJ 2 MG/ML 2 ML VIAL ONE (09:20)
[2021-07-27] MEDS ORDERED: ROCURONIUM BROMIDE 10 MG/ML 5 ML VIAL IV ONE (09:20)
[2021-07-27] MEDS ORDERED: HEPARIN SOD (PORCINE) 1000 UNIT/ML ONE ×2 (09:20→10:45)
[2021-07-27] MEDS ORDERED: LARYING-O-JET KIT (LTA) ONE (09:20)
[2021-07-27] MEDS ORDERED: PROPOFOL IV EMULSION 10 MG/ML 20 ML VIAL IV ONE (09:20)
[2021-07-27] MEDS ORDERED: ePHEDrine sulfate 50 MG/ML SYR ONE (09:20)
[2021-07-27] MEDS ORDERED: NEOSTIGMINE METHYLSULFATE 1 MG/ML 10ML VIAL ONE (09:20)
[2021-07-27] MEDS ORDERED: GLYCOPYRROLATE 0.2 MG/ML VIAL ONE (09:20)
[2021-07-27] MEDS ORDERED: LABETALOL HCL IV 5 MG/ML 20ML IV ONE (09:20)
[2021-07-27] MEDS ORDERED: LIDOCAINE 2% 2 ML VIAL/AMP(20MG/ML) INFIL ONE (09:20)
[2021-07-27] MEDS ORDERED: DEXAMETHASONE SOD INJ 4 MG/ML VIAL ONE (09:20)
--- NOTE | 2021-07-27 09:30 | Electrocardiogram Report ---
Test Reason : Blood Pressure : / mmHG Vent. Rate : 076 BPM Atrial Rate : 076 BPM P-R Int : 180 ms QRS Dur : 094 ms QT Int : 400 ms P-R-T Axes : 049 028 022 degrees QTc Int : 450 ms Normal sinus rhythm Low voltage QRS Borderline ECG When compared with ECG of 08-FEB-2019 12:37, No significant change was found Confirmed by Yusef Fox ([id number]) on 07/27/2021 9:30:19 AM Referred By: Georgina Hall Confirmed By:Yusef Fox
[2021-07-27] MEDS ORDERED: GENTAMICIN SULFATE 40 MG/ML 2 ML VIAL ONE (10:51)
[2021-07-27] MEDS ORDERED: VISIPAQUE IV ONE (11:57)
--- NOTE | 2021-07-27 11:58 | Post Operative Brief Note ---
Immediate Post Op Note v1 Date of Surgery July 27, 2021 Pre & Post Diagnosis Operation Date: 07/27/21 07:30 Pre-Op Diagnosis: Left extremity ischemia Post-Op Diagnosis: Left extremity ischemia I identified the patient and participated in the time-out.: Yes Procedure Operation Date: 07/27/21 07:30 Actual Procedures p Left Axillary Femoral Bypass Graft(Left) - Rudy Travis MD s Thrombectomy of left popliteal and tibioperoneal trunk - Rudy Travis MD Surgeon Rudy Travis MD Cna Instructor MD Kayla Dalton,PAC Estimated Blood Loss 150 Findings Consistent with Post-Op Diagnosis Drains Nayak Catheter Anesthesia Type General Complications none Disposition Accompanied Patient To Recovery: No Disposition: Recovery Room
--- NOTE | 2021-07-27 12:36 | Procedure Note ---
Angiogram Post Procedure Fluoroscopy Time (minutes): 0 Radiation (mGy): 7 Contrast: 10cc Post Operative Report Pre & Post Diagnosis Operation Date: 07/27/21 07:30 Pre-Op Diagnosis: Left extremity ischemia Post-Op Diagnosis: Left extremity ischemia I identified the patient and participated in the time-out.: Yes Procedure Operation Date: 07/27/21 07:30 Actual Procedures p Left Axillary Femoral Bypass Graft(Left) - Rudy Travis MD Surgeon Rudy Travis MD Molded Goods Inspector Trimmer MD Kayla Dalton,PAC Estimated Blood Loss 150 Findings Consistent with Post-Op Diagnosis Specimens none Drains none Anesthesia Type General Complications none immediate Disposition Accompanied Patient To Recovery: No Disposition: Recovery Room Indications Patient is a 55 year old female with history of severe PAD with prior aortobifemoral bypass with subsequent occlusion of the left limb of the graft, with post-operative course complicated by left groin infection requiring serial debridements and wound vac therapy. A few days ago she developed acute onset left foot pain which occurs at rest. CT angiogram demonstrates occlusion of the tibioperoneal trunk, which may be acute thrombus. She presents for left axillary to superficial femoral artery bypass, left leg angiography with possible intervention, and possible jump graft to a tibial artery on the left. Description of Procedure The patient was taken to the angio suite. She was transferred over to the operating room table and placed in the supine position with the left arm abducted on an arm board. The left chest, flank, groin, and leg were prepped and draped in the usual sterile fashion. A team timeout was performed. A transverse incision was made two fingerbreadths below the mid section of the left clavicle. This was about 10cm in length. The incision was deepened through the subcutaneous tissue. The fascia overlying the pectoralis major was incised. With blunt finger dissection the fibers of the pectoralis major were . The clavicopectoral fascia was incised. At the lateral aspect of the incision the pectoralis minor was retracted caudally. The cephalic vein and the axillary vein were encountered. Venous tributaries off of these were ligated and divided, allowing the cephalic and axillary veins to be retracted caudally. The axillary artery was dissected out circumferentially. In the left flank an approximately 3cm in length counter-incision was made. An 8x80 ringed PTFE graft was tunneled from the counter incision to the axillary artery incision. This passed beneath the pectoralis minor muscle. The patient was systemically heparinized. Vascular clamps were placed proximal and distal to the intended arteriotomy site on the axillary artery. An 11 blade was used to create an arteriotomy. This was extended using spivey scissors, about 9 or 10mm in total length. The end of the graft was beveled to match this size. An end-to-side anastomosis was created between the axillary artery and PTFE graft using running 6-0 prolene suture. After completion of the anastomosis the vascular clamps were removed and the vessels and graft were allowed to flush through the distal end of the graft. The graft was then again clamped. A second counter incision was made along the patient's left flank, just above the superior iliac spine. The graft was tunneled in the subcutaneous tissue from the first to the second counter incision. Then, an approximately 10cm longitudinal incision along the anteromedial thigh was made in the proximal to mid-thigh, just distal to the area of scarring from her prior groin incisions and wounds. The superficial femoral artery was dissected out. The graft was tunneled from the second counter incision down to the superficial femoral artery incision. Vascular clamps were placed proximal and distal on the superficial femoral artery. Using an 11 blade a longitudinal arteriotomy was created in the superficial femoral artery. This was extended to about 12mm in length. There was a trickle of back bleeding when the distal clamp was removed. We passed a 3Fr ana embolectomy catheter distally to about the mid calf and retrieved a large thrombus and subsequent pulsatile backbleeding. We then created an end-to-side anastomosis between the PTFE graft and the superficial femoral artery. For this the distal end of the PTFE graft was beveled. The anastomosis was created with a running 6-0 prolene suture. Before completion of the anastomosis forward and back bleeding were allowed to occur. The graft and vessels were flushed with heparinized saline. The last few stitches were placed. The vascular clamps were removed. One repair suture was required then the anastomosis was hemostatic. The PTFE graft was accessed using a micropuncture needle about 3 cm from the distal anastomosis. A micropuncture wire was passed through the needle. The needle was removed and a micropuncture sheath was placed. From here the left leg angiography was performed. This demonstrated a patent distal superficial femoral artery, above and below knee popliteal artery, tibioperoneal trunk, peroneal artery, and posterior tibial artery without flow limiting stenoses. The main runoff to the foot was via the posterior tibial artery. The anterior tibial artery was patent in its proximal segment however in its mid segment there were areas of flow limiting stenosis and occlusion. The puncture in the graft was repaired using a 5-0 prolene suture. Hemostasis was obtained in all wounds. In the groin and axilla the deep tissues were closed with several layers of interrupted 2-0 vicryl suture. The dermis was closed with running 3-0 vicryl. The skin was closed with raul. The counter incisions were closed with interrupted 2-0 and 3-0 vicryl suture and raul for the skin. The wounds were dressed with dry dressings and tape. The patient tolerated the procedure well and without immediate complication. At the conclusion of the case, all needle, sponge, and instrument counts were correct. Dr. Travis remained present and scrubbed for the duration of the procedure. The patient was taken to the recovery room in satisfactory condition. I attest to the content of the Intraoperative Record and any orders documented therein. Any exceptions are noted below.
[2021-07-27] MEDS ORDERED: ALBUTEROL 0.083% NEBU SOLN 3 ML VIAL NEB STA (13:02)
[2021-07-27] MEDS ORDERED: ALBUTEROL 0.083% NEBU SOLN 3 ML VIAL ONE (13:03)
[2021-07-27 13:13] LABS: Basophils # (auto) 0.02 K/uL (0-0.2); Basophils % (auto) 0.1 %; Eosinophils # (auto) 0.03 K/uL (0-0.5); Eosinophils % (auto) 0.2 %; Hematocrit (blood only) 36.1 % (37-47); Immature Granulocytes # (auto) 0.05 K/uL (0.00-0.02); Immature Granulocytes % (auto) 0.4 %; Lymphocytes # (auto) 1.08 K/uL (1.2-3.4); Lymphocytes % (auto) 7.8 %; Mean Corpuscular Hemoglobin 29.1 pg (25-34); Mean Corpuscular Volume 87.6 fL (80-100); Mean Platelet Volume 8.7 fL (7.4-10.4); Monocytes # (auto) 0.23 K/uL (0.11-0.59); Monocytes % (auto) 1.7 %; Neutrophils # (auto) 12.48 K/uL (1.4-6.5); Neutrophils % (auto) 89.8 %; Platelet Count 228 K/uL (130-400); RDW Coefficient of Variation 15.5 % (11.5-14.5); RDW Standard Deviation 49.9 fL (36.4-46.3); Red Blood Count 4.12 M/uL (4.2-5.4); White Blood Count 13.89 K/uL (4.8-10.8)
[2021-07-27] MEDS: fentaNYL citrate 100 MCG/2 ML VIAL IV PRN ×2 (13:27→13:34)
[2021-07-27 13:45] LABS: Mean Corpuscular Hgb Conc 33.2 g/dL (32-36)
[2021-07-27] MEDS: HEPARIN SODIUM/DEXTROSE 25,000 UNITS/500 ML BAG IV SCH (14:11)
[2021-07-27] MEDS: MoRPHine SULFATE 4 MG/ML 1 ML CARP\\VIAL IV PRN ×3 (14:55→20:37)
--- NOTE | 2021-07-27 15:01 | Anesthesiology Progress Note ---
Date of Service July 27, 2021 Anesthesia Post Procedure Vital Signs Vital Signs: Temp Pulse Pulse Pulse Resp BP BP 07/27/21 14:07 36.9 C 78 78 18 108/55 L 07/27/21 13:40 78 14 112/59 L 07/27/21 13:30 74 17 114/56 L 07/27/21 13:20 73 15 116/60 07/27/21 13:10 79 19 136/65 07/27/21 13:08 75 20 07/27/21 13:00 79 19 137/65 07/27/21 12:52 36.3 C L 83 20 117/81 07/27/21 12:50 83 20 07/27/21 07:00 36.6 C 81 18 137/80 07/27/21 06:45 81 07/27/21 03:53 36.6 C 85 18 134/86 07/26/21 23:16 95 H 07/26/21 22:39 36.7 C 88 18 121/67 07/26/21 19:11 36.7 C 86 18 126/84 07/26/21 16:00 94 H 07/26/21 15:16 36.7 C 99 H 20 122/89 Pulse Ox 07/27/21 14:07 94 07/27/21 13:40 96 07/27/21 13:30 93 07/27/21 13:20 94 07/27/21 13:10 100 07/27/21 13:08 94 07/27/21 13:00 100 07/27/21 12:52 94 07/27/21 12:50 93 07/27/21 07:00 95 07/27/21 06:45 07/27/21 03:53 94 07/26/21 23:16 07/26/21 22:39 95 07/26/21 19:11 94 07/26/21 16:00 07/26/21 15:16 95 Pain Intensity Left Lower Leg: Pain Intensity: 7 Left Chest: Pain Intensity: 6 Transfer of Care Handoff Completed per policy Notes Mental Status: alert / awake / arousable and participated in evaluation Patient Amnestic to Procedure: Yes Nausea / Vomiting: adequately controlled Pain: adequately controlled Airway Patency, RR, SpO2: stable & adequate BP & HR: stable & adequate Hydration State: stable & adequate Anesthetic Complications: no major complications apparent and Pt Satisfied with anesthetic care
--- NOTE | 2021-07-27 15:34 | Critical Care Consultation ---
Date of Consultation July 27, 2021 Assessment & Plan (1) Peripheral arterial disease: (2) Hypertension: (3) GERD (gastroesophageal reflux disease): (4) Hyperlipidemia: (5) Urinary incontinence: Meghan is a 55 year old female w/ PmHx HLD, PAD s/p aortobifemoral bypass 2018 and axillofemoral bypass today by Dr. Travis, HTN, GERD admitted to ICU for post op monitoring in the setting of revascularization to the left lower extremity. Neuro Restless leg syndrome: -Continue home Ropinirole Cardiac Peripheral Artery Disease s/p L Axillofemoral Bypass: -Continue home ASA 81mg and Atorvastatin 40mg. -Monitor for signs of loss of perfusion w/ duplex US Q4h. -Monitor for signs of embolism w/ neuro checks Q1h x4, Q4h. -Restart anticoagulation per vascular team. HTN: -Losartan/hydrochlorothiazide held due to BP in 90's-100's systolic. -Restart when post op blood pressures back to baseline. Respiratory -Patient is a smoker but no PFTs in chart or history of lung disease. On 2L Oxymask postoperatively. -Supplement O2 for O2 >92% and continue to wean off O2. GI -Heart Healthy Diet GERD: -Continue Famotidine 20mg QAM. Renal/Electrolytes -Baseline creat 0.7. AM BMP for kidney function and electrolytes. Urinary Incontinence: -Nayak in place. -Continue Mirabegron 25mg daily. Endo -History of pre-diabetes, POC glucose 102. Continue to monitor -No history of thyroid disease. Heme -Hemoglobin 12.0. -AM CBC. ID -Received pre-op Clindamycin and Gentamicin. -No concern for infection at this time. Lines/IV Access Right radial artery line, peripheral line, Nayak catheter. DVT Prophylaxis Restart at recommendation of vascular team. Dispo: ICU. Supervising Physician Co-Signing Physician Notes Patient seen and examined. EMR reviewed. Discussed with family practice resident and vascular surgery at bedside. I will continue to monitor the patient's neurovascular status. Pain management per vascular surgery. Blood pressure goals per vascular. Follow-up labs. Can likely remove arterial line in the next 12 to 24 hours depending on hemodynamic stability. May require CPAP at night. Outpatient sleep study may be appropriate. Additional recommendations per vascular surgery. History of Present Illness Reason for Consultation: s/p L axillofemoral bypass Requesting Physician: Rudy Travis MD Attending Physician: Flo Pepper MD History of Present Illness Meghan is a 55 year old female with PmHx HLD, PAD s/p aortobifemoral bypass 12/2018, HTN, GERD who was admitted to the hospital for acute onset left foot and ankle pain. She had a previous aortofemoral bypass surgery in [address] Travis. She states when she came out of the bypass procedure at that time she was intubated but did well. She went to [facility] ED on Monday for sudden onset sharp stabbing pain in her foot without any noticeable trauma. She had imaging with signs of occlusion of infrarenal abdominal aorta and common iliacs and chronic occlusion of left limb bypass graft. She was transferred to [facility] for further treatment and evaluation by Dr. Travis. She underwent axillofemoral bypass on the left on 07/27 without complication. At the time I saw her post op she said she had a little bit of achy pain at her left foot and ankle still as well as pain at her L shoulder at the site of incision. Biggest complaint at this time is wanting to move around. She denies any chest pain, shortness of breath, nausea, headache, changes in vision or hearing, fevers, chills. Allergies Allergy/AdvReac Type Severity Reaction Status Date / Time chlorhexidine Allergy Intermediate hives, Verified 07/23/21 07:38 redness Penicillins AdvReac Intermediate nausea, Verified 07/23/21 07:38 vomiting, migraine bupropion AdvReac Hallucinati Verified 07/23/21 07:38 ng Home Medications Medication Instructions Recorded Confirmed Type acetaminophen 500 mg tablet 1,000 mg PO DAILY PRN 12/17/18 07/25/21 History (Tylenol Extra Strength) aspirin 81 mg tablet,delayed 81 mg PO QAM 12/17/18 07/25/21 History release (Adult Low Dose Aspirin) hydrocortisone 2.5 % topical cream 1 applic OK DAILY PRN #30 g 07/16/20 07/25/21 Rx with perineal applicator cholecalciferol (vitamin D3) 50 100 mcg PO QAM #180 cap 09/14/20 07/25/21 Rx mcg (2,000 unit) capsule (Vitamin D3) atorvastatin 40 mg tablet 40 mg PO QPM #90 tab 01/25/21 07/25/21 Rx losartan 50 mg-hydrochlorothiazide See Rx Instructions .ROUTE 03/01/21 07/25/21 Rx 12.5 mg tablet .COMPLEX #90 tablet cyclobenzaprine 5 mg tablet 5 mg PO TID PRN #30 tab 04/20/21 07/25/21 Rx fluticasone propionate 50 1 spray INTNAS DAILY PRN #18.2 gm 04/20/21 07/25/21 Rx mcg/actuation nasal spray,suspension (Flonase Allergy Relief) citalopram 20 mg tablet 20 mg PO DAILY #90 tab 05/25/21 07/25/21 Rx oxycodone-acetaminophen 5 mg-325 1 - 2 tab PO Q8H PRN #30 tab 05/25/21 07/25/21 Rx mg tablet (Percocet) mirabegron 25 mg tablet,extended 25 mg PO DAILY #90 tab 06/08/21 07/25/21 Rx release 24 hr celecoxib 100 mg capsule (Celebrex) 100 mg PO BID #60 cap 06/22/21 07/25/21 Rx sodium sul 1.479 gram-potas ch See Rx Instructions .ROUTE 07/12/21 07/23/21 Rx 0.188 gram-magnes sul 0.225 gram .COMPLEX #24 tab tablet (Sutab) ropinirole 0.5 mg tablet 0.5 mg PO DAILY #90 tab 07/20/21 07/25/21 Rx omeprazole 40 mg capsule,delayed 40 mg PO QAM #90 cap 07/23/21 07/25/21 Rx release semaglutide (weight loss) 0.25 0.25 mg SUBCUT Q7D 07/23/21 07/25/21 History mg/0.5 mL subcutaneous pen injector Patient History Medical History Anxiety and depression Arthritis Degenerative disc disease Diffuse myofascial pain syndrome Elevated alkaline phosphatase level GERD (gastroesophageal reflux disease) Hyperlipidemia Hypertension Lumbar facet joint syndrome Migraine Obesity, morbid Peripheral arterial disease 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 Prediabetes Restless legs syndrome Surgical wound, non healing Urinary incontinence Surgical History History of bilateral tubal ligation History of cholecystectomy History of colonoscopy 07/26/18: MAC sedation at [facility] History of tonsillectomy History of tooth extraction History of total abdominal hysterectomy and bilateral salpingo-oophorectomy History of wisdom tooth extraction Hx of aortic aneurysm repair S/P aortobifemoral bypass surgery Status post myringotomy with tube placement of both ears multiple times Family History Father Family hx colonic polyps Mother Coronary heart disease Depression Kidney disease Hypertension Cardiac disorder Myocardial infarction Father Lymphoma Brother Depression Muscular dystrophy Clotting disorder Sister Depression Grandfather Myocardial infarction Denies family history of Ovarian cancer Prostate cancer Breast cancer Colorectal cancer Social History Smoking Status: Current every day smoker Tobacco Type: Cigarettes packs per day: 0.5; Cigarettes Per Day: 1/2 to 3/4 ppd; Second Hand Exposure: No; Do You Dip or Chew Tobacco: No; Tobacco Cessation Education Requested by Patient: No Hx Alcohol Use: No Hx Substance Use: No Preferred Language: Croatian Communication Ability: Effective Visual Impairment: No Limitations Hearing Ability: Normal Manifest Clerk Required: No Beliefs That Will Affect Care: None marital status: Current Living Situation: Spouse Current Living Situation Comment: Lives with and 1 adult child current occupational status: unemployed current occupation: homemaker How many Children do You have: 1 Other Information That Helps Us Care for You: No Feels Safe at Home: Yes Safety Concerns: Feels Safe At This Time caffeine: Yes during the past year weight has: increased > 10 lbs Dental Care, Regularly: No Physical Activity Frequency: Daily Seatbelt Use: always Sunscreen Use: No Assistive Devices: None Review of Systems Constitutional: as per Subjective / HPI Physical Exam Constitutional: WD/WN, vitals as above Eyes: PERRL, conjunctivae normal, anicteric sclerae Respiratory: normal respiratory effort, lungs clear to auscultation Cardiovascular: RRR, no murmur, no edema Pedal pulse at L foot and L popliteal pulse mildly palpable, difficult to elicit. R pedal pulse 1+. Gastrointestinal (Abdomen): normal bowel sounds, soft, nontender, no hepatosplenomegaly Skin: No serosanguineous drainage around femoral or axillary wound bandages. Psychiatric: A+Ox3, euthymic affect Genitourinary: Nayak in place. Results & Data Results & Data ([facility]) Vital Signs (Past 12 Hours) Vital Signs Temp Pulse Pulse Pulse Resp BP BP 07/27/21 14:07 36.9 C 78 78 18 108/55 L 07/27/21 13:40 78 14 112/59 L 07/27/21 13:30 74 17 114/56 L 07/27/21 13:20 73 15 116/60 07/27/21 13:10 79 19 136/65 07/27/21 13:08 75 20 07/27/21 13:00 79 19 137/65 07/27/21 12:52 36.3 C L 83 20 117/81 07/27/21 12:50 83 20 07/27/21 07:00 36.6 C 81 18 137/80 07/27/21 06:45 81 07/27/21 03:53 36.6 C 85 18 134/86 Pulse Ox 07/27/21 14:07 94 07/27/21 13:40 96 07/27/21 13:30 93 07/27/21 13:20 94 07/27/21 13:10 100 07/27/21 13:08 94 07/27/21 13:00 100 07/27/21 12:52 94 07/27/21 12:50 93 07/27/21 07:00 95 07/27/21 06:45 07/27/21 03:53 94 Resident Activity Tracking Resident Involvement: Resident Care Provided Care Provided: Adult Hospital Medicine
--- NOTE | 2021-07-27 15:41 | Hospitalist Progress Note ---
Date of Service July 27, 2021 Assessment & Plan (1) Peripheral arterial disease: Plan: 55-year-old female with history of hypertension, hyperlipidemia, peripheral arterial disease status post aortobifemoral bypass grafting performed by Dr. Travis with known chronic occlusion presenting with new onset left ankle and foot pain. Foot is mottled with absent pulses. Pain is presently well controlled. Lactate is negative. Going to the OR tomorrow N.p.o. from midnight Continue heparin drip Continue aspirin and atorvastatin Pain control with Tylenol and morphine 2 mg IV every 4 hours as needed Zofran as needed for nausea Colace/MiraLAX as needed Vascular surgery consultation appreciated Downgrade to [facility] floor (2) Depression: Plan: Chronic. Stable. Continue Celexa 20 mg p.o. daily (3) Restless legs syndrome: Plan: Chronic. Stable. Continue Requip 0.5 mg p.o. nightly (4) Hypertension: Plan: Blood pressure acceptable, presently 99/61 Will hold losartan/hydrochlorothiazide for now Continue to monitor (5) GERD (gastroesophageal reflux disease): Plan: Chronic. Stable. Patient on omeprazole at home Pepcid 20 mg p.o. daily here (6) Hyperlipidemia: Plan: Chronic. Stable. Continue atorvastatin Plan: F/E/Nmaintenance fluids LR at 125 mL/h x 2 L, electrolytes within normal limits, n.p.o. after midnight Prophylaxispatient will be on heparin drip as above Codefull per discussion with patient Dispoadmit to PCU Admission and Anticipated Discharge Date Admission Date: July 25, 2021 Subjective Peripheral vascular disease going to the OR tomorrow pain is fairly managed Review of Systems Review of Systems: General: No malaise no weakness Neck: No tenderness no pain HEENT: No eye discharge no ear discharge Chest: No chest pain, no palpitation GI: Not distended, no nausea no vomiting Extremities: No edema no tenderness Neurology: No headache no weakness Psychiatric: No depression no anxiety Physical Exam Physical Exam: General: patient resting comfortably, NAD, non-toxic in appearance, AA&O x 4 Skin: warm, dry, intact, no rashes or lesions HEENT: NC/AT, PERRL, EOMI, anicteric sclera, conjunctiva without injection, external ear normal to inspection and nontender, nares patent, moist mucus membranes, dentition intact, no oropharyngeal lesions, neck supple, trachea midline, no LAD, no thyromegaly, no JVD Heart: +S1/S2, regular, no m/r/g Lungs: equal air entry bilaterally, no rales/rhonchi/wheezes Abd: +BS, soft, NT/ND, no masses/organomegaly/ascites Ext: Right lower extremity warm with palpable pulses. Left lower extremity is warm, appears mottled on the dorsum of the foot as well as at the ankle and toes. Sensation and mobility are intact. No palpable or dopplerable pulses. Neuro: nonfocal, patient AA&O x 4, speech intact, no facial droop, moving all extremities on command with equal strength 5/5 Results & Data Results & Data ([facility]) Vital Signs (Past 12 Hours) Vital Signs Temp Pulse Pulse Pulse Resp BP BP 07/27/21 14:07 36.9 C 78 78 18 108/55 L 07/27/21 13:40 78 14 112/59 L 07/27/21 13:30 74 17 114/56 L 07/27/21 13:20 73 15 116/60 07/27/21 13:10 79 19 136/65 07/27/21 13:08 75 20 07/27/21 13:00 79 19 137/65 07/27/21 12:52 36.3 C L 83 20 117/81 07/27/21 12:50 83 20 07/27/21 07:00 36.6 C 81 18 137/80 07/27/21 06:45 81 07/27/21 03:53 36.6 C 85 18 134/86 Pulse Ox 07/27/21 14:07 94 07/27/21 13:40 96 07/27/21 13:30 93 07/27/21 13:20 94 07/27/21 13:10 100 07/27/21 13:08 94 07/27/21 13:00 100 07/27/21 12:52 94 07/27/21 12:50 93 07/27/21 07:00 95 07/27/21 06:45 07/27/21 03:53 94 PG Care Time/CCT Total # of Minutes Spent Total Time Spent with Patient: Total time spent is greater than 50% in coordination of care (as documented) at patient's floor/unit and/or counseling patient: Coding Diagnoses Peripheral arterial disease I73.9 Depression F32.9 Restless legs syndrome G25.81 Hypertension I10 GERD (gastroesophageal reflux disease) K21.9 Hyperlipidemia E78.5
[2021-07-27] MEDS: D5W AND 1/2NSS 1,000 ML IV SCH (16:00)
[2021-07-27] MEDS: CLINDAMYCIN 600 MG/54 ML BAG IV SCH ×2 (16:00→22:10)
[2021-07-27] MEDS: ASPIRIN 81 MG ECTAB PO SCH (16:01)
[2021-07-27] MEDS: MIRABEGRON ER 25 MG TAB PO SCH (16:01)
[2021-07-27] MEDS: FAMOTIDINE 20 MG TAB PO SCH (16:01)
[2021-07-27] MEDS: CITALOPRAM 20 MG TAB PO SCH (16:01)
--- NOTE | 2021-07-27 16:38 | Hospitalist Progress Note ---
Date of Service July 27, 2021 Assessment & Plan (1) Peripheral arterial disease: Plan: 55-year-old female with history of hypertension, hyperlipidemia, peripheral arterial disease status post aortobifemoral bypass grafting performed by Dr. Travis with known chronic occlusion presenting with new onset left ankle and foot pain. Foot is mottled with absent pulses. Pain is presently well controlled. Lactate is negative. Going to the OR today Continue heparin drip Continue aspirin and atorvastatin Pain control with Tylenol and morphine 2 mg IV every 4 hours as needed Zofran as needed for nausea (2) Depression: Plan: Chronic. Stable. Continue Celexa 20 mg p.o. daily (3) Restless legs syndrome: Plan: Chronic. Stable. Continue Requip 0.5 mg p.o. nightly (4) Hypertension: Plan: Blood pressure acceptable, presently 99/61 Will hold losartan/hydrochlorothiazide for now Continue to monitor (5) GERD (gastroesophageal reflux disease): Plan: Chronic. Stable. Patient on omeprazole at home Pepcid 20 mg p.o. daily here (6) Hyperlipidemia: Plan: Chronic. Stable. Continue atorvastatin Plan: F/E/Nmaintenance fluids LR at 125 mL/h x 2 L, electrolytes within normal limits, n.p.o. after midnight Prophylaxispatient will be on heparin drip as above Codefull per discussion with patient Dispoadmit to PCU Admission and Anticipated Discharge Date Admission Date: July 25, 2021 Subjective Patient is a 55 year old female with history of severe PAD with prior aortobifemoral bypass with subsequent occlusion of the left limb of the graft, with post-operative course complicated by left groin infection requiring serial debridements and wound vac therapy. A few days ago she developed acute onset left foot pain which occurs at rest. CT angiogram demonstrates occlusion of the tibioperoneal trunk, which may be acute thrombus. She presents for left axillary to superficial femoral artery bypass, left leg angiography with possible intervention, and possible jump graft to a tibial artery on the left. She is going to the OR today Physical Exam Physical Exam: General: Alert oriented x3, well-nourished Neck: No lymphadenopathy, supple Respiratory: Lungs are clear to auscultation no chest abnormality Cardiovascular: Regular rate and rhythm no murmur no gallop vegetation Abdomen: Soft bowel sounds active Extremities: No edema no tenderness Skin: No jaundice no rash Neurology: Alert oriented x3 no acute distress moves all extremities Psychiatry mood and affect appropriate Results & Data Results & Data ([facility]) Vital Signs (Past 12 Hours) Vital Signs Temp Pulse Pulse Pulse Resp BP BP 07/27/21 16:00 85 15 126/82 07/27/21 14:07 36.9 C 78 78 18 07/27/21 13:40 78 14 112/59 L 07/27/21 13:30 74 17 114/56 L 07/27/21 13:20 73 15 116/60 07/27/21 13:10 79 19 136/65 07/27/21 13:08 75 20 07/27/21 13:00 79 19 137/65 07/27/21 12:52 36.3 C L 83 20 117/81 07/27/21 12:50 83 20 07/27/21 07:00 36.6 C 81 18 137/80 07/27/21 06:45 81 BP Pulse Ox Pulse Ox 07/27/21 16:00 92 93 07/27/21 14:07 108/55 L 94 07/27/21 13:40 96 07/27/21 13:30 93 07/27/21 13:20 94 07/27/21 13:10 100 07/27/21 13:08 94 07/27/21 13:00 100 07/27/21 12:52 94 07/27/21 12:50 93 07/27/21 07:00 95 07/27/21 06:45 PG Care Time/CCT Total # of Minutes Spent Total Time Spent with Patient: Total time spent is greater than 50% in coordination of care (as documented) at patient's floor/unit and/or counseling patient: Coding Level of Care Code 11535 Subseq Hosp Care Lvl 2 Diagnoses Peripheral arterial disease I73.9 Depression F32.9 Restless legs syndrome G25.81 Hypertension I10 GERD (gastroesophageal reflux disease) K21.9 Hyperlipidemia E78.5
--- NOTE | 2021-07-27 16:40 | Billing Data ---
Date of Service July 27, 2021 Coding Level of Care Code 00988 Inpt Consult Level 3
[2021-07-27] MEDS: oxyCODONE/ACETAMINOPHEN 5mg/325mg TAB PO PRN (22:09)
[2021-07-27] MEDS: ATORVASTATIN 40 MG TAB PO SCH (22:09)
[2021-07-27] MEDS: rOPINIRole HCL 0.25 MG TABLET PO SCH (22:10)
[2021-07-28] MEDS: D5W AND 1/2NSS 1,000 ML IV SCH ×2 (01:04→07:55)
[2021-07-28] MEDS: MoRPHine SULFATE 4 MG/ML 1 ML CARP\\VIAL IV PRN ×4 (01:05→22:17)
[2021-07-28] MEDS: oxyCODONE/ACETAMINOPHEN 5mg/325mg TAB PO PRN ×4 (02:01→20:04)
[2021-07-28 06:46] LABS: BUN Creatinine Ratio 14.3 (10-20); Calcium 7.7 mg/dl (8.5-10.1); Creatinine Clr Calc Pharmacy 98.8 ml/min; Est GFR (African American) 91.3 ml/min; Est GFR (Non-African American) 78.8 ml/min; Potassium 3.9 mmol/L (3.5-5.1)
[2021-07-28] MEDS: FAMOTIDINE 20 MG TAB PO SCH (07:55)
[2021-07-28] MEDS: CITALOPRAM 20 MG TAB PO SCH (07:55)
[2021-07-28] MEDS: MIRABEGRON ER 25 MG TAB PO SCH (07:55)
[2021-07-28] MEDS: ASPIRIN 81 MG ECTAB PO SCH (07:55)
[2021-07-28 08:41] LABS: Basophils # (auto) 0.02 K/uL (0-0.2); Basophils % (auto) 0.2 %; Hematocrit (blood only) 33.9 % (37-47); Hemoglobin 11.1 g/dL (12.0-16.0); Immature Granulocytes # (auto) 0.05 K/uL (0.00-0.02); Immature Granulocytes % (auto) 0.4 %; Lymphocytes % (auto) 18.5 %; Mean Corpuscular Hemoglobin 29.1 pg (25-34); Mean Corpuscular Hgb Conc 32.7 g/dL (32-36); Mean Corpuscular Volume 88.7 fL (80-100); Monocytes # (auto) 1.78 K/uL (0.11-0.59); Monocytes % (auto) 14.4 %; Neutrophils # (auto) 8.25 K/uL (1.4-6.5); Neutrophils % (auto) 66.5 %; Platelet Count 228 K/uL (130-400); RDW Coefficient of Variation 15.7 % (11.5-14.5); RDW Standard Deviation 50.4 fL (36.4-46.3); Red Blood Count 3.82 M/uL (4.2-5.4)
--- NOTE | 2021-07-28 08:48 | Critical Care Progress Note ---
Date of Service July 28, 2021 Assessment & Plan (1) Peripheral arterial disease: (2) Hypertension: (3) GERD (gastroesophageal reflux disease): (4) Hyperlipidemia: (5) Urinary incontinence: Plan: Meghan is a 55 year old female w/ PmHx HLD, PAD s/p aortobifemoral bypass 2018 and axillofemoral bypass today by Dr. Travis, HTN, GERD admitted to ICU for post op monitoring in the setting of revascularization to the left lower extremity. Neuro Restless leg syndrome: -Continue home Ropinirole Cardiac Peripheral Artery Disease s/p L Axillofemoral Bypass: -Continue home ASA 81mg and Atorvastatin 40mg. -Monitor for signs of loss of perfusion w/ duplex US Q4h. -Monitor for signs of embolism w/ neuro checks Q4h. -Restart anticoagulation per vascular team. HTN: -BP mostly 110's-130's systolic. -Can consider restarting Losartan/Hydrochlorothiazide. Respiratory -Patient is a smoker but no PFTs in chart or history of lung disease. On 2L NC. -Supplement O2 for O2 >92% and continue to wean off O2. GI -Heart Healthy Diet GERD: -Continue Famotidine 20mg QAM. Renal/Electrolytes -Creatinine and electrolytes within normal limits. Urinary Incontinence: -Nayak in place. -Continue Mirabegron 25mg daily. Endo -History of pre-diabetes. Continue to monitor -No history of thyroid disease. Heme -Hemoglobin 11.1 this AM, stable. -AM CBC. ID -Received pre-op Clindamycin and Gentamicin. -No concern for infection at this time. Lines/IV Access peripheral line, Nayak catheter. DVT Prophylaxis Restart at recommendation of vascular team. Dispo: ICU. Can be downgraded at 24 hour post op magi if stable. Admission and Anticipated Discharge Date Admission Date: July 25, 2021 Supervising Physician Co-Signing Physician Notes Patient seen and examined. EMR reviewed. Discussed with family practice resident and on multidisciplinary rounds. The patient's been hemodynamically stable. She is neurovascularly unchanged from yesterday. Laboratory studies are appropriate. She is being transferred back to the floor under the care of the hospitalist. Critical care services will sign off. Feel free to contact us if we can be of additional assistance. Subjective Patient feeling better than yesterday post op. She said she had L foot pain last night but discussed this with Dr. Travis (reperfusion pain). She is still having some pain at the sites of operation but without much else bothering her. Denies headaches, shortness of breath, chest pain, fevers, chills. Review of Systems Constitutional: as per Subjective / HPI Physical Exam Constitutional: WD/WN, vitals as above Eyes: PERRL, conjunctivae normal, anicteric sclerae Respiratory: normal respiratory effort, lungs clear to auscultation Cardiovascular: RRR, no murmur, no edema Difficult to distinguish L pedal or popliteal pulses. R pedal pulse mildly palpable 1+. Gastrointestinal (Abdomen): normal bowel sounds, soft, nontender, no hepatosplenomegaly Skin: No serosanguineous drainage from incision site bandages. Psychiatric: A+Ox3, euthymic affect Results & Data Results & Data ([facility]) Vital Signs (Past 12 Hours) Vital Signs Temp Pulse Resp BP Pulse Ox Pulse Ox 07/28/21 06:00 101 H 20 120/73 98 07/28/21 05:00 114 H 18 145/73 H 98 07/28/21 04:00 37.1 C 108 H 15 150/74 H 97 07/28/21 03:00 96 H 13 121/73 95 07/28/21 02:00 100 H 16 123/87 97 07/28/21 01:00 98 H 16 113/79 98 07/28/21 00:30 104 H 17 116/78 97 07/28/21 00:00 94 H 14 136/73 97 07/27/21 23:59 98 07/27/21 23:30 95 H 17 127/83 96 07/27/21 23:00 37.3 C 103 H 17 123/94 98 07/27/21 22:30 96 H 16 102/83 07/27/21 22:00 96 H 14 111/75 97 07/27/21 21:30 95 H 14 131/84 96 07/27/21 21:00 99 H 15 113/95 96 Resident Activity Tracking Resident Involvement: Resident Care Provided Care Provided: Adult [facility]
--- NOTE | 2021-07-28 09:19 | Surgery Progress Note ---
Date of Service July 28, 2021 Assessment & Plan (1) S/P vascular bypass: Plan: Pt overall doing well post op. Pt likely suffered from reperfusion pain overnight, this is improved. Excellent doppler pulses distally. Due to length of prosthetic bypass, recommend pt take lifelong AC. Will start coumadin today. Pt also seen by Dr Travis today. Transfer to floor, increase activity today. (2) Peripheral arterial disease: Plan: See above Admission and Anticipated Discharge Date Admission Date: July 25, 2021 Subjective 55 yo f POD #1 after L axillary-femoral bypass and thrombectomy of L pop/TP trunk, seen in f/u today. Pt admits fatigue, and pain in incisions. States she had severe pain in L foot overnight, but this is better this AM. Denies chest pain, SOB, abd pain, N/V, other complaints. Review of Systems Review of Systems: All systems reviewed & are unremarkable except as noted in HPI & below Physical Exam Constitutional: WD/WN, vitals as above + morbidly obese, cooperative and comfortable; not in distress Respiratory: normal respiratory effort, lungs clear to auscultation Auscultation: + diminished lung sounds Cardiovascular: Rate/Rhythm: regular rate and regular rhythm Vessels: posterior tibial pulses present (dopplerable), dorsalis pedis pulses present (dopplerable) and radial pulses present; + abnormal peripheral pulses Extremities: normal capillary refill; no edema Gastrointestinal (Abdomen): Inspection/Auscultation: abdomen normal to inspection and normal bowel sounds Percussion/Palpation: abdomen soft; abdomen nontender Musculoskeletal: no cyanosis or clubbing, extremities motor strength 5/5 Skin: + rash (scaly/purple/erythematous rash to BL feet) and + incision (L chest, lateral side, L thigh incisions intact with raul) incisions + tenderness/local edema/ecchymosis Neurologic: moves all extremities and awake; no focal motor deficits and not confused Psychiatric: A+Ox3, euthymic affect Results & Data ([facility]) Vital Signs (Past 12 Hours) Vital Signs Temp Pulse Pulse Resp BP BP Pulse Ox 07/28/21 08:00 101 H 07/28/21 07:00 37.2 C 89 20 126/103 H 96 07/28/21 06:00 101 H 20 120/73 98 07/28/21 05:00 114 H 18 145/73 H 98 07/28/21 04:00 37.1 C 108 H 15 150/74 H 97 07/28/21 03:00 96 H 13 121/73 95 07/28/21 02:00 100 H 16 123/87 97 07/28/21 01:00 98 H 16 113/79 98 07/28/21 00:30 104 H 17 116/78 97 07/28/21 00:00 94 H 14 136/73 97 07/27/21 23:59 07/27/21 23:30 95 H 17 127/83 96 07/27/21 23:00 37.3 C 103 H 17 123/94 98 07/27/21 22:30 96 H 16 102/83 07/27/21 22:00 96 H 14 111/75 97 07/27/21 21:30 95 H 14 131/84 96 Pulse Ox 07/28/21 08:00 96 07/28/21 07:00 07/28/21 06:00 07/28/21 05:00 07/28/21 04:00 07/28/21 03:00 07/28/21 02:00 07/28/21 01:00 07/28/21 00:30 07/28/21 00:00 07/27/21 23:59 98 07/27/21 23:30 07/27/21 23:00 07/27/21 22:30 07/27/21 22:00 07/27/21 21:30
--- NOTE | 2021-07-28 09:44 | Billing Data ---
Date of Service July 28, 2021 Coding Level of Care Code 20362 Subseq Hosp Care Lvl 2
[2021-07-28] MEDS ORDERED: ACETAMINOPHEN 500 MG TAB PO PRN (13:42)
[2021-07-28] MEDS ORDERED: CYCLOBENZAPRINE HCL 5 MG TAB PO PRN (13:42)
[2021-07-28] MEDS: PANTOprazole 40 MG TAB PO SCH ×3 (14:42→14:48)
[2021-07-28] MEDS: WARFARIN SOD 5 MG TAB PO SCH (16:58)
--- NOTE | 2021-07-28 17:31 | Hospitalist Progress Note ---
Date of Service July 28, 2021 Assessment & Plan (1) Peripheral arterial disease: Plan: 55-year-old female with history of hypertension, hyperlipidemia, peripheral arterial disease status post aortobifemoral bypass grafting performed by Dr. Travis with known chronic occlusion presenting with new onset left ankle and foot pain. Foot is mottled with absent pulses. Postop day 1 L axillary-femoral bypass and thrombectomy of L pop/TP trunk -Surgical wound seems clear complaining of pain Continue heparin drip Continue aspirin and atorvastatin Pain control with Tylenol and morphine 2 mg IV every 4 hours as needed Zofran as needed for nausea (2) Depression: Plan: Chronic. Stable. Continue Celexa 20 mg p.o. daily (3) Restless legs syndrome: Plan: Chronic. Stable. Continue Requip 0.5 mg p.o. nightly (4) Hypertension: Plan: -Currently hold BP meds and the blood pressure is acceptable Continue to monitor (5) GERD (gastroesophageal reflux disease): Plan: Chronic. Stable. Patient on omeprazole at home Pepcid 20 mg p.o. daily here (6) Hyperlipidemia: Plan: Chronic. Stable. Continue atorvastatin Plan: roxana to PCU Admission and Anticipated Discharge Date Admission Date: July 25, 2021 Subjective 55 yo f POD #1 after L axillary-femoral bypass and thrombectomy of L pop/TP trunk, Pt admits f pain in incisions. The surgical wound seems intact Review of Systems Review of Systems: General: No malaise no weakness Neck: No tenderness no pain HEENT: No eye discharge no ear discharge Chest: No chest pain, no palpitation GI: Not distended, no nausea no vomiting Extremities: No edema no tenderness Neurology: No headache no weakness Psychiatric: No depression no anxiety Constitutional: as per Subjective / HPI Physical Exam Physical Exam: General: Alert oriented x3, well-nourished Neck: No lymphadenopathy, supple Respiratory: Lungs are clear to auscultation no chest abnormality Cardiovascular: Regular rate and rhythm no murmur no gallop vegetation Abdomen: Soft bowel sounds active Extremities: No edema no tenderness Skin: No jaundice no rash Neurology: Alert oriented x3 no acute distress moves all extremities Psychiatry mood and affect appropriate Results & Data Results & Data ([facility]) Vital Signs (Past 12 Hours) Vital Signs Temp Pulse Pulse Resp BP BP BP 07/28/21 13:22 37.2 C 105 H 18 120/60 04/27/22 09:00 105 H 17 112/81 07/28/21 08:00 108 H 21 07/28/21 07:00 37.2 C 102 H 89 13 126/103 H 07/28/21 06:00 101 H 20 120/73 Pulse Ox Pulse Ox 07/28/21 13:22 97 07/28/21 09:00 94 07/28/21 08:00 92 96 07/28/21 07:00 97 07/28/21 06:00 98 PG Care Time/CCT Total # of Minutes Spent Total Time Spent with Patient: Total time spent is greater than 50% in coordination of care (as documented) at patient's floor/unit and/or counseling patient: Coding Level of Care Code 67896 Subseq Hosp Care Lvl 2 Diagnoses Peripheral arterial disease I73.9 Depression F32.9 Restless legs syndrome G25.81 Hypertension I10 GERD (gastroesophageal reflux disease) K21.9 Hyperlipidemia E78.5
[2021-07-28] MEDS: rOPINIRole HCL 0.25 MG TABLET PO SCH (20:05)
[2021-07-28] MEDS: ATORVASTATIN 40 MG TAB PO SCH (20:05)
[2021-07-29] MEDS ORDERED: CALCIUM CARBONATE 500 MG CHEWABLE TAB PO PRN ×2 (00:11→00:21)
[2021-07-29] MEDS: oxyCODONE/ACETAMINOPHEN 5mg/325mg TAB PO PRN ×4 (05:26→21:06)
[2021-07-29 06:26] LABS: Basophils # (auto) 0.02 K/uL (0-0.2); Basophils % (auto) 0.2 %; Eosinophils # (auto) 0.08 K/uL (0-0.5); Eosinophils % (auto) 0.6 %; Hematocrit (blood only) 29.8 % (37-47); Hemoglobin 10.1 g/dL (12.0-16.0); Immature Granulocytes # (auto) 0.07 K/uL (0.00-0.02); Immature Granulocytes % (auto) 0.6 %; Lymphocytes # (auto) 2.58 K/uL (1.2-3.4); Lymphocytes % (auto) 20.9 %; Mean Corpuscular Hemoglobin 29.7 pg (25-34); Mean Corpuscular Hgb Conc 33.9 g/dL (32-36); Mean Corpuscular Volume 87.6 fL (80-100); Mean Platelet Volume 8.5 fL (7.4-10.4); Monocytes # (auto) 1.52 K/uL (0.11-0.59); Monocytes % (auto) 12.3 %; Neutrophils # (auto) 8.08 K/uL (1.4-6.5); Neutrophils % (auto) 65.4 %; Platelet Count 178 K/uL (130-400); RDW Coefficient of Variation 15.7 % (11.5-14.5); RDW Standard Deviation 49.9 fL (36.4-46.3); White Blood Count 12.35 K/uL (4.8-10.8)
[2021-07-29 06:42] LABS: INR 1.2 (0.9-1.1); Prothrombin Time 12.3 Seconds (9.0-12.0)
[2021-07-29 06:57] LABS: Creatinine Clr Calc Pharmacy 118.6 ml/min; Est GFR (African American) 113.8 ml/min; Est GFR (Non-African American) 98.2 ml/min; Potassium 4.2 mmol/L (3.5-5.1)
[2021-07-29] MEDS: MoRPHine SULFATE 4 MG/ML 1 ML CARP\\VIAL IV PRN ×2 (08:41→23:20)
[2021-07-29] MEDS: ASPIRIN 81 MG ECTAB PO SCH (08:50)
[2021-07-29] MEDS: PANTOprazole 40 MG TAB PO SCH ×2 (08:50)
[2021-07-29] MEDS: CITALOPRAM 20 MG TAB PO SCH (08:50)
[2021-07-29] MEDS: CHOLECALCIFEROL 1,000 UNITS 25 MCG TAB PO SCH (08:50)
[2021-07-29] MEDS: MIRABEGRON ER 25 MG TAB PO SCH (08:50)
[2021-07-29] MEDS ORDERED: LOSARTAN/HCTZ 50/12.5MG TAB PO SCH (09:00)
--- NOTE | 2021-07-29 11:16 | Hospitalist Progress Note ---
Date of Service July 29, 2021 Assessment & Plan (1) Peripheral arterial disease: Plan: 55-year-old female with history of hypertension, hyperlipidemia, peripheral arterial disease status post aortobifemoral bypass grafting performed by Dr. Travis with known chronic occlusion presenting with new onset left ankle and foot pain. Foot is mottled with absent pulses. Postop day 2 L axillary-femoral bypass and thrombectomy of L pop/TP trunk Continue aspirin and atorvastatin Started on warfarin per vascular surgery, INR 1.2 (will repeat daily); heparin discontinued on 07/27 (2) Depression: Plan: Chronic. Stable. Continue Celexa 20 mg p.o. daily (3) Restless legs syndrome: Plan: Chronic. Stable. Continue Requip 0.5 mg p.o. nightly (4) Hypertension: Plan: -Patient restarted on HCTZ/losartan by vascular this morning however given current BP would recommend continuing to hold this. (5) GERD (gastroesophageal reflux disease): Plan: Chronic. Stable. Patient on omeprazole at home siwtched to pantoprazole 40mg PO daily per hospital formulary (6) Hyperlipidemia: Plan: Chronic. Stable. Continue atorvastatin Plan: VTE prophylaxis - warfarin, repeat INR daily, management per vascular surgery Diet - heart healthy Disposition - continued admission med/surg, discharge per vascular surgery recommendations Admission and Anticipated Discharge Date Admission Date: July 25, 2021 Subjective No concerns or questions from patient. Started on warfarin yesterday. Not yet seen by vascular surgery today. Review of Systems Review of Systems: All systems reviewed & are unremarkable except as noted in Subjective Physical Exam Constitutional: WD/WN, vitals as above Neck: trachea midline, no thyromegaly Respiratory: normal respiratory effort, lungs clear to auscultation Cardiovascular: Rate/Rhythm: regular rhythm and + tachycardic Heart Sounds: no murmur Vessels: dorsalis pedis pulses present (left and right) Extremities: normal capillary refill and + pedal edema (trace ankles b/l); no calf tenderness right foot warm and well perfused Gastrointestinal (Abdomen): Inspection/Auscultation: normal bowel sounds Percussion/Palpation: abdomen soft; abdomen nontender, no guarding and abdomen not rigid Neurologic: moves all extremities and awake; not confused Psychiatric: A+Ox3, euthymic affect Results & Data Results & Data ([facility]) Vital Signs (Past 12 Hours) Vital Signs Temp Pulse Resp BP BP Pulse Ox 07/29/21 08:06 36.9 C 115 H 18 94/58 L 94 07/28/21 23:17 36.8 C 101 H 18 106/64 93 PG Care Time/CCT Total # of Minutes Spent Total Time Spent with Patient: Total time spent is greater than 50% in coordination of care (as documented) at patient's floor/unit and/or counseling patient: Coding Level of Care Code 24172 Subseq Hosp Care Lvl 1 Diagnoses Peripheral arterial disease I73.9 Depression F32.9 Restless legs syndrome G25.81 Hypertension I10 GERD (gastroesophageal reflux disease) K21.9 Hyperlipidemia E78.5
--- NOTE | 2021-07-29 15:17 | Surgery Progress Note ---
Date of Service July 29, 2021 Assessment & Plan (1) S/P vascular bypass: Plan: Pt overall doing well post op. Excellent doppler pulses distally. Due to length of prosthetic bypass, recommend pt take lifelong AC. Will need referral to AC clinic. (2) Peripheral arterial disease: Plan: See above Admission and Anticipated Discharge Date Admission Date: July 25, 2021 Subjective 55 yo f POD #2 after L sided ax-fem BPG, seen in f/u today. Pt states feeling well, wants to go home. No new c/o. Review of Systems Review of Systems: All systems reviewed & are unremarkable except as noted in HPI & below Physical Exam Constitutional: WD/WN, vitals as above + morbidly obese, cooperative and comfortable; not in distress ENMT: Ears: no hearing impairment Neck: trachea midline Respiratory: normal respiratory effort, lungs clear to auscultation Auscultation: + diminished lung sounds Cardiovascular: Rate/Rhythm: regular rate and regular rhythm Vessels: posterior tibial pulses present (dopplerable), dorsalis pedis pulses present (dopplerable) and radial pulses present; + abnormal peripheral pulses Extremities: normal capillary refill; no edema Gastrointestinal (Abdomen): Inspection/Auscultation: abdomen normal to inspection and normal bowel sounds Percussion/Palpation: abdomen soft; abdomen nontender Musculoskeletal: no cyanosis or clubbing, extremities motor strength 5/5 Skin: + rash (scaly/purple/erythematous rash to BL feet) and + incision (L chest, lateral side, L thigh incisions intact with raul) Neurologic: moves all extremities and awake; no focal motor deficits and not confused Psychiatric: A+Ox3, euthymic affect Results & Data ([facility]) Vital Signs (Past 12 Hours) Vital Signs Temp Pulse Resp BP BP Pulse Ox 07/29/21 15:09 36.7 C 107 H 16 98/66 L 95 07/29/21 08:06 36.9 C 115 H 18 94/58 L 94
[2021-07-29] MEDS: WARFARIN SOD 5 MG TAB PO SCH (16:15)
[2021-07-29] MEDS ORDERED: POLYETHYLENE (MIRALAX) 17 GM PACK PO SCH (21:00)
[2021-07-29] MEDS: ATORVASTATIN 40 MG TAB PO SCH (21:05)
[2021-07-29] MEDS: rOPINIRole HCL 0.25 MG TABLET PO SCH (21:05)
--- NOTE | 2021-07-29 23:32 | Electrocardiogram Report ---
Test Reason : Blood Pressure : / mmHG Vent. Rate : 101 BPM Atrial Rate : 101 BPM P-R Int : 168 ms QRS Dur : 092 ms QT Int : 348 ms P-R-T Axes : 055 052 033 degrees QTc Int : 451 ms Sinus tachycardia Low voltage QRS Borderline ECG When compared with ECG of 27-JUL-2021 07:42, No significant change was found Confirmed by Sam Villa ([id number]) on 07/29/2021 11:32:15 PM Referred By: Georgina Hall Confirmed By:Sam Villa
[2021-07-30 06:25] LABS: INR 1.1 (0.9-1.1); Prothrombin Time 11.9 Seconds (9.0-12.0)
[2021-07-30 06:29] LABS: BUN Creatinine Ratio 20.4 (10-20); Calcium 8.3 mg/dl (8.5-10.1); Creatinine Clr Calc Pharmacy 169.4 ml/min; Est GFR (Non-African American) 110.5 ml/min; Potassium 3.7 mmol/L (3.5-5.1)
[2021-07-30] MEDS: oxyCODONE/ACETAMINOPHEN 5mg/325mg TAB PO PRN ×2 (06:48→14:34)
[2021-07-30 06:49] LABS: Hematocrit (blood only) 30.5 % (37-47); Hemoglobin 9.8 g/dL (12.0-16.0)
[2021-07-30] MEDS: CITALOPRAM 20 MG TAB PO SCH (08:59)
[2021-07-30] MEDS: MIRABEGRON ER 25 MG TAB PO SCH (08:59)
[2021-07-30] MEDS: CHOLECALCIFEROL 1,000 UNITS 25 MCG TAB PO SCH (08:59)
[2021-07-30] MEDS: PANTOprazole 40 MG TAB PO SCH (08:59)
[2021-07-30] MEDS: ASPIRIN 81 MG ECTAB PO SCH (09:00)
--- NOTE | 2021-07-30 09:53 | Surgery Progress Note ---
Date of Service July 30, 2021 Assessment & Plan (1) S/P vascular bypass: Plan: Pt overall doing well post op. Excellent doppler pulses distally. Due to length of prosthetic bypass, recommend pt take lifelong AC. Will need referral to AC clinic. INR only 1.1 today. Discussed with carrillo Alvarado for d/c home today with increased doses of coumadin today and tomorrow at 7.5mg, then back to 5mg. INR to be rechecked on MONDAY. Orders placed in d/c for this. Hgb is 9.8, appears essentially stable from yesterday. This is expected post op anemia and pt is asymptomatic. Will send rx for iron tab, colace, percocet, and coumadin to pharmacy. Will see pt in office in 2 weeks for staple removal. Please call if needed. (2) Peripheral arterial disease: Plan: See above Admission and Anticipated Discharge Date Admission Date: July 25, 2021 Subjective 55 yo f POD #3 after L sided ax-fem BPG, seen in f/u today. Pt states feeling well, wants to go home. No new c/o. Review of Systems Review of Systems: All systems reviewed & are unremarkable except as noted in HPI & below Physical Exam Constitutional: WD/WN, vitals as above + morbidly obese, cooperative and comfortable; not in distress Cardiovascular: Rate/Rhythm: regular rate and regular rhythm Vessels: posterior tibial pulses present (dopplerable), dorsalis pedis pulses present (dopplerable) and radial pulses present; + abnormal peripheral pulses Ex tremities: normal capillary refill; no edema Skin: + rash (scaly/purple/erythematous rash to BL feet) and + incision (L chest, lateral side, L thigh incisions intact with raul) Neurologic: moves all extremities and awake; no focal motor deficits and not confused Psychiatric: A+Ox3, euthymic affect Results & Data ([facility]) Vital Signs (Past 12 Hours) Vital Signs Temp Pulse Resp BP Pulse Ox Pulse Ox 07/30/21 07:37 36.9 C 104 H 18 102/64 97 07/30/21 03:13 97 07/30/21 01:29 19 98 07/29/21 22:52 37.2 C 106 H 20 96/60 L 92
--- NOTE | 2021-07-30 13:41 | Discharge Summary ---
Date of Service July 30, 2021 Admission HPI Per Admitting Provider Meghan Russell is a pleasant 51-year-old female with history of hypertension, hyperlipidemia, GERD, peripheral arterial disease. She has history of aortobifemoral bypass performed by Dr. Travis on 12/26/2018. Subsequent nonhealing wound in the left groin status postdebridement and wound VAC placement. She follows with Dr. Travis. Patient presented to an outside facility this morning with acute onset of pain in her left foot and ankle. She denies trauma of the foot or ankle. The pain was severe and throbbing. She took 2 tabs of oxycodone, and this morning with minimal relief. She presented to [facility] with these complaints. At that facility they were unable to detect a pulse in her left foot. 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 She was managed with IV fentanyl and started on a heparin drip. Dr. Travis was contacted and told the ER provider that he would be able to see the patient tomorrow at [facility]. During my encounter patient with no acute complaints. She reports intermittent nausea as well as constipation. Pain at the left ankle and foot is presently well controlled. No additional complaints at this time Principal Diagnosis Left lower extremity thrombus Discharge Exam Constitutional WD/WN, vitals as above Neck trachea midline, no thyromegaly Respiratory normal respiratory effort, lungs clear to auscultation Cardiovascular Rate/Rhythm: regular rhythm and + tachycardic Heart Sounds: no murmur Vessels: dorsalis pedis pulses present (left and right) Extremities: normal capillary refill and + pedal edema (trace ankles b/l); no calf tenderness Gastrointestinal (Abdomen) Inspection/Auscultation: normal bowel sounds Percussion/Palpation: abdomen soft; abdomen nontender, no guarding and abdomen not rigid Neurologic moves all extremities and awake; not confused Psychiatric A+Ox3, euthymic affect Discharge Data Allergies Allergy/AdvReac Type Severity Reaction Status Date / Time chlorhexidine Allergy Intermediate hives, Verified 07/23/21 07:38 redness Penicillins AdvReac Intermediate nausea, Verified 07/23/21 07:38 vomiting, migraine bupropion AdvReac Hallucinati Verified 07/23/21 07:38 ng Consultations 07/25/21 21:46 Consult Vascular Surgery Routine 07/27/21 14:07 Consult Human Resources Benefits Coordinator Routine Procedures Performed Operation Date: 07/27/21 07:30 Actual Procedures p Left Axillary Femoral Bypass Graft(Left) - Rudy Travis MD Ordered Studies 07/26/21 09:27 US arterial duplex LE LT Routine IMPRESSION: 1. There is marked atherosclerotic calcification present throughout the left lower extremity with occlusion of the left popliteal artery as suspected. Markedly decreased flow velocities are seen within the calf. US venous mapping LE LT Routine Impression: Saphenous venous system is patent with measurements as above. 07/27/21 07:09 EV angio LE LT Routine Hospital Course (1) Peripheral arterial disease: Regina Russell is a 55-year-old female admitted to [facility] from July 25-2021 from outside hospital due to left foot and ankle pain. She was diagnosed with left extremity ischemia and underwent left axillary femoral bypass graft, thrombectomy of left popliteal and tibioperoneal trunk performed by Dr. Travis on July 27, 2021. Postoperatively she has been doing well. Hemoglobin has been stable. She was started on warfarin per vascular surgery with INR 1.1 on discharge. She will have repeat INR on Monday as organized by vascular surgery with ongoing warfarin management to be taken over by the anticoagulation clinic on Monday. She was recommended to stop her Celebrex while on warfarin due to increased risk of bleeding. Due to ongoing low blood pressures recommend holding her losartan hydrochlorothiazide medication which may be restarted by her primary care physician if her blood pressure improves. (2) Depression: (3) Restless legs syndrome: (4) Hypertension: (5) GERD (gastroesophageal reflux disease): (6) Hyperlipidemia: Total Time Total Time Spent Total Time Spent (In Minutes): 35 Discharge Plan Discharge Items Patient Disposition: Home - Home Health Services Reason For Visit: LOWER EXTREMITY ISCHEMIA Discharge Diagnosis: Left lower extremity thrombus Activity: Resume your previous activity Non-emergency contact: Surgeon Call non-emergency contact if: you have any medication questions and your symptoms worsen Follow-up/Referrals: Courtney Lynch DO [Primary Care Provider] - 08/02/21 9:20 am Rudy Travis MD [Physician] - (to be arranged, office will call patient with hospital f/u visit.) Diet: Heart Healthy Ambulatory Orders: Prothrombin Time INR (Routine) Timeframe: 3 Days Location: Determined by Patient Ordered By: Racheal Valdez Attending Provider Instructions: You were admitted to [facility] from July 25 - 2021 due to acute pain in your left foot and ankle. You were diagnosed with left extremity ischemia and left axillary femoral bypass graft and thrombectomy of left popliteal and tibioperoneal trunk performed by Dr Travis on July 27, 2021. Post operative course was unremarkable. You have been started on warfarin post operatively and as discussed with Dr Travis, please take 7.5mg today and tomorrow, 5mg on Monday and repeat INR check for further dosing on Monday. Recommended stopping your Celebrex while on warfarin due to increased risk of bleeding. Due to low blood pressure post operatively recommend continuing to hold your losartan/HCTZ blood pressure medication and following up with your primary care provider as an outpatient to see if these needs to be restarted. Pending Studies at Discharge: No Stand-Alone Forms: My [facility], Smoking Cessation Medications and DC Order Prescriptions: New ferrous sulfate [Iron (ferrous sulfate)] 325 mg (65 mg iron) tablet 325 mg PO BID Qty: 60 RF: 2 warfarin 5 mg tablet See Rx Instructions .ROUTE .COMPLEX Qty: 60 RF: 0 docusate sodium [Colace] 100 mg capsule 100 mg PO BID Qty: 60 RF: 0 oxycodone-acetaminophen [Percocet] 5-325 mg tablet 1 - 2 tab PO Q4H Qty: 60 RF: 0 Continued cholecalciferol (vitamin D3) [Vitamin D3] 50 mcg (2,000 unit) capsule 100 mcg PO QAM Qty: 180 RF: 1 atorvastatin 40 mg tablet 40 mg PO QPM Qty: 90 RF: 1 citalopram 20 mg tablet 20 mg PO DAILY Qty: 90 RF: 1 Sutab 1.479-0.188- 0.225 gram tablet See Rx Instructions .Route .COMPLEX Qty: 24 RF: 0 ropinirole 0.5 mg tablet 0.5 mg PO DAILY Qty: 90 RF: 1 omeprazole 40 mg capsule,delayed release(DR/EC) 40 mg PO QAM Qty: 90 RF: 1 fluticasone propionate [Flonase Allergy Relief] 50 mcg/actuation spray,susp ension 1 spray INTNAS DAILY PRN (Reason: allergy symptoms) Qty: 18.2 RF: 2 cyclobenzaprine 5 mg tablet 5 mg PO TID PRN (Reason: muscle spasm) Qty: 30 RF: 0 hydrocortisone 2.5 % cream with perineal applicator 1 applic HI DAILY PRN (Reason: hemorrhoids) Qty: 30 RF: 1 mirabegron 25 mg tablet extended release 24 hr 25 mg PO DAILY Qty: 90 RF: 3 aspirin [Adult Low Dose Aspirin] 81 mg tablet,delayed release (DR/EC) 81 mg PO QAM RF: 0 acetaminophen [Tylenol Extra Strength] 500 mg tablet 1,000 mg PO DAILY PRN (Reason: PAIN OR FEVER) RF: 0 Discontinued losartan-hydrochlorothiazide 50-12.5 mg tablet See Rx Instructions .ROUTE .COMPLEX Qty: 90 RF: 1 oxycodone-acetaminophen [Percocet] 5-325 mg tablet 1 - 2 tab PO Q8H PRN (Reason: pain) Qty: 30 RF: 0 celecoxib [Celebrex] 100 mg capsule 100 mg PO BID Qty: 60 RF: 5 Discharge Orders: Discharge Order (Routine); Ordered 07/30/21 Ordered By: Brennen Spencer Admission Data Admit Date/Time: 07/25/21 21:46 Attending Provider: Brennen Spencer Admit Provider: Georgina Hall Primary Care Provider: Courtney Lynch Other Providers: Georgina Hall ; Rudy Travis ; Hakan Finn ; Ronaldo Soto ; Wilfred Winchester ; Juan Diego Raman ; Josh Ruth ; Elías Enriquez ; Ernesto Acevedo ; Mehdi Maciel Other Interventions: Discharge Summary Assessment (RN) Last Done: 07/30/21 14:25 Coding Level of Care Code D/C DAY MANAGEMENT >30 MINS Diagnoses Peripheral arterial disease I73.9 Depression F32.9 Restless legs syndrome G25.81 Hypertension I10 GERD (gastroesophageal reflux disease) K21.9 Hyperlipidemia E78.5
== END 2021-07-30 14:53 | disposition home health service (06) | DRG 253 ==
LOC: 2E → SUATTDRO 21:46 → 1E 07-27 12:35 → 3N 07-28 13:21